=== PATIENT | male | born 1950 | race Caucasian/White ===

== ENCOUNTER 2017-07-05 21:22 | Emergency (ER) | payer MEDICARE ==
[2017-07-05] MEDS ORDERED: Acetaminophen TAB* 325 MG PO ONE (21:30)
[2017-07-06 00:30] VITALS: BP 136/81
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
--- NOTE | 2017-07-06 07:40 | RAD ---
INDICATION: Intracranial injury. Anticoagulated. COMPARISON: None TECHNIQUE: Noncontrast axial source images were acquired from the skull base to the vertex. FINDINGS: Ventricles/sulci: There is cortical atrophy with compensatory dilatation of the CSF spaces. Brain parenchyma: There is no acute focal parenchymal finding, evidence of intracranial mass, or intracranial mass effect. Intracranial hemorrhage:None. Extra-axial spaces: There are no abnormal extra axial fluid collections or evidence of extra-axial mass. Calvarium: There is no calvarial fracture or other calvarial abnormality. Scalp: There is no evidence of scalp or extracalvarial soft tissue abnormality. Paranasal sinuses/mastoid: The paranasal sinuses and mastoid air cells are clear. Other: There is a subcutaneous lesion in the right occipital region which is low in density and measures 3.3 cm in maximum transverse dimension. This likely a benign entity, perhaps a sebaceous cyst. This requires clinical evaluation and management,.. IMPRESSION: Cortical atrophy. No acute intracranial findings. Low suspicion, subcutaneous cystic lesion as described.
--- NOTE | 2017-07-06 07:47 | RAD ---
INDICATION: Fall. Possible neck injury COMPARISON: CT brain same date TECHNIQUE: Noncontrast axial source images was performed from the skull base to the thoracic inlet. Coronal and and sagittal reformatted images were generated. FINDINGS: Vertebrae: There is no fracture or acute focal bony lesion. There is moderate multilevel degenerative change with marginal osteophyte formation, uncinate process spurring, posterior spondylitic ridge formation, and facet arthropathy. Alignment: The craniocervical junction appears normal. The cervical vertebrae are normally aligned. Central Canal: The degenerative changes above result in moderate central canal stenosis at C6-C7 secondary to posterior osteophyte/disc complex formation. Posterior process spurring leads to moderate to severe multilevel foraminal narrowing throughout. MR imaging is a more sensitive method to evaluate the canal and foramina. Intervertebral disc spaces: The disc spaces are maintained. Brain: The visualized brain appears unremarkable. Soft tissues: The visualized soft tissue elements of the neck are remarkable for a low suspicion septated cyst in the right occipital region as described in the CT of the brain. The prevertebral soft tissues appear normal. The lung apices are clear. IMPRESSION: ADVANCED MULTILEVEL OSTEOARTHRITIC CHANGE. NO ACUTE FINDINGS
--- NOTE | 2017-07-06 07:51 | RAD ---
INDICATION: Right elbow injury COMPARISON: None TECHNIQUE: AP and lateral views were obtained. FINDINGS: There is no acute fracture. There is mild degenerative change with spurring of the proximal ulna and minor spurring about the radial head. The elbow articulates normally. There is no fat-pad displacement. IMPRESSION: MINOR OSTEOARTHRITIS. NO ACUTE FINDINGS.
== END 2017-07-05 23:30 ==
LOC: ED 21:22
DX: S09.90XA Unspecified injury of head, initial encounter (principal); S50.312A Abrasion of left elbow, initial encounter; Y04.0XXA Assault by unarmed brawl or fight, initial encounter; Y92.9 Unspecified place or not applicable; G31.9 Degenerative disease of nervous system, unspecified; M48.02 Spinal stenosis, cervical region; M47.812 Spondylosis without myelopathy or radiculopathy, cervical region; M19.022 Primary osteoarthritis, left elbow
CPT/HCPCS: 70450; 72125; 99283; A9270-GY

== ENCOUNTER 2017-10-13 15:45 | Inpatient (IN) | payer MEDICARE ==
--- NOTE | 2017-10-13 16:01 | ED ---
HPI Febrile Illness - HPI Summary HPI Summary: 67 y/o male presents to the ED c/o fever. Pt is febrile in the ED - initial temp 102.2. Sx not aggravated or alleviated by anything. Pt is a poor historian. Associated sx: diaphoresis, chills. Pt does not walk. Denies pain anywhere. Baseline mental status is not fully A&O, per [facility] to EMS to nurse. Pt lives at [facility]. PMHx schizoaffective disorder. - History of Current Complaint Chief Complaint: EDFever Hx Obtained From: Patient Pain Intensity: 0 Aggravating Factors: Nothing Alleviating Factors: Nothing Associated Signs and Symptoms: Chills, Diaphoresis - Allergy/Home Medications Allergies/Adverse Reactions: Allergies Allergy/AdvReac Type Severity Reaction Status Date / Time No Known Allergies Allergy Verified 07/05/17 21:32 Home Medications: Home Medications Acetaminophen TAB* [Tylenol TAB*] 650 mg PO Q6H PRN 10/13/17 [History Confirmed 10/13/17] Al Hydrox/Mg Hydrox/Simet LIQ* [Maalox Plus*] 30 ml PO Q4H PRN 10/13/17 [ History Confirmed 10/13/17] Atorvastatin* [Lipitor*] 10 mg PO 1700 10/13/17 [History Confirmed 10/13/17] Divalproex Sprinkle CAP* [Depakote Sprinkle CAP*] 125 mg PO BID 10/13/17 [ History Confirmed 10/13/17] Furosemide TAB* [Lasix TAB*] 20 mg PO DAILY 10/13/17 [History Confirmed 10/13/17 ] Gabapentin CAP(*) [Neurontin 300 CAP(*)] 300 mg PO TID 10/13/17 [History Confirmed 10/13/17] Haloperidol TAB* [Haldol TAB*] 5 mg PO BID 10/13/17 [History Confirmed 10/13/17] Magnesium CITRATE* 30 ml PO DAILY PRN 10/13/17 [History Confirmed 10/13/17] Magnesium Oxide TAB* [MagOx 400 TAB*] 400 mg PO BID 10/13/17 [History Confirmed 10/13/17] [place]-3 Fatty Acids/Fish Oil [[place] 3] 1 cap PO BID 10/13/17 [History Confirmed 10/13/17] Omeprazole CAP* [Prilosec CAP* 20 MG] 20 mg PO BEDTIME 10/13/17 [History Confirmed 10/13/17] Potassium Chlor TAB* [Klor Con ER TAB*] 20 meq PO SEE INSTRUCTIONS 10/13/17 [ History Confirmed 10/13/17] Rivaroxaban TAB(*) [Xarelto 20 mg] 20 mg PO DAILY 10/13/17 [History Confirmed ] Senna TAB* [Senokot TAB*] 2 tab PO BEDTIME PRN 10/13/17 [History Confirmed 10/13] diphenhydrAMINE HCl [Diphenhydramine HCl] 50 mg PO BEDTIME PRN 10/13/17 [ History Confirmed 10/13/17] glipiZIDE TAB.XL* [Glucotrol XL*] 2.5 mg PO DAILY 10/13/17 [History Confirmed ] PMH/Surg Hx/FS Hx/Imm Hx Previously Healthy: No Endocrine/Hematology History: Denies: Hx Diabetes Neurological History: Reports: Other Neuro Impairments/Disorders - 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 Infectious Disease History: Unable to Obtain/Confirm Infectious Disease History: Denies: Traveled Outside the [place] in Last 30 Days - Family History Known Family History: Positive: Hypertension - Social History Alcohol Use: None Hx Substance Use: No Substance Use Type: Reports: None Hx Tobacco Use: Yes Smoking Status (MU): Former Smoker Review of Systems Positive: Fever, Chills, Skin Diaphoresis Eyes: Negative ENT: Negative Cardiovascular: Negative Respiratory: Negative Gastrointestinal: Negative Genitourinary: Other - urine red in urine cup Musculoskeletal: Negative Skin: Negative Neurological: Negative Psychological: Normal All Other Systems Reviewed And Are Negative: No Physical Exam - Summary Physical Exam Summary: Appearance: Alert, conversive, nontoxic appearing Skin: Warm, dry, no mottling, no rashes, no contusions HEENT: EOMI, PERRL, moist mucous membranes. Discharge from R nose. Neck: No masses on the neck, supple Respiratory: Clear to auscultation, breath sounds slightly diminished, no rales , no rhonchi, no wheezes Cardiovascular: RRR, pulses are symmetrical in both lower and upper extremities Abdomen: Soft, non-tender Bowel Sounds: Present Musculoskeletal: No CVA tenderness, no obvious deformity, moving all extremities in a grossly normal manner Neurological: A&Ox3, CN II-XII Intact, moving all extremities symmetrically Psychiatric: Normal affect and mood Triage Information Reviewed: Yes Vital Signs On Initial Exam: Initial Vitals Temp Pulse Resp BP Pulse Ox 102.2 F 112 22 124/82 90 10/13/17 15:47 10/13/17 15:47 10/13/17 15:47 10/13/17 15:47 10/13/17 15:47 Vital Signs Reviewed: Yes Diagnostics - Vital Signs Vital Signs Temp Pulse Resp BP Pulse Ox 10/13/17 15:47 102.2 F 112 22 124/82 90 - Laboratory Result Diagrams: 10/13/17 16:15 10/13/17 16:15 Lab Statement: Any lab studies that have been ordered have been reviewed, and results considered in the medical decision making process. - Radiology CXR Radiology Interpretation Completed By: Radiologist - Examination is expiratory with vascular . - EKG 1 EKG Interpretation: 16:07 - ST @ 106 BPM. Normal QRS, QTc, R axis. Normal ST T waves. Course/Dx - Course Assessment/Plan: 67 y/o male presents to the ED c/o fever. Initial ED temp - 102.2. EKG - 16:07 - ST @ 106 BPM. Normal QRS, QTc, R axis. Normal ST T waves. Pt baseline mental status not A&Ox4. Pt is a poor historian. Bloodwork shows UTI , elevated lactic acid (2.2). CXR shows Examination is expiratory with vascular . Spoke with Dr. Acosta, who admitted the pt to [facility]. - Diagnoses Provider Diagnoses: UTI (urinary tract infection), Weakness - Provider Notifications Discussed Care Of Patient With: Ivan Acosta Time Discussed With Above Provider: 18:30 Instructed by Provider To: Admit As Inpatient Discharge - Sign-Out/Discharge Documenting (check all that apply): Patient Departure - Discharge Plan Condition: Stable Disposition: ADMITTED TO [facility] Referrals: No Primary Care Phys,NOPCP [Primary Care Provider] - - Billing Disposition and Condition Condition: STABLE Disposition: Admitted to [facility] - Attestation Statements Document Initiated by Scribe: Yes Documenting Scribe: Vincent Eaton Provider For Whom Scribe is Documenting (Include Credential): Ophelia Sharpe MD Scribe Attestation: Vincent Galvan, scribed for Ophelia Sharpe MD on 10/13/17 at 1848. Scribe Documentation Reviewed: Yes Provider Attestation: The documentation as recorded by the adonisibeVincent accurately reflects the service I personally performed and the decisions made by me, Ophelia Sharpe MD
[2017-10-13 16:39] LABS: ABS Basophils 0.1 10^3/ul (0-0.2); ABS Eosinophils 0 10^3/ul (0-0.6); ABS Lymphocytes 2.2 10^3/ul (1.0-4.8); ABS Monocytes 1.5 10^3/ul (0-0.8); ABS Neutrophils 9.7 10^3/ul (1.5-7.7); ABS Nucleated RBC 0 10^3/ul; Eosinophil % 0.1 % (0-6); Hematocrit 45 % (42-52); Hemoglobin 15.3 g/dl (14.0-18.0); Lymphocyte % 16.1 % (25-47); Mean Corpuscular HGB Conc 34 g/dl (31-36); Mean Corpuscular Hemoglobin 30 pg (27-31); Mean Corpuscular Volume 89 fL (80-94); Mean Platelet Volume 7.8 um3 (7.4-10.4); Nucleated Red Blood Cells % 0.1; Platelet Count 140 10^3/ul (150-450); Red Cell Distribution Width 14 % (10.5-15); White Blood Count 13.4 10^3/ul (3.5-10.8)
--- NOTE | 2017-10-13 16:41 | RAD ---
INDICATION: Fever COMPARISON: None TECHNIQUE: An AP portable view obtained at 1621 hours is submitted. FINDINGS: Bones/Soft Tissues: There are no acute bony findings. Cardiomediastinal: The cardiomediastinal silhouette is normal. Lungs: There are no focal infiltrates. Pleura: There are no pleural effusions. Other: None IMPRESSION: EXAMINATION IS EXPIRATORY WITH VASCULAR CROWDING.
[2017-10-13 16:50] LABS: INR 1.06 (0.77-1.02)
[2017-10-13 16:56] LABS: EGFR Non-African American 83.4 (>60)
[2017-10-13] MEDS ORDERED: NS 0.9% 500 ML* 500 ML IV ONE ×2 (17:12→20:57)
[2017-10-13 17:23] LABS: Urine Appearance Cloudy; Urine Blood 3+ (Negative); Urine Color Yellow; Urine Ketones 1+ (Negative); Urine Protein 1+(30 mg/dL) (Negative); Urine Red Blood Cell 3+(>10/hpf) (Absent); Urine Specific Gravity 1.035 (1.010-1.030); Urine Urobilinogen Negative (Negative); Urine White Blood Cell 3+(>20/hpf) (Absent)
[2017-10-13] MEDS ORDERED: cefTRIAXone(*) 1 GM in NS 0.9% 50 ML* 50 ML IVPB ONE (17:31)
[2017-10-13] MEDS ORDERED: Acetaminophen TAB* 325 MG PO PRN (20:16)
[2017-10-13] MEDS ORDERED: Al Hydrox/Mg Hydrox/Simet LIQ* 30 ML UDC PO PRN ×2 (20:16→20:43)
[2017-10-13] MEDS ORDERED: diPHENhydraMINE PO* 50 MG PO PRN (20:43)
[2017-10-13] MEDS ORDERED: Senna TAB PO PRN (20:43)
[2017-10-13] MEDS ORDERED: Dextrose 50% Syringe 50 ML* 25 GM/50 ML SYRINGE IV PUSH PRN (20:46)
[2017-10-13] MEDS ORDERED: FATTY ACIDS PO SCH (21:00)
[2017-10-13] MEDS ORDERED: FISH OIL PO SCH (21:00)
[2017-10-13] MEDS ORDERED: OMEGA PO SCH (21:00)
--- NOTE | 2017-10-13 22:01 | RAD ---
EXAM: CT Abdomen and Pelvis Without Intravenous Contrast CLINICAL HISTORY: 67 years old, male; Pain; Abdominal pain; Generalized; Additional info: Hematuria TECHNIQUE: Axial computed tomography images of the abdomen and pelvis without intravenous contrast. All CT scans at this facility use at least one of these dose optimization techniques: automated exposure control; mA and/or kV adjustment per patient size (includes targeted exams where dose is matched to clinical indication); or iterative reconstruction. Coronal and sagittal reformatted images were created and reviewed. COMPARISON: No relevant prior studies available. FINDINGS: Lung bases: Linear opacities located in the lung bases consistent with areas of atelectasis and/or scarring. ABDOMEN: Liver: The liver is of normal size and appearance. No focal lesion is demonstrated. Gallbladder and bile ducts: 5 mm hyperdensity within the lumen of the gallbladder most likely representing a calcified stone. The gallbladder is collapsed. No ductal dilatation. Pancreas: The pancreas is normal in appearance. No ductal dilatation. Spleen: Unremarkable. No splenomegaly. Adrenals: The adrenal glands are normal. The adrenal gland is visualized and is normal in appearance. Kidneys and ureters: The kidneys are of normal size and appearance. No hydronephrosis or nephrolithiasis. No hydroureter. No obvious renal mass. However the study is performed without intravenous contrast. Stomach and bowel: No bowel obstruction. No mucosal thickening. PELVIS: Appendix: No findings to suggest acute appendicitis. Bladder: The bladder is filled with urine. The density of fluid is approximately 30 Hounsfield units. No bladder wall thickening is seen. No calcified bladder stone. Reproductive: Unremarkable as visualized. ABDOMEN and PELVIS: Intraperitoneal space: No free intra-abdominal fluid or air. Bones/joints: Spondylotic changes of the lumbar spine. Subtle fracture or pathologic subluxation. Soft tissues: Unremarkable. Vasculature: Atheromatous changes involving the abdominal aorta and iliac arteries. No aneurysmal dilatation. Lymph nodes: Unremarkable. No enlarged lymph nodes. IMPRESSION: No acute findings. The kidneys shows no evidence of hydronephrosis or nephrolithiasis. The unenhanced study shows no obvious renal mass. However if the patient's hematuria persists, I would suggest obtaining a CT scan of the abdomen and pelvis with intravenous contrast. The patient may require a CT urogram to assess the pyelocalyceal system and ureters for the possibility of a transitional cell cancer. The bladder and may need direct visualization to assess the mucosa of the possibility of a neoplasm.
[2017-10-13] MEDS: NS 0.9% 1000 ML* 1,000 ML IV SCH (23:56)
[2017-10-13] MEDS: Magnesium Oxide TAB* 400 MG PO SCH (23:57)
[2017-10-13] MEDS: Gabapentin CAP(*) 300 MG PO SCH (23:57)
[2017-10-13] MEDS: Omeprazole CAP* 20 MG PO SCH (23:58)
--- NOTE | 2017-10-14 00:02 | HP ---
CC: Del Coronel * HISTORY AND PHYSICAL: DATE OF ADMISSION: 10/13/17 PROVIDER: Ijeoma Hodge NP PRIMARY CARE PROVIDER: Del Coronel. ATTENDING PHYSICIAN WHILE IN THE HOSPITAL: Dr. Violetta Peres * (dictated by Ijeoma Hodge NP). CHIEF COMPLAINT: 1. Weakness. 2. UTI. 3. Fever. HISTORY OF PRESENT ILLNESS: Mr. Zarate is a 67-year-old male with a past medical history significant for schizoaffective disorder, alcohol abuse, chronic DVT and embolism, COPD, hypertension, GERD, hyperlipidemia, diabetes, and constipation who presents to the emergency room with generalized weakness, fever, and shortness of breath with O2 saturation at 88%. On evaluation of the patient, the patient is a poor historian. He does report he has had pain with urination x1 month. He does report some shortness of breath today, but it has improved. He does report hay fever and chills and weakness. He also complains of bilateral foot pain that is chronic. He denies any chest pain or edema. Denies any cough or hemoptysis. Denies any nausea, vomiting, diarrhea, or abdominal pain. He does again report the dysuria and urinary frequency. Given his symptoms of weakness and urinary frequency and urgency, we were asked to see and evaluate him by the emergency room for admission. PAST MEDICAL HISTORY: Significant for: 1. Schizoaffective disorder. 2. Chronic alcohol abuse. 3. Chronic embolism with DVT in the right lower extremity. 4. COPD. 5. Constipation. 6. Hypertension. 7. GERD. 8. Hyperlipidemia. 9. Diabetes type 2. 10. Spinal stenosis. MEDICATIONS: Home medications: 1. Depakote Sprinkles 500 mg p.o. b.i.d. 2. Benadryl 50 mg p.o. at bedtime p.r.n. 3. Xarelto 20 mg p.o. daily. 4. [place]-3 fatty acids 1 cap p.o. b.i.d. 5. Mag citrate 30 mL p.o. p.r.n. 6. Gabapentin 300 mg p.o. t.i.d. 7. Glipizide 2.5 mg p.o. daily. 8. Magnesium oxide 400 mg p.o. b.i.d. 9. Haldol 5 mg p.o. b.i.d. 10. Furosemide 20 mg p.o. daily. 11. Atorvastatin 10 mg p.o. daily. 12. Tylenol 650 mg q.6 hours as needed for pain. 13. Senokot 2 tabs p.o. at bedtime p.r.n. constipation. 14. Potassium 20 mEq Tuesday, Tuesday, and Tuesday. 15. Omeprazole 20 mg p.o. at bedtime. 16. Maalox 30 mL q.4 hours as needed. ALLERGIES TO MEDICATIONS: No known drug allergies. FAMILY HISTORY: He reports his dad was an alcoholic and both parents are . No useful history about his parents. SOCIAL HISTORY: The patient is a former smoker, former alcohol drinker. He currently resides at [facility]. REVIEW OF SYSTEMS: This is a documented fever. There has been no significant weight change. No double vision, no ear discharge, no rhinorrhea, no sore throat. He denies any chest pain. Denies any orthopnea or nocturnal dyspnea. There was no abdominal pain. No nausea or vomiting. He does report dysuria and urinary frequency. He denies any seizures or loss of consciousness. No pruritus or skin ulcerations. He does complain of bilateral foot pain that is chronic. He also reported some shortness of breath earlier today that has resolved. He does report weakness. A review of 14 systems was completed and all others are negative. PHYSICAL EXAMINATION GENERAL: At this time, Mr. Zarate is a 67-year-old male. He appears alert and oriented, resting on the stretcher in the emergency room. He does not appear to be in any acute distress. VITAL SIGNS: As follows: Blood pressure 128/82, heart rate is 91, respirations were 25, O2 saturation 95% on 2 L. HEENT: Head is atraumatic and normocephalic. Eyes: EOMs intact. Sclerae are anicteric and not pale. Oral mucosa appeared to be moist. NECK: Supple. LUNGS: Clear to auscultation bilaterally. No wheezes, rales, or rhonchi. They are diminished in the bases bilaterally. CARDIAC: S1, S2. He has regular rate and rhythm. There are no murmurs, rubs, or gallops. ABDOMEN: Soft and nontender. There is no CVA tenderness. Bowel sounds are present x4. EXTREMITIES: Pedal pulses are +2 bilaterally. He is able to move all 4 extremities with 4/5 strength. NEUROLOGIC: He is awake, alert, and oriented x3. Speech is clear. There is no gross focal deficits. SKIN: Intact. DIAGNOSTIC STUDIES AND LABORATORY DATA: WBCs are 13.4, RBCs 5.10, hemoglobin 15.3, hematocrit was 45, platelet count was 140. INR was 1.06, APTT was 29.0. Sodium 136, potassium 4.3, chloride was 100, carbon dioxide was 30, BUN was 21, creatinine 0.91, glucose was 257, calcium 8.7. Total bilirubin was 0.30. Lactic acid was 2.2, repeat was 2.1. ASTs were 18, ALTs were 25. Troponin was 0.01. Chest x-ray, radiologist's impression: Exam is expiratory with vascular crowding. EKG showed sinus tachycardia at a rate of 106. CT of the abdomen and pelvis is pending. ASSESSMENT AND PLAN: Mr. Zarate is a 67-year-old male who presented to the emergency room with complaints of weakness, shortness of breath, and fever and dysuria from [facility]. We were asked to see and evaluate him for urinary symptoms and weakness. He will be admitted inpatient for: 1. Sepsis. He is meeting sepsis criteria by elevation of respirations at a rate of 25. Temperature on admission was 102.2, heart rate was 98, and white count of 13.4. His lactic acid is also elevated at 2.2. He received a 500 cc bolus of normal saline in the emergency room. I will repeat a 500 cc bolus of saline and continue normal saline at 100 cc per hour. Repeat a lactic acid in the morning. I suspect that the sepsis is related to his urinary tract infection. His culture is currently pending. 2. Fever. I suspect this is related to urinary tract infection. We will continue him on ceftriaxone 1 g q.24 hours. Urine culture is currently pending. Antibiotics will be changed if needed based on urinary culture. 3. Weakness. I suspect this is related to his fever and urinary tract infection. We will continue with IV hydration and IV antibiotics. 4. Hematuria. He does have a significant amount of blood in his urine. At this time, I am going to hold his Xarelto. I will get a CT of the abdomen and pelvis, which is currently pending to rule out stone. 5. Diabetes. I will place him on lispro sliding scale and Accu-Cheks a.c. and h.s. I will hold his glipizide at this time. 6. Hypertension. He is not currently on any hypertensive medications. He is normotensive on admission. We will continue to monitor his blood pressure. His blood pressure is 128/82. We will continue him on omeprazole 20 mg p.o. at bedtime. 7. Chronic embolism and deep venous thrombosis in the right leg. At this time , we will hold his Xarelto due to his hematuria. 8. Chronic obstructive pulmonary disease. We will continue with oxygen support and albuterol nebulizers as needed for shortness of breath or wheezing. 9. Schizoaffective disorder. We will continue him on his Haldol 5 mg p.o. b.i.d., Depakote 500 p.o. b.i.d. 10. Hyperlipidemia. We will continue him on his Lipitor 10 mg p.o. daily. 11. FEN. He will be placed on a consistent carb, heart-healthy diet. 12. DVT prophylaxis. He will have SCDs. We are going to hold Xarelto at this time due to the gross hematuria. 13. Ruben status. He is a full code. 14. Disposition. He will be placed inpatient for urinary tract infection/ severe sepsis. TIME SPENT: Time spent on this admission was approximately 60 minutes, greater than half the time was spent [id number] with the patient obtaining my history and physical, the other half of the time was spent going over my plan of care and implementing my plan of care. I have discussed this with my attending, Dr. Violetta Peres, she is in agreement with my plan. IJEOMA HODGE, CONTRACT ATTORNEY [id number]/[facility] #: [id number] JESSICA
[2017-10-14] MEDS: Insulin LISPRO* 1 UNITS UNIT SUBCUT SCH ×5 (00:15→21:06)
[2017-10-14] MEDS ORDERED: OMEGA PO SCH (02:27)
[2017-10-14] MEDS ORDERED: FATTY ACIDS PO SCH (02:27)
[2017-10-14] MEDS ORDERED: FISH OIL PO SCH (02:27)
[2017-10-14 06:25] LABS: Hematocrit 44 % (42-52); Hemoglobin 14.8 g/dl (14.0-18.0); Mean Corpuscular HGB Conc 34 g/dl (31-36); Mean Corpuscular Hemoglobin 30 pg (27-31); Mean Corpuscular Volume 89 fL (80-94); Mean Platelet Volume 7.5 um3 (7.4-10.4); Platelet Count 125 10^3/ul (150-450); Red Blood Count 4.93 10^6/ul (4.00-5.40); Red Cell Distribution Width 14 % (10.5-15); White Blood Count 13.4 10^3/ul (3.5-10.8)
[2017-10-14 06:42] LABS: ABS Basophils 0.1 10^3/ul (0-0.2); ABS Eosinophils 0 10^3/ul (0-0.6); ABS Lymphocytes 2.4 10^3/ul (1.0-4.8); ABS Monocytes 1.6 10^3/ul (0-0.8); ABS Neutrophils 9.2 10^3/ul (1.5-7.7); ABS Nucleated RBC 0 10^3/ul; Eosinophil % 0.1 % (0-6); Lymphocyte % 18.1 % (25-47); Nucleated Red Blood Cells % 0.1
[2017-10-14 06:43] LABS: EGFR Non-African American 92.7 (>60)
[2017-10-14] MEDS: Gabapentin CAP(*) 300 MG PO SCH ×3 (08:36→21:06)
[2017-10-14] MEDS: Furosemide TAB* 20 MG PO SCH (08:36)
[2017-10-14] MEDS: Magnesium Oxide TAB* 400 MG PO SCH ×2 (08:37→21:07)
[2017-10-14] MEDS ORDERED: Potassium Chlor TAB* 20 MEQ TAB.ER PO SCH (09:00)
[2017-10-14] MEDS ORDERED: glipiZIDE TAB.XL* 2.5 MG PO SCH (09:00)
--- NOTE | 2017-10-14 10:03 | PN ---
Subjective Date of Service: 10/14/17 Interval History: Pt states he is feeling poorly. He denies any pain. He does tell me he feels SOB but his nurse stated he denied it to her. He is not as talkative as he typically is at [facility]. He does ask for vicks vapor rub stating he needs it. Objective Active Medications: Acetaminophen (Tylenol Tab*) 650 mg PO Q4H PRN PRN Reason: FEVER/PAIN Al Hydrox/Mg Hydrox/Simethicone (Maalox Plus*) 30 ml PO Q4H PRN PRN Reason: CONSTIPATION Atorvastatin Calcium (Lipitor*) 10 mg PO 1700 [facility] Dextrose (D50w Syringe 50 Ml*) 12.5 gm IV PUSH .FOR FS < 60 - SS PRN PRN Reason: FS < 60 Diphenhydramine HCl (Benadryl Po*) 50 mg PO BEDTIME PRN PRN Reason: AGITATION Last Admin: 10/13/17 23:56 Dose: 50 mg Fish Oil (Fish Oil (Nf)) 1,000 mg PO BID [facility] Furosemide (Lasix Tab*) 20 mg PO DAILY [facility] Last Admin: 10/14/17 08:36 Dose: 20 mg Gabapentin (Neurontin Cap(*)) 300 mg PO TID [facility] Last Admin: 10/14/17 08:36 Dose: 300 mg Ceftriaxone Sodium 1 gm/ (Sodium Chloride) 50 mls @ 200 mls/hr IVPB Q24H [facility] Sodium Chloride (Ns 0.9% 1000 Ml*) 1,000 mls @ 100 mls/hr IV PER RATE [facility] Last Admin: 10/13/17 23:56 Dose: 100 mls/hr Insulin Human Lispro (Humalog*) 0 units SUBCUT ACHS [facility]; Protocol Last Admin: 10/14/17 08:35 Dose: 6 unit Magnesium Oxide (Magox 400 Tab*) 400 mg PO BID [facility] Last Admin: 10/14/17 08:37 Dose: 400 mg Omeprazole (Prilosec Cap*) 20 mg PO BEDTIME [facility] Last Admin: 10/13/17 23:58 Dose: 20 mg Potassium Chloride (Klor Con Er Tab*) 20 meq PO MoWeFr@0900 [facility] Last Admin: 10/14/17 08:36 Dose: 20 meq Senna (Senokot Tab*) 2 tab PO BEDTIME PRN PRN Reason: CONSTIPATION Last Admin: 10/13/17 23:56 Dose: 2 tab Vital Signs - 8 hr 10/14/17 10/14/17 10/14/17 02:37 03:36 07:37 Temperature 99.4 F 100.2 F Pulse Rate 93 94 Respiratory 20 22 30 Rate Blood Pressure 136/68 116/63 (mmHg) O2 Sat by Pulse 86 90 Oximetry 10/14/17 10/14/17 10/14/17 07:44 07:45 08:36 Temperature Pulse Rate Respiratory 28 24 Rate Blood Pressure (mmHg) O2 Sat by Pulse 90 Oximetry Oxygen Devices in Use Now: None Appearance: Middle aged discheveled male who appears older than his stated age, sitting up in bed, NAD Eyes: No Scleral Icterus Ears/Nose/Mouth/Throat: Mucous Membranes Moist Respiratory: Symmetrical Chest Expansion and Respiratory Effort, Clear to Auscultation, - - mildly tachypnic Cardiovascular: NL Sounds; No Murmurs; No JVD, RRR, No Edema Abdominal: - - rotund abdomen, soft, NT, BS+ Extremities: No Clubbing, Cyanosis Skin: No Rash or Ulcers Neurological: - - not as talkative as usual but mental status appears to be at baseline (I know the patient from [facility]) Result Diagrams: 10/14/17 06:06 10/14/17 06:06 Microbiology and Other Data: Microbiology 10/14/17 00:51 Nasal Screen MRSA (PCR) - Final Nasal Mrsa Not Detected Assess/Plan/Problems-Billing Mr. Zarate is a 67 yo M who has a h/o schizoaffective disorder who was hospitalized at the [facility] for a prolonged period of time prior to being admitted to [facility] this past May, h/o DVT, COPD, HTN and type II DM who presented to the ER with c/o weakness and fever and was found to be septic secondary to a probable UTI. - Patient Problems (1) Sepsis Current Visit: Yes Status: Acute Comment: Likely secondary to UTI, no signs of severe sepsis on admission. He did not receive the 30ml/kg IVF bolus in the ER due to already vascular congestion. Monitor VS and labs. Treat UTI. (2) UTI (urinary tract infection) Current Visit: Yes Status: Acute Comment: Likely UTI based on abnormal UA. Will await urine culture. Continue ceftriaxone. (3) COPD (chronic obstructive pulmonary disease) Current Visit: Yes Status: Acute Code(s): J44.9 - CHRONIC OBSTRUCTIVE PULMONARY DISEASE, UNSPECIFIED SNOMED Code(s): 88832422 Comment: Stable though today pt noted to be slightly tachypnic. O2 sat marginal though pt refusing to wear O2. (4) Type II diabetes mellitus Current Visit: Yes Status: Acute Comment: Sugars are moderately elevated off glipizide. For now will continue just the lispro sliding scale. Goal blood sugars are 100-180. Last A1c in 05/2017 6.7% which is felt to be acceptable for the NH. (5) HTN (hypertension) Current Visit: Yes Status: Acute Code(s): I10 - ESSENTIAL (PRIMARY) HYPERTENSION SNOMED Code(s): 71404993 Comment: BP is under good control. Continue lasix and monitor BP. (6) Schizoaffective disorder Current Visit: Yes Status: Acute Code(s): F25.9 - SCHIZOAFFECTIVE DISORDER, UNSPECIFIED SNOMED Code(s): 39674869 Comment: Resume depakote and haldol. (7) DVT (deep venous thrombosis) Current Visit: Yes Status: Acute Code(s): I82.409 - ACUTE EMBOLISM AND THOMBOS UNSP DEEP VN UNSP LOWER EXTREMITY SNOMED Code(s): 931513300 Comment: Xarelto was held yesterday secondary to hematuria. Will look back at old records to determine when the DVT was identified. Perhaps the xarelto can be discontinued completely. (8) Hematuria Current Visit: Yes Status: Acute Code(s): R31.9 - HEMATURIA, UNSPECIFIED SNOMED Code(s): 05837400 Comment: ? secondary to UTI vs just being on xarelto vs other. If hematuria does not clear up off xarelto and with treament of the UTI he will need a urology evaluation. (9) Full code status Current Visit: Yes Status: Acute Code(s): Z78.9 - OTHER SPECIFIED HEALTH STATUS SNOMED Code(s): 223134198
[2017-10-14] MEDS: NS 0.9% 1000 ML* 1,000 ML IV SCH (16:28)
[2017-10-14] MEDS: CMCS:OMEGA-3 FATTY ACIDS (NF) 1,000 MG CAP PO SCH ×2 (16:30→21:06)
[2017-10-14] MEDS: Atorvastatin* 10 MG TAB PO SCH (18:10)
[2017-10-14] MEDS: cefTRIAXone(*) 1 GM in NS 0.9% 50 ML* 50 ML IVPB SCH (18:10)
[2017-10-14] MEDS ORDERED: cefTRIAXone(*) 1 GM in NS 0.9% 50 ML* 50 ML IVPB SCH (19:00)
[2017-10-14] MEDS: Omeprazole CAP* 20 MG PO SCH (21:07)
[2017-10-14] MEDS: Divalproex Sprinkle CAP* 125 MG PO SCH (21:07)
[2017-10-14] MEDS: Haloperidol TAB* 5 MG PO SCH (21:07)
--- NOTE | 2017-10-15 10:22 | PN ---
Subjective Date of Service: 10/15/17 Interval History: Bassam states he is feeling about the same. He does states yes to feeling SOB. He denies any coughing. Objective Active Medications: Acetaminophen (Tylenol Tab*) 650 mg PO Q4H PRN PRN Reason: FEVER/PAIN Al Hydrox/Mg Hydrox/Simethicone (Maalox Plus*) 30 ml PO Q4H PRN PRN Reason: CONSTIPATION Atorvastatin Calcium (Lipitor*) 10 mg PO 1700 [facility] Last Admin: 10/14/17 18:10 Dose: 10 mg Dextrose (D50w Syringe 50 Ml*) 12.5 gm IV PUSH .FOR FS < 60 - SS PRN PRN Reason: FS < 60 Diphenhydramine HCl (Benadryl Po*) 50 mg PO BEDTIME PRN PRN Reason: AGITATION Last Admin: 10/13/17 23:56 Dose: 50 mg Divalproex Sodium (Depakote Sprinkle Cap*) 500 mg PO BID [facility] Last Admin: 10/14/17 21:07 Dose: 500 mg Fish Oil (Fish Oil (Nf)) 1,000 mg PO BID [facility] Last Admin: 10/14/17 21:06 Dose: 1,000 mg Furosemide (Lasix Tab*) 20 mg PO DAILY [facility] Last Admin: 10/14/17 08:36 Dose: 20 mg Gabapentin (Neurontin Cap(*)) 300 mg PO TID [facility] Last Admin: 10/14/17 21:06 Dose: 300 mg Haloperidol (Haldol Tab*) 5 mg PO BID [facility] Last Admin: 10/14/17 21:07 Dose: 5 mg Ceftriaxone Sodium 1 gm/ (Sodium Chloride) 50 mls @ 200 mls/hr IVPB Q24H [facility] Last Admin: 10/14/17 18:10 Dose: 200 mls/hr Sodium Chloride (Ns 0.9% 1000 Ml*) 1,000 mls @ 100 mls/hr IV PER RATE [facility] Last Admin: 10/14/17 16:28 Dose: 100 mls/hr Insulin Human Lispro (Humalog*) 0 units SUBCUT ACHS [facility]; Protocol Last Admin: 10/14/17 21:06 Dose: 3 unit Magnesium Oxide (Magox 400 Tab*) 400 mg PO BID [facility] Last Admin: 10/14/17 21:07 Dose: 400 mg Omeprazole (Prilosec Cap*) 20 mg PO BEDTIME [facility] Last Admin: 10/14/17 21:07 Dose: 20 mg Potassium Chloride (Klor Con Er Tab*) 20 meq PO MoWeFr@0900 [facility] Last Admin: 10/14/17 08:36 Dose: 20 meq Senna (Senokot Tab*) 2 tab PO BEDTIME PRN PRN Reason: CONSTIPATION Last Admin: 10/13/17 23:56 Dose: 2 tab Vital Signs - 8 hr 10/15/17 10/15/17 03:25 07:27 Temperature 99.9 F 99.7 F Pulse Rate 89 87 Respiratory 18 18 Rate Blood Pressure 116/64 130/85 (mmHg) O2 Sat by Pulse 96 93 Oximetry Oxygen Devices in Use Now: Nasal Cannula Appearance: Middle aged discheveled male sitting up in bed, eating breakfast, dripping food onto his pike, NAD Eyes: No Scleral Icterus Ears/Nose/Mouth/Throat: Mucous Membranes Moist Respiratory: Symmetrical Chest Expansion and Respiratory Effort, Clear to Auscultation - diminished breath sounds in all lung figueroa Cardiovascular: NL Sounds; No Murmurs; No JVD, RRR, - - trace B/L LE edema Abdominal: NL Sounds; No Tenderness; No Distention Extremities: No Clubbing, Cyanosis Skin: No Nodules or Sclerosis Neurological: - - alert, baseline mental status Result Diagrams: 10/14/17 06:06 10/14/17 06:06 Microbiology and Other Data: Microbiology 10/14/17 00:51 Nasal Screen MRSA (PCR) - Final Nasal Mrsa Not Detected Assess/Plan/Problems-Billing Mr. Zarate is a 67 yo M who has a h/o schizoaffective disorder who was hospitalized at the [facility] for a prolonged period of time prior to being admitted to [facility] this past May, h/o DVT, COPD, HTN and type II DM who presented to the ER with c/o weakness and fever and was found to be septic secondary to a probable UTI. - Patient Problems (1) Sepsis Current Visit: Yes Status: Acute Comment: Secondary to UTI. Sepsis has resolved. (2) UTI (urinary tract infection) Current Visit: Yes Status: Acute Comment: Urine culture grew proteus mirabilis. Will continue ceftriaxone x1 more day then likely out on oral Abx to continue treatment for a total of 14days. Pt still with low grade fever. Will get repeat labs tomorrow. (3) COPD (chronic obstructive pulmonary disease) Current Visit: Yes Status: Acute Code(s): J44.9 - CHRONIC OBSTRUCTIVE PULMONARY DISEASE, UNSPECIFIED SNOMED Code(s): 51443485 Comment: Stable. Pt wearing O2 currently. Mild tachypnea but looks comfortable. (4) Type II diabetes mellitus Current Visit: Yes Status: Acute Comment: Sugars are moderately elevated off glipizide. For now will continue just the lispro sliding scale. Goal blood sugars are 100-180. Last A1c in 05/2017 6.7% which is felt to be acceptable for the NH. Resume glipizide tomorrow AM. (5) HTN (hypertension) Current Visit: Yes Status: Acute Code(s): I10 - ESSENTIAL (PRIMARY) HYPERTENSION SNOMED Code(s): 45090637 Comment: BP is under good control. Continue lasix and monitor BP. (6) Schizoaffective disorder Current Visit: Yes Status: Acute Code(s): F25.9 - SCHIZOAFFECTIVE DISORDER, UNSPECIFIED SNOMED Code(s): 48345377 Comment: Continue depakote and haldol. (7) DVT (deep venous thrombosis) Current Visit: Yes Status: Acute Code(s): I82.409 - ACUTE EMBOLISM AND THOMBOS UNSP DEEP VN UNSP LOWER EXTREMITY SNOMED Code(s): 799521642 Comment: Unclear when the DVT was diagnosed. Will get B/L LE doppler to eval for clot. If no clot, stop xarelto. (8) Hematuria Current Visit: Yes Status: Acute Code(s): R31.9 - HEMATURIA, UNSPECIFIED SNOMED Code(s): 54139809 Comment: ? secondary to UTI vs just being on xarelto vs other. If hematuria does not clear up off xarelto and with treament of the UTI he will need a urology evaluation. (9) Full code status Current Visit: Yes Status: Acute Code(s): Z78.9 - OTHER SPECIFIED HEALTH STATUS SNOMED Code(s): 894037258
[2017-10-15] MEDS: Divalproex Sprinkle CAP* 125 MG PO SCH ×2 (10:28→21:18)
[2017-10-15] MEDS: Furosemide TAB* 20 MG PO SCH (10:28)
[2017-10-15] MEDS: Gabapentin CAP(*) 300 MG PO SCH ×3 (10:29→21:18)
[2017-10-15] MEDS: CMCS:OMEGA-3 FATTY ACIDS (NF) 1,000 MG CAP PO SCH ×2 (10:29→21:17)
[2017-10-15] MEDS: Insulin LISPRO* 1 UNITS UNIT SUBCUT SCH ×4 (10:29→21:18)
[2017-10-15] MEDS: Magnesium Oxide TAB* 400 MG PO SCH ×2 (10:29→21:18)
[2017-10-15] MEDS: Haloperidol TAB* 5 MG PO SCH ×2 (10:29→21:18)
[2017-10-15] MEDS: cefTRIAXone(*) 1 GM in NS 0.9% 50 ML* 50 ML IVPB SCH (18:09)
[2017-10-15] MEDS: Atorvastatin* 10 MG TAB PO SCH (18:20)
[2017-10-15] MEDS: Omeprazole CAP* 20 MG PO SCH (21:18)
[2017-10-16 06:21] LABS: ABS Basophils 0 10^3/ul (0-0.2); ABS Eosinophils 0.1 10^3/ul (0-0.6); ABS Lymphocytes 2.1 10^3/ul (1.0-4.8); ABS Nucleated RBC 0 10^3/ul; Eosinophil % 1.4 % (0-6); Hematocrit 41 % (42-52); Lymphocyte % 25.4 % (25-47); Mean Corpuscular HGB Conc 34 g/dl (31-36); Mean Corpuscular Hemoglobin 30 pg (27-31); Mean Corpuscular Volume 89 fL (80-94); Mean Platelet Volume 7.5 um3 (7.4-10.4); Nucleated Red Blood Cells % 0.1; Platelet Count 140 10^3/ul (150-450); Red Blood Count 4.62 10^6/ul (4.00-5.40); Red Cell Distribution Width 14 % (10.5-15); White Blood Count 8.3 10^3/ul (3.5-10.8)
[2017-10-16 06:27] LABS: EGFR Non-African American 107.5 (>60)
--- NOTE | 2017-10-16 07:53 | RAD ---
INDICATION: Hypoxia COMPARISON: Most recent comparison chest x-rays dated October 13, 2017 TECHNIQUE: Single AP portable view of the chest was obtained. FINDINGS: Image quality is compromised due to the relative inferiority of a portable chest x-ray. The heart and mediastinum exhibit normal size and contour. Pulmonary vasculature appears engorged and indistinct. The lungs are otherwise grossly clear. There is no evidence of a large pleural effusion. Visualized bones are normal for the patient's age. IMPRESSION: In the correct clinical setting the appearance could be compatible with pulmonary vascular congestion.
[2017-10-16] MEDS ORDERED: glipiZIDE TAB.XL* 2.5 MG PO SCH (09:00)
[2017-10-16] MEDS: Gabapentin CAP(*) 300 MG PO SCH ×2 (09:37→13:14)
[2017-10-16] MEDS: Magnesium Oxide TAB* 400 MG PO SCH (09:37)
[2017-10-16] MEDS: Divalproex Sprinkle CAP* 125 MG PO SCH (09:37)
[2017-10-16] MEDS: CMCS:OMEGA-3 FATTY ACIDS (NF) 1,000 MG CAP PO SCH (09:38)
[2017-10-16] MEDS: Furosemide TAB* 20 MG PO SCH (09:38)
[2017-10-16] MEDS: Haloperidol TAB* 5 MG PO SCH (09:38)
[2017-10-16] MEDS: Insulin LISPRO* 1 UNITS UNIT SUBCUT SCH ×2 (09:38→13:14)
--- NOTE | 2017-10-16 11:48 | PN ---
Subjective Date of Service: 10/16/17 Interval History: Patient seen and examined at bedside. Denies fever, chills, shortness of breath , chest discomfort, N/V/D. He states that he continues to be incontinent of a lot of urine. He also states that he has not moved his bowels since admission. He reports being cold, but states he is cold all of the time. Family History: Unchanged from Admission Social History: Unchanged from Admission Past Medical History: Unchanged from Admission Objective Active Medications: Acetaminophen (Tylenol Tab*) 650 mg PO Q4H PRN Reason: FEVER/PAIN Al Hydrox/Mg Hydrox/Simethicone (Maalox Plus*) 30 ml PO Q4H PRN Reason: CONSTIPATION Atorvastatin Calcium (Lipitor*) 10 mg PO 1700 PATRICK Dextrose (D50w Syringe 50 Ml*) 12.5 gm IV PUSH .FOR FS < 60 - SS PRN Reason: FS < 60 Diphenhydramine HCl (Benadryl Po*) 50 mg PO BEDTIME PRN Reason: AGITATION Divalproex Sodium (Depakote Sprinkle Cap*) 500 mg PO BID PATRICK Fish Oil (Fish Oil (Nf)) 1,000 mg PO BID PATRICK Furosemide (Lasix Tab*) 20 mg PO DAILY PATRICK Gabapentin (Neurontin Cap(*)) 300 mg PO TID PATRICK Glipizide (Glucotrol Xl*) 2.5 mg PO DAILY PATRICK Haloperidol (Haldol Tab*) 5 mg PO BID PATRICK Ceftriaxone Sodium 1 gm/ (Sodium Chloride) 50 mls @ 200 mls/hr IVPB Q24H PATRICK Insulin Human Lispro (Humalog*) 0 units SUBCUT ACHS PATRICK; Protocol Magnesium Oxide (Magox 400 Tab*) 400 mg PO BID PATRICK Omeprazole (Prilosec Cap*) 20 mg PO BEDTIME PATRICK Potassium Chloride (Klor Con Er Tab*) 20 meq PO MoWeFr@0900 PATRICK Senna (Senokot Tab*) 2 tab PO BEDTIME PRN Reason: CONSTIPATION Vital Signs - 8 hr 10/16/17 10/16/17 07:49 09:37 Temperature 99.0 F Pulse Rate 80 Respiratory 21 18 Rate Blood Pressure 110/59 (mmHg) O2 Sat by Pulse 97 Oximetry Oxygen Devices in Use Now: None Appearance: NAD, sitting up in bed Ears/Nose/Mouth/Throat: Mucous Membranes Moist Neck: NL Appearance and Movements; NL JVP Respiratory: Symmetrical Chest Expansion and Respiratory Effort, Clear to Auscultation Cardiovascular: NL Sounds; No Murmurs; No JVD, RRR Abdominal: NL Sounds; No Tenderness; No Distention Skin: No Rash or Ulcers Neurological: Alert and Oriented x 3, NL Muscle Strength and Tone Lines/Tubes/Other Access: Clean, Dry and Intact Peripheral IV - site benign Nutrition: Taking PO's Result Diagrams: 10/16/17 05:57 10/16/17 05:57 Microbiology and Other Data: Microbiology 10/14/17 00:51 Nasal Screen MRSA (PCR) - Final Nasal Mrsa Not Detected Assess/Plan/Problems-Billing Mr. Zarate is a 67 yo M who has a h/o schizoaffective disorder who was hospitalized at the [facility] for a prolonged period of time prior to being admitted to [facility] this past May, h/o DVT, COPD, HTN and type II DM who presented to the ER with c/o weakness and fever and was found to be septic secondary to a UTI. - Patient Problems (1) UTI (urinary tract infection) Comment: - Afebrile and leukocytosis resolved - Urine culture grew >100K proteus mirabilis - Blood cultures, no growth day 2 - Received 3 doses of ceftriaxone, continue treatment for a total of 14 days ( change to keflex) (2) Sepsis Comment: - Resolved - Secondary to UTI (3) Hematuria Code(s): R31.9 - HEMATURIA, UNSPECIFIED SNOMED Code(s): 41753730 Comment: - ? secondary to UTI vs xarelto vs other - If hematuria does not clear up off xarelto and with treament of the UTI he will need a outpatient Urology evaluation (4) COPD (chronic obstructive pulmonary disease) Code(s): J44.9 - CHRONIC OBSTRUCTIVE PULMONARY DISEASE, UNSPECIFIED SNOMED Code(s): 82190116 Comment: - No signs of acute exacerbation at this time - Mild tachypnea but looks comfortable - Continues to have intermittent hypoxia, continue supplemental O2 (5) Type II diabetes mellitus Comment: - Glucose 200-250's - Sugars are moderately elevated off glipizide - Goal blood sugars are 100-180 - Last A1c in 05/2017 6.7% which is felt to be acceptable for the NH - Continue glipizide (6) DVT (deep venous thrombosis) Code(s): I82.409 - ACUTE EMBOLISM AND THOMBOS UNSP DEEP VN UNSP LOWER EXTREMITY SNOMED Code(s): 262231877 Comment: - Unclear when the DVT was diagnosed - B/L LE doppler pending - If no clot, stop xarelto (7) HTN (hypertension) Code(s): I10 - ESSENTIAL (PRIMARY) HYPERTENSION SNOMED Code(s): 56564912 Comment: - Mostly normotensive, SBP 110-130's - Continue lasix and monitor BP (8) Schizoaffective disorder Code(s): F25.9 - SCHIZOAFFECTIVE DISORDER, UNSPECIFIED SNOMED Code(s): 56595337 Comment: - Continue depakote and haldol (9) DVT prophylaxis Code(s): CFU6951 - SNOMED Code(s): 392007245 Comment: - SCDs in the setting of hematuria (10) Full code status Code(s): Z78.9 - OTHER SPECIFIED HEALTH STATUS SNOMED Code(s): 947901001 Status and Disposition: Inpatient. Stable for discharge back to [facility] today.
[2017-10-16] MEDS ORDERED: Magnesium Hydroxide LIQ* 30 ML UDC PO PRN (12:13)
[2017-10-16] MEDS ORDERED: Polyethylene Glycol 3350* 17 GM PACKET PO PRN (12:13)
[2017-10-16] MEDS ORDERED: Furosemide IV* 10 MG/ML 2 ML VIAL (20 MG) IV ONE (12:17)
[2017-10-16 13:08] VITALS: BP 135/81
--- NOTE | 2017-10-16 15:21 | DS ---
CC: Del Coronel * DISCHARGE SUMMARY: DATE OF ADMISSION: 10/13/17 DATE OF DISCHARGE: 10/16/17 ATTENDING PHYSICIAN: Nusrat Harper DO * (dictated by Earl Fields NP) PRIMARY CARE PROVIDER: Del Coronel. PRIMARY DIAGNOSES: 1. Sepsis, resolved. 2. Proteus mirabilis urinary tract infection. 3. Hematuria. SECONDARY DIAGNOSES: 1. Schizoaffective disorder. 2. Chronic alcohol abuse. 3. History of chronic deep vein thrombosis of the right lower extremity. 4. Chronic obstructive pulmonary disease. 5. Hypertension. 6. Gastroesophageal reflux disease. 7. Diabetes mellitus. 8. Spinal stenosis. 9. Hyperlipidemia. STUDIES WHILE IN THE HOSPITAL: 1. Chest x-ray on 10/13/17. Radiologist's impression: Examination is expiratory with vascular crowding. 2. Abdomen, pelvis CT on 10/13/17. Radiologist's impression: No acute findings. The kidneys showed no evidence of hydronephrosis or nephrolithiasis. Unenhanced study shows no obvious renal mass. However, if the patient's hematuria persists, I would suggest obtaining a CT scan of the abdomen and pelvis with intravenous contrast. The patient may require a CT urogram to assess the pelvicalyceal system and ureters for the possibility of a transitional cell cancer and may need direct visualization to assess the mucosa and the possibility of a neoplasm. 3. Chest x-ray on 10/15/17. Radiologist's impression: In the correct clinical setting, the appearance could be compatible with pulmonary vascular congestion. DISCHARGE MEDICATIONS: New medications: 1. Keflex 500 mg oral twice daily for 11 days, to complete a 14 day course of antibiotics. 2. Milk of magnesia 30 mL oral every 6 hours as needed for constipation. 3. MiraLAX 17 g oral daily as needed for constipation. Continued medications: 1. Acetaminophen 650 mg oral every 6 hours as needed for pain. 2. Maalox 30 mL oral every 4 hours as needed for constipation. 3. Senna 2 tablets oral daily at bedtime as needed for constipation. 4. Omeprazole 20 mg oral daily at bedtime. 5. Potassium chloride 20 mEq oral Tuesday, Tuesday, Tuesday. 6. Magnesium oxide 400 mg oral twice daily. 7. Glipizide 2.5 mg oral daily. 8. Haldol 5 mg oral twice daily. 9. Furosemide 20 mg oral daily. 10. Atorvastatin 10 mg oral daily at 1700. 11. Gabapentin 300 mg oral 3 times daily. 12. Benadryl 50 mg oral daily at bedtime as needed for agitation. 13. Sturgis-3 1000 mg oral twice daily. 14. Magnesium citrate 30 mL oral daily as needed for constipation. 15. Depakote sprinkles 500 mg oral twice daily. Medications on hold: Xarelto. HISTORY OF PRESENT ILLNESS/HOSPITAL COURSE: Mr. Zarate is a 67-year-old male with past medical history significant for schizoaffective disorder, alcohol abuse, chronic DVT, COPD, hypertension, GERD, hyperlipidemia, diabetes mellitus and constipation who presented to the emergency room from [facility] where he resides with complaints of generalized weakness, fever, shortness of breath, noted to be hypoxic with oxygen saturation of 88%. The patient was reporting pain with urination for 1 month, chronic bilateral foot pain, urinary frequency and urgency. While in the emergency room, he had a chest x-ray showing vascular crowding, labs showing leukocytosis with a white blood cell count of 13.4. Hospitalists were asked to evaluate the patient for admission. During his hospitalization, he received IV ceftriaxone, he received a total of 3 doses. His urine culture grew Proteus mirabilis at greater than 100,000. He had blood cultures with no growth on day 2. He initially presented with a fever of 102.2, then was having some low- grade fevers. He has been afebrile for approximately 48 hours now. The patient was also noted to be hypoxic requiring supplemental oxygen. This improved during his stay. He was transitioned to room air. The patient was complaining of constipation. This is a chronic complaint for him. The patient was also found to have hematuria. This was suspected to be secondary to his UTI versus Xarelto use versus other cause. The Xarelto was held. The patient had a repeat chest x-ray showing vascular congestion. He will receive IV Lasix prior to his discharge. Mr. Zarate is doing well and is ready for discharge back to [facility] today. He had an abdomen, pelvis CT showing no acute findings. Mr. Zarate is stable for discharge back to [facility] today. Vital signs are as follows, temperature 99.0, heart rate 80, respiratory rate 21, O2 sat 97 % on room air, blood pressure 110/57. DISCHARGE PLAN: Mr. Zarate will be discharged to [facility]. Activity as tolerated. He should be on a consistent carbohydrate diet. In regards to his Proteus mirabilis urinary tract infection, he should continue Keflex 500 mg oral twice daily for 11 more days, to complete a 14-day course. The patient continues to have hematuria. He should be seen in consultation by Urology. In regards to his history of DVT, it is unclear if this was a single occurrence or if he has had recurrent DVTs. For now in the setting of hematuria, we are going to hold his Xarelto. He should be set up for outpatient intravenous Dopplers to evaluate for thrombus and then a decision can be made to continue or discontinue his Xarelto. In regards to the patient's constipation, he is complaining of constipation, not moving his bowels since admission. He is continued on his usual Senokot and mag citrate as needed, but could also have milk of magnesia or MiraLAX daily as needed for his constipation. He has been resumed on his other usual medications. The patient is hypoxic. He can have 2 L of oxygen via nasal cannula applied. He should return to the emergency room for any shortness of breath, chest pain. He should be seen in followup by a provider per [facility]'s protocol. This is a summarized report of a complex medical history and hospital stay. For further details, please see the entire medical record. TIME SPENT: Time for this discharge was approximately 50 minutes, greater than half of that was spent with the patient discussing discharge plans and instructions. CONDITION ON DISCHARGE: Improved. This discharge summary also acts as the [facility] admitting history and physical. EARL OROPEZA, BENNY [id number]/[facility] #: [id number] JESSICA
== END 2017-10-16 16:00 | DRG 872 ==
LOC: ED 15:45 → MED 22:11
PROVIDERS: ADMIT Internal Medicine; ATTEND Hospitalist
DX: A41.9 Sepsis, unspecified organism (principal); N39.0 Urinary tract infection, site not specified; I82.501 Chronic embolism and thrombosis of unspecified deep veins of right lower extremity; F25.9 Schizoaffective disorder, unspecified; J44.9 Chronic obstructive pulmonary disease, unspecified; K21.9 Gastro-esophageal reflux disease without esophagitis; E78.5 Hyperlipidemia, unspecified; E11.9 Type 2 diabetes mellitus without complications; G89.29 Other chronic pain; M79.672 Pain in left foot; M79.671 Pain in right foot; F10.10 Alcohol abuse, uncomplicated; Y90.9 Presence of alcohol in blood, level not specified; M48.00 Spinal stenosis, site unspecified; K59.00 Constipation, unspecified; R31.9 Hematuria, unspecified; B96.4 Proteus (mirabilis) (morganii) as the cause of diseases classified elsewhere; R32 Unspecified urinary incontinence; I10 Essential (primary) hypertension; R09.02 Hypoxemia; Z79.84 Long term (current) use of oral hypoglycemic drugs; Z81.1 Family history of alcohol abuse and dependence; Z82.49 Family history of ischemic heart disease and other diseases of the circulatory system; Z87.891 Personal history of nicotine dependence
CPT/HCPCS: 36415; 71045; 74176; 80048; 80053; 81003; 81015; 83605; 84484; 85025; 85610; 85730; 87040; 87077; 87086; 87184; 87186; 87641; 93005; 99284; A9270-GY; J0696; J1940

== ENCOUNTER 2018-05-27 13:30 | Observation (INO) | payer MEDICARE ==
[2018-05-27] MEDS ORDERED: Acetaminophen TAB* 325 MG PO ONE (13:38)
--- NOTE | 2018-05-27 14:57 | ED ---
Head Injury - HPI Summary HPI Summary: Patient is a 67-year-old male with a history of schizoaffective disorder and COPD presenting to the ED after a fall. He states he hit his head, but denies any LOC. He states he recalls the incident and this was a mechanical fall. He is also nursing neck pain from this incident. He denies any chest pain, shortness of breath, abdominal pain, nausea, vomiting, diarrhea, constipation, visual changes or disturbances area he denies any photophobia. He is a and O 3 on arrival and denies any concerns. He states he would like to go home. - History Of Current Complaint Chief Complaint: EDBackInjuryPain Stated Complaint: FALL PER EMS Time Seen by Provider: 05/27/18 13:33 Hx Obtained From: Patient Onset/Duration: Started Hours Ago Onset of Pain: Hours Severity Currently: Moderate Severity Initially: Moderate Pain Intensity: 8 Pain Scale Used: 0-10 Numeric Associated Signs And Symptoms: Negative - Risk Factors SDH Risk Factor: Male - Allergies/Home Medications Allergies/Adverse Reactions: Allergies Allergy/AdvReac Type Severity Reaction Status Date / Time No Known Allergies Allergy Verified 07/05/17 21:32 Home Medications: Home Medications Melatonin/Pyridoxine HCl (B6) [Melatonin 3 mg Tablet] 1 each PO BEDTIME [History Confirmed 05/27/18] PMH/Surg Hx/FS Hx/Imm Hx Previously Healthy: Yes Endocrine/Hematology History: Reports: Hx Diabetes Cardiovascular History: Reports: Hx Deep Vein Thrombosis - RLE, Hx Hypercholesterolemia, Hx Hypertension Respiratory History: Reports: Hx Chronic Obstructive Pulmonary Disease (COPD) GI History: Reports: Hx Gastroesophageal Reflux Disease Musculoskeletal History: Reports: Other Musculoskeletal History - Spinal stenosis Sensory History: Reports: Hx Contacts or Glasses, Other Sensory Impairments - poor vision Denies: Hx Deafness, Hx Hearing Aid Opthamlomology History: Reports: Hx Contacts or Glasses, Other Sensory Impairments - poor vision Neurological History: Reports: Other Neuro Impairments/Disorders - 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, spinal stenosis Psychiatric History: Reports: Other Psychiatric Issues/Disorders - Schizoaffective - Immunization History Hx Pertussis Vaccination: No Immunizations Up to Date: Yes Infectious Disease History: No Infectious Disease History: Denies: Hx of Known/Suspected MRSA, Traveled Outside the [place] in Last 30 Days - Family History Known Family History: Positive: Hypertension - Social History Occupation: Unemployed Lives: At [facility] Alcohol Use: Daily Hx Substance Use: No Substance Use Type: Reports: None Hx Tobacco Use: Yes Smoking Status (MU): Current Every Day Smoker Type: Cigarettes Review of Systems Constitutional: Negative Negative: Fever, Chills, Fatigue, Skin Diaphoresis Negative: Palpitations, Chest Pain Positive: Shortness Of Breath. Negative: Cough Negative: Arthralgia, Myalgia Skin: Negative Neurological: Other - head injury Negative: Headache, Weakness, Paresthesia, Numbness All Other Systems Reviewed And Are Negative: Yes Physical Exam Triage Information Reviewed: Yes Vital Signs On Initial Exam: Initial Vitals Temp Pulse Resp BP Pulse Ox 97.7 F 86 20 130/79 91 05/27/18 13:38 05/27/18 13:38 05/27/18 13:38 05/27/18 13:38 05/27/18 13:38 Vital Signs Reviewed: Yes Appearance: Positive: Well-Appearing, Well-Nourished Skin: Positive: Warm, Skin Color Reflects Adequate Perfusion Head/Face: Positive: Normal Head/Face Inspection Eyes: Positive: EOMI, Conjunctiva Clear Neck: Positive: No Lymphadenopathy Respiratory/Lung Sounds: Positive: Clear to Auscultation, Breath Sounds Present Cardiovascular: Positive: RRR, Pulses are Symmetrical in both Upper and Lower Extremities Musculoskeletal: Positive: Strength/ROM Intact Neurological: Positive: Sensory/Motor Intact, Alert, Oriented to Person Place, Time, Speech Normal Psychiatric: Positive: Normal, Affect/Mood Appropriate Diagnostics - Vital Signs Vital Signs Temp Pulse Resp BP Pulse Ox 05/27/18 14:36 90 136/86 94 05/27/18 14:11 81 94 05/27/18 13:38 97.7 F 86 20 130/79 91 - Laboratory Result Diagrams: 05/27/18 16:25 05/27/18 16:25 Lab Statement: Any lab studies that have been ordered have been reviewed, and results considered in the medical decision making process. Head Injury Course/Dx Course Of Treatment: During his course of evaluation, CT brain and cervical spine obtained both of which were negative for any acute processes. Small growing cystic lesion in the occipital area. Patient is made aware. He is noted to be hypoxic at 86% on arrival and is placed on 3 L O2. This increases to 92%. O2 was then discontinued and he again dropped to 87% on room air. He was placed on 3 L again and again increased to 92%. He states he does not use O2 at home. At this time labs obtained and chest x-ray is obtained. He continues to deny any shortness of breath. He does have a history of COPD. As he is hypoxic, consult with hospitalist obtained. Discussed case with hospitalist, Dr. Acosta, who states he will admit for hypoxia. ABG ordered, but patient refused. Patient will be admitted versus observed for hypoxia and proof of O2 requirement at [facility]. X-ray obtained and is negative for any acute findings. - Diagnoses Provider Diagnoses: Shortness of breath Discharge - Sign-Out/Discharge Documenting (check all that apply): Patient Departure All imaging exams completed and their final reports reviewed: No Patient Received Moderate/Deep Sedation with Procedure: No - Discharge Plan Condition: Stable Disposition: HOME - Billing Disposition and Condition Condition: STABLE Disposition: Home
[2018-05-27 16:38] LABS: ABS Basophils 0.1 10^3/ul (0-0.2); ABS Eosinophils 0.1 10^3/ul (0-0.6); ABS Lymphocytes 2.6 10^3/ul (1.0-4.8); ABS Monocytes 0.8 10^3/ul (0-0.8); ABS Neutrophils 4.2 10^3/ul (1.5-7.7); ABS Nucleated RBC 0 10^3/ul; Hematocrit 51 % (36-46); Hemoglobin 16.7 g/dL (14.0-18.0); Lymphocyte % 33.8 %; Mean Corpuscular HGB Conc 33 g/dL (31-36); Mean Corpuscular Hemoglobin 29 pg (27-31); Mean Corpuscular Volume 90 fL (80-94); Nucleated Red Blood Cells % 0.2; Platelet Count 164 10^3/uL (150-450); Red Cell Distribution Width 15 % (10.5-15); White Blood Count 7.7 10^3/uL (3.5-10.8)
[2018-05-27 16:54] LABS: Albumin 3.6 g/dL (3.2-5.2); Albumin/Globulin Ratio 1.2 (1-3); BUN/Creatinine Ratio 20.3 (8-20); Calcium 8.8 mg/dL (8.6-10.3); EGFR Non-African American 105.8 (>60); Potassium 4.5 mmol/L (3.5-5.0); Total Bilirubin 0.3 mg/dL (0.2-1.0); Total Protein 6.6 g/dL (6.4-8.9)
[2018-05-27 16:55] LABS: Troponin I 0.01 ng/mL (<0.04)
[2018-05-27] MEDS ORDERED: Acetaminophen TAB* 325 MG PO PRN (17:31)
[2018-05-27] MEDS ORDERED: Albuterol 2.5 MG/3 ML NEB.SOL* (0.083%) INH PRN (17:31)
[2018-05-27] MEDS ORDERED: Dextrose 50% Syringe 50 ML* 25 GM/50 ML SYRINGE IV PUSH PRN (17:37)
[2018-05-27] MEDS ORDERED: Enoxaparin(*) 40 MG/0.4 ML SYR SUBCUT SCH (18:00)
--- NOTE | 2018-05-27 22:39 | HP ---
HISTORY AND PHYSICAL: DATE OF ADMISSION: 05/27/18 PROVIDER: Maria Isabel Hodge NP. PRIMARY CARE PROVIDER: [facility]. ATTENDING PHYSICIAN WHILE IN THE HOSPITAL: Dr. Ivan Acosta (dictated by Maria Isabel Hodge NP). CHIEF COMPLAINTS: 1. Mechanical fall. 2. Hypoxia. HISTORY OF PRESENT ILLNESS: Mr. Zarate is a 67-year-old male with a past medical history significant for schizoaffective disorder, chronic embolism with DVT in the right lower leg, COPD, constipation, hypertension, GERD, hyperlipidemia, diabetes type 2, and spinal stenosis who presented to the emergency room from [facility] after a mechanical fall. The patient reports that he was sitting on the edge of the bed and the floor was slippery. He lost his footing and fell to the floor. He did hit his head. He denies any dizziness, loss of consciousness, neck pain, or back pain. 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 While in the emergency room, the patient had routine lab work drawn. He was monitored on telemetry on the monitor. He was found to be hypoxic with O2 saturations at 88% on room air. He was placed on oxygen 2 L and his O2 saturations improved to 93%. Given his hypoxia and mechanical fall, we were asked to see and evaluate him for admission. PAST MEDICAL HISTORY: Significant for: 1. Schizoaffective disorder. 2. History of chronic alcohol abuse. 3. History of chronic embolism with DVT in the right lower extremity. 4. COPD. 5. Constipation. 6. Hypertension. 7. GERD. 8. Hyperlipidemia. 9. Diabetes type 2. 10. Spinal stenosis. HOME MEDICATIONS: 1. Glipizide 2.5 mg p.o. daily. 2. Senna 2 tablets p.o. at bedtime p.r.n. 3. Potassium 20 mEq Tuesday, Tuesday, and Tuesday. 4. MiraLAX 17 g p.r.n. 5. Omeprazole 20 mg p.o. at bedtime. 6. Melatonin 1 tab at bedtime. 7. Magnesium oxide 400 mg p.o. b.i.d. 8. Milk of Magnesia 30 mL p.o. q.6 hours p.r.n. 9. Mag citrate 30 mL p.r.n. for constipation. 10. Haldol 5 mg p.o. b.i.d. 11. Gabapentin 300 mg p.o. t.i.d. 12. Furosemide 20 mg p.o. daily. 13. Depakote 500 mg p.o. b.i.d. 14. Atorvastatin 10 mg p.o. at 1700. 15. Maalox 30 mL q.4 hours p.r.n. 16. Acetaminophen 650 mg p.o. q.6 hours p.r.n. ALLERGIES: No known drug allergies. FAMILY HISTORY: He reports that his dad was an alcoholic and both parents are . SOCIAL HISTORY: The patient is a former smoker and a former alcohol drinker. Currently resides at [facility]. REVIEW OF SYSTEMS: There has been no documented fever. No unintended weight loss. He denies any double vision, ear discharge, dizziness, rhinorrhea, sore throat. Denies any fever or chills. Denies any chest pain. He denies any abdominal pain. No nausea or vomiting. Denies any dysuria or urinary frequency. He denies any seizures or loss of consciousness. He denies any neck pain. Denies any pruritus or skin ulcerations. He does complain of chronic right foot pain. Denies any arthralgias, myalgias, rashes, lesions or open sores, psychosis, or anxiety. A review of 14 systems was completed. All others are negative. PHYSICAL EXAMINATION GENERAL: Mr. Zarate is a 67-year-old male. He is alert and oriented, resting on the stretcher in the emergency room. He does not appear to be in any acute distress. VITAL SIGNS: Blood pressure 109/74, heart rate 81, respirations are 21, O2 saturation 95%, temperature was 97.7. HEENT: Head is atraumatic, normocephalic. Eyes: EOMs are intact. Sclerae anicteric and not pale. Oral mucosa appeared to be moist. NECK: Supple. LUNGS: Clear to auscultation bilaterally. No wheezes, rales, or rhonchi. He does have diminished breath sounds in the bases bilaterally. CARDIAC: S1, S2, regular rate and rhythm. No murmurs, rubs, or gallops. ABDOMEN: Soft and nontender. Bowel sounds are present x4. EXTREMITIES: Pedal pulses are +2 bilaterally. He is able to move all 4 extremities. There is no clubbing or cyanosis. NEUROLOGIC: He is awake, alert, and oriented x3. Speech is clear. There are no gross focal deficits. DIAGNOSTIC STUDIES/LAB DATA: WBCs are 7.7, RBCs 5.70, hemoglobin 16.7, hematocrit 61, platelet count is 164. Sodium 137, potassium 4.5, chloride 198, carbon dioxide was 35, BUN was 15, creatinine 0.74, glucose was 289, calcium 8.8. ASTs were 20, ALTs were 25, alkaline phosphatase was 64. Troponin was 0.01. He had a CT of the brain. Radiologist's impression: No evidence of acute intracranial abnormality. A clean lesion on the scalp on the right occipital region, slightly increased in size. He had a CT of the C-spine. Radiologist's impression: Straightening of the cervical spine. No evidence for fracture. [id number] diffuse cervical spondylosis. He had an electrocardiogram, which showed sinus rhythm at a rate of 82. No ST or T- wave changes. He had a chest x-ray. Radiologist's impression: No evidence of acute findings. ASSESSMENT AND PLAN: Mr. Zarate is a 67-year-old male who presented to the emergency room after a mechanical fall at [facility] and was found to have some hypoxia on room air, desatting to 88%. The patient will be admitted for: 1. Acute hypoxic respiratory failure. The patient denies any fever, chills, cough, or congestion. He denies any shortness of breath. The patient's respirations are easy and even. He does not have any wheezing or rales. I will place the patient on oxygen and he can have albuterol nebulizers as needed for shortness of breath and wheezing. I suspect that this could be related to a mild exacerbation of his chronic obstructive pulmonary disease. With in the differential is PE as the patient has a history of PE in the past. His Wells score is 1.5. The patient is not tachycardiac and denies shortness of breath. ABG was ordered and the Patient has refused testing. 2. Mechanical fall. I will have the patient seen and evaluated by physical therapy as the patient reports that he has frequent mechanical falls at [facility]. The patient is not currently on any anticoagulation. 3. Schizoaffective disorder. We will continue on Depakote and Haldol as previously prescribed. 4. History of DVT and PE. Not currently on anticoagulation. Appears anticoagulation was stopped in September. 5. FEN. The patient can have a heart-healthy, consistent carb diet. 6. Code status. He is a full code. 7. DVT prophylaxis. I will place him on Lovenox subcu. TIME SPENT: Time spent on this admission was approximately 60 minutes, greater than half that time was spent [id number] with the patient, obtaining my history and physical, the other half of the time was spent implementing my plan of care. I have discussed with my attending, Dr. Ivan Acosta; he is in agreement with my plan. MARIA ISABEL HODGE, FOOD TECHNOLOGY TEACHER [id number]/[facility] #: [id number] JESSICA
[2018-05-28] MEDS ORDERED: Polyethylene Glycol 3350* 17 GM PACKET PO PRN (00:20)
[2018-05-28] MEDS ORDERED: Senna TAB PO PRN (00:20)
[2018-05-28] MEDS ORDERED: Haloperidol TAB* 5 MG PO SCH (09:00)
[2018-05-28] MEDS ORDERED: Divalproex Sprinkle CAP* 125 MG PO SCH (09:00)
[2018-05-28] MEDS ORDERED: Furosemide TAB* 20 MG PO SCH (09:00)
[2018-05-28] MEDS ORDERED: Magnesium Oxide TAB* 400 MG PO SCH (09:00)
[2018-05-28] MEDS: Gabapentin CAP(*) 300 MG PO SCH ×2 (09:41→12:51)
[2018-05-28] MEDS: Insulin LISPRO* 1 UNITS UNIT SUBCUT SCH ×2 (09:42→12:51)
[2018-05-28 11:20] VITALS: BP 135/75
--- NOTE | 2018-05-28 13:08 | DS ---
CC: Dr. Nusrat Harper, [facility] and [facility] * DISCHARGE SUMMARY: DATE OF ADMISSION: 05/27/18 DATE OF DISCHARGE: 05/28/18 PRIMARY CARE PROVIDER: Dr. Nusrat Harper at [facility]. ATTENDING PHYSICIAN: Dr. Yasmine Berman * (dictated by Cristal Butterfield NP). PRIMARY DIAGNOSES: 1. Hypoxia, likely secondary to atelectasis and progressing chronic obstructive pulmonary disease. 2. Mechanical fall without injury. SECONDARY DIAGNOSES: 1. Schizoaffective disorder. 2. Chronic obstructive pulmonary disease. 3. History of deep venous thrombosis. 4. Hypertension. 5. Gastroesophageal reflux disease. 6. Hyperlipidemia. 7. Diabetes mellitus type 2. 8. Spinal stenosis. STUDIES WHILE IN THE HOSPITAL: 1. Brain CT on 05/27/18 reads as no evidence for acute intracranial abnormality. Cystic lesion in the scalp in the right occipital region slightly increased in size. 2. Cervical spine CT on 05/27/18 reads as straightening of the cervical spine, no evidence for fracture. [id number] diffuse cervical spondylosis. 3. EKG on 05/27/18 shows normal sinus rhythm with a rate of 82, QTc 421. No ischemic changes. 4. Chest x-ray on 05/27/18 reads as no evidence for acute finding. 5. Chest x-ray on 05/28/18 reads as low lung volumes, small left basilar infiltrate suggestive of atelectasis. HISTORY OF PRESENT ILLNESS AND HOSPITAL COURSE: Mr. Zarate is a 67-year-old male, residing at [facility], with a past medical history of schizoaffective disorder, DVT, COPD, hypertension, GERD, hyperlipidemia, type 2 diabetes and spinal stenosis, who presented to the emergency room on 05/27/18 after a mechanical fall. Please see the history and physical by Ijeoma Hodge NP, for a complete summary of the events leading up to this hospitalization. In short, the nursing staff at [facility] called me to report that the patient had a fall yesterday on 05/27/18. Reportedly, he was getting out of bed and fell hitting his head. The fall was unwitnessed and so I advised nursing staff that he should come into the emergency room for further evaluation of any head injury. In the emergency room, the patient had imaging as noted above. There was no evidence for injury from his fall and the fall was noted to be mechanical. The patient reported he was sitting on the edge of the bed and the floor was quite slippery, hence why he fell. However, in the emergency room, he was noted to be hypoxic with oxygen saturations in the high 80s on room air. He was placed on 2 L of oxygen with improvements in his saturation. Because of the hypoxia, he was admitted by the hospitalist service for observation. The patient had an uneventful night. There was no evidence of any COPD exacerbation as the patient had no changes in cough, sputum production, or dyspnea. He was maintained on 2 L of oxygen overnight. PE was in the differential, though this was felt to be very unlikely as he was not displaying typical symptoms and had a Wells score of 1.5. This morning, I saw the patient. He was not particularly willing to speak with me or participate in exam and was not willing to answer my questions. He did report shortness of breath to me, though was not able to further describe this shortness of breath. There was no noted cough. On exam, his lung sounds were clear to auscultation throughout. No rhonchi, wheezes, or rales. Heart rate is regular without any murmurs, rubs, or gallops. The nurse did attempt to take the patient off oxygen today and he did desaturate to 85% on room air. He is now on 1 L of oxygen with a saturation of 92%, so at this point, he will be left on 1 L. I did speak with nursing staff at [facility] this morning to get an idea of the patient's baseline and nursing staff reported that the patient typically lays in bed for most of the day, refusing to get out of bed except for getting up to go to the bathroom and at times, he is incontinent as he chooses to not get out of bed to use the bathroom. He typically can ambulate independently with a walker when he is up getting to the bathroom. He did express to our high risk case manager here at the hospital that he did not like [facility] and did not want to return there. As of this point, the patient has no acute medical needs as he is able to return to [facility] with supplemental oxygen. Mr. Zarate is stable for discharge today. Vital signs are as follows: Temp 98.6, heart rate 91, respiratory rate 16, oxygen saturation 92% on 1 L nasal cannula, blood pressure 135/75. DISCHARGE MEDICATIONS: New medications: 1. Dulera 200/5 two puffs b.i.d. 2. Tiotropium 1 cap inhalation daily. 3. Albuterol MDI 1 to 2 puffs q.4 hours p.r.n. shortness of breath, wheezing. Continued medications: 1. Atorvastatin 10 mg p.o. daily. 2. Depakote 500 mg p.o. b.i.d. 3. Furosemide 20 mg p.o. daily. 4. Gabapentin 300 mg p.o. t.i.d. 5. Haldol 5 mg p.o. b.i.d. 6. Magnesium oxide 400 mg p.o. b.i.d. 7. Omeprazole 20 mg p.o. at bedtime. 8. MiraLAX 17 g p.o. daily. 9. Potassium chloride 20 mEq p.o. every Tuesday, Tuesday, Tuesday. 10. Senna 2 tabs p.o. at bedtime p.r.n. constipation. 11. Acetaminophen 650 mg p.o. q.6 hours p.r.n. pain. 12. Maalox 30 mL p.o. q.4 hours p.r.n. indigestion. 13. Glipizide 2.5 mg p.o. daily. 14. Magnesium citrate 30 mL p.o. daily p.r.n. constipation. 15. Milk of magnesia 30 mL p.o. q.6 hours p.r.n. constipation. 16. Melatonin 3 mg p.o. at bedtime. DISCHARGE PLAN: Mr. Zarate will be discharged back to [facility]. Activity will be as tolerated, though I have advised that nursing staff should encourage activity and ambulation to prevent further atelectasis. Additionally, they should encourage deep breathing and use of incentive spirometer. The patient should use 1 L nasal cannula and oxygen may be titrated to maintain an oxygen saturation greater than 88%. I would also recommend that the patient participate in physical therapy. Diet should be heart-healthy. Medications are noted above. I have added Dulera and Spiriva due to the patient's history of COPD as it appears he is not on any medications for his COPD at this point. He can continue his other usual medications as noted above and I have not made any further changes. The patient will need to follow up with his primary care provider in the next 4 to 7 days. He should return to the emergency room or nearest hospital for any worsening of symptoms, shortness of breath, lightheadedness, dizziness, chest discomfort, high fever, chills, night sweats, loss of consciousness, or any other worrisome signs or symptoms. DISCHARGE CONDITION: Stable. DISCHARGE DISPOSITION: alf facility, [facility]. TIME SPENT: Approximately 40 minutes was spent on this discharge. This is a summarized report of a complex medical history and hospital stay. For further details, please see the entire medical record. Please note that this discharge summary will be used as the admitting history and physical for [facility]. CRISTAL BUTTERFIELD NP [id number]/CPS #: [id number] JESSICA
[2018-05-28] MEDS ORDERED: Atorvastatin* 10 MG TAB PO SCH (17:00)
[2018-05-28] MEDS ORDERED: Pantoprazole TAB * 40 MG TAB PO SCH (21:00)
[2018-05-29] MEDS ORDERED: Potassium Chlor TAB* 20 MEQ TAB.ER PO SCH (09:00)
== END 2018-05-28 14:45 ==
LOC: ED 13:30 → MED 17:31
PROVIDERS: ADMIT Student in an Organized Health Care Education/Training Program; ATTEND Internal Medicine
DX: Z91.81 History of falling (principal); R09.02 Hypoxemia; F25.9 Schizoaffective disorder, unspecified; J44.9 Chronic obstructive pulmonary disease, unspecified; R06.02 Shortness of breath; E11.9 Type 2 diabetes mellitus without complications; Z86.718 Personal history of other venous thrombosis and embolism; F10.21 Alcohol dependence, in remission; K59.00 Constipation, unspecified; I10 Essential (primary) hypertension; K21.9 Gastro-esophageal reflux disease without esophagitis; E78.5 Hyperlipidemia, unspecified; M48.00 Spinal stenosis, site unspecified; Z87.891 Personal history of nicotine dependence
CPT/HCPCS: 36415; 70450; 71046; 72125; 80053; 84484; 85025; 87641; 93005; 99284; A9270-GY; G0378; J1650

== ENCOUNTER 2018-06-01 21:49 | Inpatient (IN) | payer MEDICARE ==
[2018-06-01] MEDS ORDERED: Acetaminophen TAB* 325 MG PO ONE (22:16)
[2018-06-01] MEDS ORDERED: Albuterol/Ipratropium NEB.SOL* Albuterol 2.5 MG/Ipratropium 0.5 MG 3 ML INH ONE (22:16)
[2018-06-01] MEDS ORDERED: Piperacillin/Tazobac ADVAN(*) 3.375 GM in NS 0.9% 100 ML* 100 ML IVPB ONE (22:17)
[2018-06-01] MEDS ORDERED: methylPREDNISolone 125 MG* 2 ML VIAL IV ONE (22:17)
[2018-06-01 22:38] LABS: ABS Basophils 0 10^3/ul (0-0.2); ABS Eosinophils 0.1 10^3/ul (0-0.6); ABS Lymphocytes 2.1 10^3/ul (1.0-4.8); ABS Monocytes 0.7 10^3/ul (0-0.8); ABS Neutrophils 2.7 10^3/ul (1.5-7.7); ABS Nucleated RBC 0 10^3/ul; Eosinophil % 2.1 %; Hematocrit 48 % (36-46); Hemoglobin 15.9 g/dL (14.0-18.0); Lymphocyte % 37.3 %; Mean Corpuscular HGB Conc 33 g/dL (31-36); Mean Corpuscular Hemoglobin 29 pg (27-31); Mean Corpuscular Volume 88 fL (80-94); Mean Platelet Volume 7.6 fL (7.4-10.4); Nucleated Red Blood Cells % 0.1; Platelet Count 161 10^3/uL (150-450); Red Blood Count 5.41 10^6 /uL (4.18-5.48); Red Cell Distribution Width 14 % (10.5-15); White Blood Count 5.5 10^3/uL (3.5-10.8)
[2018-06-01] MEDS ORDERED: Albuterol 2.5 MG/3 ML NEB.SOL* (0.083%) INH ONE (22:38)
[2018-06-01 22:46] LABS: Activated Partial Thrombo Time 27.4 seconds (26.0-36.3); INR 0.91 (0.77-1.02)
[2018-06-01 22:56] LABS: Albumin 3.5 g/dL (3.2-5.2); Albumin/Globulin Ratio 1.1 (1-3); BUN/Creatinine Ratio 19.4 (8-20); C Reactive Protein 4.86 mg/L (<8.01); EGFR African American 132.2 (>60); EGFR Non-African American 109.2 (>60); Globulin 3.3 g/dL (2-4); Potassium 4.3 mmol/L (3.5-5.0); Total Bilirubin 0.2 mg/dL (0.2-1.0); Total Protein 6.8 g/dL (6.4-8.9)
[2018-06-01 22:57] LABS: Troponin I 0.01 ng/mL (<0.04)
[2018-06-01] MEDS ORDERED: Albuterol 2.5 MG/3 ML NEB.SOL* (0.083%) INH SCH (23:00)
[2018-06-01] MEDS ORDERED: Iodixanol* (CONTRAST) 320 MG/ML 100 ML SDV IV ONE (23:26)
--- NOTE | 2018-06-01 23:29 | ED ---
Shortness of Breath - HPI Summary HPI Summary: This patient is a 67 year old M brought in by ambulance to [facility] with a chief complaint of SOB since 21:00 per staff at the patients assisted. The patient rates the pain 0/10 in severity. Symptoms aggravated by nothing. Symptoms alleviated by nothing. Patient reports fever. Patient denies SOB. Patient resides at [facility]. Per medical records, pt has hx COPD and uses oxygen at home. Patient refuses to answer questions. Level five caveat due to uncooperativity of patient. - History of Current Complaint Chief Complaint: EDShortnessOfBreath Time Seen by Provider: 06/01/18 22:08 Hx Obtained From: Patient Associated Signs & Symptoms: Fever - Allergy/Home Medications Allergies/Adverse Reactions: Allergies Allergy/AdvReac Type Severity Reaction Status Date / Time No Known Allergies Allergy Verified 07/05/17 21:32 PMH/Surg Hx/FS Hx/Imm Hx Endocrine/Hematology History: Reports: Hx Diabetes Cardiovascular History: Reports: Hx Deep Vein Thrombosis - RLE, Hx Hypercholesterolemia, Hx Hypertension Respiratory History: Reports: Hx Chronic Obstructive Pulmonary Disease (COPD) GI History: Reports: Hx Gastroesophageal Reflux Disease History: Denies: Hx Renal Disease Musculoskeletal History: Reports: Other Musculoskeletal History - Spinal stenosis Sensory History: Reports: Hx Contacts or Glasses, Other Sensory Impairments - poor vision Denies: Hx Deafness, Hx Hearing Aid Opthamlomology History: Reports: Hx Contacts or Glasses, Other Sensory Impairments - poor vision Neurological History: Reports: Other Neuro Impairments/Disorders - 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, spinal stenosis Psychiatric History: Reports: Other Psychiatric Issues/Disorders - Schizoaffective Infectious Disease History: No Infectious Disease History: Denies: Hx of Known/Suspected MRSA, Traveled Outside the [place] in Last 30 Days - Family History Known Family History: Positive: Hypertension - Social History Alcohol Use: Daily Hx Substance Use: No Substance Use Type: Reports: None Hx Tobacco Use: Yes Smoking Status (MU): Current Every Day Smoker Type: Cigarettes Review of Systems Positive: Fever All Other Systems Reviewed And Are Negative: No - Comments Additional Review of Systems Comments: Level five caveat due to uncooperativity of patient. Physical Exam - Summary Physical Exam Summary: VITAL SIGNS: Reviewed. GENERAL: Patient is a well-developed and nourished MALE who is lying comfortable in the stretcher. Patient is not in any acute respiratory distress. HEAD AND FACE: No signs of trauma. No ecchymosis, hematomas or skull depressions. No sinus tenderness. EYES: PERRLA, EOMI x 2, No injected conjunctiva, no nystagmus. EARS: Hearing grossly intact. Ear canals and tympanic membranes are within normal limits. MOUTH: Oropharynx within normal limits. NECK: Supple, trachea is midline, no adenopathy, no JVD, no carotid bruit, no c- spine tenderness, neck with full ROM. CHEST: Symmetric, no tenderness at palpation LUNGS: decreased breath sounds bilaterally. No wheezing or crackles. CVS: Regular rate and rhythm, S1 and S2 present, no murmurs or gallops appreciated. ABDOMEN: Soft, non-tender. No signs of distention. No rebound no guarding, and no masses palpated. Bowel sounds are normal. EXTREMITIES: FROM in all major joints, no edema, no cyanosis or clubbing. NEURO: Alert and oriented x 3. No acute neurological deficits. Speech is normal and follows commands. SKIN: Dry and warm Level five caveat due to uncooperativity of patient. Triage Information Reviewed: Yes Vital Signs On Initial Exam: Initial Vitals Temp Pulse Resp BP Pulse Ox 99.1 F 88 24 149/87 92 06/01/18 21:54 06/01/18 21:54 06/01/18 21:54 06/01/18 21:54 06/01/18 21:54 Vital Signs Reviewed: Yes Diagnostics - Vital Signs Vital Signs Temp Pulse Resp BP Pulse Ox 06/01/18 21:54 99.1 F 89 24 149/87 90 - Laboratory Lab Results: Lab Results 06/01/18 06/01/18 06/01/18 Range/Units 22:30 22:30 22:30 WBC 5.5 (3.5-10.8) 10^3/uL RBC 5.41 (4.18-5.48) 10^6 /uL Hgb 15.9 (14.0-18.0) g/dL Hct 48 H (36-46) % MCV 88 (80-94) fL MCH 29 (27-31) pg MCHC 33 (31-36) g/dL RDW 14 (10.5-15) % Plt Count 161 (150-450) 10^3/uL MPV 7.6 (7.4-10.4) fL Neut % (Auto) 48.0 % Lymph % (Auto) 37.3 % [place] % (Auto) 11.9 % Eos % (Auto) 2.1 % Baso % (Auto) 0.7 % Absolute Neuts (auto) 2.7 (1.5-7.7) 10^3/ul Absolute Lymphs (auto) 2.1 (1.0-4.8) 10^3/ul Absolute Monos (auto) 0.7 (0-0.8) 10^3/ul Absolute Eos (auto) 0.1 (0-0.6) 10^3/ul Absolute Basos (auto) 0 (0-0.2) 10^3/ul Absolute Nucleated RBC 0 10^3/ul Nucleated RBC % 0.1 INR (Anticoag Therapy) 0.91 (0.77-1.02) APTT 27.4 (26.0-36.3) seconds Sodium 137 (135-145) mmol/L Potassium 4.3 (3.5-5.0) mmol/L Chloride 98 L (101-111) mmol/L Carbon Dioxide 35 H (22-32) mmol/L Anion Gap 4 (2-11) mmol/L BUN 14 (6-24) mg/dL Creatinine 0.72 (0.67-1.17) mg/dL Est GFR ( Amer) 132.2 (>60) Est GFR (Non-Af Amer) 109.2 (>60) BUN/Creatinine Ratio 19.4 (8-20) Glucose 285 H (70-100) mg/dL Lactic Acid (0.5-2.0) mmol/L Calcium 9.0 (8.6-10.3) mg/dL Total Bilirubin 0.20 (0.2-1.0) mg/dL AST 16 (13-39) U/L ALT 22 (7-52) U/L Alkaline Phosphatase 62 (34-104) U/L Troponin I 0.01 (<0.04) ng/mL C-Reactive Protein 4.86 (<8.01) mg/L Total Protein 6.8 (6.4-8.9) g/dL Albumin 3.5 (3.2-5.2) g/dL Globulin 3.3 (2-4) g/dL Albumin/Globulin Ratio 1.1 (1-3) 06/01/18 Range/Units 22:30 WBC (3.5-10.8) 10^3/uL RBC (4.18-5.48) 10^6 /uL Hgb (14.0-18.0) g/dL Hct (36-46) % MCV (80-94) fL MCH (27-31) pg MCHC (31-36) g/dL RDW (10.5-15) % Plt Count (150-450) 10^3/uL MPV (7.4-10.4) fL Neut % (Auto) % Lymph % (Auto) % [place] % (Auto) % Eos % (Auto) % Baso % (Auto) % Absolute Neuts (auto) (1.5-7.7) 10^3/ul Absolute Lymphs (auto) (1.0-4.8) 10^3/ul Absolute Monos (auto) (0-0.8) 10^3/ul Absolute Eos (auto) (0-0.6) 10^3/ul Absolute Basos (auto) (0-0.2) 10^3/ul Absolute Nucleated RBC 10^3/ul Nucleated RBC % INR (Anticoag Therapy) (0.77-1.02) APTT (26.0-36.3) seconds Sodium (135-145) mmol/L Potassium (3.5-5.0) mmol/L Chloride (101-111) mmol/L Carbon Dioxide (22-32) mmol/L Anion Gap (2-11) mmol/L BUN (6-24) mg/dL Creatinine (0.67-1.17) mg/dL Est GFR ( Amer) (>60) Est GFR (Non-Af Amer) (>60) BUN/Creatinine Ratio (8-20) Glucose (70-100) mg/dL Lactic Acid 1.4 (0.5-2.0) mmol/L Calcium (8.6-10.3) mg/dL Total Bilirubin (0.2-1.0) mg/dL AST (13-39) U/L ALT (7-52) U/L Alkaline Phosphatase (34-104) U/L Troponin I (<0.04) ng/mL C-Reactive Protein (<8.01) mg/L Total Protein (6.4-8.9) g/dL Albumin (3.2-5.2) g/dL Globulin (2-4) g/dL Albumin/Globulin Ratio (1-3) Result Diagrams: 06/01/18 22:30 06/01/18 22:30 Lab Statement: Any lab studies that have been ordered have been reviewed, and results considered in the medical decision making process. - Radiology CXR Radiology Interpretation Completed By: ED Physician - Dr. Gaspar, pending official report Summary of Radiographic Findings: right lower lobe pneumonia. - CT CTA Chest CT Interpretation Completed By: Radiologist Summary of CT Findings: IMPRESSION: 1. General hypoinflation of the lungs with slight interstitial prominence and. mild bilateral dependent atelectasis in the lower lobes. 2. Small focal consolidation in the right middle lobe adjacent to the major. fissure. 3. Degenerative change of the cervical spine with posterior osteophytes and. spinal stenosis at C6-C7. 4. There is mild distention of the stomach which in view of a contracted. gallbladder likely reflects recent ingestion. There is suggestion of. cholelithiasis. 5. No pulmonary embolism is identified. Dr. Gaspar has reviewed this report. - EKG 22:31 Cardiac Rate: NL - at 89 bpm EKG Rhythm: Sinus Rhythm ST Segment: Normal Ectopy: None Summary of EKG Findings: sinus rhythm at 89 bpm with nml axis, nml intervals, and no ischemic changes. - Additional Comments Diagnostic Additional Comments: US Venous Doppler Study Interpreted by radiologist Impression: DVT is involving the right common femoral vein and profunda femoral vein. Dr. Gaspar has reviewed this report. Course/Dx - Course Course Of Treatment: This patient is a 67 year old M with hx of COPD brought in by ambulance to [facility] with a chief complaint of SOB and fever since 21:00 per staff at the patients assisted. Patient resides at [facility]. Patient refuses to answer questions. Level five caveat due to uncooperativity of patient. An EKG reveals sinus rhythm at 89 bpm with nml axis, nml intervals, and no ischemic changes. CXR reveals, per ED physician, right lower lobe pneumonia. CTA Chest reveals, per radiologist, 1. General hypoinflation of the lungs with slight interstitial prominence and mild bilateral dependent atelectasis in the lower lobes. 2. Small focal consolidation in the right middle lobe adjacent to the major fissure. 3. Degenerative change of the cervical spine with posterior osteophytes and spinal stenosis at C6-C7. 4. There is mild distention of the stomach which in view of a contracted gallbladder likely reflects recent ingestion. There is suggestion of cholelithiasis. 5. No pulmonary embolism is identified. US lower extremity veins reveals, per radiologist, DVT is involving the right common femoral vein and profunda femoral vein. ED physician has reviewed these radiology reports. Labs and UA obtained. Patient refused Nebulizer tx. Discussed care of patient with Dr. Mcfadden, hospitalist, who agreed to admit the patient to [facility]. Patient will be admitted to [facility]. Dx DVT and pneumonia. Patient is agreeable with this plan. - Diagnoses Provider Diagnoses: Pneumonia, DVT (deep venous thrombosis) - Physician Notifications Discussed Care of Patient With: Baudilio Mcfadden Time Discussed With Above Provider: 00:59 Instructed by Provider To: Admit As Inpatient Discharge - Sign-Out/Discharge Documenting (check all that apply): Patient Departure - admit to [facility] Patient Received Moderate/Deep Sedation with Procedure: No - Discharge Plan Condition: Stable Disposition: ADMITTED TO [facility] Referrals: No Primary Care Phys,NOPCP [Primary Care Provider] - - Attestation Statements Document Initiated by Scribe: Yes Documenting Scribe: Sparkle Leblanc Provider For Whom Scribe is Documenting (Include Credential): Washington Gaspar MD Scribe Attestation: Sparkle Galvan, scribed for Washington Gaspar MD on 06/02/18 at 0111. Status of Scribe Document: Ready
[2018-06-01] MEDS ORDERED: Insulin REGULAR(*) 1 UNITS UNIT IV PUSH ONE (23:54)
[2018-06-02] MEDS ORDERED: Enoxaparin(*) 100 MG/ML SYR SUBCUT ONE (00:37)
[2018-06-02] MEDS ORDERED: Levofloxacin 750 MG IVPREMIX(* 750 MG/150 ML BAG IVPB ONE (01:09)
[2018-06-02 01:21] LABS: Influenza A Molecular NEGATIVE (Negative); Influenza B Molecular NEGATIVE (Negative)
[2018-06-02] MEDS ORDERED: Dextrose 50% Syringe 50 ML* 25 GM/50 ML SYRINGE IV PUSH PRN (02:27)
[2018-06-02] MEDS ORDERED: Polyethylene Glycol 3350* 17 GM PACKET PO PRN (02:28)
[2018-06-02] MEDS ORDERED: Al Hydrox/Mg Hydrox/Simet LIQ* 30 ML UDC PO PRN (02:28)
[2018-06-02] MEDS ORDERED: Albuterol HFA INHALER* 8 gm MDI INH PRN (02:28)
[2018-06-02] MEDS ORDERED: Senna TAB PO PRN (02:28)
[2018-06-02] MEDS ORDERED: Magnesium Hydroxide LIQ* 30 ML UDC PO PRN (02:28)
[2018-06-02] MEDS ORDERED: Acetaminophen TAB* 325 MG PO PRN (02:28)
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
[2018-06-02] MEDS: cefTRIAXone(*) 1 GM in NS 0.9% 50 ML* 50 ML IVPB SCH (07:47)
[2018-06-02] MEDS: Mometasone/Formoter 200/5 MDI INH SCH ×2 (08:21→19:59)
[2018-06-02] MEDS: Tiotropium CAP.INH* CAP.INH/18 MCG (USE ORDER SET !) INH SCH (08:21)
[2018-06-02 08:37] LABS: ABS Basophils 0 10^3/ul (0-0.2); ABS Eosinophils 0 10^3/ul (0-0.6); ABS Lymphocytes 1.5 10^3/ul (1.0-4.8); ABS Monocytes 0.1 10^3/ul (0-0.8); ABS Neutrophils 3.4 10^3/ul (1.5-7.7); ABS Nucleated RBC 0 10^3/ul; Eosinophil % 0 %; Hematocrit 51 % (36-46); Hemoglobin 16.8 g/dL (14.0-18.0); Lymphocyte % 30.4 %; Mean Corpuscular HGB Conc 33 g/dL (31-36); Mean Corpuscular Hemoglobin 29 pg (27-31); Mean Corpuscular Volume 89 fL (80-94); Mean Platelet Volume 8.2 fL (7.4-10.4); Nucleated Red Blood Cells % 0.2; Platelet Count 155 10^3/uL (150-450); Red Blood Count 5.73 10^6 /uL (4.18-5.48); Red Cell Distribution Width 14 % (10.5-15)
[2018-06-02] MEDS: Insulin LISPRO* 1 UNITS UNIT SUBCUT SCH ×4 (08:43→20:48)
[2018-06-02] MEDS: Rivaroxaban TAB(*) 15 MG PO SCH ×2 (08:44→20:47)
[2018-06-02] MEDS: Haloperidol TAB* 5 MG PO SCH ×2 (08:44→20:47)
[2018-06-02] MEDS: Magnesium Oxide TAB* 400 MG PO SCH ×2 (08:44→20:48)
[2018-06-02] MEDS: Gabapentin CAP(*) 300 MG PO SCH ×3 (08:44→20:47)
[2018-06-02] MEDS: Divalproex Sprinkle CAP* 125 MG PO SCH ×2 (08:44→20:48)
[2018-06-02] MEDS: Furosemide TAB* 20 MG PO SCH (08:44)
[2018-06-02] MEDS: Potassium Chlor TAB* 20 MEQ TAB.ER PO SCH (08:44)
[2018-06-02 08:49] LABS: BUN/Creatinine Ratio 19.8 (8-20); Blood Urea Nitrogen 16 mg/dL (6-24); CO2 Carbon Dioxide 30 mmol/L (22-32); Calcium 9.3 mg/dL (8.6-10.3); Chloride 98 mmol/L (101-111); EGFR African American 115.4 (>60); EGFR Non-African American 95.3 (>60); Glucose 352 mg/dL (70-100); Sodium 137 mmol/L (135-145)
[2018-06-02] MEDS ORDERED: Spiriva Inhaler DEVICE* 1 EACH DEVICE INH ONE (09:00)
[2018-06-02 09:14] LABS: Anion Gap 9 mmol/L (2-11)
--- NOTE | 2018-06-02 10:06 | PN ---
Subjective Date of Service: 06/02/18 Interval History: Mr. Zarate is feeling "fine" this morning. He is unable to provide any further information and repeatedly tells me to leave the room. He is unwilling to speak with me or participate in an exam. Was on the phone with a [employer] on my arrival to the room. Nursing reports he has been agitated this morning, threatening to leave and go "home" which, according to him, is not [facility]. He has been stating he is going to transfer himself to a wheelchair and have a taxi come pick him up. HR has also been increasing this morning. Around 0700 was 100bpm and now into the 120s. Family History: Unchanged from Admission Social History: Unchanged from Admission Past Medical History: Unchanged from Admission Objective Active Medications: Acetaminophen (Tylenol Tab*) 650 mg PO Q6H PRN PAIN Al Hydrox/Mg Hydrox/Simethicone (Maalox Plus*) 30 ml PO Q4H PRN CONSTIPATION Albuterol (Ventolin 2.5 Mg/3 Ml Neb.Mya*) 2.5 mg INH .Q20M PATRICK Albuterol (Ventolin Hfa Inhaler*) 2 puff INH Q4H PRN SOB/WHEEZING Atorvastatin Calcium (Lipitor*) 10 mg PO 1700 PATRICK Dextrose (D50w Syringe 50 Ml*) 12.5 gm IV PUSH .FOR FS < 60 - SS PRN FS < 60 Divalproex Sodium (Depakote Sprinkle Cap*) 500 mg PO BID PATRICK Furosemide (Lasix Tab*) 20 mg PO DAILY PATRICK Gabapentin (Neurontin Cap(*)) 300 mg PO TID PATRICK Haloperidol (Haldol Tab*) 5 mg PO BID PATRICK Ceftriaxone Sodium 1 gm/ (Sodium Chloride) 50 mls @ 200 mls/hr IVPB Q24H PATRICK Insulin Human Lispro (Humalog*) 0 units SUBCUT ACHS PATRICK; Protocol Magnesium Hydroxide (Milk Of Magnesia Liq*) 30 ml PO Q6H PRN CONSTIPATION Magnesium Oxide (Magox 400 Tab*) 400 mg PO BID PATRICK Mometasone Furoate/Formoterol Fumar (Dulera 200/5 Mdi*) 2 puff INH BID PATRICK Pantoprazole Sodium (Protonix Tab*) 40 mg PO BEDTIME PATRICK Polyethylene Glycol/Electrolytes (Miralax*) 17 gm PO DAILY PRN CONSTIPATION Potassium Chloride (Klor Con Er Tab*) 20 meq PO MoWeFr@0900 [facility] Rivaroxaban (Xarelto(*)) 15 mg PO BID PATRICK Senna (Senokot Tab*) 2 tab PO BEDTIME PRN CONSTIPATION Tiotropium [place] (Spiriva Cap.Inh*) 1 cap INH DAILY [facility] Vital Signs - 8 hr 06/02/18 06/02/18 06/02/18 02:23 02:31 02:35 Temperature Pulse Rate 84 Respiratory 28 Rate Blood Pressure 130/72 (mmHg) O2 Sat by Pulse 89 Oximetry 06/02/18 06/02/18 06/02/18 02:41 03:28 04:14 Temperature 97.9 F 98.5 F 98.0 F Pulse Rate 91 75 100 Respiratory 24 22 28 Rate Blood Pressure 130/72 137/86 146/87 (mmHg) O2 Sat by Pulse 94 97 92 Oximetry 06/02/18 06/02/18 06/02/18 07:07 07:15 08:27 Temperature 98.0 F 98.0 F Pulse Rate 101 101 68 Respiratory 16 16 18 Rate Blood Pressure 143/90 143/90 (mmHg) O2 Sat by Pulse 93 93 92 Oximetry Oxygen Devices in Use Now: Nasal Cannula - 1L Appearance: Elderly male sitting in bed in NAD Eyes: No Scleral Icterus Ears/Nose/Mouth/Throat: Mucous Membranes Moist Neck: NL Appearance and Movements; NL JVP, Trachea Midline Extremities: No Edema Neurological: - - Oriented to self and place Lines/Tubes/Other Access: Clean, Dry and Intact Peripheral IV Nutrition: Taking PO's Result Diagrams: 06/02/18 08:00 06/02/18 08:00 Assess/Plan/Problems-Billing Assessment: Mr. Zarate is a 67 yo M with PMH of schizoaffective disorder, COPD, chronic DVT , HTN, GERD, HLD, DM2, and recent oxygen requirements as of hospitalization earlier this month; who presented to the ED with reported leg pain and was admitted for a questionable infiltrate on CTA and right leg DVT. - Patient Problems (1) DVT (deep venous thrombosis) Code(s): I82.409 - ACUTE EMBOLISM AND THOMBOS UNSP DEEP VN UNSP LOWER EXTREMITY Comment: - Refusing physical exam so clinical status unknown - Unclear when the DVT was diagnosed; there is documentation of history of right leg DVT ([place], 2017), but unclear when this was diagnosed and location - US shows DVT in right common femoral and profunda femoral; patient refused left leg US - Continue Xarelto (2) Pneumonia Code(s): J18.9 - PNEUMONIA, UNSPECIFIED ORGANISM Comment: - New oxygen requirements - CTA shows possible right middle lobe infiltrate - Negative legionella and strep antigens - Continue azithromycin, ceftriaxone (3) Schizoaffective disorder Code(s): F25.9 - SCHIZOAFFECTIVE DISORDER, UNSPECIFIED Comment: - Refusing majority of care and threatening to leave AMA - Appreciate [facility] consult for capacity as there is no clear documentation that his capacity has been taken away in the past - Continue [place] Jones (4) COPD (chronic obstructive pulmonary disease) Code(s): J44.9 - CHRONIC OBSTRUCTIVE PULMONARY DISEASE, UNSPECIFIED Comment: - No signs of acute exacerbation at this time - Mild tachypnea but looks comfortable - Continued hypoxia, continue supplemental O2 (5) Type II diabetes mellitus Comment: - Glucose 200-300s - Check A1c; last A1c in 05/2017 6.7% - Continue Lispro SS; resume glipizide (6) HTN (hypertension) Code(s): I10 - ESSENTIAL (PRIMARY) HYPERTENSION Comment: - Hypertensive, SBP 140s - Not on outpatient medications; will continue to monitor (7) Chronic edema Code(s): R60.9 - EDEMA, UNSPECIFIED Comment: - Bilateral lower extremities according to prior records from 2017 - Continue furosemide, KCl (8) Hyperlipidemia Code(s): E78.5 - HYPERLIPIDEMIA, UNSPECIFIED Comment: - Continue atorvastatin (9) DVT prophylaxis Comment: - Xarelto (10) Full code status Code(s): Z78.9 - OTHER SPECIFIED HEALTH STATUS Comment: Status and Disposition: Observation. Anticipate d/c back to [facility] when medically stable. Attending: Leonel Mendoza
[2018-06-02] MEDS ORDERED: Metoprolol Tartrate IV* 1 MG/ML 5 ML VIAL IV ONE (12:13)
[2018-06-02] MEDS ORDERED: Metoprolol Tartrate IV* 1 MG/ML 5 ML VIAL ONE (12:32)
--- NOTE | 2018-06-02 13:38 | CONSULT ---
Consult Consult: Consult for Medical Decision Making Capacity S: Psychiatry is asked to evaluate in this 67 year old white male for depression and anxiety. He has a history of schizoaffective disorder. He is admitted to the Hospitalist service for DVT, pneumonia, diabetes. The patient mentioned that he doesnt want treatment and wants to go home. He said that nothing will happen if he refuses treatment and that he can always come back. He did not know what medications he takes or why he was taking them. However he did say that he does take his medications. He denied suicidal ideation, intent or plan. He denied homicidal ideation intent or plan. He denied voices or visions. He feels frustrated about being at another hospital before coming to [facility]. He refused to answer any other questions and told board writer to get out of the room. O: 67 year old white male appears older than stated age , dressed in patient gown. Somewhat Linear and goal directed thoughts. Preoccupation about leaving the hospital. He denied SI or HI. Insight and judgment poor. He knows current place, month, day and year. He knows the name of the current president. A/P: Capacity: Dx: Schizoaffective disorder #Patient doesnt have capacity to make own medical decisions. He is unable to appreciate the risks of refusing treatment and lacks the understanding of treatment options as well as his current medical conditions. #The consulting provider was contacted and informed of the following recommendation. Thank you for the consult. Patient informed of follow up care resources and that if he becomes suicidal to call 911. He was also notified 24 hour availability of the ER. As capacity is subject to change at any time, feel free to consult Psychiatry again in the event of any changes.
[2018-06-02] MEDS: Atorvastatin* 10 MG TAB PO SCH (17:31)
[2018-06-02] MEDS: Pantoprazole TAB * 40 MG TAB PO SCH (20:47)
[2018-06-03] MEDS: Mometasone/Formoter 200/5 MDI INH SCH ×2 (07:11→19:12)
[2018-06-03] MEDS: Tiotropium CAP.INH* CAP.INH/18 MCG (USE ORDER SET !) INH SCH (07:11)
[2018-06-03] MEDS: Furosemide TAB* 20 MG PO SCH (08:40)
[2018-06-03] MEDS: Rivaroxaban TAB(*) 15 MG PO SCH ×2 (08:40→21:00)
[2018-06-03] MEDS: Haloperidol TAB* 5 MG PO SCH ×2 (08:40→21:01)
[2018-06-03] MEDS: cefTRIAXone(*) 1 GM in NS 0.9% 50 ML* 50 ML IVPB SCH (08:40)
[2018-06-03] MEDS: Divalproex Sprinkle CAP* 125 MG PO SCH ×2 (08:41→21:00)
[2018-06-03] MEDS: glipiZIDE TAB.XL* 2.5 MG PO SCH (08:41)
[2018-06-03] MEDS: Gabapentin CAP(*) 300 MG PO SCH ×3 (08:44→21:02)
[2018-06-03] MEDS: Insulin LISPRO* 1 UNITS UNIT SUBCUT SCH ×4 (08:45→20:59)
[2018-06-03] MEDS: Magnesium Oxide TAB* 400 MG PO SCH ×2 (08:48→21:00)
--- NOTE | 2018-06-03 10:38 | PN ---
Subjective Date of Service: 06/03/18 Interval History: Mr. Zarate is feeling ok this morning. He is not willing to provide any further information or subjective data. He is not willing to participate in a physical exam and repeatedly tells me to leave his room. Nursing reports that he c/o bilateral ear pain this morning. When questioned, he admits to ear pain but is not able to further describe the pain. He does report left is worse than right. Family History: Unchanged from Admission Social History: Unchanged from Admission Past Medical History: Unchanged from Admission Objective Active Medications: Acetaminophen (Tylenol Tab*) 650 mg PO Q6H PRN PAIN Al Hydrox/Mg Hydrox/Simethicone (Maalox Plus*) 30 ml PO Q4H PRN CONSTIPATION Albuterol (Ventolin 2.5 Mg/3 Ml Neb.Mya*) 2.5 mg INH .Q20M PATRICK Albuterol (Ventolin Hfa Inhaler*) 2 puff INH Q4H PRN SOB/WHEEZING Atorvastatin Calcium (Lipitor*) 10 mg PO 1700 PATRICK Dextrose (D50w Syringe 50 Ml*) 12.5 gm IV PUSH .FOR FS < 60 - SS PRN FS < 60 Divalproex Sodium (Depakote Sprinkle Cap*) 500 mg PO BID PATRICK Furosemide (Lasix Tab*) 20 mg PO DAILY PATRICK Gabapentin (Neurontin Cap(*)) 300 mg PO TID PATRICK Glipizide (Glucotrol Xl*) 2.5 mg PO DAILY WITH MEAL PATRICK Haloperidol (Haldol Tab*) 5 mg PO BID PATRICK Ceftriaxone Sodium 1 gm/ (Sodium Chloride) 50 mls @ 200 mls/hr IVPB Q24H [facility] Insulin Human Lispro (Humalog*) 0 units SUBCUT ACHS PATRICK; Protocol Magnesium Hydroxide (Milk Of Magnesia Liq*) 30 ml PO Q6H PRN CONSTIPATION Magnesium Oxide (Magox 400 Tab*) 400 mg PO BID PATRICK Mometasone Furoate/Formoterol Fumar (Dulera 200/5 Mdi*) 2 puff INH BID PATRICK Pantoprazole Sodium (Protonix Tab*) 40 mg PO BEDTIME PATRICK Polyethylene Glycol/Electrolytes (Miralax*) 17 gm PO DAILY PRN CONSTIPATION Potassium Chloride (Klor Con Er Tab*) 20 meq PO MoWeFr@0900 PATRICK Rivaroxaban (Xarelto(*)) 15 mg PO BID PATRICK Senna (Senokot Tab*) 2 tab PO BEDTIME PRN CONSTIPATION Tiotropium [place] (Spiriva Cap.Inh*) 1 cap INH DAILY PATRICK Vital Signs - 8 hr 06/03/18 06/03/18 06/03/18 08:12 08:44 09:54 Temperature 97.9 F Pulse Rate 82 Respiratory 20 16 16 Rate Blood Pressure 144/80 (mmHg) O2 Sat by Pulse 94 Oximetry Oxygen Devices in Use Now: Nasal Cannula - 2L Appearance: Middle-aged disheveled male sitting in bed in NAD Eyes: No Scleral Icterus Ears/Nose/Mouth/Throat: Mucous Membranes Moist Neck: NL Appearance and Movements; NL JVP, Trachea Midline Respiratory: Symmetrical Chest Expansion and Respiratory Effort Extremities: No Edema Neurological: - - Oriented to self and place Lines/Tubes/Other Access: Clean, Dry and Intact Peripheral IV Nutrition: Taking PO's Result Diagrams: 06/02/18 08:00 06/02/18 08:00 Assess/Plan/Problems-Billing Assessment: Mr. Zarate is a 67 yo M with PMH of schizoaffective disorder, COPD, chronic DVT , HTN, GERD, HLD, DM2, and recent oxygen requirements as of hospitalization earlier this month; who presented to the ED with reported leg pain and was admitted for a questionable infiltrate on CTA and right leg DVT. - Patient Problems (1) DVT (deep venous thrombosis) Code(s): I82.409 - ACUTE EMBOLISM AND THOMBOS UNSP DEEP VN UNSP LOWER EXTREMITY Comment: - Refusing physical exam - According to records from [facility], RLE DVT first diagnosed in 2009 and subsequent US showed chronic changes associated with DVT; no history of LLE DVT - US on admission shows DVT in right common femoral and profunda femoral; patient refused left leg US - Xarelto had been stopped back in June 2017 at [facility] but was on Xarelto here at [facility] in October 2017; appears as though this may have been stopped as there was no clear evidence of DVT, but there was no previous LE US to r/o DVT at that point - Continue Xarelto (2) Pneumonia Code(s): J18.9 - PNEUMONIA, UNSPECIFIED ORGANISM Comment: - New oxygen requirements, now on 2L - CTA shows possible right middle lobe infiltrate - Negative legionella and strep antigens - Continue azithromycin, ceftriaxone (3) Schizoaffective disorder Code(s): F25.9 - SCHIZOAFFECTIVE DISORDER, UNSPECIFIED Comment: - Refusing majority of care and threatening to leave AMA - Appreciate [facility] consult; patient lacks capacity to make his own medical decisions - Will place social work consult as there is no surrogate decision maker on file - Continue Depakote, Haldol (4) COPD (chronic obstructive pulmonary disease) Code(s): J44.9 - CHRONIC OBSTRUCTIVE PULMONARY DISEASE, UNSPECIFIED Comment: - No signs of acute exacerbation at this time - Mild tachypnea but looks comfortable - Continued hypoxia, continue supplemental O2 (5) Type II diabetes mellitus Comment: - Glucose 200-300s - Check A1c; last A1c in 05/2017 6.7% - Continue Lispro SS, glipizide (6) HTN (hypertension) Code(s): I10 - ESSENTIAL (PRIMARY) HYPERTENSION Comment: - Normotensive, SBP 120-140s - Not on outpatient medications; will continue to monitor (7) Chronic edema Code(s): R60.9 - EDEMA, UNSPECIFIED Comment: - Bilateral lower extremities according to prior records from 2017 - Continue furosemide, KCl (8) Hyperlipidemia Code(s): E78.5 - HYPERLIPIDEMIA, UNSPECIFIED Comment: - Continue atorvastatin (9) DVT prophylaxis Comment: - Xarelto (10) Full code status Code(s): Z78.9 - OTHER SPECIFIED HEALTH STATUS Comment: Status and Disposition: Inpatient. Anticipate d/c back to [facility] when medically stable. Attending: Leonel Mendoza
[2018-06-03] MEDS: Atorvastatin* 10 MG TAB PO SCH (17:33)
[2018-06-03] MEDS: Pantoprazole TAB * 40 MG TAB PO SCH (21:00)
[2018-06-04] MEDS: Mometasone/Formoter 200/5 MDI INH SCH ×2 (07:19→20:35)
[2018-06-04] MEDS: Tiotropium CAP.INH* CAP.INH/18 MCG (USE ORDER SET !) INH SCH (07:20)
[2018-06-04] MEDS: cefTRIAXone(*) 1 GM in NS 0.9% 50 ML* 50 ML IVPB SCH (09:00)
[2018-06-04] MEDS: Insulin LISPRO* 1 UNITS UNIT SUBCUT SCH ×4 (09:00→21:05)
[2018-06-04] MEDS: Divalproex Sprinkle CAP* 125 MG PO SCH ×2 (09:01→21:05)
[2018-06-04] MEDS: Haloperidol TAB* 5 MG PO SCH ×2 (09:01→21:06)
[2018-06-04] MEDS: Magnesium Oxide TAB* 400 MG PO SCH ×2 (09:01→21:06)
[2018-06-04] MEDS: glipiZIDE TAB.XL* 2.5 MG PO SCH (09:01)
[2018-06-04] MEDS: Rivaroxaban TAB(*) 15 MG PO SCH ×2 (09:01→21:06)
[2018-06-04] MEDS: Furosemide TAB* 20 MG PO SCH (09:01)
[2018-06-04] MEDS: Gabapentin CAP(*) 300 MG PO SCH ×3 (09:01→21:06)
--- NOTE | 2018-06-04 13:17 | PN ---
Subjective Date of Service: 06/04/18 Interval History: Mr. Zarate is feeling better this morning, but he is unable to provide any further information. He denies SOB or cough. He will not answer any further questions and told me to leave his room. Nursing reports that he stated he needed to leave tomorrow to attend his cousin' s , though he has not had access to a phone in the last couple days so this seems unlikely. Family History: Unchanged from Admission Social History: Unchanged from Admission Past Medical History: Unchanged from Admission Objective Active Medications: Acetaminophen (Tylenol Tab*) 650 mg PO Q6H PRN PAIN Al Hydrox/Mg Hydrox/Simethicone (Maalox Plus*) 30 ml PO Q4H PRN CONSTIPATION Albuterol (Ventolin 2.5 Mg/3 Ml Neb.Mya*) 2.5 mg INH .Q20M PATRICK Albuterol (Ventolin Hfa Inhaler*) 2 puff INH Q4H PRN SOB/WHEEZING Atorvastatin Calcium (Lipitor*) 10 mg PO 1700 PATRICK Dextrose (D50w Syringe 50 Ml*) 12.5 gm IV PUSH .FOR FS < 60 - SS PRN FS < 60 Divalproex Sodium (Depakote Sprinkle Cap*) 500 mg PO BID PATRICK Furosemide (Lasix Tab*) 20 mg PO DAILY PATRICK Gabapentin (Neurontin Cap(*)) 300 mg PO TID PATRICK Glipizide (Glucotrol Xl*) 2.5 mg PO DAILY WITH MEAL PATRICK Haloperidol (Haldol Tab*) 5 mg PO BID PATRICK Ceftriaxone Sodium 1 gm/ (Sodium Chloride) 50 mls @ 200 mls/hr IVPB Q24H [facility] Insulin Human Lispro (Humalog*) 0 units SUBCUT ACHS PATRICK; Protocol Magnesium Hydroxide (Milk Of Magnesia Liq*) 30 ml PO Q6H PRN CONSTIPATION Magnesium Oxide (Magox 400 Tab*) 400 mg PO BID PATRICK Mometasone Furoate/Formoterol Fumar (Dulera 200/5 Mdi*) 2 puff INH BID PATRICK Pantoprazole Sodium (Protonix Tab*) 40 mg PO BEDTIME PATRICK Polyethylene Glycol/Electrolytes (Miralax*) 17 gm PO DAILY PRN CONSTIPATION Potassium Chloride (Klor Con Er Tab*) 20 meq PO MoWeFr@0900 PATRICK Rivaroxaban (Xarelto(*)) 15 mg PO BID PATRICK Senna (Senokot Tab*) 2 tab PO BEDTIME PRN CONSTIPATION Tiotropium [place] (Spiriva Cap.Inh*) 1 cap INH DAILY PATRICK Vital Signs - 8 hr 06/04/18 06/04/18 06/04/18 07:21 08:13 09:01 Temperature 98.2 F Pulse Rate 75 74 Respiratory 18 20 20 Rate Blood Pressure 138/77 (mmHg) O2 Sat by Pulse 94 93 Oximetry 06/04/18 06/04/18 06/04/18 10:28 11:35 11:41 Temperature 97.5 F Pulse Rate 81 Respiratory 18 16 20 Rate Blood Pressure 106/59 (mmHg) O2 Sat by Pulse 90 Oximetry Oxygen Devices in Use Now: Nasal Cannula - 2L Appearance: Middle-aged disheveled male laying in bed in NAD Eyes: No Scleral Icterus Ears/Nose/Mouth/Throat: Mucous Membranes Moist Neck: NL Appearance and Movements; NL JVP, Trachea Midline Respiratory: Symmetrical Chest Expansion and Respiratory Effort, Clear to Auscultation Cardiovascular: NL Sounds; No Murmurs; No JVD, RRR Extremities: - - Mild to moderate nonpitting RLE, but no obvious erythema Skin: No Rash or Ulcers Neurological: - - Oriented to self and place Lines/Tubes/Other Access: Clean, Dry and Intact Peripheral IV Nutrition: Taking PO's Result Diagrams: 06/02/18 08:00 06/02/18 08:00 Assess/Plan/Problems-Billing Assessment: Mr. Zarate is a 67 yo M with PMH of schizoaffective disorder, COPD, chronic DVT , HTN, GERD, HLD, DM2, and recent oxygen requirements as of hospitalization earlier this month; who presented to the ED with reported leg pain and was admitted for a questionable infiltrate on CTA and right leg DVT. - Patient Problems (1) DVT (deep venous thrombosis) Code(s): I82.409 - ACUTE EMBOLISM AND THOMBOS UNSP DEEP VN UNSP LOWER EXTREMITY Comment: - Nonpitting edema to RLE, but no erythema or pain noted - According to records from [facility], RLE DVT first diagnosed in 2009 and subsequent US showed chronic changes associated with DVT and possible chronic DVT; no history of LLE DVT - US on admission shows DVT in right common femoral and profunda femoral; patient refused left leg US; last known US prior to this was in 2017 and showed chronic changes - Xarelto had been stopped back in June 2017 at [facility] but was on Xarelto here at [facility] in October 2017; appears as though this may have been stopped as there was no clear evidence of DVT, but there was no previous LE US to r/o DVT at that point - Continue Xarelto (2) Pneumonia Code(s): J18.9 - PNEUMONIA, UNSPECIFIED ORGANISM Comment: - New oxygen requirements, now on 2L - CTA shows possible right middle lobe infiltrate - Negative legionella and strep antigens - Continue azithromycin, ceftriaxone (3) Schizoaffective disorder Code(s): F25.9 - SCHIZOAFFECTIVE DISORDER, UNSPECIFIED Comment: - Refusing majority of care and threatening to leave AMA - Appreciate [facility] consult; patient lacks capacity to make his own medical decisions - Will place social work consult as there is no surrogate decision maker on file - Continue Depakote, Haldol (4) COPD (chronic obstructive pulmonary disease) Code(s): J44.9 - CHRONIC OBSTRUCTIVE PULMONARY DISEASE, UNSPECIFIED Comment: - No signs of acute exacerbation at this time - Mild tachypnea but looks comfortable - Continued hypoxia, continue supplemental O2 (5) Type II diabetes mellitus Comment: - Glucose 200-300s - A1c 10%; last A1c in 05/2017 6.7% - Continue Lispro SS, glipizide; start Lantus (6) HTN (hypertension) Code(s): I10 - ESSENTIAL (PRIMARY) HYPERTENSION Comment: - Normotensive, SBP 100-130s - Not on outpatient medications; will continue to monitor (7) Chronic edema Code(s): R60.9 - EDEMA, UNSPECIFIED Comment: - Bilateral lower extremities according to prior records from 2017 - Continue furosemide, KCl (8) Hyperlipidemia Code(s): E78.5 - HYPERLIPIDEMIA, UNSPECIFIED Comment: - Continue atorvastatin (9) DVT prophylaxis Comment: - Xarelto (10) Full code status Code(s): Z78.9 - OTHER SPECIFIED HEALTH STATUS Comment: Status and Disposition: Inpatient. Anticipate d/c back to [facility] when medically stable. Attending: Leonel Mendoza
[2018-06-04] MEDS ORDERED: Sodium Phosphate ADULT ENEMA* 118 ml bottle PR PRN (16:57)
[2018-06-04] MEDS: Atorvastatin* 10 MG TAB PO SCH (17:40)
[2018-06-04] MEDS ORDERED: Insulin GLARGINE(*) 1 UNITS UNIT SUBCUT SCH (18:00)
[2018-06-04] MEDS: Pantoprazole TAB * 40 MG TAB PO SCH (21:07)
[2018-06-05] MEDS: Tiotropium CAP.INH* CAP.INH/18 MCG (USE ORDER SET !) INH SCH (08:03)
[2018-06-05] MEDS: Mometasone/Formoter 200/5 MDI INH SCH (08:04)
[2018-06-05] MEDS: cefTRIAXone(*) 1 GM in NS 0.9% 50 ML* 50 ML IVPB SCH (08:32)
[2018-06-05] MEDS ORDERED: Azithromycin TAB* 250 MG PO SCH (09:00)
[2018-06-05 09:06] VITALS: BP 154/82
[2018-06-05] MEDS: Insulin LISPRO* 1 UNITS UNIT SUBCUT SCH ×2 (09:17→12:46)
[2018-06-05] MEDS: glipiZIDE TAB.XL* 2.5 MG PO SCH (09:20)
[2018-06-05] MEDS: Divalproex Sprinkle CAP* 125 MG PO SCH (09:21)
[2018-06-05] MEDS: Gabapentin CAP(*) 300 MG PO SCH ×2 (09:22→12:46)
[2018-06-05] MEDS: Furosemide TAB* 20 MG PO SCH (09:22)
[2018-06-05] MEDS: Haloperidol TAB* 5 MG PO SCH (09:25)
[2018-06-05] MEDS: Magnesium Oxide TAB* 400 MG PO SCH (09:25)
[2018-06-05] MEDS: Rivaroxaban TAB(*) 15 MG PO SCH (09:26)
[2018-06-05] MEDS: Potassium Chlor TAB* 20 MEQ TAB.ER PO SCH (09:26)
[2018-06-05] MEDS: Amoxicillin PO (*) 500 MG CAP PO SCH ×2 (09:40→12:50)
--- NOTE | 2018-06-05 11:50 | DS ---
CC: [facility]* DATE OF ADMISSION: 06/02/2018. DATE OF DISCHARGE: 06/05/2018. PRIMARY CARE PHYSICIAN: Dr. Nusrat Harper at [facility]. ATTENDING PHYSICIAN: Dr. Leonel Mendoza* (dictated by Cristal Butterfield NP). PRIMARY DIAGNOSES: 1. Pneumonia. 2. DVT, acute versus chronic. 3. Acute on chronic hypoxic respiratory failure. SECONDARY DIAGNOSES: 1. COPD. 2. Psychoaffective disorder. 3. Diabetes mellitus, type 2. 4. Hypertension. 5. Chronic bilateral lower extremity edema. 6. Hyperlipidemia. STUDIES WHILE IN THE HOSPITAL: 1. Chest x-ray on 06/01/2018, reads as: Low lung volumes with right basilar atelectasis versus early consolidation. 2. EKG on 06/01/2018 shows normal sinus rhythm with a rate of 89, QTC 424, no ischemic changes. 3. Chest/thorax CTA on 06/01/2018, reads as: General hypoinflation of the lungs with slight interstitial prominence and mild bilateral dependent atelectasis in the lower lobes. Small focal consolidation in the right middle lobe adjacent to the major fissure. Degenerative change of the cervical spine with posterior osteophytes and spinal stenosis at C6-7. There is mild distention of the stomach which in view of a contracted gallbladder likely reflects recent ingestion. There is suggestion of cholelithiasis. No pulmonary embolism is identified. 4. Bilateral lower extremity Doppler study on 06/01/2018, reads as: Deep vein thrombosis involving the right common femoral vein and profunda femoral vein. Deep vein thrombosis is also involving the popliteal vein. The patient refused examination of the left leg. HISTORY OF PRESENT ILLNESS AND HOSPITAL COURSE: Mr. Zarate is a 67-year-old male with a past medical history of schizoaffective disorder, COPD, chronic right DVT, hypertension, GERD, hyperlipidemia, and diabetes mellitus type 2 who presented to the emergency room with complaints of leg pain. Please see the history and physical by Dr. Mcfadden for a complete summary of the events leading up this hospitalization. In short, the patient was admitted to the facility from 05/27/2018 to 05/28/2018 after a mechanical fall. At that point, he was found to be hypoxic without any acute respiratory findings and was ultimately discharged on one liter of oxygen back to [facility]. The hypoxia was thought to be secondary to immobility and atelectasis. Back at [facility], he reportedly had a chest x- ray which was concerning for right middle lobe consolidation and the patient reported pain in his lower extremities. There was a Doppler study done at [facility] and there was concern for a DVT, so the patient was sent to the emergency room. In the emergency room, he had imaging as noted above which was remarkable for a DVT in the right lower extremity. The patient does have a history of a DVT in the right lower extremity. Based on prior records, it is unclear if this was a chronic DVT or if there were simply chronic changes associated with a prior DVT. There was no evidence of PE. There was concern for pneumonia and so in the emergency room he was given a dose of Zosyn and a dose of Levaquin. The patient endorsed leg pain, though reported that this had been his baseline for a number of years. Because of the concern for acute DVT and pneumonia, the patient was admitted by the Hospitalist Service. The patient had previously been on Xarelto for a history of DVT and it appears as though the Xarelto was stopped in October of 2017 because of hematuria. Ultimately, the Xarelto was never restarted and based on records from [facility], it is not entirely clear why. Records were obtained from [facility] and it appears as though the patient's deep vein thrombosis in the right lower extremity was initially diagnosed in March 2009. Additional imaging later that year noted a chronic DVT in the right femoral popliteal segment. There was never any evidence of DVT on the left side. It appears as though the most recent lower extremity ultrasound from [facility] in [place] is from November 2016. At that point, the radiologists impression was "re -demonstration of chronic changes from prior deep vein thrombosis with no definite evidence of new acute thrombosis in the right lower extremity veins." From what I can seen, the patient has not had any lower extremity ultrasound since that time at [facility], except for that on the day of admission and there are no lower extremity ultrasounds on file at this facility, so it remains unclear if there is actually a chronic DVT or if there are simply changes associated with a chronic DVT. Ultimately, the patient was restarted on his Xarelto again. It looks as though he was taken off the Xarelto due to hematuria and I will note that the patient has had some recent falls, so at this point there is a possibility of acute DVT and so I feel he does need treatment with anticoagulation at this point. The patient continues to endorse lower extremity pain, though states this is at his baseline. He is noted to have some mild nonpitting edema in the right lower extremity. There is no edema noted in the left lower extremity. The patient does refuse a physical exam, so this is difficult to accurately assess. Regarding his pneumonia, the patient required two liters of oxygen to maintain saturations in the 90s. He was noted to have negative legionella and strep antigen and he was treated with antibiotics for community-acquired pneumonia. As of today, the patient is saturating in the low to mid 90s on room air while sitting in a chair. I do think the patient tends to desaturate while sleeping. There may be some component of sleep apnea, though he will require formal testing. I also think his sedentary lifestyle contributes to atelectasis which is also contributing to the hypoxia. The patient was noted to have elevated blood glucose while here in the hospital. I did check an A1c which was 10 percent. His last A1c on file from one year ago was 6.7 percent and so the patient was started on low dose Lantus. The patient is appearing at his baseline today. He is refusing physical exam, so I am not able to auscultate lung sounds, though nursing documentation reports that his lung sounds are clear, though diminished throughout. Nursing documentation also reports a regular rate and rhythm without any murmurs, rubs, or gallops, and intact pedal pulses. Mr. Zarate is stable for discharge today. Vital signs are as follows: Temperature 97.1, heart rate 75, respiratory rate 18, oxygen saturation 90 percent on room air, blood pressure 154/82. DISCHARGE MEDICATIONS: New medications: 1. Amoxicillin 1,000 mg p.o. t.i.d. times 4 days. 2. Azithromycin 250 mg p.o. daily times 4 days. 3. Lantus 10 units subcu daily. 4. Xarelto 15 mg p.o. b.i.d. times 17 days (15 mg b.i.d. for a total of 21 days , started on 06/02/2018, then 20 mg daily). Continued medications: 1. Acetaminophen 650 mg p.o. q.6 hours prn fever or pain. 2. Maalox 30 ml p.o. q.4 hours prn constipation or indigestion. 3. Albuterol MDI one to two puffs q.4 hours prn shortness of breath or wheezing. 4. Atorvastatin 10 mg p.o. daily. 5. Depakote 500 mg p.o. b.i.d. 6. Furosemide 20 mg p.o. daily. 7. Gabapentin 300 mg p.o. t.i.d. 8. Glipizide 2.5 mg p.o. daily. 9. Haldol 5 mg p.o. b.i.d. 10. Milk of Magnesia 30 ml p.o. q.6 hours prn constipation. 11. Magnesium Oxide 400 mg p.o. b.i.d. 12. Dulera 200/5 two puffs b.i.d. 13. Omeprazole 20 mg p.o. at bedtime. 14. MiraLax 17 gm p.o. daily prn constipation. 15. Potassium Chloride 20 mEq p.o. every Tuesday, Tuesday, Tuesday. 16. Senna two tabs p.o. at bedtime prn constipation. 17. Tiotropium one cap inhalation daily. 18. Magnesium Citrate 30 ml p.o. daily prn constipation. 19. Melatonin 3 mg p.o. at bedtime. DISCHARGE PLAN: Mr. Zarate will be discharged back to [facility]. I would recommend an incentive spirometer. The patient should use two liters of oxygen at night and should have oxygen during the day to maintain a saturation greater than 90 percent. Nursing staff should monitor bilateral lower extremities for signs and symptoms of acute DVT, including edema, erythema, and increasing pain. Medications are noted above. The patient will need to complete four days of Amoxicillin and Azithromycin to complete a total of seven days of antibiotic therapy for his community-acquired pneumonia. Additionally, he has been started on Xarelto for a presumed acute DVT and so he should take 15 mg b.i.d. for 21 days. He started this medication here on 06/02/2018. He will then need to be transitioned to 20 mg daily. He can continue his other usual medications as noted above. He will need to follow-up with his primary care provider in four to seven days. I would recommend a sleep study as I do think there may be some component of obstructive sleep apnea, although I think it is unlikely that the patient would be compliant with a CPAP if that were the case. I would also recommend a follow-up chest x-ray in four weeks to ensure resolution of this pneumonia. ACTIVITY: As tolerated, though activity and ambulation should be encouraged. I would recommend participation in physical therapy and occupational therapy. DIET: Diabetic, consistent carb. The patient should return to the emergency room or nearest hospital for any worsening of symptoms, shortness of breath, lightheadedness, dizziness, chest discomfort, high fevers, chills, night sweats, loss of consciousness or any other worrisome signs or symptoms. CONDITION ON DISCHARGE: Stable. DISCHARGE DISPOSITION: long term facility, [facility]. This is a summarized report of a complex medical history and hospital stay. For further details, please see the entire medical record. TIME SPENT: Approximately 50 minutes were spent on this discharge. Please note that this discharge summary will be used as the admitting history and physical for [facility]. CRISTAL BUTTERFIELD NP [id number]/[facility]PS #: [id number]/CPS #: [id number] JESSICA
--- NOTE | 2018-06-05 12:06 | DS ---
CONTINUATION OF DISCHARGE SUMMARY DATE OF ADMISSION: 06/02/2018. DATE OF DISCHARGE: 06/05/2018. DISCHARGE MEDICATIONS: New medications: 1. Amoxicillin 1,000 mg p.o. t.i.d. times 4 days. 2. Azithromycin 250 mg p.o. daily times 4 days. 3. Lantus 10 units subcu daily. 4. Xarelto 15 mg p.o. b.i.d. times 17 days (15 mg b.i.d. for a total of 21 days, started on 06/03/19 19, then 20 mg daily). Continued medications: 1. Acetaminophen 650 mg p.o. q.6 hours prn fever or pain. 2. Maalox 30 ml p.o. q.4 hours prn constipation or indigestion. 3. Albuterol MDI one to two puffs q.4 hours prn shortness of breath or wheezing. 4. Atorvastatin 10 mg p.o. daily. 5. Depakote 500 mg p.o. b.i.d. 6. Furosemide 20 mg p.o. daily. 7. Gabapentin 300 mg p.o. t.i.d. 8. Glipizide 2.5 mg p.o. daily. 9. Haldol 5 mg p.o. b.i.d. 10. Milk of Magnesia 30 ml p.o. q.6 hours prn constipation. 11. Magnesium Oxide 400 mg p.o. b.i.d. 12. Dulera 200/5 two puffs b.i.d. 13. Omeprazole 20 mg p.o. at bedtime. 14. MiraLax 17 gm p.o. daily prn constipation. 15. Potassium Chloride 20 mEq p.o. every Tuesday, Tuesday, Tuesday. 16. Senna two tabs p.o. at bedtime prn constipation. 17. Tiotropium one cap inhalation daily. 18. Magnesium Citrate 30 ml p.o. daily prn constipation. 19. Melatonin 3 mg p.o. at bedtime. DISCHARGE PLAN: Mr. Zarate will be discharged back to [facility]. I would recommend an incentive spirometer. The patient should use two liters of oxygen at night and should have oxygen during the day to maintain a saturation greater than 90 percent. Nursing staff should monitor bilateral lower e xtremities for signs and symptoms of acute DVT, including edema, erythema, and increasing pain. Medi cations are noted above. The patient will need to complete four days of Amoxicillin and Azithromycin to complete a total of seven days of antibiotic therapy for his community-acquired pneumonia. Addit ionally, he has been started on Xarelto for a presumed acute DVT and so he should take 15 mg b.i.d. f or 21 days. He started this medication here on 06/02/2018. He will then need to be transitioned to 20 mg daily. He can continue his other usual medications as noted above. He will need to follow-up with his primary care provider in four to seven days. I would recommend a sleep study as I do think there may be some component of obstructive sleep apnea, although I think it is unlikely that the tara ent would be compliant with a CPAP if that were the case. I would also recommend a follow-up chest x -ray in four weeks to ensure resolution of this pneumonia. ACTIVITY: As tolerated, though activity and ambulation should be encouraged. I would recommend part icipation in physical therapy and occupational therapy. DIET: Diabetic, consistent carb. The patient should return to the emergency room or nearest hospital for any worsening of symptoms, sh ortness of breath, lightheadedness, dizziness, chest discomfort, high fevers, chills, night sweats, l oss of consciousness or any other worrisome signs or symptoms. CONDITION ON DISCHARGE: Stable. DISCHARGE DISPOSITION: senior living facility, [facility]. This is a summarized report of a complex medical history and hospital stay. For further details, porter salter see the entire medical record. TIME SPENT: Approximately 50 minutes were spent on this discharge. Please note that this discharge summary will be used as the admitting history and physical for [facility]. TRACIE TINSLEY NP [id number]/[facility] #: [id number]
== END 2018-06-05 13:50 | DRG 299 ==
LOC: ED 21:49 → MED 06-02 01:57 → OBSVTOIN 06-02 14:00
PROVIDERS: ADMIT Internal Medicine; ATTEND Internal Medicine
DX: I82.431 Acute embolism and thrombosis of right popliteal vein (principal); J18.1 Lobar pneumonia, unspecified organism; J96.21 Acute and chronic respiratory failure with hypoxia; J44.0 Chronic obstructive pulmonary disease with (acute) lower respiratory infection; I82.511 Chronic embolism and thrombosis of right femoral vein; I82.411 Acute embolism and thrombosis of right femoral vein; E11.9 Type 2 diabetes mellitus without complications; E78.00 Pure hypercholesterolemia, unspecified; I10 Essential (primary) hypertension; F25.9 Schizoaffective disorder, unspecified; F17.210 Nicotine dependence, cigarettes, uncomplicated; M48.02 Spinal stenosis, cervical region; M25.78 Osteophyte, vertebrae; R60.0 Localized edema; K80.20 Calculus of gallbladder without cholecystitis without obstruction; E78.5 Hyperlipidemia, unspecified; Z81.1 Family history of alcohol abuse and dependence; Z82.49 Family history of ischemic heart disease and other diseases of the circulatory system; Z72.89 Other problems related to lifestyle; Z79.01 Long term (current) use of anticoagulants; Z79.4 Long term (current) use of insulin
CPT/HCPCS: 36415; 71045; 71275; 80048; 80053; 83036; 83605; 83880; 84484; 85025; 85610; 85730; 86140; 87040; 87899; 93005; 93970; 94640; 99284; A9270-GY; J0696; J1650; J2543; J2930; J3490; Q9967

== ENCOUNTER 2019-01-01 10:39 | Inpatient (IN) | payer MEDICARE, MEDICAID ==
--- NOTE | 2019-01-01 11:03 | ED ---
HPI Chest Pain - HPI Summary HPI Summary: Pt is a 68 y/o M w hx DM, HTN, DVT, COPD, presenting to the ED brought in by EMS for chest pain. Per EMS, pt is a resident of [facility] where he was evaluated by Dr. Harper for chest pain onset a few days ago, and she advised that he come here for further evaluation. Pt is not normally on O2 but was placed on 4L by EMS d/t low SaO2. Pt reports L-sided stabbing chest pain, at rest. Denies cough or SOB but noted to be hypoxic. Patient also reporting pain in his R eye and discharge from eye for one day, no visual disturbance. No recent stress test. Denies hx PE. Conflicting reports of O2 use (per EMS may use at [facility], per patient not on O2). - History of Current Complaint Chief Complaint: EDChestPainROMI Hx Obtained From: Patient Onset/Duration: Started Days Ago, Still Present Timing: Constant, Lasting Days Initial Severity: Mild Current Severity: Mild Pain Intensity: 3 Pain Scale Used: 0-10 Numeric Chest Pain Location: Left Anterior Chest Pain Radiates: No Character: Sharp/Stabbing Aggravating Factor(s): Nothing Alleviating Factor(s): Nothing Associated Signs and Symptoms: Positive: Chest Pain, Other: - R eye pain. Negative: Shortness of Breath, Cough - Additional Pertinent History Primary Care Physician: [id number] - Allergy/Home Medications Allergies/Adverse Reactions: Allergies Allergy/AdvReac Type Severity Reaction Status Date / Time No Known Allergies Allergy Verified 01/01/19 12:22 Home Medications: Home Medications Lidocaine [Aspercreme] 1 patch TOPICAL DAILY 01/01/19 [History Confirmed ] Magnesium CITRATE* [Citrate of Magnesia*] 30 ml PO MOWEFR PRN 01/01/19 [History Confirmed 01/01/19] Mometasone/Formoter 200/5 MDI* [Dulera 200/5 MDI*] 1 puff INH BID 01/01/19 [ History Confirmed 01/01/19] [place]-3 Fatty Acids (Nf) [Fish Oil (NF)] 1,000 mg PO BID 01/01/19 [History Confirmed 01/01/19] diPHENhydraMINE PO* [Benadryl PO 50 MG CAP*] 50 mg PO BEDTIME PRN 01/01/19 [ History Confirmed 01/01/19] PMH/Surg Hx/FS Hx/Imm Hx Previously Healthy: Yes Endocrine/Hematology History: Reports: Hx Diabetes Cardiovascular History: Reports: Hx Deep Vein Thrombosis - RLE, Hx Hypercholesterolemia, Hx Hypertension Respiratory History: Reports: Hx Chronic Obstructive Pulmonary Disease (COPD) GI History: Reports: Hx Gastroesophageal Reflux Disease History: Denies: Hx Renal Disease Musculoskeletal History: Reports: Other Musculoskeletal History - Spinal stenosis Sensory History: Reports: Hx Contacts or Glasses, Other Sensory Impairments - poor vision Denies: Hx Deafness, Hx Hearing Aid Opthamlomology History: Reports: Hx Contacts or Glasses, Other Sensory Impairments - poor vision Neurological History: Reports: Other Neuro Impairments/Disorders - 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, spinal stenosis Psychiatric History: Reports: Other Psychiatric Issues/Disorders - Schizoaffective Infectious Disease History: No Infectious Disease History: Denies: Hx of Known/Suspected MRSA, Traveled Outside the in Last 30 Days - Family History Known Family History: Positive: Hypertension - Social History Alcohol Use: None Alcohol Amount: Lives at [facility] Substance Use: No Substance Use Type: Reports: None Hx Tobacco Use: Yes Smoking Status (MU): Former Smoker Type: Cigarettes Review of Systems Positive: Other - R eye pain Positive: Chest Pain Negative: Shortness Of Breath, Cough All Other Systems Reviewed And Are Negative: Yes Physical Exam - Summary Physical Exam Summary: Constitutional: Well-developed, Well-nourished, Alert. (-) Distressed Skin: Warm, Dry HENT: Normocephalic; Atraumatic Eyes: Conjunctival injection w/ purulent discharge of R eye, PERRL Neck: Musculoskeletal ROM normal neck. (-) JVD, (-) Stridor, (-) Nuchal rigidity Cardio: Rhythm regular, rate normal, Heart sounds normal; Intact distal pulses; Radial pulses are 2+ and symmetric. (-) Murmur Pulmonary/Chest wall: Effort normal. (-) Respiratory distress, (-) Wheezes, (-) Rales Abd: Soft, (-) tenderness, (-) Distension, (-) Guarding, (-) Rebound Musculoskeletal: (-) Edema Lymph: (-) Cervical adenopathy Neuro: Alert, Oriented x3 Psych: Mood and affect Normal Triage Information Reviewed: Yes Vital Signs On Initial Exam: Initial Vitals Temp Pulse Resp BP Pulse Ox 97.6 F 89 20 132/90 92 01/01/19 10:46 01/01/19 10:46 01/01/19 10:46 01/01/19 10:46 01/01/19 10:46 Vital Signs Reviewed: Yes Procedures - Sedation Patient Received Moderate/Deep Sedation with Procedure: No Diagnostics - Vital Signs Vital Signs Temp Pulse Resp BP Pulse Ox 01/01/19 10:51 87 92 01/01/19 10:50 90 132/90 92 01/01/19 10:46 97.6 F 89 20 132/90 92 - Laboratory Result Diagrams: 01/01/19 10:57 01/01/19 10:57 Lab Statement: Any lab studies that have been ordered have been reviewed, and results considered in the medical decision making process. - Radiology CXR Radiology Interpretation Completed By: Radiologist Summary of Radiographic Findings: Linear bibasilar airspace opacification in the setting of hypoinflated lungs may be reflective of atelectasis. ED physician has reviewed this report. - EKG 1056 Cardiac Rate: NL - 87bpm EKG Rhythm: Sinus Rhythm ST Segment: Normal Ectopy: None Summary of EKG Findings: An EKG at 1056 reveals normal sinus rhythm 87bpm, nml axis, nml intervals. No STEMI. No acute changes. ED physician has reviewed and interpreted this EKG. Chest Pain Course/Dx - Course Course Of Treatment: 68 y/o male w hx DVT, COPD, HTN p/w CP and SOB. -Hypoxic to 80s on RA, placed on 4 L. Will check d dimer given reported hx DVT in past and immobility. Chest Pain DDX: The patient is well appearing, with stable vitals. Given the patient's clinical presentation, highest on differential is angina vs atypical CP. Although less likely, differential also includes the following: --Pneumothorax: Equal breath sounds, story inconsistent since gradual onset of symptoms. CXR shows no evidence of pneumothorax. Unlikely. -- Cardiac tamponade: The history and physical are not concerning for tamponade. No Pulsus Paradoxus, no tachypnea. Unlikely. --Mediastinitis or esophageal rupture: The history is not consistent, as the patient has had no recent history of significant wretching, instrumentation, or mediastinal surgeries. Unlikely. --Aortic dissection: The patient does not describe the classical tearing chest pain radiating into the back, and the CXR does not show mediastinal widening or other signs of aortic dissection. Unlikely. --PE: Vitals wnl (not hypoxic, tachycardic or tachypneic). Wells low risk, d dimer neg. --ACS: The initial EKG shows no ischemic changes. The initial troponin is not elevated. Heart score: 4, moderate. Given erythromycin cream for R conjunctivitis. - Diagnoses Provider Diagnoses: Chest pain Discharge ED - Sign-Out/Discharge Documenting (check all that apply): Patient Departure - Discharge Plan Condition: Stable Disposition: [facility] Referrals: Nusrat Harper DO [Primary Care Provider] - - Billing Disposition and Condition Condition: STABLE Disposition: Admitted to [facility] - Attestation Statements Document Initiated by Julyibe: Yes Documenting Scribe: Katie Pena Provider For Whom Julyibe is Documenting (Include Credential): Trish Herrera MD. Scribe Attestation: Katie Galvan, scribed for Trish Herrera MD. on 01/01/19 at 1223. Scribe Documentation Reviewed: Yes Provider Attestation: The documentation as recorded by the scribe, Katie Pena accurately reflects the service I personally performed and the decisions made by Trish agosto MD. Status of Scribe Document: Viewed Consult Consult: 1210 - I spoke with Dr. Mcfadden who accepts the pt [place] [facility]
[2019-01-01 11:08] LABS: ABS Eosinophils 0.1 10^3/ul (0-0.6); ABS Monocytes 0.6 10^3/ul (0-0.8); ABS Neutrophils 3.2 10^3/ul (1.5-7.7); Eosinophil % 1.3 %; Hematocrit 47 % (42-52); Lymphocyte % 33.4 %; Mean Corpuscular HGB Conc 32 g/dL (31-36); Mean Corpuscular Hemoglobin 26 pg (27-31); Mean Corpuscular Volume 81 fL (80-94); Mean Platelet Volume 7.6 fL (7.4-10.4); Nucleated Red Blood Cells % 0.1; Platelet Count 181 10^3/uL (150-450); Red Cell Distribution Width 17 % (10-15); White Blood Count 5.9 10^3/uL (3.5-10.8)
[2019-01-01] MEDS: Erythromycin OPTH OINT* APPLIC OINT SCH ×2 (11:18→13:06)
[2019-01-01 11:27] LABS: Troponin I 0.01 ng/mL (<0.04)
[2019-01-01 11:30] LABS: INR 1.05 (0.82-1.09)
[2019-01-01 11:52] LABS: Albumin 3.5 g/dL (3.2-5.2); Albumin/Globulin Ratio 1.1 (1-3); BUN/Creatinine Ratio 21.3 (8-20); Calcium 8.9 mg/dL (8.6-10.3); EGFR African American 159.5 (>60); EGFR Non-African American 131.8 (>60); Globulin 3.2 g/dL (2-4); Potassium 4.6 mmol/L (3.5-5.0); Total Bilirubin 0.2 mg/dL (0.2-1.0); Total Protein 6.7 g/dL (6.4-8.9)
[2019-01-01] MEDS ORDERED: diPHENhydraMINE PO* 50 MG PO PRN (12:46)
[2019-01-01] MEDS ORDERED: Magnesium CITRATE* 300 ML BTL PO PRN (12:46)
[2019-01-01] MEDS ORDERED: Senna TAB 8.6 mg* TAB PO PRN (12:46)
[2019-01-01] MEDS ORDERED: Ondansetron INJ* 2 MG/ML VIAL IV PRN (12:49)
[2019-01-01] MEDS ORDERED: Nitroglycerin TAB 0.4 MG* 0.4 MG TAB SL PRN (12:49)
[2019-01-01] MEDS ORDERED: Acetaminophen TAB* 325 MG PO PRN (12:49)
[2019-01-01] MEDS ORDERED: Potassium Chlor TAB* 20 MEQ TAB.ER PO SCH (13:00)
[2019-01-01] MEDS ORDERED: Albuterol/Ipratropium NEB.SOL* Albuterol 2.5 MG/Ipratropium 0.5 MG 3 ML INH PRN (13:02)
[2019-01-01 13:23] LABS: C Reactive Protein 5.87 mg/L (<8.01)
[2019-01-01] MEDS ORDERED: Erythromycin TOPICAL GEL* 30 GM TUBE TOPICAL SCH (14:00)
[2019-01-01] MEDS ORDERED: Dextrose 50% VIAL 50 ml IV PUSH PRN (14:17)
[2019-01-01] MEDS ORDERED: Perflutren Lipid Microsphere* 3 ML VIAL ONE (14:18)
--- NOTE | 2019-01-01 14:52 | HP ---
CC: Dr. Nusrat Harper * ADMISSION HISTORY AND PHYSICAL: DATE OF ADMISSION: 12/31/18 PRIMARY CARE PROVIDER: Dr. Nusrat Harper at [facility]. MY ATTENDING WHILE IN THE HOSPITAL: Dr. Baudilio Mcfadden.* (DICTATED BY YARIEL LUNA) CHIEF COMPLAINT: Chest pain x3 days. HISTORY OF PRESENT ILLNESS: Mr. Zarate is a 68-year-old male with past medical history significant for schizoaffective disorder, COPD, diabetes mellitus type 2, right lower extremity DVT, who presents to the emergency department from [facility] where he is a fdc resident with complaints of chest pain. The patient's chest pain was first noted by staff this morning and at that time, he was found to be hypoxic and was placed on oxygen; however, on further questioning, the patient states that this has been going on and off for approximately 3 days. He does not think it started suddenly, but he is very vague on the details and very reluctant to answer any questions. The patient is mostly preoccupied with food and getting out of the hospital. The patient denies any associated symptoms such as diaphoresis, shortness of breath , nausea, vomiting. The patient has not had any recent cough. The patient has not noticed any wheezing. The patient almost never gets out of bed. He believes that he is unable to do so to be due to he states bone spurs in his lower extremities that occurred when he jumped out of a tree. The patient denies current chest pain. The patient's pain is not reproducible to palpation or movement of his left arm. The patient denies any other recent illness except for right-sided eye pain with discharge. The patient states "there is an eye winker in there and requested to be removed." The patient cannot quantify how long his eye issues have been going on for. The patient has no pain with urination. No abdominal pain or diarrhea. The patient has no recent issues. The patient denies any recent increase in the pain in his legs, so he does have painful diabetic neuropathy which is chronic and has been stable for a long period of time. In the emergency department, the patient was found to have a nonischemic EKG. A chest x-ray was read as possible atelectasis, though interpretation shows possible cephalization and pulmonary edema. The patient's initial troponin was negative and we were asked to evaluate the patient for admission to the hospital. The patient also needed 4 L of oxygen to maintain saturation above 90% and we were asked to evaluate the patient for admission to the hospital due to acute respiratory failure and intermittent chest pain. PAST MEDICAL HISTORY: COPD, schizoaffective disorder, diabetes mellitus type 2 , hypertension, GERD, hyperlipidemia, spinal stenosis, chronic right lower extremity DVT. PAST SURGICAL HISTORY: The patient denies. MEDICATIONS: Per [facility] records: 1. Advair 100/50 one puff inhalation q.12 hours. 2. Aripiprazole 0.5 mg daily for bipolar disorder. 3. Basaglar 15 units subcutaneous nightly. 4. Depakote 500 mg p.o. b.i.d. for bipolar disorder. 5. Gabapentin 1 capsule t.i.d. for pain. 6. Glipizide 2.5 mg p.o. daily for diabetes. 7. Haloperidol 5 mg p.o. b.i.d. for bipolar disorder. 8. Incruse Ellipta 1 inhalation one time a day. 9. Insulin regular 5 to 6 units subcutaneously with meals. 10. Ketoconazole shampoo 1 application topical daily. 11. Lasix 20 mg p.o. daily. 12. Lipitor 10 mg p.o. daily. 13. Maalox 30 mL p.o. q.4 hours as needed. 14. Magnesium citrate 30 mL p.o. daily as needed for constipation. 15. Magnesium oxide 400 mg p.o. daily. 16. Melatonin 3 mg p.o. nightly. 17. Milk of magnesia 30 mL every 4 hours as needed for constipation. 18. Potassium chloride 20 mEq p.o. daily. 19. Xarelto 1 tab p.o. daily. ALLERGIES: None. FAMILY HISTORY: The patient's father is an alcoholic and both his parents are . The patient denies any siblings and does not know his mother's history. SOCIAL HISTORY: The patient quit smoking 20 years ago. The patient used to abuse alcohol, does not anymore. The patient denies illicit drug use. The patient is retired, stable, living fdc in [facility]. 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 The patient has never and has no children. The patient states that he does have a surrogate decision maker, but declines to say who it is, but that it is "all filled out." REVIEW OF SYSTEMS: A 10-point review of systems was reviewed and is negative except as above in the HPI and history and physical exam. PHYSICAL EXAMINATION GENERAL: The patient is a dishevelled looking 68-year-old male who appears older than stated age, sitting in the bed, in no acute distress. VITAL SIGNS: Temperature 97.6, pulse rate 97, respiratory rate 23, oxygen saturation 90% on 4 L, and blood pressure 152/82. HEENT: Head: Normocephalic, atraumatic. Sclerae anicteric. No conjunctival injection. Nasal mucosa moist. Oral mucosa moist. No oropharyngeal erythema, discharge, or exudate. NECK: Supple, nontender. No lymphadenopathy. No carotid bruits auscultated. No JVD. RESPIRATORY: Diminished throughout. Crackles heard in bilateral lower lobes. CARDIAC: Tachycardic. No clicks, murmurs, gallops, or rubs. Pulses are 2+ in the dorsalis pedis, posterior tibialis, and radial areas. Trace bilateral lower extremity edema noted. ABDOMEN: Soft, nontender, nondistended. Bowel sounds present, normoactive in all 4 quadrants. No hepatosplenomegaly. No abdominal bruits auscultated. No hepatojugular reflux. GENITOURINARY: No suprapubic or CVA tenderness. NEURO: Cranial nerves II through XII intact. No focal deficits. Peripheral neuropathy. Alert and oriented x3. PSYCHIATRIC: Somewhat confrontational, easily distracted. Flat affect. SKIN: Clean, dry and intact. No iván-area rash noted in nursing notes or outpatient notes. DIAGNOSTIC STUDIES/LAB DATA: White blood cell count 5.9, hemoglobin 15.0, platelet count 181. INR 1.05, D-dimer less than 200. Sodium 137, potassium 4.6 , chloride 99, carbon dioxide 33, anion gap 5, BUN 13, creatinine 0.61, glucose 233, calcium 8.9. Bilirubin 0.20, AST 13, ALT 15, alkaline phosphatase 67. Troponin I 0.01. Protein 6.7, albumin 3.5, globulin 3.2. Studies: Chest x-ray read as linear bibasilar airspace opacification in the setting of hyperinflated lungs and reflected atelectasis. EKG shows normal sinus rhythm, non-ST segment elevation or depression, T-wave flattening in aVL, early repolarization V2 and V3, left ventricular hypertrophy criteria based on aVL, possible right atrial enlargement. Compared to previous exam, there are no significant changes. ASSESSMENT AND PLAN: Impression: Mr. Zarate is a 68-year-old male with past medical history significant for schizoaffective disorder, chronic obstructive pulmonary disease, diabetes mellitus type 2, hypertension, hyperlipidemia, who presents to the emergency department with vague complaints of chest pain and acute hypoxic respiratory failure. The patient appears to most likely have a congestive heart failure exacerbation and admitted to the hospital for management of such. 1. Acute hypoxic respiratory failure, likely heart failure exacerbation. The patient has no documentation of heart failure; however, he does take Lasix daily for unclear indication. The patient does have a known history of lower extremity edema. The patient does not have an echocardiogram in our records, this will be taken. The patient will have Lasix 20 mg IV twice daily initially. The patient will have strict I's and O's and daily weights. The patient's kidney function monitored closely with diuresis. The differential for the patient's respiratory failure of course includes as well as chronic obstructive pulmonary disease exacerbation, though he has no wheezing. The patient's pneumonia is also on the differential; however, the patient has no infiltrates except for above mentioned atelectasis and has no fevers, no cough. Pneumonia less likely and antibiotics could not be used at this time, not steroids, but at least may be considered later in patient's clinical course if he fails to improve with diuresis. The patient is on Xarelto and negative D- dimer despite his chronic lower extremity DVT, pulmonary embolism is markedly unlikely and CT of the chest could not be performed at this time. A stress test may be considered for the patient's chest pain in the future after his acute respiratory failure has been resolved, though based on the patient's description of his symptoms which is admittedly vague, this sounds to possibly be more related to a lung pathology than to a cardiac pathology. The patient's HEART score is 4 based on his age and risk factors. 2. Hypertension. The patient is currently normotensive. The patient will be diuresed. The patient is on no other medications for his blood pressure. 3. Hyperlipidemia. Continue the patient's Lipitor. 4. Chronic obstructive pulmonary disease. Continue the patient's auto steps for Advair and Incruse. 5. Diabetes mellitus type 2. Continue the patient's Basaglar. The patient will be started on sliding scale insulin and his regular insulin will be continued. 6. Schizoaffective disorder. Continue the patient's Depakote, aripiprazole and haloperidol. 7. Right-sided conjunctivitis. The patient had reports from the [facility] of conjunctivitis far back as September. The patient is not very compliant with his medications at the [facility]. The patient will be started on erythromycin ointment and this will continue 3 times daily. If the patient's conjunctivitis does not appear to improve with erythromycin ointment, then other possible diagnosis for his right-sided ocular erythema and discharge should be considered such as inflammatory causes, allergy causes or irritative causes. 8. History of DVT: Continue the patient's Xarelto at this time. The patient should follow up with his primary care provider for discussion of discontinuation of his Xarelto, though given his history of DVT and his bedbound status, this may not be a best idea. 9. Peripheral neuropathy. Continue the patient's gabapentin. 10. Disposition: The patient will be admitted to observation in the hospital. 11. FEN: The patient will have a consistent carbohydrate, heart healthy diet without caffeine. Fluids are not indicated at this time. TIME SPENT: Approximately 75 minutes was spent on this admission of this patient, 30 of which was spent [id number] with the patient obtaining history and physical and discussing treatment plan and obtaining information from collateral sources. This plan has been discussed with my attending, Dr. Baudilio Mcfadden, and he is in agreement. YARIEL LUNA [id number]/[facility] #: [id number] JESSICA
[2019-01-01] MEDS ORDERED: Insulin GLARGINE(*) 1 UNITS UNIT SUBCUT SCH ×2 (15:00→21:00)
[2019-01-01] MEDS: Furosemide IV* 10 MG/ML VIAL (40 MG) IV SLOW PU SCH (15:56)
[2019-01-01] MEDS: Erythromycin OPTH OINT* APPLIC OINT RIGHT EYE SCH ×2 (15:57→21:02)
--- NOTE | 2019-01-01 16:29 | ECHO ---
*[facility]* [place] [address] Fax #: [phone] Transthoracic Echocardiogram Patient: Bassam Zarate : 1950 Study Date: 01/01/2019 Age: 68 Gender: M HR: 80 bpm Height: 67 in /170.2 cm BSA: 2.1 m^2 Weight: 217.5 lb /98.9 kg BMI: 34.1 kg/m^2 *Porter Sample Case: * Marnie Lambert RDCS RN *Referring Physician: * Abhi Degroot *Reading Physician: * Randy Lebron MD Indications: Chest Pain, unspecified. SOB. History: Chronic obstructive pulmonary disease. DVT. Spinal stenosis. Risk factors: Former tobacco use. Hypertension. Diabetes mellitus. Obese. Dyslipidemia. Conclusions Summary: - Left ventricle: Systolic function is normal. The estimated ejection fraction is 55-60%. Wall motion is normal; there are no regional wall motion abnormalities. - Mitral valve: There is trace regurgitation. - Aortic valve: There is no evidence of stenosis. - Tricuspid valve: There is no significant regurgitation. - Pulmonary arteries: Systolic pressure can not be accurately estimated. - Study data: No prior study is available for comparison. Study data: Transthoracic echocardiogram. Procedure: Transthoracic echocardiography was performed. Image quality was fair. The study was technically limited due to body habitus and COPD. Intravenous Definity 3 ml was administered by Cyn Lambert RN, RDCS to enhance imaging. Complete 2D, spectral Doppler, and color flow Doppler. Location: Emergency department. Patient status: Inpatient. Patient room number: ED 17. No prior study is available for comparison. Rhythm: Normal sinus rhythm. Findings Left ventricle: The cavity size is normal. Wall thickness is mildly to moderately increased. Systolic function is normal. The estimated ejection fraction is 55-60%. Wall motion is normal; there are no regional wall motion abnormalities. There is no consistent Doppler evidence of clinically significant diastolic dysfunction. Right ventricle: The cavity size is normal. Systolic function is low normal. Left atrium: The atrium is normal in size. Right atrium: The atrium is normal in size. Mitral valve: The leaflets are mildly thickened. There is no evidence of stenosis. There is trace regurgitation. Aortic valve: The leaflets are mildly thickened. There is no evidence of stenosis. There is no significant regurgitation. Tricuspid valve: The leaflets are normal thickness. There is no evidence of stenosis. There is no significant regurgitation. Pulmonic valve: The leaflets are normal thickness. There is no evidence of stenosis. There is no significant regurgitation. Aorta: Aortic root: The aortic root is not dilated. Ascending aorta: The ascending aorta is mildly dilated at 3.6 cm. Aortic arch: The aortic arch is not visualized. Pericardium: There is no pericardial effusion. Pulmonary arteries: The main pulmonary artery is normal-sized. Systolic pressure can not be accurately estimated. Systemic veins: Inferior vena cava: Not well visualized. Measurements Left ventricle Value Ref Right atrium Value Ref TRENTON, LAX 4.3 cm 4.2 - 5.8 ML dim, ES, A4C 3.4 cm 2.6 - 4.4 ESD, LAX 2.9 cm 2.5 - 4.0 SI dim, ES, A4C 4.1 cm 3.4 - 5.3 FS, LAX 33 % 25 - 43 PW, ED (H) 1.3 cm 0.6 - 1.0 Aortic valve Value Ref IVS/PW, ED 0.98 Aly diam, ED 2.0 cm --------- E', lat aly, TDI (L) 4.8 cm/sec >=10.0 Peak v, S 1.66 m/sec --- ------ E/e', lat aly, 14 VTI, S 28.9 cm ------ --- TDI Mean grad, S 6.0 mm Hg --------- E', med aly, TDI (L) 4.8 cm/sec >=7.0 Peak grad, S 11.0 mm Hg --- ------ E/e', med aly, 14 LVOT/AV, VTI ratio 0.67 ------ --- TDI E', avg, TDI 4.8 cm/sec Mitral valve Value Ref E/e', avg, TDI 14 <=14 Peak E 0.69 m/sec --- ------ Peak A 0.85 m/sec --------- LVOT Value Ref Decel time 201 ms --------- Peak neymar, S 1.07 m/sec Peak E/A ratio 0.8 --------- VTI, S 19.5 cm Mean grad, S 2 mm Hg Pulmonic valve Value Ref Peak v, S 0.9 m/sec --------- Ventricular septum Value Ref Peak grad, S 3.0 mm Hg --------- IVS, ED (H) 1.3 cm 0.6 - 1.0 Aortic root Value Ref Right ventricle Value Ref Root diam 3.0 cm <4.2 TRENTON, LAX 3.7 cm TRENTON minor ax, 2.3 cm 1.9 - 3.5 Ascending aorta Value Ref A4C mid AAo AP diam, S 3.6 cm --------- Left atrium Value Ref AP dim, ES (H) 4.70 cm 3.00 - 4.00 ML dim, A4C 3.2 cm SI dim, A4C 5.1 cm Vol/bsa, ES, 1-p 17 ml/m^2 12 - 37 A4C Vol/bsa, ES, A/L 21 ml/m^2 16 - 34 Legend: (L) and (H) francisco values outside specified reference range. Prepared and electronically signed by Randy Lebron MD 01/01/2019 16:28
[2019-01-01] MEDS ORDERED: Furosemide IV* 10 MG/ML VIAL (40 MG) IV SLOW PU SCH (17:00)
[2019-01-01] MEDS: Rivaroxaban TAB(*) 20 MG TAB PO SCH (18:01)
[2019-01-01] MEDS: Insulin LISPRO* 1 UNITS UNIT SUBCUT SCH ×2 (18:01→21:03)
[2019-01-01] MEDS: Insulin REGULAR(*) 1 UNITS UNIT SUBCUT SCH (18:02)
[2019-01-01] MEDS: Mometasone/Formoter 200/5 MDI INH SCH (20:15)
[2019-01-01] MEDS: Magnesium Oxide TAB* 400 MG PO SCH (21:00)
[2019-01-01] MEDS: Divalproex Sprinkle CAP* 125 MG PO SCH (21:01)
[2019-01-01] MEDS: Haloperidol TAB* 5 MG PO SCH (21:01)
[2019-01-01] MEDS: Pantoprazole TAB * 40 MG TAB PO SCH (21:01)
[2019-01-01] MEDS: Gabapentin CAP(*) 300 MG PO SCH (21:02)
[2019-01-01] MEDS: Lidocaine Patch REMOVE* 1 NOTE MISC PATCH OFF SCH (21:07)
[2019-01-02 04:21] LABS: ABS Eosinophils 0.1 10^3/ul (0-0.6); ABS Lymphocytes 2.1 10^3/ul (1.0-4.8); ABS Monocytes 0.9 10^3/ul (0-0.8); ABS Neutrophils 3.9 10^3/ul (1.5-7.7); Eosinophil % 1.3 %; Hematocrit 47 % (42-52); Lymphocyte % 30.1 %; Mean Corpuscular HGB Conc 32 g/dL (31-36); Mean Corpuscular Hemoglobin 26 pg (27-31); Mean Corpuscular Volume 81 fL (80-94); Mean Platelet Volume 7.4 fL (7.4-10.4); Nucleated Red Blood Cells % 0.1; Platelet Count 191 10^3/uL (150-450); Red Cell Distribution Width 17 % (10-15)
[2019-01-02 04:39] LABS: BUN/Creatinine Ratio 18.7 (8-20); Calcium 8.8 mg/dL (8.6-10.3); EGFR African American 125.7 (>60); EGFR Non-African American 103.9 (>60); HDL Cholesterol 26.1 mg/dL; Potassium 4.8 mmol/L (3.5-5.0)
[2019-01-02] MEDS: SPIRIVA Respimat* (tiotropium) 2.5 mcg/inh Inhaler INH SCH (08:08)
[2019-01-02] MEDS: Mometasone/Formoter 200/5 MDI INH SCH ×2 (08:09→20:26)
[2019-01-02] MEDS: Insulin LISPRO* 1 UNITS UNIT SUBCUT SCH ×4 (09:25→21:02)
[2019-01-02] MEDS: Furosemide IV* 10 MG/ML VIAL (40 MG) IV SLOW PU SCH (09:26)
[2019-01-02] MEDS: Lidocaine PATCH 5%* 1 PATCH TRANSDERM SCH ×2 (09:26→09:36)
[2019-01-02] MEDS: Insulin REGULAR(*) 1 UNITS UNIT SUBCUT SCH ×3 (09:26→16:51)
[2019-01-02] MEDS: Magnesium Oxide TAB* 400 MG PO SCH ×2 (09:27→20:59)
[2019-01-02] MEDS: Divalproex Sprinkle CAP* 125 MG PO SCH ×2 (09:27→21:01)
[2019-01-02] MEDS: Haloperidol TAB* 5 MG PO SCH ×2 (09:27→21:00)
[2019-01-02] MEDS: Gabapentin CAP(*) 300 MG PO SCH ×2 (09:27→21:00)
[2019-01-02] MEDS: Erythromycin OPTH OINT* APPLIC OINT RIGHT EYE SCH ×3 (09:28→21:01)
[2019-01-02] MEDS: ARIPiprazole TAB* 5 MG PO SCH (09:28)
--- NOTE | 2019-01-02 14:24 | PN ---
Subjective Date of Service: 01/02/19 Interval History: patient seen today, flat affect, poor interaction. follows simple command. remain on 4 liter nasal cannula. he does have fine expiratory wheezing. no fever. Labs noted BNP only 14. CXR poor study. echo 65%. No wall motion abnormalities Past Medical History: Unchanged from Admission Objective Active Medications: Acetaminophen (Tylenol Tab*) 650 mg PO Q6H PRN PRN Reason: MILD PAIN or TEMP > 100.4 Last Admin: 01/02/19 09:25 Dose: 650 mg Albuterol/Ipratropium (Duoneb (Albuterol 2.5 Mg/Ipratropium 0.5 Mg)) 1 neb INH Q6H PRN PRN Reason: SOB/WHEEZING Aripiprazole (Abilify Tab*) 5 mg PO DAILY [facility] Last Admin: 01/02/19 09:28 Dose: 5 mg Dexamethasone (Decadron Tab*) 4 mg PO TID [facility] Dextrose (Dextrose 50% Vial 50 Ml*) 25 ml IV PUSH .FOR FS < 60 - SS PRN PRN Reason: FS < 60 Diphenhydramine HCl (Benadryl Po*) 50 mg PO BEDTIME PRN PRN Reason: PAIN - MODERATE Divalproex Sodium (Depakote Sprinkle Cap*) 500 mg PO BID [facility] Last Admin: 01/02/19 09:27 Dose: 500 mg Erythromycin (Erythromycin Opth Oint*) 1 applic RIGHT EYE TID [facility] Last Admin: 01/02/19 09:28 Dose: 1 applic Furosemide (Lasix Tab*) 20 mg PO DAILY [facility] Gabapentin (Neurontin Cap(*)) 300 mg PO BID [facility] Last Admin: 01/02/19 09:27 Dose: 300 mg Glipizide (Glucotrol Xl*) 2.5 mg PO DAILY [facility] Haloperidol (Haldol Tab*) 5 mg PO BID [facility] Last Admin: 01/02/19 09:27 Dose: 5 mg Insulin Glargine (Lantus(*)) 30 units SUBCUT BEDTIME [facility] Insulin Human Lispro (Humalog*) 0 units SUBCUT ACHS [facility]; Protocol Last Admin: 01/02/19 12:32 Dose: 12 unit Insulin Human Regular (Insulin Regular(*)) 5 units SUBCUT AC [facility] Last Admin: 01/02/19 12:32 Dose: 5 unit Lidocaine (Lidoderm 5% Patch*) 1 patch TRANSDERM DAILY [facility] Last Admin: 01/02/19 09:36 Dose: Not Given Magnesium Citrate (Citrate Of Magnesia*) 30 ml PO MOWEFR PRN PRN Reason: CONSTIPATION Magnesium Oxide (Magox 400 Tab*) 400 mg PO BID [facility] Last Admin: 01/02/19 09:27 Dose: 400 mg Mometasone Furoate/Formoterol Fumar (Dulera 200/5 Mdi*) 1 puff INH BID [facility] Last Admin: 01/02/19 08:09 Dose: 1 puff Nitroglycerin (Nitroglycerin Tab 0.4 Mg*) 0.4 mg SL Q5M PRN PRN Reason: ANGINA Nystatin (Nystatin Top Powder*) 1 applic TOPICAL BID [facility] Ondansetron HCl (Zofran Inj*) 4 mg IV Q6H PRN PRN Reason: NAUSEA Pantoprazole Sodium (Protonix Tab*) 40 mg PO BEDTIME [facility] Last Admin: 01/01/19 21:01 Dose: 40 mg Pharmacy Profile Note (Lidocaine Patch Remove*) 1 note PATCH OFF 2100 [facility] Last Admin: 01/01/19 21:07 Dose: Not Given Potassium Chloride (Klor Con Er Tab*) 20 meq PO MOWEFR [facility] Last Admin: 01/01/19 15:57 Dose: 20 meq Rivaroxaban (Xarelto(*)) 20 mg PO QPM [facility] Last Admin: 01/01/19 18:01 Dose: 20 mg Senna (Senokot 8.6 Mg Tab*) 2 tab PO BEDTIME PRN PRN Reason: CONSTIPATION Tiotropium [place] (Spiriva Respimat 2.5 Mcg) 2 puff INH DAILY [facility] Last Admin: 01/02/19 08:08 Dose: 2 puff Vital Signs - 8 hr 01/02/19 01/02/19 01/02/19 08:51 09:27 12:36 Temperature 97.1 F Pulse Rate 88 Respiratory 19 17 17 Rate Blood Pressure 125/71 (mmHg) O2 Sat by Pulse 92 Oximetry Oxygen Devices in Use Now: Nasal Cannula Appearance: awake, alert. flat affect depressed Eyes: No Scleral Icterus, - - EOMI Ears/Nose/Mouth/Throat: - - dry oral mucosa Neck: Trachea Midline Respiratory: - - fine expiratory wheezing. rales at bases, diminished air flow due to poor inspiratory effort Cardiovascular: NL Sounds; No Murmurs; No JVD, No Edema - +1 edema Abdominal: NL Sounds; No Tenderness; No Distention - obese Extremities: - - + 1 edema Result Diagrams: 01/02/19 04:10 01/02/19 04:10 Microbiology and Other Data: Microbiology 01/01/19 12:29 Nasal Screen MRSA (PCR) - Final Nasal Mrsa Detected Assess/Plan/Problems-Billing Assessment: 68 y/o male admitted for chest pain, atypical and poor pulmonary function require oxygen supplementations seconday to COPD exacerbation with possible OHS - Patient Problems (1) Chronic edema Current Visit: No Status: Acute Code(s): R60.9 - EDEMA, UNSPECIFIED SNOMED Code(s): 436308832 Comment: - Resume home dose of lasix 20 mg daily - Remain on Xaretlo for his history of DVT (2) Hyperlipidemia Current Visit: No Status: Acute Code(s): E78.5 - HYPERLIPIDEMIA, UNSPECIFIED SNOMED Code(s): 66166013 Comment: - resume atorvastatin. will start at 10 mg HS given his history of Diabetes. (3) COPD (chronic obstructive pulmonary disease) Current Visit: No Status: Chronic Code(s): J44.9 - CHRONIC OBSTRUCTIVE PULMONARY DISEASE, UNSPECIFIED SNOMED Code(s): 16209321 Comment: - He does have fine expiratory wheezing. Will start him on decadron 4 mg tid and taper off in a week course. - Continued hypoxia, continue supplemental O2 require 4 liters to keep sat 92% or better - continue albuterol, and Dulera. (4) DVT (deep venous thrombosis) Current Visit: No Status: Chronic Code(s): I82.409 - ACUTE EMBOLISM AND THOMBOS UNSP DEEP VN UNSP LOWER EXTREMITY SNOMED Code(s): 480047053 Comment: - continue Xaretlo 20 mg daily - According to previous documenations: " records from [facility]), RLE DVT first diagnosed in 2009 and subsequent US showed chronic changes associated with DVT and possible chronic DVT; no history of LLE DVT", also in 05/2018 he did have US shows DVT in right common femoral and profunda femoral (5) Schizoaffective disorder Current Visit: No Status: Chronic Code(s): F25.9 - SCHIZOAFFECTIVE DISORDER , UNSPECIFIED SNOMED Code(s): 32648224 Comment: - Continue Depakote, Haldol - I will make no changes as I am afraid steroid may exacerbate his psych symptoms. If it does we may need to give prn ativan (6) Type II diabetes mellitus Current Visit: No Status: Chronic Comment: - Glucose 300-400's - A1c 10.6%; - Continue Lispro SS, I did resume his glipizide; I will increase Lantus to 30 units now that will be on steroid (7) DVT prophylaxis Current Visit: No Status: Acute Code(s): DLQ5686 - SNOMED Code(s): 511667077 Comment: - Donnie
[2019-01-02] MEDS: Dexamethasone TAB* 4 MG PO SCH ×2 (16:24→21:00)
[2019-01-02] MEDS: Rivaroxaban TAB(*) 20 MG TAB PO SCH (16:51)
[2019-01-02] MEDS: Atorvastatin* 10 MG TAB PO SCH (16:51)
[2019-01-02] MEDS ORDERED: Insulin GLARGINE(*) 1 UNITS UNIT SUBCUT SCH (21:00)
[2019-01-02] MEDS: Pantoprazole TAB * 40 MG TAB PO SCH (21:00)
[2019-01-02] MEDS: Nystatin TOP POWDER* 15 GM BTL TOPICAL SCH (21:13)
[2019-01-02] MEDS: Lidocaine Patch REMOVE* 1 NOTE MISC PATCH OFF SCH (21:14)
[2019-01-03 05:20] LABS: ABS Lymphocytes 1.6 10^3/ul (1.0-4.8); ABS Monocytes 0.2 10^3/ul (0-0.8); ABS Neutrophils 5.6 10^3/ul (1.5-7.7); Hematocrit 50 % (42-52); Hemoglobin 16.1 g/dL (14.0-18.0); Lymphocyte % 21.7 %; Mean Corpuscular HGB Conc 32 g/dL (31-36); Mean Corpuscular Hemoglobin 26 pg (27-31); Mean Corpuscular Volume 81 fL (80-94); Mean Platelet Volume 7.7 fL (7.4-10.4); Platelet Count 198 10^3/uL (150-450); Red Blood Count 6.09 10^6 /uL (4.18-5.48); Red Cell Distribution Width 17 % (10-15); White Blood Count 7.5 10^3/uL (3.5-10.8)
[2019-01-03 05:39] LABS: BUN/Creatinine Ratio 24.2 (8-20); Calcium 9.3 mg/dL (8.6-10.3); EGFR African American 145.7 (>60); EGFR Non-African American 120.4 (>60); Magnesium 2.1 mg/dL (1.9-2.7); Phosphorus 3.7 mg/dL (2.5-5.0); Potassium 5.4 mmol/L (3.5-5.0)
[2019-01-03] MEDS: SPIRIVA Respimat* (tiotropium) 2.5 mcg/inh Inhaler INH SCH (07:36)
[2019-01-03] MEDS: Mometasone/Formoter 200/5 MDI INH SCH (07:37)
[2019-01-03] MEDS ORDERED: Furosemide TAB* 20 MG PO SCH (09:00)
[2019-01-03] MEDS: Lidocaine PATCH 5%* 1 PATCH TRANSDERM SCH (09:35)
[2019-01-03] MEDS: Magnesium Oxide TAB* 400 MG PO SCH ×2 (09:36→21:03)
[2019-01-03] MEDS: ARIPiprazole TAB* 5 MG PO SCH (09:36)
[2019-01-03] MEDS: Gabapentin CAP(*) 300 MG PO SCH ×2 (09:36→21:02)
[2019-01-03] MEDS: Haloperidol TAB* 5 MG PO SCH ×2 (09:37→21:03)
[2019-01-03] MEDS: glipiZIDE TAB.XL* 2.5 MG PO SCH (09:37)
[2019-01-03] MEDS: Divalproex Sprinkle CAP* 125 MG PO SCH ×2 (09:38→21:06)
[2019-01-03] MEDS: Dexamethasone TAB* 4 MG PO SCH ×3 (09:38→21:03)
[2019-01-03] MEDS: Erythromycin OPTH OINT* APPLIC OINT RIGHT EYE SCH ×3 (09:38→21:42)
[2019-01-03] MEDS: Insulin LISPRO* 1 UNITS UNIT SUBCUT SCH ×4 (09:38→21:07)
[2019-01-03] MEDS: Insulin REGULAR(*) 1 UNITS UNIT SUBCUT SCH ×3 (09:39→17:53)
[2019-01-03] MEDS: Nystatin TOP POWDER* 15 GM BTL TOPICAL SCH ×2 (09:45→21:07)
--- NOTE | 2019-01-03 14:39 | PN ---
Subjective Date of Service: 01/03/19 Interval History: He is more verbal today. Pulse in high 90's low 100's. No fever. Oxygen requirement decreased to 3 Liters nasal cannula. Past Medical History: Unchanged from Admission Objective Active Medications: Acetaminophen (Tylenol Tab*) 650 mg PO Q6H PRN PRN Reason: MILD PAIN or TEMP > 100.4 Last Admin: 01/02/19 09:25 Dose: 650 mg Albuterol/Ipratropium (Duoneb (Albuterol 2.5 Mg/Ipratropium 0.5 Mg)) 1 neb INH Q6H PRN PRN Reason: SOB/WHEEZING Aripiprazole (Abilify Tab*) 5 mg PO DAILY [facility] Last Admin: 01/03/19 09:36 Dose: 5 mg Atorvastatin Calcium (Lipitor*) 10 mg PO 1700 [facility] Last Admin: 01/02/19 16:51 Dose: 10 mg Dexamethasone (Decadron Tab*) 4 mg PO TID [facility] Last Admin: 01/03/19 13:35 Dose: 4 mg Dextrose (Dextrose 50% Vial 50 Ml*) 25 ml IV PUSH .FOR FS < 60 - SS PRN PRN Reason: FS < 60 Diphenhydramine HCl (Benadryl Po*) 50 mg PO BEDTIME PRN PRN Reason: PAIN - MODERATE Divalproex Sodium (Depakote Sprinkle Cap*) 500 mg PO BID [facility] Last Admin: 01/03/19 09:38 Dose: 500 mg Erythromycin (Erythromycin Opth Oint*) 1 applic RIGHT EYE TID [facility] Last Admin: 01/03/19 13:35 Dose: 1 applic Gabapentin (Neurontin Cap(*)) 300 mg PO BID [facility] Last Admin: 01/03/19 09:36 Dose: 300 mg Glipizide (Glucotrol Xl*) 2.5 mg PO DAILY [facility] Last Admin: 01/03/19 09:37 Dose: 2.5 mg Haloperidol (Haldol Tab*) 5 mg PO BID [facility] Last Admin: 01/03/19 09:37 Dose: 5 mg Insulin Glargine (Lantus(*)) 40 units SUBCUT BEDTIME [facility] Insulin Human Lispro (Humalog*) 0 units SUBCUT ACHS [facility]; Protocol Last Admin: 01/03/19 13:35 Dose: 12 unit Insulin Human Regular (Insulin Regular(*)) 5 units SUBCUT AC [facility] Last Admin: 01/03/19 13:36 Dose: 5 unit Lidocaine (Lidoderm 5% Patch*) 1 patch TRANSDERM DAILY [facility] Last Admin: 01/03/19 09:35 Dose: Not Given Magnesium Citrate (Citrate Of Magnesia*) 30 ml PO MOWEFR PRN PRN Reason: CONSTIPATION Magnesium Oxide (Magox 400 Tab*) 400 mg PO BID [facility] Last Admin: 01/03/19 09:36 Dose: 400 mg Mometasone Furoate/Formoterol Fumar (Dulera 200/5 Mdi*) 1 puff INH BID [facility] Last Admin: 01/03/19 07:37 Dose: 1 puff Nitroglycerin (Nitroglycerin Tab 0.4 Mg*) 0.4 mg SL Q5M PRN PRN Reason: ANGINA Nystatin (Nystatin Top Powder*) 1 applic TOPICAL BID [facility] Last Admin: 01/03/19 09:45 Dose: 1 applic Ondansetron HCl (Zofran Inj*) 4 mg IV Q6H PRN PRN Reason: NAUSEA Pantoprazole Sodium (Protonix Tab*) 40 mg PO BEDTIME [facility] Last Admin: 01/02/19 21:00 Dose: 40 mg Pharmacy Profile Note (Lidocaine Patch Remove*) 1 note PATCH OFF 2100 [facility] Last Admin: 01/02/19 21:14 Dose: Not Given Rivaroxaban (Xarelto(*)) 20 mg PO QPM [facility] Last Admin: 01/02/19 16:51 Dose: 20 mg Senna (Senokot 8.6 Mg Tab*) 2 tab PO BEDTIME PRN PRN Reason: CONSTIPATION Tiotropium [place] (Spiriva Respimat 2.5 Mcg) 2 puff INH DAILY [facility] Last Admin: 01/03/19 07:36 Dose: 2 puff Vital Signs - 8 hr 01/03/19 01/03/19 01/03/19 07:38 08:00 08:06 Temperature 98.7 F Pulse Rate 87 93 Respiratory 18 19 20 Rate Blood Pressure 112/73 (mmHg) O2 Sat by Pulse 96 96 Oximetry 01/03/19 01/03/19 01/03/19 09:36 11:07 13:34 Temperature 97.7 F Pulse Rate 109 Respiratory 16 19 17 Rate Blood Pressure 137/74 (mmHg) O2 Sat by Pulse 93 Oximetry Oxygen Devices in Use Now: Nasal Cannula Appearance: awake, alert no distress Eyes: No Scleral Icterus, - - EOMI Ears/Nose/Mouth/Throat: Mucous Membranes Moist Neck: NL Appearance and Movements; NL JVP, Trachea Midline, - Respiratory: Symmetrical Chest Expansion and Respiratory Effort, - - fine expiratory wheezing Cardiovascular: NL Sounds; No Murmurs; No JVD, - - tachycardic Abdominal: NL Sounds; No Tenderness; No Distention, - - obese Extremities: No Edema Skin: No Rash or Ulcers Result Diagrams: 01/03/19 05:03 01/03/19 05:03 Microbiology and Other Data: Microbiology 01/01/19 12:29 Nasal Screen MRSA (PCR) - Final Nasal Mrsa Detected Assess/Plan/Problems-Billing Assessment: 68 y/o male admitted for chest pain, atypical and poor pulmonary function require oxygen supplementations seconday to COPD exacerbation with possible OHS - Patient Problems (1) COPD (chronic obstructive pulmonary disease) Current Visit: No Status: Chronic Code(s): J44.9 - CHRONIC OBSTRUCTIVE PULMONARY DISEASE, UNSPECIFIED SNOMED Code(s): 20628529 Comment: - He does have fine expiratory wheezing. Will start him on decadron 4 mg tid and taper off in a week course. - Continued hypoxia, continue supplemental O2 requirement decreased to 3 liters to keep sat 92% or better - continue albuterol, and Dulera. (2) Hyperlipidemia Current Visit: No Status: Acute Code(s): E78.5 - HYPERLIPIDEMIA, UNSPECIFIED SNOMED Code(s): 34341697 Comment: - resume atorvastatin 10 mg HS given his history of Diabetes. (3) DVT (deep venous thrombosis) Current Visit: No Status: Chronic Code(s): I82.409 - ACUTE EMBOLISM AND THOMBOS UNSP DEEP VN UNSP LOWER EXTREMITY SNOMED Code(s): 206854497 Comment: - continue Xaretlo 20 mg daily - According to previous documenations: " records from [facility]), RLE DVT first diagnosed in 2009 and subsequent US showed chronic changes associated with DVT and possible chronic DVT; no history of LLE DVT", also in 05/2018 he did have US shows DVT in right common femoral and profunda femoral (4) Schizoaffective disorder Current Visit: No Status: Chronic Code(s): F25.9 - SCHIZOAFFECTIVE DISORDER , UNSPECIFIED SNOMED Code(s): 12274382 Comment: - Continue Depakote, Haldol - I will make no changes as I am afraid steroid may exacerbate his psych symptoms. If it does we may need to give prn ativan (5) Type II diabetes mellitus Current Visit: No Status: Chronic Comment: - Glucose 300-400's - A1c 10.6%; - Continue Lispro SS, I did resume his glipizide; I will increase Lantus to 40 units now that will be on steroid (6) Chronic edema Current Visit: No Status: Acute Code(s): R60.9 - EDEMA, UNSPECIFIED SNOMED Code(s): 752913648 Comment: - Resumed home dose of lasix 20 mg daily yesterday, however BNP normal, given tachycardia i will discontinue it - Remain on Xaretlo for his history of DVT (7) DVT prophylaxis Current Visit: No Status: Acute Code(s): VLX7619 - SNOMED Code(s): 748482014 Comment: - Donnie
[2019-01-03] MEDS: Atorvastatin* 10 MG TAB PO SCH (17:53)
[2019-01-03] MEDS: Rivaroxaban TAB(*) 20 MG TAB PO SCH (17:53)
[2019-01-03] MEDS: Pantoprazole TAB * 40 MG TAB PO SCH (21:03)
[2019-01-03] MEDS: Insulin GLARGINE(*) 1 UNITS UNIT SUBCUT SCH (21:06)
[2019-01-03] MEDS: Lidocaine Patch REMOVE* 1 NOTE MISC PATCH OFF SCH (21:13)
[2019-01-04 05:27] LABS: BUN/Creatinine Ratio 29.4 (8-20); Calcium 9.1 mg/dL (8.6-10.3); EGFR African American 140.7 (>60); EGFR Non-African American 116.3 (>60); Potassium 4.9 mmol/L (3.5-5.0)
[2019-01-04] MEDS: Mometasone/Formoter 200/5 MDI INH SCH ×3 (07:19→21:07)
[2019-01-04] MEDS: SPIRIVA Respimat* (tiotropium) 2.5 mcg/inh Inhaler INH SCH (08:51)
[2019-01-04] MEDS: Insulin REGULAR(*) 1 UNITS UNIT SUBCUT SCH ×3 (09:57→17:06)
[2019-01-04] MEDS: Insulin LISPRO* 1 UNITS UNIT SUBCUT SCH ×4 (09:58→22:26)
[2019-01-04] MEDS: Lidocaine PATCH 5%* 1 PATCH TRANSDERM SCH (09:59)
[2019-01-04] MEDS: Gabapentin CAP(*) 300 MG PO SCH ×2 (10:00→21:46)
[2019-01-04] MEDS: Erythromycin OPTH OINT* APPLIC OINT RIGHT EYE SCH ×3 (10:00→21:46)
[2019-01-04] MEDS: Divalproex Sprinkle CAP* 125 MG PO SCH ×2 (10:03→21:45)
[2019-01-04] MEDS: Haloperidol TAB* 5 MG PO SCH ×2 (10:03→21:47)
[2019-01-04] MEDS: glipiZIDE TAB.XL* 2.5 MG PO SCH (10:03)
[2019-01-04] MEDS: Dexamethasone TAB* 4 MG PO SCH ×3 (10:04→21:45)
[2019-01-04] MEDS: Magnesium Oxide TAB* 400 MG PO SCH ×2 (10:04→21:48)
[2019-01-04] MEDS: ARIPiprazole TAB* 5 MG PO SCH (10:04)
[2019-01-04] MEDS: Nystatin TOP POWDER* 15 GM BTL TOPICAL SCH ×2 (10:04→21:49)
--- NOTE | 2019-01-04 17:01 | PN ---
Subjective Date of Service: 01/04/19 Interval History: no distress. taking po. Down to 2 liter NC. no events overnight Past Medical History: Unchanged from Admission Objective Active Medications: Acetaminophen (Tylenol Tab*) 650 mg PO Q6H PRN PRN Reason: MILD PAIN or TEMP > 100.4 Last Admin: 01/02/19 09:25 Dose: 650 mg Albuterol/Ipratropium (Duoneb (Albuterol 2.5 Mg/Ipratropium 0.5 Mg)) 1 neb INH Q6H PRN PRN Reason: SOB/WHEEZING Aripiprazole (Abilify Tab*) 5 mg PO DAILY [facility] Last Admin: 01/04/19 10:04 Dose: 5 mg Atorvastatin Calcium (Lipitor*) 10 mg PO 1700 [facility] Last Admin: 01/03/19 17:53 Dose: 10 mg Dexamethasone (Decadron Tab*) 4 mg PO TID [facility] Last Admin: 01/04/19 12:57 Dose: 4 mg Dextrose (Dextrose 50% Vial 50 Ml*) 25 ml IV PUSH .FOR FS < 60 - SS PRN PRN Reason: FS < 60 Diphenhydramine HCl (Benadryl Po*) 50 mg PO BEDTIME PRN PRN Reason: PAIN - MODERATE Divalproex Sodium (Depakote Sprinkle Cap*) 500 mg PO BID [facility] Last Admin: 01/04/19 10:03 Dose: 500 mg Erythromycin (Erythromycin Opth Oint*) 1 applic RIGHT EYE TID [facility] Last Admin: 01/04/19 12:57 Dose: 1 applic Gabapentin (Neurontin Cap(*)) 300 mg PO BID [facility] Last Admin: 01/04/19 10:00 Dose: 300 mg Glipizide (Glucotrol Xl*) 2.5 mg PO DAILY [facility] Last Admin: 01/04/19 10:03 Dose: 2.5 mg Haloperidol (Haldol Tab*) 5 mg PO BID [facility] Last Admin: 01/04/19 10:03 Dose: 5 mg Insulin Glargine (Lantus(*)) 40 units SUBCUT BEDTIME [facility] Last Admin: 01/03/19 21:06 Dose: 40 units Insulin Human Lispro (Humalog*) 0 units SUBCUT ACHS [facility]; Protocol Last Admin: 01/04/19 12:30 Dose: 9 unit Insulin Human Regular (Insulin Regular(*)) 5 units SUBCUT AC [facility] Last Admin: 01/04/19 12:29 Dose: 5 unit Lidocaine (Lidoderm 5% Patch*) 1 patch TRANSDERM DAILY [facility] Last Admin: 01/04/19 09:59 Dose: Not Given Magnesium Citrate (Citrate Of Magnesia*) 30 ml PO MOWEFR PRN PRN Reason: CONSTIPATION Magnesium Oxide (Magox 400 Tab*) 400 mg PO BID [facility] Last Admin: 01/04/19 10:04 Dose: 400 mg Mometasone Furoate/Formoterol Fumar (Dulera 200/5 Mdi*) 1 puff INH BID [facility] Last Admin: 01/04/19 08:51 Dose: 1 puff Nitroglycerin (Nitroglycerin Tab 0.4 Mg*) 0.4 mg SL Q5M PRN PRN Reason: ANGINA Nystatin (Nystatin Top Powder*) 1 applic TOPICAL BID [facility] Last Admin: 01/04/19 10:04 Dose: 1 applic Ondansetron HCl (Zofran Inj*) 4 mg IV Q6H PRN PRN Reason: NAUSEA Pantoprazole Sodium (Protonix Tab*) 40 mg PO BEDTIME [facility] Last Admin: 01/03/19 21:03 Dose: 40 mg Pharmacy Profile Note (Lidocaine Patch Remove*) 1 note PATCH OFF 2100 [facility] Last Admin: 01/03/19 21:13 Dose: Not Given Rivaroxaban (Xarelto(*)) 20 mg PO QPM [facility] Last Admin: 01/03/19 17:53 Dose: 20 mg Senna (Senokot 8.6 Mg Tab*) 2 tab PO BEDTIME PRN PRN Reason: CONSTIPATION Tiotropium [place] (Spiriva Respimat 2.5 Mcg) 2 puff INH DAILY [facility] Last Admin: 01/04/19 08:51 Dose: 2 puff Vital Signs - 8 hr 01/04/19 01/04/19 01/04/19 10:00 11:15 11:40 Temperature 98.2 F Pulse Rate 88 Respiratory 24 26 26 Rate Blood Pressure 149/84 (mmHg) O2 Sat by Pulse 92 Oximetry 01/04/19 15:15 Temperature 98.1 F Pulse Rate 89 Respiratory 18 Rate Blood Pressure 130/75 (mmHg) O2 Sat by Pulse 91 Oximetry Oxygen Devices in Use Now: Nasal Cannula Appearance: awake, alert. no distress Eyes: No Scleral Icterus, - - EOMI Neck: NL Appearance and Movements; NL JVP, Trachea Midline Respiratory: Symmetrical Chest Expansion and Respiratory Effort, - - fine expiratory wheezing Cardiovascular: NL Sounds; No Murmurs; No JVD, - - + edema Abdominal: NL Sounds; No Tenderness; No Distention, - - obese Extremities: - - + edema Neurological: Alert and Oriented x 3 Result Diagrams: 01/03/19 05:03 01/04/19 05:00 Microbiology and Other Data: Microbiology 01/01/19 12:29 Nasal Screen MRSA (PCR) - Final Nasal Mrsa Detected Assess/Plan/Problems-Billing Assessment: 68 y/o male admitted for chest pain, atypical and poor pulmonary function require oxygen supplementations seconday to COPD exacerbation with possible OHS - Patient Problems (1) COPD (chronic obstructive pulmonary disease) Current Visit: No Status: Chronic Code(s): J44.9 - CHRONIC OBSTRUCTIVE PULMONARY DISEASE, UNSPECIFIED SNOMED Code(s): 17939426 Comment: - His expiratory wheezing improved. - Will taper him on decadron 2 mg tid and taper off few days - Will taper his supplemental O2 requirement decreased to 2 liters to keep sat 92% or better - continue albuterol, and Dulera. (2) Hyperlipidemia Current Visit: No Status: Acute Code(s): E78.5 - HYPERLIPIDEMIA, UNSPECIFIED SNOMED Code(s): 45001661 Comment: - resume atorvastatin 10 mg HS given his history of Diabetes. (3) DVT (deep venous thrombosis) Current Visit: No Status: Chronic Code(s): I82.409 - ACUTE EMBOLISM AND THOMBOS UNSP DEEP VN UNSP LOWER EXTREMITY SNOMED Code(s): 641300599 Comment: - continue Xaretlo 20 mg daily - According to previous documenations: " records from [facility]), RLE DVT first diagnosed in 2009 and subsequent US showed chronic changes associated with DVT and possible chronic DVT; no history of LLE DVT", also in 05/2018 he did have US shows DVT in right common femoral and profunda femoral (4) Schizoaffective disorder Current Visit: No Status: Chronic Code(s): F25.9 - SCHIZOAFFECTIVE DISORDER , UNSPECIFIED SNOMED Code(s): 32631333 Comment: - Continue Depakote, Haldol - I will make no changes as I am afraid steroid may exacerbate his psych symptoms. If it does we may need to give prn ativan (5) Type II diabetes mellitus Current Visit: No Status: Chronic Comment: - Glucose 300-400's - A1c 10.6%; - Continue Lispro SS, I did resume his glipizide; I will increase Lantus to 40 units now that will be on steroid (6) Chronic edema Current Visit: No Status: Acute Code(s): R60.9 - EDEMA, UNSPECIFIED SNOMED Code(s): 219205568 Comment: - Resumed home dose of lasix 20 mg daily yesterday, however BNP normal, given tachycardia i will discontinue it - Remain on Xaretlo for his history of DVT (7) DVT prophylaxis Current Visit: No Status: Acute Code(s): UOF9363 - SNOMED Code(s): 722064718 Comment: - Donnie
[2019-01-04] MEDS: Rivaroxaban TAB(*) 20 MG TAB PO SCH (17:05)
[2019-01-04] MEDS: Atorvastatin* 10 MG TAB PO SCH (17:05)
[2019-01-04] MEDS: Lidocaine Patch REMOVE* 1 NOTE MISC PATCH OFF SCH (21:48)
[2019-01-04] MEDS: Pantoprazole TAB * 40 MG TAB PO SCH (21:49)
[2019-01-04] MEDS: Insulin GLARGINE(*) 1 UNITS UNIT SUBCUT SCH (22:26)
[2019-01-05] MEDS: SPIRIVA Respimat* (tiotropium) 2.5 mcg/inh Inhaler INH SCH (07:37)
[2019-01-05] MEDS: Mometasone/Formoter 200/5 MDI INH SCH (07:37)
[2019-01-05] MEDS: Insulin LISPRO* 1 UNITS UNIT SUBCUT SCH ×2 (08:02→12:16)
[2019-01-05] MEDS: Haloperidol TAB* 5 MG PO SCH (08:02)
[2019-01-05] MEDS: Gabapentin CAP(*) 300 MG PO SCH (08:02)
[2019-01-05] MEDS: Magnesium Oxide TAB* 400 MG PO SCH (08:02)
[2019-01-05] MEDS: Lidocaine PATCH 5%* 1 PATCH TRANSDERM SCH (08:03)
[2019-01-05] MEDS: ARIPiprazole TAB* 5 MG PO SCH (08:04)
[2019-01-05] MEDS: Divalproex Sprinkle CAP* 125 MG PO SCH (08:04)
[2019-01-05] MEDS: glipiZIDE TAB.XL* 2.5 MG PO SCH (08:04)
[2019-01-05] MEDS: Insulin REGULAR(*) 1 UNITS UNIT SUBCUT SCH ×2 (08:05→12:16)
[2019-01-05] MEDS: Nystatin TOP POWDER* 15 GM BTL TOPICAL SCH (08:05)
[2019-01-05] MEDS: Erythromycin OPTH OINT* APPLIC OINT RIGHT EYE SCH ×2 (08:05→12:16)
[2019-01-05] MEDS: Dexamethasone TAB* 1 MG PO SCH ×3 (08:06→12:16)
[2019-01-05 12:09] VITALS: BP 138/78
--- NOTE | 2019-01-05 12:55 | TRS ---
CC: Dr. Nusrat Harper DISCHARGE/TRANSFER SUMMARY: DATE OF ADMISSION: 12/31/18 DATE OF TRANSFER: 01/05/19 PRIMARY CARE PROVIDER: Dr. Nusrat Harper. FINAL DIAGNOSES: 1. Chronic obstructive pulmonary disease exacerbation. 2. Hypertension. 3. Hyperlipidemia. 4. Schizoaffective disorder. 5. Diabetes mellitus. ADDITIONAL DISCHARGE DIAGNOSES: 1. Gastroesophageal reflux disease. 2. Hyperlipidemia. 3. Chronic right lower extremity deep venous thrombosis. 4. Spinal stenosis. HOSPITAL COURSE: The patient presented to [facility] on 12/31/18 with a chief complaint o f chest pain. Actually, on admission, it was noted that the patient was found to be hypoxic at the [facility], was placed on oxygen and he was referred to the emergency room. He was very vague a nd nonspecific during the history intake at the admission. He was monitored in the emergency room, h ad an EKG and chest x-ray and was noted to be hypoxic with oxygen saturation 90% despite 4 L of nasal cannula; therefore, the patient was admitted for atypical chest pain with acute hypoxic respiratory failure and at that time, it was suggested to be related to heart failure which has been ruled out. He was started on IV Lasix and echocardiogram was obtained, placed on tele with serial cardiac marker s. Over the following 24 to 48 hours, the patient had serial troponins which were negative x3. He h ad an EKG on presentation, which revealed sinus rhythm, rate of 87 with TX 127 ms, his QRS 93 and QTc 419 with some evidence of LVH by voltage criteria. Repeat EKG the following morning on 01/02/19 did not reveal any significant changes. His echocardiogram was reviewed, reveals normal LV function, EF 55% to 60%, no wall motion abnormality, no significant valvular disease, otherwise unremarkable 2D e chocardiogram. I did see and evaluate the patient on initial visit on 01/02/19. At that time, he wa s noted to still have expiratory wheezing with 4 L nasal cannula and his BNP was only 14; therefore, I started him on Decadron 4 mg t.i.d. and discontinued his Lasix. In light of adding a steroid, I in creased his Lantus and glipizide. He was monitored for additional 48 hours and his oxygen saturation improved from 91% and he was up to 98% on nasal cannula and was able to titrate his oxygen down to 2 L. He may still require monitoring of his pulse oximetry as his steroid gets tapered. Therefore, t cristiano, the patient was seen and evaluated. He is more awake and alert and he is not pleased he is eileen ng released back to the [facility] as he would like to go to his home residence. Unfortunately, at this time, we will defer that final discharge planning to his facility at [facility]. He was seen and evaluated and he was deemed stable for discharge back to [facility] in stable condition. PHYSICAL EXAMINATION: His temperature is 98, pulse is 73, respiratory rate 16, satting 94% to 98% be tween 2 L and 3 L nasal cannula, blood pressure 128/86. Generally, he is full bearded, sound asleep, easily aroused, in no distress. Denies any abdominal pain. No nausea or vomiting. Resting comfortab ly in bed. Lungs: He does have fine expiratory wheezing. No JVD. No carotid bruit and no murmur ap preciated on auscultation. Abdomen is distended, firm, nontender. Good bowel sounds. Extremities: Trace ankle edema with limited range of motion and deconditioning. DISCHARGE MEDICATIONS: 1. New medication is albuterol nebulizer every 6 hours as needed. 2. I added atorvastatin 10 mg daily given his diabetes. 3. Benadryl 50 mg at bedtime p.r.n. for sleep. 4. Erythromycin ointment to his right eye 3 times a day. 5. Nystatin powder to groin area for Victoria rash. 6. Dexamethasone 2 mg t.i.d. for 3 days, 2 mg b.i.d. for 3 days, 2 mg daily for 3 days, then stop. Monitor his pulse oximetry and this may need to be extended or tapered more rapidly pending his oxyge n and pulmonary status. 7. Continue Tylenol every 6 hours as needed. 8. Milk of mag. 9. Senna 2 tabs as needed. 10. Omeprazole 20 at bedtime. 11. Potassium 20 mEq Tuesday, Tuesday, Tuesday. 12. Magnesium 400 mg b.i.d. 13. Haloperidol 5 mg twice a day. 14. Lasix 20 mg every day, resume back as his home regimen. 15. Neurontin 300 mg b.i.d. 16. Depakote 500 mg b.i.d. 17. Mag citrate. 18. Fish oil twice a day. 19. Lidocaine patch p.r.n. 20. Xarelto 20 daily. 21. Insulin regular 6 units before each meal. 22. Advair 500/50 one puff twice a day. 23. Incruse Ellipta once a day. 24. Melatonin 3 mg at bedtime. 25. Ketoconazole cream. 26. Abilify 5 mg every day. 27. Glipizide was increased to 5 mg every day. 28. Lantus was increased from 15 to 20 units at bedtime. INPATIENT DIAGNOSTIC STUDIES: The patient had 2D echo: Normal ejection fraction 55% to 60%. No willie vular disease. No wall motion abnormality. Chest x-ray shows bibasilar opacity suggestive of atelectasis. DISCHARGE INSTRUCTIONS: 1. Take all medications as prescribed. 2. Close monitoring of his electrolytes, CBC, and BMP given his steroid and diuretic. 3. Oxygen 2-3 L via nasal cannula, titrate according to his pulse oximetry to maintain 92% or better . 4. Follow the Decadron taper protocol, adjust according to his respiratory response, otherwise to be tapered over 9 days. [id number]/[facility] #: [id number]
== END 2019-01-05 14:15 | DRG 190 ==
LOC: ED 10:39 → MEDTELE 12:49 → OBSVTOIN 01-02 11:00
PROVIDERS: ADMIT Internal Medicine; ATTEND Internal Medicine
DX: J44.1 Chronic obstructive pulmonary disease with (acute) exacerbation (principal); J96.01 Acute respiratory failure with hypoxia; I82.501 Chronic embolism and thrombosis of unspecified deep veins of right lower extremity; I10 Essential (primary) hypertension; E78.5 Hyperlipidemia, unspecified; F25.9 Schizoaffective disorder, unspecified; E78.00 Pure hypercholesterolemia, unspecified; H54.7 Unspecified visual loss; H10.9 Unspecified conjunctivitis; R60.0 Localized edema; E11.42 Type 2 diabetes mellitus with diabetic polyneuropathy; R07.89 Other chest pain; K21.9 Gastro-esophageal reflux disease without esophagitis; M48.00 Spinal stenosis, site unspecified; Z79.4 Long term (current) use of insulin; Z79.51 Long term (current) use of inhaled steroids; Z87.891 Personal history of nicotine dependence; Z72.89 Other problems related to lifestyle; Z91.19 Patient's noncompliance with other medical treatment and regimen; Z74.01 Bed confinement status
CPT/HCPCS: 36415; 71045; 80048; 80053; 80061; 80164; 82947; 83036; 83735; 83880; 84100; 84484; 85025; 85379; 85610; 86140; 87641; 93005; 93306; 94640; 99285; A9270-GY; C8929; G0378; J1940; J3535; J8540

== ENCOUNTER 2019-02-09 20:29 | Inpatient (IN) | payer MEDICARE, MEDICAID ==
[2019-02-09] MEDS ORDERED: Propofol* 100 ML ONE (20:34)
[2019-02-09] MEDS ORDERED: Succinylcholine* 20 MG/ML 10 ML VIAL ONE (20:35)
[2019-02-09] MEDS ORDERED: NS 0.9% 1000 ML** 2,000 ML IV ONE ×2 (20:43→23:44)
--- NOTE | 2019-02-09 20:44 | ED ---
Altered Mental Status - HPI Summary HPI Summary: This pt is a 68 Y/O M presenting from [facility] by EMS to [facility] due to his unresponsiveness. Per EMS the pt was found by staff unresponsive without pulse or respirations. CPR was given while EMS was enroute to [facility]. Upon arrival to [facility] the pt was breathing and had a pulse. EMS states that the pt has not become responsive during their transfer to [facility]. Pt is still unresponsive and has a HR of 132, BS of 500 per [facility], and is currently 84% O2 on 10 L. He is currently a Level 5 caveat due to his unresponsive nature. Pt was given Narcan without effect. He has a Hx of DM. - History Of Current Complaint Chief Complaint: EDAltMentalStatus Stated Complaint: UNRESPONSIVE PER EMS Time Seen by Provider: 02/09/19 20:29 Hx Obtained From: EMS Hx From Patient Unobtainable Due To: Other - Pt is a level 5 caveat due to his unresponsive nature Last Known Well Date: 02/09/191999 Onset/Duration: Unknown, Still Present Timing: Constant Character: Responsiveness - unresponsive - Allergies/Home Medications Allergies/Adverse Reactions: Allergies Allergy/AdvReac Type Severity Reaction Status Date / Time No Known Allergies Allergy Verified 01/01/19 12:22 PMH/Surg Hx/FS Hx/Imm Hx Previously Healthy: No - Level 5 caveat due to his unresponsiveness. Endocrine/Hematology History: Reports: Hx Diabetes Cardiovascular History: Reports: Hx Deep Vein Thrombosis - RLE, Hx Hypercholesterolemia, Hx Hypertension Respiratory History: Reports: Hx Chronic Obstructive Pulmonary Disease (COPD) GI History: Reports: Hx Gastroesophageal Reflux Disease History: Denies: Hx Renal Disease Musculoskeletal History: Reports: Other Musculoskeletal History - Spinal stenosis Sensory History: Reports: Hx Contacts or Glasses, Other Sensory Impairments - poor vision Denies: Hx Deafness, Hx Hearing Aid Opthamlomology History: Reports: Hx Contacts or Glasses, Other Sensory Impairments - poor vision Neurological History: Reports: Other Neuro Impairments/Disorders - 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, spinal stenosis Psychiatric History: Reports: Other Psychiatric Issues/Disorders - Schizoaffective Infectious Disease History: Reports: Hx of Known/Suspected MRSA - Family History Known Family History: Positive: Hypertension - Social History Occupation: Retired Lives: At [facility] Alcohol Use: Patient refused to answer Alcohol Amount: Lives at [facility] Hx Substance Use: No Substance Use Type: Reports: Other Substance Use Comment - Amount & Last Used: Patient refused to answer Hx Tobacco Use: Yes Smoking Status (MU): Former Smoker Type: Cigarettes Review of Systems - ROS Summary Review of Systems Summary: A FULL ROS IS UNOBTAINABLE DUE TO THE PT BEING A LEVEL 5 CAVEAT DUE TO HIS UNRESPONSIVENESS. Neurological: Other - UNRESPONSIVE All Other Systems Reviewed And Are Negative: No Physical Exam - Summary Physical Exam Summary: Appearance: Well-appearing, obese elderly male, lying in bed, unresponsive to deep pain stimuli Skin: Warm, dry, no obvious rash Eyes: sclera anicteric, no conjunctival pallor ENT: mucous membranes moist, pharynx appears normal Neck: Supple, nontender Respiratory: Clear to auscultation, labored respiarations Cardiovascular: Normal S1, S2. No murmurs. Normal distal pulses in tibial and radial bilaterally. Abdomen: Soft, nontender, normal active bowel sounds present Musculoskeletal: Normal, Strength/ROM Intact Neurological: A&Ox3, awake and alert, mentation is normal, speech is fluent and appropriate Psychiatric: affect is normal, does not appear anxious or depressed Triage Information Reviewed: Yes Vital Signs On Initial Exam: Temp Pulse Resp BP SpO2 FiO2 Vital Signs Reviewed: Yes Procedures - Sedation Patient Received Moderate/Deep Sedation with Procedure: Yes - Propofal 100ml Are You The Provider Who Administered The Sedation: [place] of Provider Whom Sedated Patient: Sergio Lopez - Intubation Time of Intubation: 20:33 Intubation Method: orotracheal Tube Size (cm): 8.0 Breath Sounds after Intubation: equal Intubation Complications: no complications Post Intubation Xray: Yes Diagnostics - Laboratory Result Diagrams: 02/10/19 16:16 02/10/19 16:16 Lab Statement: Any lab studies that have been ordered have been reviewed, and results considered in the medical decision making process. - Radiology CXR Radiology Interpretation Completed By: ED Physician Summary of Radiographic Findings: ET tube is in good position, no focal infiltrates, small bilateral effusions. Pending offical review. - EKG 2048 Cardiac Rate: Tachycardia - 107 BPM EKG Rhythm: Sinus Tachycardia ST Segment: Normal Ectopy: None EKG Comparison: No Significant Change Summary of EKG Findings: Sinus tachycardia at 107 BPM, P waves, QRS complex, and T waves are within normal limits, T waves and intervals are normal, no ischemic changes. Interpreted by Dr. Lopez at 02/09/192049. Altered Mental Statu Course/Dx - Course Course Of Treatment: This pt is a 68 Y/O M presenting from [facility] by EMS to [facility] due to his unresponsiveness. Per EMS the pt was found by staff unresponsive without pulse or respirations. CPR was given while EMS was enroute to [facility]. Pt is still unresponsive and has a HR of 132, BS of 500 per [facility], and is currently 84% O2 on 15 L. He is currently a Level 5 caveat due to his unresponsiveness. Pt was given Narcan without effect. He arrived to [facility] at 2025. His PE found that he is obese, unresponsive to deep stimulation , and has ineffective respirations with poor chest excursion despite hypoxemia. Decision was made to intubate due to apparent hypoxic hypercarbic respiratory failure and depressed LOC. He was intubated at 2032 with equal breath sounds bilaterally after the intubation and O2 saturation of 92%. EKG at 2048 shows Sinus tachycardia at 107 BPM, P waves, QRS complex, and T waves are within normal limits, T waves and intervals are normal, no ischemic changes. ET tube is in good position, no focal infiltrates, small bilateral effusions. Pending offical review. He has abnormal laboratory findings in Glucose of 406, BUN/ Creatinine ratio, WBCs, RBCs, Troponin of .04, ABG pCO2, ABG O2 Saturation at 98.2, and ABG Base Excess. He was given 100 mls of Propofol during his ED course. He was admitted by Dr. Mckay, Hospitalist, for further work up. He was Dx with Severe hyperglycemia due to DM, Acute respiratory failure with hypoxia, AMS. - Diagnoses Provider Diagnoses: Severe hyperglycemia due to diabetes mellitus, Acute respiratory failure with hypoxia, AMS (altered mental status) - Provider Notifications Discussed Care Of Patient With: Vin Mckay Time Discussed With Above Provider: 20:54 Instructed by Provider To: Admit As Inpatient Admit/Transition Orders Completed By ED Provider: Yes - Critical Care Time Critical Care Time: 30-74 min - 30 minutes Discharge ED - Sign-Out/Discharge Documenting (check all that apply): Patient Departure - admitted - Discharge Plan Condition: Stable Disposition: ADMITTED TO [facility] - Billing Disposition and Condition Condition: STABLE Disposition: Admitted to [facility] - Attestation Statements Document Initiated by Scribe: Yes Documenting Scribe: Roderick Vasquez Provider For Whom Julyibvipul is Documenting (Include Credential): Sergio Lopez MD Scribe Attestation: I, Roderick Vasquez, scribed for Sergio Lopez MD on 02/10/19 at 1843. Scribe Documentation Reviewed: Yes Provider Attestation: The documentation as recorded by the julyibeRoderick accurately reflects the service I personally performed and the decisions made by me, Sergio Lopez MD Status of Scribe Document: Viewed
[2019-02-09] MEDS ORDERED: Propofol* 100 ML IV ONE ×2 (20:45→23:00)
[2019-02-09 21:20] LABS: ABS Basophils 0.1 10^3/ul (0-0.2); ABS Lymphocytes 0.9 10^3/ul (1.0-4.8); ABS Monocytes 0.8 10^3/ul (0-0.8); ABS Neutrophils 10.3 10^3/ul (1.5-7.7); ABS Nucleated RBC 0.1 10^3/ul; Eosinophil % 0.1 %; Hematocrit 46 % (42-52); Hemoglobin 14.2 g/dL (14.0-18.0); Lymphocyte % 7.3 %; Mean Corpuscular HGB Conc 31 g/dL (31-36); Mean Corpuscular Hemoglobin 26 pg (27-31); Mean Corpuscular Volume 82 fL (80-94); Mean Platelet Volume 7.3 fL (7.4-10.4); Nucleated Red Blood Cells % 0.6; Platelet Count 217 10^3/uL (150-450); Red Blood Count 5.59 10^6 /uL (4.18-5.48); Red Cell Distribution Width 19 % (10-15); White Blood Count 12.1 10^3/uL (3.5-10.8)
--- OUTSIDE RECORDS SUMMARY | 2019-02-09 21:21 | XMS REPORT | Continuity of Care Document ---
:1950 External Reference #:[id number] Author Name Precious Padron M.D. (transmitted by agent of provider Megan Ceballos) Address [address] [address] [place] [address] Problems Active Problems Provider Date Low back pain Merari Bojorquez NP Onset: 06/06/2017 Lumbar radiculopathy Merari Bojorquez NP Onset: 06/06/2017 Social History Type Date Description Comments Sex Unknown Allergies, Adverse Reactions, Alerts Description No Known Drug Allergies Medications Active Medications SIG Qnty Indications Ordering Date Provider Spiriva Handihaler 1 Inh daily Nusrat Leroy, 06/01/2018 18mcg D.O. Capsules Dulera 1 Puff Inh bid Nusrat Leroy, 06/01/2018 200-5mcg/Act D.O. Aerosol Depakote one po bid F25.9 Lou 03/10/[address] Bi MD Haloperidol one po bid F25.9 Lou 03/10/2018 5mg Tablets MD Bi Aspercreme Lidocaine apply daily to 90units Nusrat Leroy, 06/09/2017 4% back in Am, remove D.O. Patches in PM Senna Plus 2 by mouth at hs 60tabs Nusrat Leroy, 06/06/2017 8.6-50mg D.O. Tablets Potassium Chloride ER 1 by mouth every 30tabs Nusrat Leroy, 06/06/2017 Mon, Wed, and D.O. 20Meq Tablets ER tuesday Omeprazole 1 by mouth every 90caps Nusrat Leroy, 06/06/2017 20mg Capsules day D.O. DR Dietrich 3 1 by mouth twice a 180caps Nusrat Leroy, 06/06/2017 1000mg Capsules day D.O. Magnesium Oxide -MG 1 by mouth bid 60caps Nusrat Leroy, 06/06/2017 Supplement D.O. 400mg Capsules Magnesium Citrate 1 application PO 296ml K59.00 Nusrat Leroy, 2017 mat receive on D.O. 1.745GM/30ML Solution Mon, Wed and Fridaty prn. Maalox Advanced 30 milliliters 355ml Nusrat Leroy, 06/06/2017 Maximum Strength every 4 hours as D.O. needed indigestion Suspension Lasix 1 by mouth every R60.1 Nusrat Leroy, 06/06/2017 20mg Tablets day D.O. Glipizide XL take 1 tablet by 90tabs E11.8 Nusrat Leroy, 06/06/2017 2.5mg mouth every D.O. Tablets ER 24HR morning Gabapentin 1 PO bid 90caps G62.9 Nusrat Leroy, 06/06/2017 300mg Capsules D.O. Divalproex Sodium take one tablet by 60tabs F20.9 Nusrat Leroy, 2017 500mg mouth twice a day D.O. Tablets DR Diphenhydramine HCL PO Q hs 1caps F20.9 Nusrat Leroy, 06/06/2017 50mg D.O. Capsules Acetaminophen 2 tablets by mouth 60tabs Nusrat Leroy, 06/06/2017 325mg every 6 hours as D.O. Tablets needed for pain/fever Immunizations Description No Information Available Vital Signs Date Vital Result Comment 07/20/2018 10:16am Heart Rate 88 /min BP Systolic 140 mmHg BP Diastolic 78 mmHg Respiratory Rate 20 /min Pain Level 0 07/11/2018 11:34am Weight 221.00 lb Heart Rate 72 /min BP Systolic 130 mmHg BP Diastolic 76 mmHg Respiratory Rate 18 /min Body Temperature 98.9 F O2 % BldC Oximetry 96 % Results Description No Information Available Procedures Description No Information Available Medical Devices Description No Information Available Encounters Type Date Location Provider Dx Diagnosis Office Visit 11/13/2018 [facility]ly [facility] Merari Bojorquez, L21.8 Other seborrheic 9:00a [employer] dermatitis B37.9 Candidiasis, unspecified Office Visit 10/30/2018 9:30a [facility] Merari Bojorquez, E11.65 Type 2 diabetes [employer] mellitus with hyperglycemia E78.5 Hyperlipidemia, unspecified F25.9 Schizoaffective disorder, unspecified I10 Essential (primary) hypertension I82.511 Chronic embolism and thrombosis of right femoral vein J44.9 Chronic obstructive pulmonary disease, unspecified Office Visit 09/25/2018 9:15a [facility] Nusrat H10.89 Other conjunctivitis Leroy D.O. Office Visit 09/21/2018 11:00a [facility] Tori B37.9 Candidiasis, [place], [place] unspecified Office Visit 09/06/2018 9:15a [facility] Nusrat E11.65 Type 2 diabetes Leroy D.O. mellitus with hyperglycemia E78.5 Hyperlipidemia, unspecified F25.9 Schizoaffective disorder, unspecified I10 Essential (primary) hypertension I82.511 Chronic embolism and thrombosis of right femoral vein J44.9 Chronic obstructive pulmonary disease, unspecified Office Visit 07/31/2018 10:30a [facility] Nusrat Harper, I10 Essential (primary) D.O. 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 vein J44.9 Chronic obstructive pulmonary disease, unspecified F25.9 Schizoaffective disorder, unspecified E78.5 Hyperlipidemia, unspecified I10 Essential (primary) hypertension Office Visit 07/20/2018 8:00a [facility] Tori Ugalde, E11.65 Type 2 diabetes PA mellitus with hyperglycemia I82.511 Chronic embolism and thrombosis of right femoral vein J44.9 Chronic obstructive pulmonary disease, unspecified Office Visit 07/11/2018 9:00a [facility] Gina E11.65 Type 2 diabetes Senner, DO mellitus with hyperglycemia I82.511 Chronic embolism and thrombosis of right femoral vein F25.9 Schizoaffective disorder, unspecified J44.9 Chronic obstructive pulmonary disease, unspecified Assessments Date Code Description Provider 01/01/2019 R07.9 Chest pain, unspecified Nusrat Harper D.O. 01/01/2019 R09.02 Hypoxemia Nusrat Harper D.O. 01/01/2019 E11.65 Type 2 diabetes mellitus with hyperglycemia Nusrat Leroy , D.O. 01/01/2019 E78.5 Hyperlipidemia, unspecified Nusrat Leroy, D.O. 01/01/2019 F25.9 Schizoaffective disorder, unspecified Nusrat Leroy, D.O. 01/01/2019 I10 Essential (primary) hypertension Nusrat Leroy, D.O. 12/11/2018 H10.9 Unspecified conjunctivitis [facility], [employer] 11/13/2018 L21.8 Other seborrheic dermatitis [facility], [employer] 11/13/2018 B37.9 Candidiasis, unspecified [facility], [employer] 10/30/2018 E11.65 Type 2 diabetes mellitus with hyperglycemia [facility], [employer] 10/30/2018 E78.5 Hyperlipidemia, unspecified [facility], [employer] 10/30/2018 F25.9 Schizoaffective disorder, unspecified [facility], [employer] 10/30/2018 I10 Essential (primary) hypertension [facility], [employer] 10/30/2018 I82.511 Chronic embolism and thrombosis of right [facility] , [employer] femoral vein 10/30/2018 J44.9 Chronic obstructive pulmonary disease, [facility], [employer] unspecified 09/25/2018 H10.89 Other conjunctivitis Nusrat Leroy, D.O. 09/21/2018 B37.9 Candidiasis, unspecified Tori Ugalde, PA 09/06/2018 E11.65 Type 2 diabetes mellitus with hyperglycemia Nusrat Leroy , D.O. 09/06/2018 E78.5 Hyperlipidemia, unspecified Nusrat Leroy, D.O. 09/06/2018 F25.9 Schizoaffective disorder, unspecified Nusrat Leroy, D.O. 09/06/2018 I10 Essential (primary) hypertension Nusrat Leroy, D.O. 09/06/2018 I82.511 Chronic embolism and thrombosis of right Nusrat Leroy, D.O. femoral vein 09/06/2018 J44.9 Chronic obstructive pulmonary disease, Nusrat Leroy, D.O. unspecified 07/31/2018 I10 Essential (primary) hypertension Nusrat Leroy, D.O. 07/31/2018 E78.5 Hyperlipidemia, unspecified Nusrat Leroy, D.O. 07/31/2018 F25.9 Schizoaffective disorder, unspecified Nusrat Leroy, D.O. 07/31/2018 J44.9 Chronic obstructive pulmonary disease, Nusrat Leroy, D.O. unspecified 07/31/2018 I82.511 Chronic embolism and thrombosis of right Nusrat Leroy, D.O. femoral vein 07/31/2018 E11.65 Type 2 diabetes mellitus with hyperglycemia Nusrat Leroy , D.O. 07/31/2018 E11.65 Type 2 diabetes mellitus with hyperglycemia Nusrat Leroy , D.O. 07/31/2018 I82.511 Chronic embolism and thrombosis of right Nusrat Leroy, D.O. femoral vein 07/31/2018 J44.9 Chronic obstructive pulmonary disease, Nusrat Leroy, D.O. unspecified 07/31/2018 F25.9 Schizoaffective disorder, unspecified Nusrat Leroy, D.O. 07/31/2018 E78.5 Hyperlipidemia, unspecified Nusrat Leroy, D.O. 07/31/2018 I10 Essential (primary) hypertension Nusrat Harper, D.O. 07/20/2018 E11.65 Type 2 diabetes mellitus with hyperglycemia Tori Ugalde , PA 07/20/2018 I82.511 Chronic embolism and thrombosis of right Tori Ugalde, PA femoral vein 07/20/2018 J44.9 Chronic obstructive pulmonary disease, Tori Ugalde, PA unspecified 07/11/2018 E11.65 Type 2 diabetes mellitus with hyperglycemia Gina Gail , DO 07/11/2018 I82.511 Chronic embolism and thrombosis of right Gina Reynolds, DO femoral vein 07/11/2018 F25.9 Schizoaffective disorder, unspecified Gina Senner, DO 07/11/2018 J44.9 Chronic obstructive pulmonary disease, Gina Senner, DO unspecified Plan of Treatment No Information Available Functional Status Description No Information Available Mental Status Description No Information Available Referrals Description No Information Available
[2019-02-09 21:38] LABS: ALT 28 U/L (7-52); AST 40 U/L (13-39); Albumin 3.2 g/dL (3.2-5.2); Albumin/Globulin Ratio 1.1 (1-3); Alkaline Phosphatase 73 U/L (34-104); BUN/Creatinine Ratio 24.2 (8-20); Blood Urea Nitrogen 24 mg/dL (6-24); CO2 Carbon Dioxide 34 mmol/L (22-32); Calcium 8.3 mg/dL (8.6-10.3); Chloride 99 mmol/L (101-111); EGFR African American 91.2 (>60); EGFR Non-African American 75.4 (>60); Globulin 2.8 g/dL (2-4); Glucose 406 mg/dL (70-100); Sodium 139 mmol/L (135-145)
[2019-02-09 21:48] LABS: Alcohol < 10 mg/dL (<10)
[2019-02-09 21:49] LABS: Anion Gap 6 mmol/L (2-11); Potassium 5.2 mmol/L (3.5-5.0)
[2019-02-09] MEDS ORDERED: cefTRIAXone(*) 1 GM in NS 0.9% 50 ML* 50 ML IVPB ONE (21:54)
[2019-02-09 22:00] LABS: Polychromasia 1+
[2019-02-09 22:03] LABS: TSH (Thyroid Stimulating Horm) 2.96 mcIU/mL (0.34-5.60)
[2019-02-09 22:49] LABS: Troponin I 0.04 ng/mL (<0.03)
[2019-02-09] MEDS: NS 0.9% 1000 ML** 2,000 ML IV ONE ×2 (23:15→23:58)
[2019-02-09] MEDS ORDERED: NS 0.9% 1000 ML** 1,000 ML IV SCH (23:45)
[2019-02-09] MEDS ORDERED: Iodixanol* (CONTRAST) 320 MG/ML 100 ML SDV IV ONE (23:56)
[2019-02-10] MEDS ORDERED: Lorazepam PYXIS KEY PRN (00:35)
[2019-02-10] MEDS ORDERED: LORazepam INJ* 2 MG/ML 1 ML VIAL IV PUSH PRN (00:35)
[2019-02-10] MEDS ORDERED: Vancomycin per Pharmacy* NOTE FOLLOW UP SCH (01:00)
[2019-02-10] MEDS ORDERED: Vancomycin(*) 1,000 MG in NS 0.9% 250 ML* 250 ML IVPB ONE (01:00)
[2019-02-10] MEDS ORDERED: Albuterol/Ipratropium NEB.SOL* Albuterol 2.5 MG/Ipratropium 0.5 MG 3 ML INH PRN (01:01)
[2019-02-10] MEDS ORDERED: Piperacillin/Tazobac ADVAN(*) 3.375 GM in NS 0.9% 100 ML* 100 ML IVPB ONE (01:01)
[2019-02-10] MEDS ORDERED: Dextrose 50% VIAL 50 ml IV PUSH PRN (01:02)
[2019-02-10] MEDS ORDERED: Vancomycin 1500 MG IV - x ONCE IVPB ONE ×2 (01:30)
[2019-02-10] MEDS: methylPREDNISolone SOD 40 MG* 1 ML VIAL IV SCH ×2 (01:51→13:28)
[2019-02-10] MEDS: Insulin LISPRO* 1 UNITS UNIT SUBCUT SCH ×6 (01:58→23:20)
[2019-02-10] MEDS ORDERED: Zosyn per Pharmacy* NOTE FOLLOW UP SCH (02:00)
[2019-02-10 02:19] LABS: Urine Appearance Clear; Urine Bilirubin 1+ (Negative); Urine Blood 3+ (Negative); Urine Color Amber; Urine Glucose 2+(150 mg/dL) (Negative); Urine Ketones Trace (Negative); Urine Nitrite Negative (Negative); Urine Protein 2+(100 mg/dL) (Negative); Urine Urobilinogen Positive (Negative)
[2019-02-10 02:26] LABS: Urine Bacteria Absent (Absent); Urine Red Blood Cell 3+(>10/hpf) (Absent); Urine White Blood Cell Absent (Absent)
--- NOTE | 2019-02-10 03:46 | HP ---
CC: Dr. Nusrat Harper* ADMISSION HISTORY AND PHYSICAL: DATE OF ADMISSION: 02/09/19 CHIEF COMPLAINT: Altered mental status and questionable cardiac arrest. HISTORY OF PRESENT ILLNESS: This is a 68-year-old male who was recently admitted in December for respiratory failure and chest pain, thought to be initially from CHF, but later found to be COPD exacerbation, also history of schizoaffective disorder, COPD, type 2 diabetes, right lower extremity DVT, who has been at [facility] as a long-term resident, was sent today after he was found altered, and per some documentation, the patient did not have a pulse or respiration and CPR was initiated. By the time the EMS arrived, the patient did have a pulse, but was satting 84% on 10 L, heart rate was elevated at 130, blood sugar was elevated at 500 per EMS. Upon arrival to the ER, the patient was still unresponsive, was given Narcan without much effect and did not respond to any deep stimulation or sternal rubs and was found to have labored breathing. So, within 5 minutes of arrival to the ER, a decision was made to intubate the patient. Post intubation, his breath sounds improved, his tachycardia was still present at 107. His oxygen saturation improved to 92% on 100% ventilation, although reason for his respiratory arrest and altered mental status is still unclear. Rest of the history was obtained by reviewing the ER records and previous H and P and discharge summary from last month as the patient was altered and intubated. PAST MEDICAL HISTORY: As mentioned: 1. COPD. 2. Schizoaffective disorder. 3. Diabetes mellitus, type 2. 4. Hypertension. 5. Dyslipidemia. 6. Gastroesophageal reflux disease. 7. Spinal stenosis. 8. Chronic right lower extremity DVT. PAST SURGICAL HISTORY: None documented in the previous H and P. MEDICATIONS: Home medications on listed include: 1. Melatonin 3 mg oral daily. 2. Basaglar 20 units daily at bedtime. 3. Lipitor 10 mg oral daily. 4. Xarelto 20 mg daily every evening. 5. Haldol 5 mg daily every evening. 6. Incruse Ellipta 1 puff by inhalation daily. 7. Glipizide 2.5 mg oral daily. 8. Abilify 5 mg oral daily. 9. Mag ox 400 mg p.o. b.i.d. 10. Gabapentin 300 mg p.o. t.i.d. 11. Depakote 500 mg p.o. b.i.d. 12. Potassium chloride 20 mEq oral, Tuesday, Tuesday, Tuesday. 13. Advair Diskus 1 puff by inhalation p.o. b.i.d. 14. Regular insulin 5 units subcutaneous with meals. ALLERGIES: No known documented allergies. FAMILY HISTORY: There is documentation that the father is alcoholic and both his parents are . He does not know his mother's history. SOCIAL HISTORY: There is documentation that he quit smoking 20 years ago, used to abuse alcohol, but not anymore. No other illicit drug use. He is retired and living in the long-term group home at [facility]. 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 He is never . No children. Previous documentation suggests that he did have a surrogate decision maker, but he declined to state who it was and even [facility] does not have any surrogate decision-maker listed. Code status, MOLST form from 2019 shows the patient is okay with attempt of CPR and trial of intubation and mechanical ventilation, but did not want any feeding tube, but was okay with IV fluids and use of antibiotics. REVIEW OF SYSTEMS: Unable to obtain due to his mental status. PHYSICAL EXAMINATION VITAL SIGNS: In the ER, BP was noted to be 193/67, heart rate 92, respiration rate 14, saturating 95% on ventilator, temperature max was recorded at 98.5. HEAD AND NECK: Atraumatic, normocephalic. Bilateral pupils were reactive. ET tube in place. Neck supple. No jugular venous distention. LUNGS: Lungs anteriorly were clear. HEART: S1, S2. Regular rate and rhythm. ABDOMEN: Obese, soft, nontender, nondistended. EXTREMITIES: No cyanosis, clubbing, or edema. DIAGNOSTIC STUDIES/LAB DATA: CBC shows minimally elevated white count of 12.1 , hemoglobin and hematocrit stable, platelet count was noted to be 217. ABG shows pH of 7.36, pCO2 of 53, oxygen saturation of 98%, FiO2 of 100%, and PEEP of 5. Comprehensive metabolic panel showed elevated random glucose at 406. Potassium minimally elevated at 5.2, lactic acid initially elevated at 4.5. Troponin 0.04. LFTs otherwise unremarkable. Serum alcohol was noted to be less than 10. CT brain showed no acute intracranial abnormality, chronic micro-ischemic changes, a cyst lesion in the scalp in the right occipital region slightly increased in size. Chest x-ray: Portable chest x-ray showed the ET tube in place, was difficult to read due to the patient's obesity and poor filming technique. Official read by Radiology is still pending. EKG showed sinus tachycardia at 110 beats per minute. When compared to his old EKG from last month, essentially the rate is increased in today's EKG, but waveform is exactly the same. IMPRESSION: This is a 68-year-old gentleman with schizoaffective disorder, chronic obstructive pulmonary disease, type 2 diabetes, hypertension, gastroesophageal reflux disease, dyslipidemia, spinal stenosis, chronic right lower extremity deep venous thrombosis, was noted to have questionable cardiac arrest per [facility] with CPR initiated, but return of spontaneous circulation even prior to EMS arrival. He had been noted to be in respiratory arrest and was intubated for airway protection and also for respiratory failure. ASSESSMENT AND PLAN: 1. Respiratory arrest, questionable component of cardiac arrest, status post intubation, unclear etiology, likely from pneumonia. For now, we will get CTA angio to rule out any pulmonary embolism given history of deep venous thrombosis. We will start the patient on vanco and Zosyn to cover broad spectrum given he was recently admitted to the hospital to cover for healthcare- associated pneumonia. Given his history of chronic obstructive pulmonary disease , we will also add steroids for a component of chronic obstructive pulmonary disease exacerbation and start the patient on DuoNeb and vent management per plastic panel installer. 2. History of diabetes with uncontrolled sugars. We will start the patient on q.2 hours fingersticks. The patient does not appear to be having any diabetic ketoacidosis given his bicarbs are normal and anion gap being normal. We will start the patient on Humalog sliding scale as needed. 3. History of schizoaffective disorder. We will restart his psych medications. 4. History of deep venous thrombosis. We will continue his Xarelto. 5. Code status. Full code per previous MOLST; however, no surrogate decision maker at this point. We will try to re-contact [facility] in the morning and see if there is any documentation regarding next of kin. [id number]/[facility] #: [id number] [facility]
[2019-02-10] MEDS ORDERED: Chlorhexidine MOUTHWASH 0.12%* 15 ML UDC TOPICAL SCH (05:00)
[2019-02-10 05:09] LABS: ABS Lymphocytes 1.3 10^3/ul (1.0-4.8); ABS Monocytes 0.9 10^3/ul (0-0.8); ABS Neutrophils 7.2 10^3/ul (1.5-7.7); ABS Nucleated RBC 0.1 10^3/ul; Hematocrit 46 % (42-52); Hemoglobin 14.1 g/dL (14.0-18.0); Lymphocyte % 13.7 %; Mean Corpuscular HGB Conc 31 g/dL (31-36); Mean Corpuscular Hemoglobin 26 pg (27-31); Mean Corpuscular Volume 83 fL (80-94); Mean Platelet Volume 7.5 fL (7.4-10.4); Nucleated Red Blood Cells % 0.8; Platelet Count 204 10^3/uL (150-450); Red Cell Distribution Width 19 % (10-15); White Blood Count 9.5 10^3/uL (3.5-10.8)
[2019-02-10 05:23] LABS: BUN/Creatinine Ratio 24.2 (8-20); Blood Urea Nitrogen 23 mg/dL (6-24); CO2 Carbon Dioxide 31 mmol/L (22-32); Calcium 7.2 mg/dL (8.6-10.3); Chloride 106 mmol/L (101-111); Cholesterol 109 mg/dL; EGFR African American 95.7 (>60); EGFR Non-African American 79.1 (>60); Glucose 301 mg/dL (70-100); HDL Cholesterol 23.5 mg/dL; LDL Cholesterol 61 mg/dL; Sodium 141 mmol/L (135-145); Triglycerides 125 mg/dL
[2019-02-10 05:25] LABS: Anion Gap 4 mmol/L (2-11); Potassium 5.4 mmol/L (3.5-5.0)
[2019-02-10 05:27] LABS: Troponin I 0.06 ng/mL (<0.03)
[2019-02-10] MEDS ORDERED: NS 0.9% 1000 ML** 2,000 ML IV ONE (05:32)
[2019-02-10] MEDS: Pantoprazole IV* 40 MG IV SCH (05:36)
[2019-02-10] MEDS: ZOSYN 3.375 GM Q8H per EXTENDED INFUSION IVPB SCH ×6 (05:37→23:05)
[2019-02-10] MEDS: Magnesium Oxide TAB* 400 MG PO SCH ×2 (08:53→12:29)
[2019-02-10] MEDS: Chlorhexidine MOUTHWASH 0.12%* 15 ML UDC TOPICAL SCH ×4 (08:53→20:31)
[2019-02-10] MEDS: Divalproex Sprinkle CAP* 125 MG PO SCH ×2 (08:53→23:14)
[2019-02-10] MEDS: Vancomycin(*) 1,000 MG in NS 0.9% 250 ML* 250 ML IV SCH ×3 (08:53→20:32)
[2019-02-10] MEDS ORDERED: ARIPiprazole TAB* 5 MG PO SCH (09:00)
[2019-02-10] MEDS ORDERED: Mometasone/Formoter 100/5 MDI INH SCH (09:00)
[2019-02-10] MEDS ORDERED: SPIRIVA Respimat* (tiotropium) 2.5 mcg/inh Inhaler INH SCH (09:00)
[2019-02-10] MEDS ORDERED: Gabapentin CAP(*) 300 MG PO SCH (09:00)
[2019-02-10] MEDS ORDERED: fentaNYL INFUSION 50 MCG/ML* 2,500 MCG/50 ML BAG IV SCH ×2 (10:00→10:34)
[2019-02-10] MEDS ORDERED: Acetaminophen ADULT LIQ* 650 MG/20.3 ML UDC PO PRN (10:42)
[2019-02-10 11:14] LABS: Magnesium 2.1 mg/dL (1.9-2.7)
[2019-02-10 11:36] LABS: Creatine Kinase 34 U/L (10-223)
[2019-02-10 11:52] LABS: Acetaminophen < 15 mcg/mL; Salicylate < 2.50 mg/dL (<30)
[2019-02-10 12:19] LABS: Troponin I 0.05 ng/mL (<0.03)
--- NOTE | 2019-02-10 13:47 | PN ---
Date of Service: 02/10/19 Vital Signs: Temp Pulse Resp BP SpO2 FiO2 100.9 F 86 14 102/65 90 100 02/10/19 13:00 02/10/19 13:00 02/10/19 10:00 02/10/19 13:00 02/10/19 13:00 02/10 08:00 Physical Exam: Gen: chemically sedated HEENT: intubated Lungs:cleat to auscultations Cardiac: s1 s2 Abdomen: obese, soft nontender, non distended Extremities:no edema Neuro: chemically sedated Fluid Balance (Past 24 Hours): I= O= Net Intake & Output 02/08/19 02/09/19 02/10/19 02/11/19 06:59 06:59 06:59 06:59 Intake Total 7650 Output Total 1250 435 Balance 6400 -435 Weight 235 lb 3.732 oz Intake: IV Fluids 6100 D5W NS (0.9%) 5000 IVPB 1550 ABX - VANCOMYCIN 250 ABX - ZOSYN 200 Oral 0 Output: Ross 1250 435 Other: Date of Last Bowel 02/09/19 Movement Estimated Stool Amount Large Labs: Laboratory Results - last 24 hr 02/09/19 02/09/19 02/09/19 20:32 21:08 21:08 WBC 12.1 H RBC 5.59 H Hgb 14.2 Hct 46 MCV 82 MCH 26 L MCHC 31 RDW 19 H Plt Count 217 MPV 7.3 L Neut % (Auto) 85.4 Lymph % (Auto) 7.3 [place] % (Auto) 6.4 Eos % (Auto) 0.1 Baso % (Auto) 0.8 Absolute Neuts (auto) 10.3 H Absolute Lymphs (auto) 0.9 L Absolute Monos (auto) 0.8 Absolute Eos (auto) 0.0 Absolute Basos (auto) 0.1 Absolute Nucleated RBC 0.1 Immature Gran % 18.0 H Neutrophils % 68.0 Band Neutrophils % 18.0 H Lymphocytes % 3.0 Reactive Lymphs % 2.0 Monocytes % 9.0 Nucleated RBC % 0.6 Nucleated RBCs/100 WBC 1.0 H Normal RBC Morphology Not Reportable Polychromasia 1+ Anisocytosis 1+ Patient Temperature ABG pH ABG pH (Temp Correct) ABG pCO2 ABG pCO2 (Temp Corrct ABG pO2 ABG pO2 (Temp Correct ABG HCO3 ABG O2 Saturation ABG Base Excess Respiration Rate O2 Delivery Device Ventilator Type Vent Mode FiO2 Inspiratory Time PEEP Pressure Support Pressure Control EPAP IPAP BiPAP Sodium 139 Potassium 5.2 H Chloride 99 L Carbon Dioxide 34 H Anion Gap 6 BUN 24 Creatinine 0.99 Est GFR ( Amer) 91.2 Est GFR (Non-Af Amer) 75.4 BUN/Creatinine Ratio 24.2 H Glucose 406 H POC Glucose (mg/dL) > 444 H* Lactic Acid Calcium 8.3 L Magnesium Total Bilirubin 0.40 AST 40 H ALT 28 Alkaline Phosphatase 73 Total Creatine Kinase Troponin I 0.04 H* Total Protein 6.0 L Albumin 3.2 Globulin 2.8 Albumin/Globulin Ratio 1.1 Triglycerides Cholesterol LDL Cholesterol HDL Cholesterol TSH 2.96 Urine Color Urine Appearance Urine pH Ur Specific [place] Urine Protein Urine Ketones Urine Blood Urine Nitrate Urine Bilirubin Urine Urobilinogen Ur Leukocyte Esterase Urine WBC (Auto) Urine RBC (Auto) Urine Bacteria Urine Glucose Salicylates Acetaminophen Serum Alcohol < 10 02/09/19 02/09/19 02/10/19 21:08 21:25 01:27 WBC RBC Hgb Hct MCV MCH MCHC RDW Plt Count MPV Neut % (Auto) Lymph % (Auto) [place] % (Auto) Eos % (Auto) Baso % (Auto) Absolute Neuts (auto) Absolute Lymphs (auto) Absolute Monos (auto) Absolute Eos (auto) Absolute Basos (auto) Absolute Nucleated RBC Immature Gran % Neutrophils % Band Neutrophils % Lymphocytes % Reactive Lymphs % Monocytes % Nucleated RBC % Nucleated RBCs/100 WBC Normal RBC Morphology Polychromasia Anisocytosis Patient Temperature Not Reportable ABG pH 7.36 ABG pH (Temp Correct) Not Reportable ABG pCO2 63 H ABG pCO2 (Temp Corrct Not Reportable ABG pO2 88 ABG pO2 (Temp Correct Not Reportable ABG HCO3 31.0 ABG O2 Saturation 98.2 H ABG Base Excess 7.9 H Respiration Rate 14 O2 Delivery Device vent Ventilator Type 550 Vent Mode cmv FiO2 100 Inspiratory Time 0.85 PEEP 5 Pressure Support Not Reportable Pressure Control Not Reportable EPAP Not Reportable IPAP Not Reportable BiPAP Not Reportable Sodium Potassium Chloride Carbon Dioxide Anion Gap BUN Creatinine Est GFR ( Amer) Est GFR (Non-Af Amer) BUN/Creatinine Ratio Glucose POC Glucose (mg/dL) 367 H Lactic Acid 4.5 H* Calcium Magnesium Total Bilirubin AST ALT Alkaline Phosphatase Total Creatine Kinase Troponin I Total Protein Albumin Globulin Albumin/Globulin Ratio Triglycerides Cholesterol LDL Cholesterol HDL Cholesterol TSH Urine Color Urine Appearance Urine pH Ur Specific [place] Urine Protein Urine Ketones Urine Blood Urine Nitrate Urine Bilirubin Urine Urobilinogen Ur Leukocyte Esterase Urine WBC (Auto) Urine RBC (Auto) Urine Bacteria Urine Glucose Salicylates Acetaminophen Serum Alcohol 02/10/19 02/10/19 02/10/19 02:00 02:15 04:50 WBC RBC Hgb Hct MCV MCH MCHC RDW Plt Count MPV Neut % (Auto) Lymph % (Auto) [place] % (Auto) Eos % (Auto) Baso % (Auto) Absolute Neuts (auto) Absolute Lymphs (auto) Absolute Monos (auto) Absolute Eos (auto) Absolute Basos (auto) Absolute Nucleated RBC Immature Gran % Neutrophils % Band Neutrophils % Lymphocytes % Reactive Lymphs % Monocytes % Nucleated RBC % Nucleated RBCs/100 WBC Normal RBC Morphology Polychromasia Anisocytosis Patient Temperature ABG pH ABG pH (Temp Correct) ABG pCO2 ABG pCO2 (Temp Corrct ABG pO2 ABG pO2 (Temp Correct ABG HCO3 ABG O2 Saturation ABG Base Excess Respiration Rate O2 Delivery Device Ventilator Type Vent Mode FiO2 Inspiratory Time PEEP Pressure Support Pressure Control EPAP IPAP BiPAP Sodium 141 Potassium 5.4 H Chloride 106 Carbon Dioxide 31 Anion Gap 4 BUN 23 Creatinine 0.95 Est GFR ( Amer) 95.7 Est GFR (Non-Af Amer) 79.1 BUN/Creatinine Ratio 24.2 H Glucose 301 H POC Glucose (mg/dL) Lactic Acid 3.1 H* Calcium 7.2 L Magnesium 2.1 Total Bilirubin AST ALT Alkaline Phosphatase Total Creatine Kinase Troponin I 0.06 H* Total Protein Albumin Globulin Albumin/Globulin Ratio Triglycerides 125 Cholesterol 109 LDL Cholesterol 61 HDL Cholesterol 23.5 TSH Urine Color Ellen Urine Appearance Clear Urine pH 5.0 Ur Specific [place] Urine Protein 2+(100 mg/dl) A Urine Ketones Trace A Urine Blood 3+ A Urine Nitrate Negative Urine Bilirubin 1+ A Urine Urobilinogen Positive A Ur Leukocyte Esterase Negative Urine WBC (Auto) Absent Urine RBC (Auto) 3+(>10/hpf) A Urine Bacteria Absent Urine Glucose 2+(150 mg/dl) A Salicylates Acetaminophen Serum Alcohol 02/10/19 02/10/19 02/10/19 04:50 04:50 11:07 WBC 9.5 RBC 5.50 H Hgb 14.1 Hct 46 MCV 83 MCH 26 L MCHC 31 RDW 19 H Plt Count 204 MPV 7.5 Neut % (Auto) 76.3 Lymph % (Auto) 13.7 [place] % (Auto) 9.5 Eos % (Auto) 0.0 Baso % (Auto) 0.5 Absolute Neuts (auto) 7.2 Absolute Lymphs (auto) 1.3 Absolute Monos (auto) 0.9 H Absolute Eos (auto) 0.0 Absolute Basos (auto) 0.0 Absolute Nucleated RBC 0.1 Immature Gran % Neutrophils % Band Neutrophils % Lymphocytes % Reactive Lymphs % Monocytes % Nucleated RBC % 0.8 Nucleated RBCs/100 WBC Normal RBC Morphology Polychromasia Anisocytosis Patient Temperature ABG pH ABG pH (Temp Correct) ABG pCO2 ABG pCO2 (Temp Corrct ABG pO2 ABG pO2 (Temp Correct ABG HCO3 ABG O2 Saturation ABG Base Excess Respiration Rate O2 Delivery Device Ventilator Type Vent Mode FiO2 Inspiratory Time PEEP Pressure Support Pressure Control EPAP IPAP BiPAP Sodium Potassium Chloride Carbon Dioxide Anion Gap BUN Creatinine Est GFR ( Amer) Est GFR (Non-Af Amer) BUN/Creatinine Ratio Glucose POC Glucose (mg/dL) 275 H Lactic Acid 3.3 H* Calcium Magnesium Total Bilirubin AST ALT Alkaline Phosphatase Total Creatine Kinase Troponin I Total Protein Albumin Globulin Albumin/Globulin Ratio Triglycerides Cholesterol LDL Cholesterol HDL Cholesterol TSH Urine Color Urine Appearance Urine pH Ur Specific [place] Urine Protein Urine Ketones Urine Blood Urine Nitrate Urine Bilirubin Urine Urobilinogen Ur Leukocyte Esterase Urine WBC (Auto) Urine RBC (Auto) Urine Bacteria Urine Glucose Salicylates Acetaminophen Serum Alcohol 02/10/19 02/10/19 02/10/19 11:08 11:08 13:33 WBC RBC Hgb Hct MCV MCH MCHC RDW Plt Count MPV Neut % (Auto) Lymph % (Auto) [place] % (Auto) Eos % (Auto) Baso % (Auto) Absolute Neuts (auto) Absolute Lymphs (auto) Absolute Monos (auto) Absolute Eos (auto) Absolute Basos (auto) Absolute Nucleated RBC Immature Gran % Neutrophils % Band Neutrophils % Lymphocytes % Reactive Lymphs % Monocytes % Nucleated RBC % Nucleated RBCs/100 WBC Normal RBC Morphology Polychromasia Anisocytosis Patient Temperature ABG pH ABG pH (Temp Correct) ABG pCO2 ABG pCO2 (Temp Corrct ABG pO2 ABG pO2 (Temp Correct ABG HCO3 ABG O2 Saturation ABG Base Excess Respiration Rate O2 Delivery Device Ventilator Type Vent Mode FiO2 Inspiratory Time PEEP Pressure Support Pressure Control EPAP IPAP BiPAP Sodium Potassium Chloride Carbon Dioxide Anion Gap BUN Creatinine Est GFR ( Amer) Est GFR (Non-Af Amer) BUN/Creatinine Ratio Glucose POC Glucose (mg/dL) 259 H Lactic Acid 3.5 H* Calcium Magnesium Total Bilirubin AST ALT Alkaline Phosphatase Total Creatine Kinase 34 Troponin I 0.05 H* Total Protein Albumin Globulin Albumin/Globulin Ratio Triglycerides Cholesterol LDL Cholesterol HDL Cholesterol TSH Urine Color Urine Appearance Urine pH Ur Specific [place] Urine Protein Urine Ketones Urine Blood Urine Nitrate Urine Bilirubin Urine Urobilinogen Ur Leukocyte Esterase Urine WBC (Auto) Urine RBC (Auto) Urine Bacteria Urine Glucose Salicylates < 2.50 Acetaminophen < 15 Serum Alcohol Plan: admitted 02/09 68 M from [facility]) brought by EMS for Unresponsiveness. Patient was initially without pulse or respirations, CPR was done and pulse was regained. Unknown duration of down time at the time of EMS patient was unresponsive but had a pulse of 132 and fs of 500. His sat was 84% on 10 L he was intubated in the ED and saturation improved to 92% He had ct brain no acute intracranial abnormality, chronic microvascular ischemic changes, cystic lesin in the subcutaneous tissue r occipital scalp ct chest: no PE. He was admitted in December with copd exacerbation. Patient is DNR with a trial on intubation. acute on chronic hypoxemic hypercapnic respiratory failure in the setting of copd exacerbation ct pe neg +7L not on pressors maintain sat of 92% labs q8 f/u bcx trop likely from demand cont solumedrol tox screen neg cpk neg; depakote level wnl tsh ok TTE will give lasix if bp permits likely has type b lactic acidosis at this time. Hyperglycemia in the setting of steroid use and sepsis will cont abx ISS no feeding as per DNR RLE DVT w/o pe cont xarelto GI ppx dvt ppx- xarelto ethics: DNR with trial of intubation Critical Care Time: 45 min
[2019-02-10 14:14] LABS: Influenza A Molecular NEGATIVE (Negative); Influenza B Molecular NEGATIVE (Negative)
[2019-02-10] MEDS ORDERED: Furosemide IV* 10 MG/ML 2 ML VIAL (20 MG) IV ONE ×2 (14:24→19:15)
[2019-02-10 16:30] LABS: ABS Basophils 0.1 10^3/ul (0-0.2); ABS Lymphocytes 1.4 10^3/ul (1.0-4.8); ABS Monocytes 0.6 10^3/ul (0-0.8); ABS Neutrophils 6.8 10^3/ul (1.5-7.7); Hematocrit 44 % (42-52); Hemoglobin 13.9 g/dL (14.0-18.0); Lymphocyte % 15.5 %; Mean Corpuscular HGB Conc 32 g/dL (31-36); Mean Corpuscular Hemoglobin 26 pg (27-31); Mean Corpuscular Volume 81 fL (80-94); Mean Platelet Volume 7.8 fL (7.4-10.4); Nucleated Red Blood Cells % 0.2; Platelet Count 194 10^3/uL (150-450); Red Blood Count 5.39 10^6 /uL (4.18-5.48); Red Cell Distribution Width 19 % (10-15); White Blood Count 8.9 10^3/uL (3.5-10.8)
[2019-02-10 16:47] LABS: ALT 28 U/L (7-52); Albumin 3.1 g/dL (3.2-5.2); Alkaline Phosphatase 56 U/L (34-104); BUN/Creatinine Ratio 27.8 (8-20); Blood Urea Nitrogen 20 mg/dL (6-24); CO2 Carbon Dioxide 30 mmol/L (22-32); Calcium 7.1 mg/dL (8.6-10.3); Chloride 107 mmol/L (101-111); EGFR African American 131.8 (>60); EGFR Non-African American 108.9 (>60); Glucose 203 mg/dL (70-100); Sodium 140 mmol/L (135-145); Total Protein 6.1 g/dL (6.4-8.9)
[2019-02-10 17:10] LABS: Anion Gap 3 mmol/L (2-11)
[2019-02-10] MEDS: Rivaroxaban TAB(*) 20 MG TAB PO SCH (18:25)
[2019-02-10] MEDS ORDERED: Vancomycin Trough Check NOTE FOLLOW UP ONE (20:00)
[2019-02-10] MEDS ORDERED: Haloperidol TAB* 5 MG PO SCH (21:00)
[2019-02-10 21:06] LABS: Potassium Redraw 4.3 mmol/L (3.5-5.0)
[2019-02-10] MEDS: Atorvastatin* 10 MG TAB PO SCH (23:05)
[2019-02-10] MEDS: Valproic Acid IV(*) 500 MG in NS 0.9% 100 ML* 100 ML IVPB SCH (23:58)
[2019-02-11] MEDS: Chlorhexidine MOUTHWASH 0.12%* 15 ML UDC TOPICAL SCH ×7 (00:30→23:57)
[2019-02-11 00:44] LABS: ABS Lymphocytes 1.8 10^3/ul (1.0-4.8); ABS Neutrophils 6.3 10^3/ul (1.5-7.7); Hematocrit 40 % (42-52); Hemoglobin 12.7 g/dL (14.0-18.0); Lymphocyte % 19.8 %; Mean Corpuscular HGB Conc 32 g/dL (31-36); Mean Corpuscular Hemoglobin 26 pg (27-31); Mean Corpuscular Volume 82 fL (80-94); Mean Platelet Volume 7.7 fL (7.4-10.4); Nucleated Red Blood Cells % 0.4; Platelet Count 191 10^3/uL (150-450); Red Blood Count 4.92 10^6 /uL (4.18-5.48); Red Cell Distribution Width 19 % (10-15); White Blood Count 9.1 10^3/uL (3.5-10.8)
[2019-02-11 01:01] LABS: Albumin 2.7 g/dL (3.2-5.2); Albumin/Globulin Ratio 1.1 (1-3); Calcium 7.2 mg/dL (8.6-10.3); EGFR African American 129.7 (>60); EGFR Non-African American 107.2 (>60); Globulin 2.4 g/dL (2-4); Potassium 4.1 mmol/L (3.5-5.0); Total Bilirubin 0.3 mg/dL (0.2-1.0); Total Protein 5.1 g/dL (6.4-8.9)
[2019-02-11] MEDS: Insulin LISPRO* 1 UNITS UNIT SUBCUT SCH ×6 (02:15→22:08)
[2019-02-11] MEDS: Vancomycin(*) 1,000 MG in NS 0.9% 250 ML* 250 ML IV SCH ×4 (02:20→19:58)
[2019-02-11] MEDS: methylPREDNISolone SOD 40 MG* 1 ML VIAL IV SCH (03:59)
[2019-02-11] MEDS: ZOSYN 3.375 GM Q8H per EXTENDED INFUSION IVPB SCH ×6 (06:08→21:58)
[2019-02-11] MEDS: fentaNYL INFUSION 50 MCG/ML* 2,500 MCG/50 ML BAG IV SCH (08:24)
[2019-02-11] MEDS: Pantoprazole IV* 40 MG IV SCH (08:25)
[2019-02-11 08:41] LABS: ABS Basophils 0.1 10^3/ul (0-0.2); ABS Monocytes 0.5 10^3/ul (0-0.8); ABS Neutrophils 6.6 10^3/ul (1.5-7.7); Hematocrit 38 % (42-52); Hemoglobin 12.3 g/dL (14.0-18.0); Mean Corpuscular HGB Conc 32 g/dL (31-36); Mean Corpuscular Hemoglobin 26 pg (27-31); Mean Corpuscular Volume 80 fL (80-94); Mean Platelet Volume 7.4 fL (7.4-10.4); Nucleated Red Blood Cells % 0.1; Platelet Count 181 10^3/uL (150-450); Red Blood Count 4.78 10^6 /uL (4.18-5.48); Red Cell Distribution Width 19 % (10-15); White Blood Count 8.2 10^3/uL (3.5-10.8)
[2019-02-11 08:58] LABS: ALT 17 U/L (7-52); Albumin 2.6 g/dL (3.2-5.2); Albumin/Globulin Ratio 1.1 (1-3); Alkaline Phosphatase 47 U/L (34-104); BUN/Creatinine Ratio 31.3 (8-20); Blood Urea Nitrogen 21 mg/dL (6-24); CO2 Carbon Dioxide 31 mmol/L (22-32); Calcium 7.3 mg/dL (8.6-10.3); Chloride 108 mmol/L (101-111); EGFR African American 143.2 (>60); EGFR Non-African American 118.3 (>60); Globulin 2.4 g/dL (2-4); Glucose 198 mg/dL (70-100); Sodium 144 mmol/L (135-145)
[2019-02-11] MEDS ORDERED: Furosemide IV* 10 MG/ML 2 ML VIAL (20 MG) IV ONE (09:10)
--- NOTE | 2019-02-11 09:12 | PN ---
Date of Service: 02/11/19 Vital Signs: Temp Pulse Resp BP SpO2 FiO2 100.8 F 78 14 126/77 94 100 02/11/19 08:00 02/11/19 08:00 02/11/19 08:24 02/11/19 08:00 02/11/19 08:00 02/11 07:54 Physical Exam: Gen:nad HEENT: intubated Lungs: clear to auscultation Cardiac: s1 s2 Abdomen: soft, non tender non distended Extremities: no edema Neuro: alert and aware , follows commands Fluid Balance (Past 24 Hours): I= O= Net Intake & Output 02/09/19 02/10/19 02/11/19 02/12/19 06:59 06:59 06:59 06:59 Intake Total 7650 2569 17 Output Total 1250 2718 135 Balance 6400 -149 -118 Weight 235 lb 3.732 oz 237 lb 14.06 oz Intake: IV Fluids 6100 1092 ABX - VANCOMYCIN 45 ABX - ZOSYN 37 D5W NS (0.9%) 5000 NS (0.9%) 1010 IVPB 1550 1477 ABX - VANCOMYCIN 250 1058 ABX - ZOSYN 200 319 NS (0.9%) 100 IV Narcotic Infusion 17 Fentanyl 17 Oral 0 0 Output: Urine 18 Ross 1250 2700 135 Other: Date of Last Bowel 02/09/19 Movement Estimated Stool Amount Large Labs: Laboratory Results - last 24 hr 02/09/19 02/10/19 02/10/19 21:03 04:50 11:07 WBC RBC Hgb Hct MCV MCH MCHC RDW Plt Count MPV Neut % (Auto) Lymph % (Auto) [place] % (Auto) Eos % (Auto) Baso % (Auto) Absolute Neuts (auto) Absolute Lymphs (auto) Absolute Monos (auto) Absolute Eos (auto) Absolute Basos (auto) Absolute Nucleated RBC Nucleated RBC % Patient Temperature ABG pH ABG pH (Temp Correct) ABG pCO2 ABG pCO2 (Temp Corrct ABG pO2 ABG pO2 (Temp Correct ABG HCO3 ABG O2 Saturation ABG Base Excess Respiration Rate Ventilator Type Vent Mode FiO2 Inspiratory Time PEEP Pressure Support Pressure Control EPAP IPAP BiPAP Sodium 141 Potassium 5.4 H Chloride 106 Carbon Dioxide 31 Anion Gap 4 BUN 23 Creatinine 0.95 Est GFR ( Amer) 95.7 Est GFR (Non-Af Amer) 79.1 BUN/Creatinine Ratio 24.2 H Glucose 301 H POC Glucose (mg/dL) 275 H Lactic Acid Calcium 7.2 L Magnesium 2.1 Total Bilirubin AST ALT Alkaline Phosphatase Total Creatine Kinase Troponin I 0.06 H* Total Protein Albumin Globulin Albumin/Globulin Ratio Triglycerides 125 Cholesterol 109 LDL Cholesterol 61 HDL Cholesterol 23.5 Salicylates Acetaminophen Valproic Acid Influenza A (Rapid) Negative Influenza B (Rapid) Negative 02/10/19 02/10/19 02/10/19 11:08 11:08 13:33 WBC RBC Hgb Hct MCV MCH MCHC RDW Plt Count MPV Neut % (Auto) Lymph % (Auto) [place] % (Auto) Eos % (Auto) Baso % (Auto) Absolute Neuts (auto) Absolute Lymphs (auto) Absolute Monos (auto) Absolute Eos (auto) Absolute Basos (auto) Absolute Nucleated RBC Nucleated RBC % Patient Temperature ABG pH ABG pH (Temp Correct) ABG pCO2 ABG pCO2 (Temp Corrct ABG pO2 ABG pO2 (Temp Correct ABG HCO3 ABG O2 Saturation ABG Base Excess Respiration Rate Ventilator Type Vent Mode FiO2 Inspiratory Time PEEP Pressure Support Pressure Control EPAP IPAP BiPAP Sodium Potassium Chloride Carbon Dioxide Anion Gap BUN Creatinine Est GFR ( Amer) Est GFR (Non-Af Amer) BUN/Creatinine Ratio Glucose POC Glucose (mg/dL) 259 H Lactic Acid 3.5 H* Calcium Magnesium Total Bilirubin AST ALT Alkaline Phosphatase Total Creatine Kinase 34 Troponin I 0.05 H* Total Protein Albumin Globulin Albumin/Globulin Ratio Triglycerides Cholesterol LDL Cholesterol HDL Cholesterol Salicylates < 2.50 Acetaminophen < 15 Valproic Acid 60.0 Influenza A (Rapid) Influenza B (Rapid) 02/10/19 02/10/19 02/10/19 16:16 16:16 16:16 WBC 8.9 RBC 5.39 Hgb 13.9 L Hct 44 MCV 81 MCH 26 L MCHC 32 RDW 19 H Plt Count 194 MPV 7.8 Neut % (Auto) 76.1 Lymph % (Auto) 15.5 [place] % (Auto) 7.2 Eos % (Auto) 0.0 Baso % (Auto) 1.2 Absolute Neuts (auto) 6.8 Absolute Lymphs (auto) 1.4 Absolute Monos (auto) 0.6 Absolute Eos (auto) 0.0 Absolute Basos (auto) 0.1 Absolute Nucleated RBC 0.0 Nucleated RBC % 0.2 Patient Temperature ABG pH ABG pH (Temp Correct) ABG pCO2 ABG pCO2 (Temp Corrct ABG pO2 ABG pO2 (Temp Correct ABG HCO3 ABG O2 Saturation ABG Base Excess Respiration Rate Ventilator Type Vent Mode FiO2 Inspiratory Time PEEP Pressure Support Pressure Control EPAP IPAP BiPAP Sodium 140 Potassium TNP Chloride 107 Carbon Dioxide 30 Anion Gap 3 BUN 20 Creatinine 0.72 Est GFR ( Amer) 131.8 Est GFR (Non-Af Amer) 108.9 BUN/Creatinine Ratio 27.8 H Glucose 203 H POC Glucose (mg/dL) Lactic Acid 1.9 Calcium 7.1 L Magnesium Total Bilirubin 0.50 AST TNP ALT 28 Alkaline Phosphatase 56 Total Creatine Kinase Troponin I Total Protein 6.1 L Albumin 3.1 L Globulin 3.0 Albumin/Globulin Ratio 1.0 Triglycerides Cholesterol LDL Cholesterol HDL Cholesterol Salicylates Acetaminophen Valproic Acid Influenza A (Rapid) Influenza B (Rapid) 02/10/19 02/10/19 02/10/19 16:20 17:52 20:30 WBC RBC Hgb Hct MCV MCH MCHC RDW Plt Count MPV Neut % (Auto) Lymph % (Auto) [place] % (Auto) Eos % (Auto) Baso % (Auto) Absolute Neuts (auto) Absolute Lymphs (auto) Absolute Monos (auto) Absolute Eos (auto) Absolute Basos (auto) Absolute Nucleated RBC Nucleated RBC % Patient Temperature Not Reportable ABG pH 7.34 L ABG pH (Temp Correct) Not Reportable ABG pCO2 59 H ABG pCO2 (Temp Corrct Not Reportable ABG pO2 59 L* ABG pO2 (Temp Correct Not Reportable ABG HCO3 28.1 ABG O2 Saturation 92.1 L ABG Base Excess 4.3 H Respiration Rate 14 Ventilator Type 440 Vent Mode cmv FiO2 100 Inspiratory Time 0.85 PEEP Not Reportable Pressure Support 12 Pressure Control Not Reportable EPAP Not Reportable IPAP Not Reportable BiPAP Not Reportable Sodium Potassium 4.3 Chloride Carbon Dioxide Anion Gap BUN Creatinine Est GFR ( Amer) Est GFR (Non-Af Amer) BUN/Creatinine Ratio Glucose POC Glucose (mg/dL) 233 H Lactic Acid Calcium Magnesium Total Bilirubin AST 13 ALT Alkaline Phosphatase Total Creatine Kinase Troponin I Total Protein Albumin Globulin Albumin/Globulin Ratio Triglycerides Cholesterol LDL Cholesterol HDL Cholesterol Salicylates Acetaminophen Valproic Acid Influenza A (Rapid) Influenza B (Rapid) 02/10/19 02/11/19 02/11/19 23:13 00:20 00:25 WBC 9.1 RBC 4.92 Hgb 12.7 L Hct 40 L MCV 82 MCH 26 L MCHC 32 RDW 19 H Plt Count 191 MPV 7.7 Neut % (Auto) 69.1 Lymph % (Auto) 19.8 [place] % (Auto) 10.7 Eos % (Auto) 0.0 Baso % (Auto) 0.4 Absolute Neuts (auto) 6.3 Absolute Lymphs (auto) 1.8 Absolute Monos (auto) 1.0 H Absolute Eos (auto) 0.0 Absolute Basos (auto) 0.0 Absolute Nucleated RBC 0.0 Nucleated RBC % 0.4 Patient Temperature Not Reportable ABG pH 7.38 ABG pH (Temp Correct) Not Reportable ABG pCO2 58 H ABG pCO2 (Temp Corrct Not Reportable ABG pO2 77 L ABG pO2 (Temp Correct Not Reportable ABG HCO3 30.6 ABG O2 Saturation 97.3 ABG Base Excess 7.3 H Respiration Rate 14 Ventilator Type 440 Vent Mode cmv FiO2 100 Inspiratory Time Not Reportable PEEP 12 Pressure Support Not Reportable Pressure Control Not Reportable EPAP Not Reportable IPAP Not Reportable BiPAP Not Reportable Sodium Potassium Chloride Carbon Dioxide Anion Gap BUN Creatinine Est GFR ( Amer) Est GFR (Non-Af Amer) BUN/Creatinine Ratio Glucose POC Glucose (mg/dL) 209 H Lactic Acid Calcium Magnesium Total Bilirubin AST ALT Alkaline Phosphatase Total Creatine Kinase Troponin I Total Protein Albumin Globulin Albumin/Globulin Ratio Triglycerides Cholesterol LDL Cholesterol HDL Cholesterol Salicylates Acetaminophen Valproic Acid Influenza A (Rapid) Influenza B (Rapid) 02/11/19 02/11/19 02/11/19 00:25 00:25 02:20 WBC RBC Hgb Hct MCV MCH MCHC RDW Plt Count MPV Neut % (Auto) Lymph % (Auto) [place] % (Auto) Eos % (Auto) Baso % (Auto) Absolute Neuts (auto) Absolute Lymphs (auto) Absolute Monos (auto) Absolute Eos (auto) Absolute Basos (auto) Absolute Nucleated RBC Nucleated RBC % Patient Temperature ABG pH ABG pH (Temp Correct) ABG pCO2 ABG pCO2 (Temp Corrct ABG pO2 ABG pO2 (Temp Correct ABG HCO3 ABG O2 Saturation ABG Base Excess Respiration Rate Ventilator Type Vent Mode FiO2 Inspiratory Time PEEP Pressure Support Pressure Control EPAP IPAP BiPAP Sodium 143 Potassium 4.1 Chloride 107 Carbon Dioxide 32 Anion Gap 4 BUN 19 Creatinine 0.73 Est GFR ( Amer) 129.7 Est GFR (Non-Af Amer) 107.2 BUN/Creatinine Ratio 26.0 H Glucose 185 H POC Glucose (mg/dL) 188 H Lactic Acid 1.4 Calcium 7.2 L Magnesium Total Bilirubin 0.30 AST 13 ALT 20 Alkaline Phosphatase 51 Total Creatine Kinase Troponin I Total Protein 5.1 L Albumin 2.7 L Globulin 2.4 Albumin/Globulin Ratio 1.1 Triglycerides Cholesterol LDL Cholesterol HDL Cholesterol Salicylates Acetaminophen Valproic Acid Influenza A (Rapid) Influenza B (Rapid) 02/11/19 02/11/19 02/11/19 06:01 07:50 08:32 WBC 8.2 RBC 4.78 Hgb 12.3 L Hct 38 L MCV 80 MCH 26 L MCHC 32 RDW 19 H Plt Count 181 MPV 7.4 Neut % (Auto) 81.0 Lymph % (Auto) 12.0 [place] % (Auto) 5.7 Eos % (Auto) 0.0 Baso % (Auto) 1.3 Absolute Neuts (auto) 6.6 Absolute Lymphs (auto) 1.0 Absolute Monos (auto) 0.5 Absolute Eos (auto) 0.0 Absolute Basos (auto) 0.1 Absolute Nucleated RBC 0.0 Nucleated RBC % 0.1 Patient Temperature Not Reportable ABG pH 7.46 H ABG pH (Temp Correct) Not Reportable ABG pCO2 48 H ABG pCO2 (Temp Corrct Not Reportable ABG pO2 92 ABG pO2 (Temp Correct Not Reportable ABG HCO3 31.8 H ABG O2 Saturation 98.5 H ABG Base Excess 8.8 H Respiration Rate 14 Ventilator Type 550 Vent Mode cmv FiO2 100 Inspiratory Time .85 PEEP 12 Pressure Support Not Reportable Pressure Control Not Reportable EPAP Not Reportable IPAP Not Reportable BiPAP Not Reportable Sodium Potassium Chloride Carbon Dioxide Anion Gap BUN Creatinine Est GFR ( Amer) Est GFR (Non-Af Amer) BUN/Creatinine Ratio Glucose POC Glucose (mg/dL) 198 H Lactic Acid Calcium Magnesium Total Bilirubin AST ALT Alkaline Phosphatase Total Creatine Kinase Troponin I Total Protein Albumin Globulin Albumin/Globulin Ratio Triglycerides Cholesterol LDL Cholesterol HDL Cholesterol Salicylates Acetaminophen Valproic Acid Influenza A (Rapid) Influenza B (Rapid) 02/11/19 02/11/19 08:32 08:32 WBC RBC Hgb Hct MCV MCH MCHC RDW Plt Count MPV Neut % (Auto) Lymph % (Auto) [place] % (Auto) Eos % (Auto) Baso % (Auto) Absolute Neuts (auto) Absolute Lymphs (auto) Absolute Monos (auto) Absolute Eos (auto) Absolute Basos (auto) Absolute Nucleated RBC Nucleated RBC % Patient Temperature ABG pH ABG pH (Temp Correct) ABG pCO2 ABG pCO2 (Temp Corrct ABG pO2 ABG pO2 (Temp Correct ABG HCO3 ABG O2 Saturation ABG Base Excess Respiration Rate Ventilator Type Vent Mode FiO2 Inspiratory Time PEEP Pressure Support Pressure Control EPAP IPAP BiPAP Sodium 144 Potassium Chloride 108 Carbon Dioxide 31 Anion Gap BUN 21 Creatinine 0.67 Est GFR ( Amer) 143.2 Est GFR (Non-Af Amer) 118.3 BUN/Creatinine Ratio 31.3 H Glucose 198 H POC Glucose (mg/dL) Lactic Acid 1.6 Calcium 7.3 L Magnesium Total Bilirubin 0.40 AST ALT 17 Alkaline Phosphatase 47 Total Creatine Kinase Troponin I Total Protein 5.0 L Albumin 2.6 L Globulin 2.4 Albumin/Globulin Ratio 1.1 Triglycerides Cholesterol LDL Cholesterol HDL Cholesterol Salicylates Acetaminophen Valproic Acid Influenza A (Rapid) Influenza B (Rapid) Plan: 68 M from [facility]) brought by EMS for Unresponsiveness. Patient was initially without pulse or respirations, CPR was done and pulse was regained. Unknown duration of down time at the time of EMS arrival patient was unresponsive but had a pulse of 132 and fs of 500. His sat was 84% on 10 L he was intubated in the ED and saturation improved to 92% He had ct brain no acute intracranial abnormality, chronic microvascular ischemic changes, cystic lesin in the subcutaneous tissue r occipital scalp ct chest: no PE. He was admitted in December with copd exacerbation. Patient is DNR with a trial on intubation. acute on chronic hypoxemic hypercapnic respiratory failure in the setting of copd exacerbation chest xray is clear with low lung volumes, on fio2 80% down from 100% peep of 12 , TV of 550 with o2 sat of 92% will keep intubated at this time ct pe neg on lasix prn to keep net neg not on pressors maintain sat of 92% labs q8 f/u bcx trop likely from demand cont solumedrol tox screen neg cpk neg; depakote level wnl tsh ok TTE grossely normal from 12/2018 likely has type b lactic acidosis at this time. f/u urine legionella Hyperglycemia in the setting of steroid use and sepsis will cont abx ISS no feeding as per DNR RLE DVT w/o pe cont xarelto GI ppx dvt ppx- xarelto ethics: DNR with trial of intubation Critical Care Time: 45 min
[2019-02-11] MEDS: Propofol* 100 ML IV SCH ×2 (11:00→20:10)
[2019-02-11 11:57] LABS: Anion Gap 5 mmol/L (2-11)
[2019-02-11] MEDS: Valproic Acid IV(*) 500 MG in NS 0.9% 100 ML* 100 ML IVPB SCH ×2 (12:09→21:58)
[2019-02-11 14:10] LABS: Potassium Redraw 3.7 mmol/L (3.5-5.0)
[2019-02-11] MEDS: Rivaroxaban TAB(*) 20 MG TAB PO SCH (17:30)
[2019-02-11] MEDS: Atorvastatin* 10 MG TAB PO SCH (19:58)
[2019-02-11] MEDS ORDERED: Succinylcholine* 20 MG/ML 10 ML VIAL ONE (22:56)
[2019-02-12] MEDS: Propofol* 100 ML IV SCH ×4 (01:11→20:32)
[2019-02-12] MEDS: Vancomycin(*) 1,000 MG in NS 0.9% 250 ML* 250 ML IV SCH ×4 (01:45→20:43)
[2019-02-12] MEDS: Insulin LISPRO* 1 UNITS UNIT SUBCUT SCH ×5 (01:49→20:57)
[2019-02-12 04:54] LABS: ABS Basophils 0.1 10^3/ul (0-0.2); ABS Lymphocytes 1.9 10^3/ul (1.0-4.8); ABS Neutrophils 6.8 10^3/ul (1.5-7.7); Eosinophil % 0.3 %; Hematocrit 40 % (42-52); Hemoglobin 12.8 g/dL (14.0-18.0); Lymphocyte % 19.7 %; Mean Corpuscular HGB Conc 32 g/dL (31-36); Mean Corpuscular Hemoglobin 26 pg (27-31); Mean Corpuscular Volume 81 fL (80-94); Mean Platelet Volume 7.4 fL (7.4-10.4); Nucleated Red Blood Cells % 0.1; Platelet Count 184 10^3/uL (150-450); Red Blood Count 4.94 10^6 /uL (4.18-5.48); Red Cell Distribution Width 20 % (10-15); White Blood Count 9.8 10^3/uL (3.5-10.8)
[2019-02-12 05:11] LABS: Albumin 2.6 g/dL (3.2-5.2); BUN/Creatinine Ratio 30.3 (8-20); Calcium 7.6 mg/dL (8.6-10.3); EGFR African American 123.8 (>60); EGFR Non-African American 102.3 (>60); Globulin 2.5 g/dL (2-4); Potassium 3.4 mmol/L (3.5-5.0); Total Bilirubin 0.4 mg/dL (0.2-1.0); Total Protein 5.1 g/dL (6.4-8.9)
[2019-02-12] MEDS: Chlorhexidine MOUTHWASH 0.12%* 15 ML UDC TOPICAL SCH ×5 (05:34→20:42)
[2019-02-12] MEDS: ZOSYN 3.375 GM Q8H per EXTENDED INFUSION IVPB SCH ×6 (05:34→20:43)
[2019-02-12 06:37] LABS: Urine Appearance Cloudy; Urine Bilirubin Negative (Negative); Urine Blood 1+ (Negative); Urine Color Yellow; Urine Glucose Negative (Negative); Urine Ketones Trace (Negative); Urine Nitrite Negative (Negative); Urine Protein Negative (Negative); Urine Specific Gravity 1.027 (1.010-1.030); Urine Urobilinogen Negative (Negative)
[2019-02-12 06:41] LABS: Urine Bacteria Absent (Absent); Urine Red Blood Cell 2+(6-10/hpf) (Absent); Urine Squamous Epithelial Cell Present (Absent); Urine White Blood Cell 2+(11-20/hpf) (Absent)
[2019-02-12] MEDS: Famotidine TAB* 20 MG PO SCH (07:30)
[2019-02-12] MEDS ORDERED: KCL 20 MEQ/100 ML IVPREMIX* 20 MEQ/100 ML BAG IV ONE (08:10)
--- NOTE | 2019-02-12 08:10 | PN ---
Subjective Date of Service: 02/12/19 Interval History: 68 M [facility] resident with PMH of COPD, T2DM, Schizoaffective disorder, RLE DVT presented with altered mental status and possible cardiac arrest(ROSC after CPR). Found to have hypoxia with hypercarbia, tachycardia, hyperglycemia, leucocytosis, lactic acidosis and elevated troponin. Intubated in ED and transferrred to ICU. HD # 4 on 02/12 Overnight: Cuff leak noted and patient desaturated and ETT tube changed with #8 , 24 cm @lip. Ross inserted because of acute retention. VS: stable; although BP on soft side. Labs: Hb 12.8, K-3.4, Ca 7.6 ABG- Metabolic alkalosis Ventilator: Mode: CMV Rate; 14 TV: 550 PEEP: 12 FiO2: 80 Objective Active Medications: Acetaminophen (Tylenol Adult Liq*) 650 mg PO QID PRN PRN Reason: MILD PAIN or TEMP > 100.4 Last Admin: 02/10/19 11:17 Dose: 650 mg Albuterol/Ipratropium (Duoneb (Albuterol 2.5 Mg/Ipratropium 0.5 Mg)) 1 neb INH Q4H PRN PRN Reason: SOB/WHEEZING Atorvastatin Calcium (Lipitor*) 10 mg PO BEDTIME [facility] Last Admin: 02/11/19 19:58 Dose: 10 mg Chlorhexidine Gluconate (Peridex Mouth Wash 0.12%*) 15 ml TOPICAL Q4H [facility] Last Admin: 02/12/19 07:30 Dose: 15 ml Dextrose (Dextrose 50% Vial 50 Ml*) 25 ml IV PUSH .FOR FS < 60 - SS PRN PRN Reason: FS < 60 Famotidine (Pepcid Tab*) 20 mg PO DAILY [facility] Last Admin: 02/12/19 07:30 Dose: 20 mg Piperacillin Sod/Tazobactam (Sod 3.375 gm/ Sodium Chloride) 100 mls @ 25 mls/ hr IVPB Q8H [facility] Last Admin: 02/12/19 05:34 Dose: 25 mls/hr Vancomycin HCl 1,000 mg/ (Sodium Chloride) 250 mls @ 166.667 mls/hr IV Q6H [facility] Last Admin: 02/12/19 07:28 Dose: 166.667 mls/hr Valproic Acid 500 mg/ Sodium (Chloride) 105 mls @ 210 mls/hr IVPB 0900,2100 [facility] Last Admin: 02/11/19 21:58 Dose: 210 mls/hr Fentanyl Citrate (Fentanyl Infusion Bag 50 Mcg/Ml 50 Ml) 2,500 mcg in 50 mls @ 0 mls/hr IV Q72H [facility]; Protocol Last Admin: 02/11/19 08:24 Dose: 2.5 mls/hr Propofol (Diprivan*) 100 mls @ 6.474 mls/hr IV .PER PROTOCOL [facility]; Protocol Last Admin: 02/12/19 01:11 Dose: 12.8 mls/hr Insulin Human Lispro (Humalog*) 0 units SUBCUT Q4HR [facility]; Protocol Last Admin: 02/12/19 06:05 Dose: Not Given Methylprednisolone Sodium Succinate (Solu-Medrol 40 Mg) 40 mg IV DAILY [facility] Last Admin: 02/12/19 07:28 Dose: 40 mg Pharmacy Consult (Vancomycin Per Pharmacy*) 1 note FOLLOW UP .VANC PER PHARMACY [facility]; Protocol Pharmacy Consult (Zosyn Per Pharmacy*) 1 note FOLLOW UP .ZOSYN PER PHARMACY [facility] Pharmacy Profile Note (Vancomycin Trough Check) 1 note FOLLOW UP 0730 ONE Stop: 02/13/19 07:31 Rivaroxaban (Xarelto(*)) 20 mg PO QPM [facility] Last Admin: 02/11/19 17:30 Dose: 20 mg Vital Signs - 8 hr 02/12/19 02/12/19 02/12/19 00:00 00:15 00:30 Temperature 99.1 F Pulse Rate 62 64 62 Respiratory 14 Rate Blood Pressure 110/68 108/66 105/65 (mmHg) O2 Sat by Pulse 97 96 95 Oximetry 02/12/19 02/12/19 02/12/19 00:45 01:00 01:15 Temperature Pulse Rate 63 64 65 Respiratory 14 Rate Blood Pressure 104/67 106/65 109/67 (mmHg) O2 Sat by Pulse 95 94 94 Oximetry 02/12/19 02/12/19 02/12/19 01:30 01:45 02:00 Temperature Pulse Rate 68 63 63 Respiratory 14 Rate Blood Pressure 110/65 109/65 99/66 (mmHg) O2 Sat by Pulse 94 93 92 Oximetry 02/12/19 02/12/19 02/12/19 02:15 02:30 02:45 Temperature Pulse Rate 62 63 66 Respiratory Rate Blood Pressure 107/66 106/68 119/76 (mmHg) O2 Sat by Pulse 93 93 95 Oximetry 02/12/19 02/12/19 02/12/19 03:00 03:11 03:15 Temperature 99.7 F Pulse Rate 60 59 Respiratory 14 Rate Blood Pressure 101/64 103/63 (mmHg) O2 Sat by Pulse 94 94 Oximetry 02/12/19 02/12/19 02/12/19 03:30 03:45 04:00 Temperature Pulse Rate 60 63 61 Respiratory 14 Rate Blood Pressure 110/69 112/69 107/66 (mmHg) O2 Sat by Pulse 92 92 92 Oximetry 02/12/19 02/12/19 02/12/19 04:15 04:30 04:45 Temperature Pulse Rate 60 67 61 Respiratory Rate Blood Pressure 101/64 102/62 101/62 (mmHg) O2 Sat by Pulse 91 92 93 Oximetry 02/12/19 02/12/19 02/12/19 05:00 05:15 05:30 Temperature Pulse Rate 62 61 69 Respiratory 12 Rate Blood Pressure 103/59 105/64 104/66 (mmHg) O2 Sat by Pulse 92 93 93 Oximetry 02/12/19 02/12/19 02/12/19 05:45 06:00 06:15 Temperature 98.8 F Pulse Rate 64 72 69 Respiratory 12 Rate Blood Pressure 107/63 106/69 104/62 (mmHg) O2 Sat by Pulse 93 92 92 Oximetry 02/12/19 02/12/19 02/12/19 06:30 06:45 07:00 Temperature 99.0 F 99.1 F 99.1 F Pulse Rate 67 65 68 Respiratory 14 Rate Blood Pressure 95/62 91/61 96/58 (mmHg) O2 Sat by Pulse 92 92 92 Oximetry 02/12/19 02/12/19 07:15 07:30 Temperature 99.0 F 99.0 F Pulse Rate 68 60 Respiratory Rate Blood Pressure 97/59 94/55 (mmHg) O2 Sat by Pulse 92 92 Oximetry Oxygen Devices in Use Now: Endotracheal Tube, Mechanical Ventilator Exam: Patient is lying on a bed with ET tube. HEENT: Atraumatic, normocephalic, Intubated. Neck: No JVD seen Lungs: Clear with no added sounds Heart: Normal in rate and rhythm. S1/S2 heard with no murmur Abdomen: Soft, nondistended and nontender. Normal BS heard. Extremities: No swelling, cyanosis and clubbing. Neuro: Alert, oriented Result Diagrams: 02/12/19 04:40 02/12/19 04:40 Assess/Plan/Problems-Billing Assessment: 68 M [facility] resident with PMH of COPD, T2DM, Schizoaffective disorder, RLE DVT presented with altered mental status and possible cardiac arrest(ROSC after CPR). Found to have hypoxia with hypercarbia, tachycardia, hyperglycemia, leucocytosis, lactic acidosis and elevated troponin. Intubated in ED and transferrred to ICU. Currently intubated. - Patient Problems (1) Acute respiratory failure with hypoxia and hypercapnia Current Visit: Yes Status: Acute Code(s): J96.01 - ACUTE RESPIRATORY FAILURE WITH HYPOXIA; J96.02 - ACUTE RESPIRATORY FAILURE WITH HYPERCAPNIA SNOMED Code(s): 730068342 Comment: -likely from acute exacerbation of COPD. -overnight- ETT changed because of leak. -On CMV with rate of 14, TV 550 with oxygen saturation of 92%, PEEP-12 and FiO2 80 -CXR shows low lung volumes with ET tube right above naeem -Urine legionella negative. -on lasix prn -CT chest- no PE - will reposition tube and obtain repeat CXR. -Continue vanco and zosyn(day 3) -On solumedrol-stop today (2) Hypokalemia Current Visit: Yes Status: Acute Code(s): E87.6 - HYPOKALEMIA SNOMED Code( s): 01007969 Comment: -repleting -will repeat labs (3) DVT (deep venous thrombosis) Current Visit: No Status: Chronic Code(s): I82.409 - ACUTE EMBOLISM AND THOMBOS UNSP DEEP VN UNSP LOWER EXTREMITY SNOMED Code(s): 603673863 Comment: - continue Xaretlo 20 mg daily - has chroniv DVT (4) Schizoaffective disorder Current Visit: No Status: Chronic Code(s): F25.9 - SCHIZOAFFECTIVE DISORDER , UNSPECIFIED SNOMED Code(s): 50434866 Comment: - Continue Depakote -Depakote level normal (5) Type II diabetes mellitus Current Visit: No Status: Chronic Comment: -BG in 13-140 -continue insulin lispro achs (6) DNR (do not resuscitate) Current Visit: Yes Status: Acute Comment: -trial of intubation -On GI ppx Status and Disposition: ICU Attending: Nito Flores Attestation Documenting Resident: Ginna Wolf Supervising Physician: Nito Flores Attending/Supervising Physician Comment: Patient on APRV saturating at 96%. Patient should be able to be weaned to bipap on 02/13 Attestation: This service has been performed in part by a resident under the direction of a teaching physician.I, Nito Flores, performed the service, or was physically present during the critical, or jarvis portions of the service, furnished by the resident. I participated in the management of the patient.
[2019-02-12] MEDS: Valproic Acid IV(*) 500 MG in NS 0.9% 100 ML* 100 ML IVPB SCH ×2 (08:43→20:43)
[2019-02-12] MEDS ORDERED: Furosemide IV* 10 MG/ML 2 ML VIAL (20 MG) IV SLOW PU ONE (08:59)
[2019-02-12] MEDS ORDERED: methylPREDNISolone SOD 40 MG* 1 ML VIAL IV SCH (09:00)
[2019-02-12] MEDS ORDERED: Senna TAB 8.6 mg* TAB PO PRN (10:44)
[2019-02-12] MEDS ORDERED: Albuterol/Ipratropium NEB.SOL* Albuterol 2.5 MG/Ipratropium 0.5 MG 3 ML INH SCH (11:00)
[2019-02-12] MEDS: fentaNYL INFUSION 50 MCG/ML* 2,500 MCG/50 ML BAG IV SCH (11:19)
[2019-02-12] MEDS: Albuterol/Ipratropium NEB.SOL* Albuterol 2.5 MG/Ipratropium 0.5 MG 3 ML INH SCH ×2 (12:23→19:14)
[2019-02-12] MEDS ORDERED: Perflutren Lipid Microsphere* 3 ML VIAL ONE (14:46)
[2019-02-12] MEDS ORDERED: Potassium Chlor TAB* 20 MEQ TAB.ER PO ONE (15:29)
[2019-02-12] MEDS ORDERED: Potassium Chloride* LIQUID 20 MEQ/15 ML UDC PO ONE ×2 (16:30→19:00)
--- NOTE | 2019-02-12 18:07 | ECHO ---
*[facility]* [place] [address] Fax #: [phone] Transthoracic Echocardiogram Patient: Bassam Zarate : 1950 Study Date: 02/12/2019 Age: 68 Gender: M HR: 74 bpm Height: 70 in /177.8 cm BSA: 2.34 m^2 Weight: 235.5 lb /107 kg BMI: 33.9 kg/m^2 *Referring Physician: Ginna Li *Reading Physician: * Larry Patterson MD Indications: SOB. History: COPD. Risk factors: Current tobacco use. Hypertension. Diabetes mellitus. Dyslipidemia. Conclusions Summary: - Left ventricle: The cavity size is normal. Systolic function is normal. The estimated ejection fraction is 55-60%. Wall motion is normal; there are no regional wall motion abnormalities. - Right ventricle: Not well visualized. - Right atrium: The atrium is normal in size. - Pulmonary arteries: Systolic pressure can not be accurately estimated. - No significant valvular abnormalities noted. Recommendations: Technically difficult study despite definity use, compared to prior study from 12/2018, right ventricle size and function was reportedly normal, now not well visualized. Study data: Transthoracic echocardiogram. Procedure: Transthoracic echocardiography was performed. Image quality was suboptimal. The study was technically limited due to poor acoustic window availability, poor patient compliance, restricted patient mobility, body habitus, Patient on ventilator, COPD, and Smoking history. Intravenous Definity , 4 mlswas administered. Complete 2D, spectral Doppler, and color flow Doppler. Location: ICU Patient status: Inpatient. Patient room number: 3. Findings Left ventricle: The cavity size is normal. Systolic function is normal. The estimated ejection fraction is 55-60%. Wall motion is normal; there are no regional wall motion abnormalities. Right ventricle: Not well visualized. Left atrium: The atrium is normal in size. Right atrium: The atrium is normal in size. Mitral valve: The leaflets are mildly thickened. There is no evidence of stenosis. There is trace regurgitation. Aortic valve: The valve leaflets were not well visualized. There is no significant regurgitation. Tricuspid valve: The leaflets are normal thickness. There is no evidence of stenosis. There is no significant regurgitation. Pulmonic valve: Not well visualized. There is no significant regurgitation. Aorta: The aorta is poorly visualized. Pericardium: There is no significant pericardial effusion. Pulmonary arteries: Systolic pressure can not be accurately estimated. Systemic veins: Inferior vena cava: The vessel is normal in size. Pulmonary veins: Not well visualized. Measurements Left ventricle Value Ref Left atrium continued Value Ref [place], LAX 4.4 cm 4.2 - 5.8 Vol, ES, 2-p 42 ml ------- ESD, LAX 2.8 cm 2.5 - 4.0 Vol/bsa, ES, 2-p 18 ml/m^2 16 - 34 FS, LAX 37 % 25 - 43 PW, ED, LAX (H) 1.4 cm 0.6 - 1.0 Aortic valve Value Ref FS 37 % 25 - 43 Peak v, S 1.33 m/sec ------- Mid-wall FS 12 % --------- VTI, S 21.8 cm ------- PW, ED (H) 1.4 cm 0.6 - 1.0 Mean grad, S 3.8 mm Hg ------- PW/ID, ED 0.32 --------- Peak grad, S 7.1 mm Hg ------- E', lat aly, TDI (L) 6.1 cm/sec >=10.0 LVOT/AV, VTI ratio 0.9 ------- E/e', lat aly, TDI 8 --------- MILDRED, VTI 2.82 cm^2 --- ---- MILDRED, Vmax 2.47 cm^2 ------- LVOT Value Ref Diam, S 2.00 cm --------- Mitral valve Value Ref Area 3.1 cm^2 --------- Peak E 0.46 m/sec ------- Peak neymar, S 1.05 m/sec --------- Peak A 0.66 m/sec ------- VTI, S 19.7 cm --------- Decel time 328 ms ------- Peak grad, S 4 mm Hg --------- Peak E/A ratio 0.7 ------- Mean grad, S 2 mm Hg --------- Pulmonic valve Value Ref Ventricular septum Value Ref Peak v, S 0.69 m/sec ------- IVS, ED (H) 1.4 cm 0.6 - 1.0 Peak grad, S 1.9 mm Hg ------- Right ventricle Value Ref Aortic root Value Ref TR[place]ON, LAX 3.0 cm --------- Root diam 3.2 cm <4.4 [place] major ax, A4C (L) 3.6 cm 5.9 - 8.3 Ascending aorta Value Ref Left atrium Value Ref AAo AP diam, S 3.6 cm ------- LA ID 3.8 cm --------- SI dim ES, LAX 3.8 cm --------- Inferior vena cava Value Ref SI dim, A4C 4.6 cm --------- Diam 2.8 cm ------- Legend: (L) and (H) francisco values outside specified reference range. Prepared and electronically signed by Larry Patterson MD 02/12/2019 18:06
[2019-02-12] MEDS: Rivaroxaban TAB(*) 20 MG TAB PO SCH (18:12)
[2019-02-12] MEDS: Atorvastatin* 10 MG TAB PO SCH (20:43)
[2019-02-13] MEDS: Albuterol/Ipratropium NEB.SOL* Albuterol 2.5 MG/Ipratropium 0.5 MG 3 ML INH SCH ×5 (00:56→19:20)
[2019-02-13] MEDS: Propofol* 100 ML IV SCH ×3 (01:36→14:32)
[2019-02-13] MEDS: Vancomycin(*) 1,000 MG in NS 0.9% 250 ML* 250 ML IV SCH ×2 (02:20→21:58)
[2019-02-13 03:45] LABS: Albumin 2.5 g/dL (3.2-5.2); BUN/Creatinine Ratio 28.8 (8-20); Calcium 7.7 mg/dL (8.6-10.3); EGFR African American 116.7 (>60); EGFR Non-African American 96.4 (>60); Globulin 2.6 g/dL (2-4); Potassium 3.6 mmol/L (3.5-5.0); Total Bilirubin 0.5 mg/dL (0.2-1.0); Total Protein 5.1 g/dL (6.4-8.9)
[2019-02-13 03:47] LABS: ABS Lymphocytes 1.7 10^3/ul (1.0-4.8); ABS Monocytes 0.7 10^3/ul (0-0.8); Eosinophil % 0.1 %; Hematocrit 40 % (42-52); Hemoglobin 12.2 g/dL (14.0-18.0); Lymphocyte % 19.7 %; Mean Corpuscular HGB Conc 31 g/dL (31-36); Mean Corpuscular Hemoglobin 25 pg (27-31); Mean Corpuscular Volume 81 fL (80-94); Mean Platelet Volume 7.6 fL (7.4-10.4); Nucleated Red Blood Cells % 0.1; Platelet Count 168 10^3/uL (150-450); Red Blood Count 4.94 10^6 /uL (4.18-5.48); Red Cell Distribution Width 20 % (10-15); White Blood Count 8.5 10^3/uL (3.5-10.8)
[2019-02-13] MEDS: Chlorhexidine MOUTHWASH 0.12%* 15 ML UDC TOPICAL SCH ×6 (05:09→20:06)
[2019-02-13] MEDS: ZOSYN 3.375 GM Q8H per EXTENDED INFUSION IVPB SCH ×6 (05:09→21:58)
[2019-02-13] MEDS ORDERED: Vancomycin Trough Check NOTE FOLLOW UP ONE (07:30)
[2019-02-13] MEDS: fentaNYL INFUSION 50 MCG/ML* 2,500 MCG/50 ML BAG IV SCH (07:47)
[2019-02-13] MEDS: Insulin LISPRO* 1 UNITS UNIT SUBCUT SCH ×4 (08:31→20:06)
--- NOTE | 2019-02-13 09:12 | PN ---
Subjective Date of Service: 02/13/19 Interval History: 68 M [facility] resident with PMH of COPD, T2DM, Schizoaffective disorder, RLE DVT presented with altered mental status and possible cardiac arrest(ROSC after CPR). Found to have hypoxia with hypercarbia, tachycardia, hyperglycemia, leucocytosis, lactic acidosis and elevated troponin. Intubated in ED and transferrred to ICU. HD # 5 on 02/13 Overnight: No acute overnight events; restraint removed VS; stable; Temp 100.2 Ventilator; ET repositioned Mode: APRV Rate; 14 TV: 550 PEEP: 12 FiO2: 45 saturation: 96% Objective Active Medications: Acetaminophen (Tylenol Adult Liq*) 650 mg PO QID PRN PRN Reason: MILD PAIN or TEMP > 100.4 Last Admin: 02/10/19 11:17 Dose: 650 mg Albuterol/Ipratropium (Duoneb (Albuterol 2.5 Mg/Ipratropium 0.5 Mg)) 1 neb INH Q6H [facility] Last Admin: 02/13/19 07:56 Dose: 1 neb Atorvastatin Calcium (Lipitor*) 10 mg PO BEDTIME [facility] Last Admin: 02/12/19 20:43 Dose: 10 mg Chlorhexidine Gluconate (Peridex Mouth Wash 0.12%*) 15 ml TOPICAL Q4H [facility] Last Admin: 02/13/19 08:31 Dose: 15 ml Dextrose (Dextrose 50% Vial 50 Ml*) 25 ml IV PUSH .FOR FS < 60 - SS PRN PRN Reason: FS < 60 Famotidine (Pepcid Tab*) 20 mg PO DAILY [facility] Last Admin: 02/12/19 07:30 Dose: 20 mg Piperacillin Sod/Tazobactam (Sod 3.375 gm/ Sodium Chloride) 100 mls @ 25 mls/ hr IVPB Q8H [facility] Last Admin: 02/13/19 05:09 Dose: 25 mls/hr Vancomycin HCl 1,000 mg/ (Sodium Chloride) 250 mls @ 166.667 mls/hr IV Q6H [facility] Last Admin: 02/13/19 02:20 Dose: 166.667 mls/hr Valproic Acid 500 mg/ Sodium (Chloride) 105 mls @ 210 mls/hr IVPB 0900,2100 [facility] Last Admin: 02/12/19 20:43 Dose: 210 mls/hr Fentanyl Citrate (Fentanyl Infusion Bag 50 Mcg/Ml 50 Ml) 2,500 mcg in 50 mls @ 0 mls/hr IV Q72H [facility]; Protocol Last Admin: 02/13/19 07:47 Dose: 2 mls/hr Propofol (Diprivan*) 100 mls @ 6.474 mls/hr IV .PER PROTOCOL [facility]; Protocol Last Admin: 02/13/19 06:03 Dose: 6.474 mls/hr Insulin Human Lispro (Humalog*) 0 units SUBCUT ACHS [facility]; Protocol Last Admin: 02/13/19 08:31 Dose: 4 unit Pharmacy Consult (Vancomycin Per Pharmacy*) 1 note FOLLOW UP .VANC PER PHARMACY [facility]; Protocol Pharmacy Consult (Zosyn Per Pharmacy*) 1 note FOLLOW UP .ZOSYN PER PHARMACY [facility] Rivaroxaban (Xarelto(*)) 20 mg PO QPM [facility] Last Admin: 02/12/19 18:12 Dose: 20 mg Senna (Senokot 8.6 Mg Tab*) 1 tab PO DAILY [facility] Vital Signs - 8 hr 02/13/19 02/13/19 02/13/19 01:15 01:30 01:45 Temperature 100.0 F 100.0 F 99.9 F Pulse Rate 63 65 65 Respiratory Rate Blood Pressure 95/55 94/56 97/58 (mmHg) O2 Sat by Pulse 96 96 96 Oximetry 02/13/19 02/13/19 02/13/19 02:00 02:15 02:30 Temperature 99.9 F 99.9 F 99.9 F Pulse Rate 64 61 61 Respiratory 12 Rate Blood Pressure 99/62 100/61 101/61 (mmHg) O2 Sat by Pulse 96 96 96 Oximetry 02/13/19 02/13/19 02/13/19 02:45 03:00 03:15 Temperature 99.9 F 99.9 F 99.9 F Pulse Rate 59 60 60 Respiratory 12 Rate Blood Pressure 110/61 101/61 108/56 (mmHg) O2 Sat by Pulse 96 96 96 Oximetry 02/13/19 02/13/19 02/13/19 03:30 03:45 04:00 Temperature 99.9 F 100.0 F 100.0 F Pulse Rate 59 57 57 Respiratory 12 Rate Blood Pressure 103/60 99/60 104/61 (mmHg) O2 Sat by Pulse 96 96 96 Oximetry 02/13/19 02/13/19 02/13/19 04:15 04:30 04:45 Temperature 100.0 F 100.0 F 100.2 F Pulse Rate 58 60 58 Respiratory Rate Blood Pressure 118/66 103/62 97/58 (mmHg) O2 Sat by Pulse 96 96 96 Oximetry 02/13/19 02/13/19 02/13/19 05:00 05:03 05:15 Temperature 100.2 F 100.2 F 100.2 F Pulse Rate 60 59 62 Respiratory 12 Rate Blood Pressure 102/60 102/60 104/63 (mmHg) O2 Sat by Pulse 95 95 95 Oximetry 02/13/19 02/13/19 02/13/19 05:30 05:45 05:59 Temperature 100.2 F 100.2 F Pulse Rate 59 68 Respiratory 12 Rate Blood Pressure 106/63 115/67 (mmHg) O2 Sat by Pulse 95 96 Oximetry 02/13/19 02/13/19 06:00 07:47 Temperature 100.2 F Pulse Rate 64 Respiratory 12 Rate Blood Pressure 106/64 (mmHg) O2 Sat by Pulse 96 Oximetry Oxygen Devices in Use Now: Endotracheal Tube, Mechanical Ventilator Exam: Patient is lying on a bed HEENT: Intubated Neck: No JVD Lungs: clear with no added sounds Heart: Normal in rate and rhythm. S1/S2 heard with no murmur Abdomen: Soft, nondistended and nontender. Normal BS heard Extremities: 1+ edema on bilateral lower extremities Neuro: Alert; follows command Result Diagrams: 02/13/19 03:10 02/13/19 03:10 Assess/Plan/Problems-Billing Assessment: 68 M [facility] resident with PMH of COPD, T2DM, Schizoaffective disorder, RLE DVT presented with altered mental status and possible cardiac arrest(ROSC after CPR). Found to have hypoxia with hypercarbia, tachycardia, hyperglycemia, leucocytosis, lactic acidosis and elevated troponin. Intubated in ED and transferrred to ICU. Currently intubated. - Patient Problems (1) Acute respiratory failure with hypoxia and hypercapnia Current Visit: Yes Status: Acute Code(s): J96.01 - ACUTE RESPIRATORY FAILURE WITH HYPOXIA; J96.02 - ACUTE RESPIRATORY FAILURE WITH HYPERCAPNIA SNOMED Code(s): 571988366 Comment: -likely from acute exacerbation of COPD. -On APRV with rate of 14, TV 550 with oxygen saturation of 96%, PEEP-12 and FiO2 45 -CXR shows low lung volumes with ET tube right above naeem; repositioned ET tube -Urine legionella negative. -on lasix prn -CT chest- no PE -Continue vanco and zosyn(day 4) -will try to transition him to bipap today (2) Hypokalemia Current Visit: Yes Status: Acute Code(s): E87.6 - HYPOKALEMIA SNOMED Code( s): 55748680 Comment: -resolved (3) DVT (deep venous thrombosis) Current Visit: No Status: Chronic Code(s): I82.409 - ACUTE EMBOLISM AND THOMBOS UNSP DEEP VN UNSP LOWER EXTREMITY SNOMED Code(s): 511943985 Comment: - continue Xaretlo 20 mg daily - has chronic DVT (4) Schizoaffective disorder Current Visit: No Status: Chronic Code(s): F25.9 - SCHIZOAFFECTIVE DISORDER , UNSPECIFIED SNOMED Code(s): 69122947 Comment: - Continue Depakote -Depakote level normal (5) Lactic acidosis Current Visit: Yes Status: Acute Code(s): E87.2 - ACIDOSIS SNOMED Code(s) : 32726683 Comment: -Lactic acid level is 2.7 -Mild temp of 100.2 F -No leucocytosis -On abx -Most likely Type B lactic acidosis; on propofol -will continue to monitor (6) Type II diabetes mellitus Current Visit: No Status: Chronic Comment: -BG in 13-140 -continue insulin lispro achs (7) DNR (do not resuscitate) Current Visit: Yes Status: Acute Comment: -trial of intubation -On GI ppx Status and Disposition: ICU Attending: Nito Flores Attestation Documenting Resident: Ginna Wolf Supervising Physician: Nito Flores Attestation: This service has been performed in part by a resident under the direction of a teaching physician.I, Nito Flores, performed the service, or was physically present during the critical, or jarvis portions of the service, furnished by the resident. I participated in the management of the patient.
[2019-02-13] MEDS: Famotidine TAB* 20 MG PO SCH (09:16)
[2019-02-13] MEDS: Valproic Acid IV(*) 500 MG in NS 0.9% 100 ML* 100 ML IVPB SCH ×2 (09:16→20:06)
[2019-02-13] MEDS: Senna TAB 8.6 mg* TAB PO SCH (09:17)
--- NOTE | 2019-02-13 15:47 | PN ---
Progress Note - Progress Note Date of Service: 02/13/19 Note: Reviewed the molst form with ethics. Patient initially came with an order for CPR, no tube feeds, a trial of intubation and a trial of bipap. He has had at this time cpr prior to his arrival to the hospital, he is currently getting a trial of intubation. In order to avoid a trial and failure of bipap with decompensation once he is weaned off of mechanical ventilation and to avoid CPR again after a failure of said trial; I, Dr. Flores, and Dr. Nusrat Harper, his pcp, have reviewed and updated his molst form to now reflect that his wishes have been honored with cpr and a trial of intubation. He is now with two physician witness been changed to DNR and DNI once his trial of bipap takes place. The patient is being weaned of APVR at this time. He is not ready to be extubated to bipap at this time.
[2019-02-13] MEDS: Rivaroxaban TAB(*) 20 MG TAB PO SCH (16:33)
[2019-02-13] MEDS ORDERED: Vancomycin Random Level* NOTE FOLLOW UP ONE (20:00)
[2019-02-13] MEDS: Atorvastatin* 10 MG TAB PO SCH (20:06)
[2019-02-14] MEDS: Chlorhexidine MOUTHWASH 0.12%* 15 ML UDC TOPICAL SCH ×6 (00:15→19:53)
[2019-02-14] MEDS: Albuterol/Ipratropium NEB.SOL* Albuterol 2.5 MG/Ipratropium 0.5 MG 3 ML INH SCH ×2 (00:40→07:06)
[2019-02-14] MEDS: ZOSYN 3.375 GM Q8H per EXTENDED INFUSION IVPB SCH ×6 (04:48→21:35)
[2019-02-14 05:04] LABS: ABS Basophils 0.1 10^3/ul (0-0.2); ABS Eosinophils 0.1 10^3/ul (0-0.6); ABS Lymphocytes 1.5 10^3/ul (1.0-4.8); ABS Monocytes 0.8 10^3/ul (0-0.8); ABS Neutrophils 4.5 10^3/ul (1.5-7.7); Eosinophil % 1.3 %; Hematocrit 40 % (42-52); Hemoglobin 12.8 g/dL (14.0-18.0); Lymphocyte % 21.6 %; Mean Corpuscular HGB Conc 32 g/dL (31-36); Mean Corpuscular Hemoglobin 26 pg (27-31); Mean Corpuscular Volume 81 fL (80-94); Mean Platelet Volume 7.8 fL (7.4-10.4); Platelet Count 166 10^3/uL (150-450); Red Blood Count 4.93 10^6 /uL (4.18-5.48); Red Cell Distribution Width 20 % (10-15)
[2019-02-14 05:23] LABS: Albumin 2.8 g/dL (3.2-5.2); Calcium 7.9 mg/dL (8.6-10.3); EGFR African American 125.7 (>60); EGFR Non-African American 103.9 (>60); Globulin 2.7 g/dL (2-4); Potassium 3.9 mmol/L (3.5-5.0); Total Bilirubin 0.4 mg/dL (0.2-1.0); Total Protein 5.5 g/dL (6.4-8.9)
--- NOTE | 2019-02-14 07:39 | PN ---
Subjective Date of Service: 02/14/19 Interval History: 68 M [facility] resident with PMH of COPD, T2DM, Schizoaffective disorder, RLE DVT presented with altered mental status and possible cardiac arrest(ROSC after CPR). Found to have hypoxia with hypercarbia, tachycardia, hyperglycemia, leucocytosis, lactic acidosis and elevated troponin. Intubated in ED and transferrred to ICU. HD #6 on 02/14 Overnight: Straight cath and removed 450 ml urine VS: stable Ventilator Mode: CMV TV: 550 PEEP: 12 FiO2: 50 saturation: 96% Patient is making good eye contact and follows command- moving feet and hands. Objective Active Medications: Acetaminophen (Tylenol Adult Liq*) 650 mg PO QID PRN PRN Reason: MILD PAIN or TEMP > 100.4 Last Admin: 02/10/19 11:17 Dose: 650 mg Albuterol/Ipratropium (Duoneb (Albuterol 2.5 Mg/Ipratropium 0.5 Mg)) 1 neb INH Q6H [facility] Last Admin: 02/14/19 07:06 Dose: 1 neb Atorvastatin Calcium (Lipitor*) 10 mg PO BEDTIME [facility] Last Admin: 02/13/19 20:06 Dose: 10 mg Chlorhexidine Gluconate (Peridex Mouth Wash 0.12%*) 15 ml TOPICAL Q4H [facility] Last Admin: 02/14/19 04:12 Dose: 15 ml Dextrose (Dextrose 50% Vial 50 Ml*) 25 ml IV PUSH .FOR FS < 60 - SS PRN PRN Reason: FS < 60 Famotidine (Pepcid Tab*) 20 mg PO DAILY [facility] Last Admin: 02/13/19 09:16 Dose: 20 mg Piperacillin Sod/Tazobactam (Sod 3.375 gm/ Sodium Chloride) 100 mls @ 25 mls/ hr IVPB Q8H [facility] Last Admin: 02/14/19 04:48 Dose: 25 mls/hr Valproic Acid 500 mg/ Sodium (Chloride) 105 mls @ 210 mls/hr IVPB 0900,2100 [facility] Last Admin: 02/13/19 20:06 Dose: 210 mls/hr Fentanyl Citrate (Fentanyl Infusion Bag 50 Mcg/Ml 50 Ml) 2,500 mcg in 50 mls @ 0 mls/hr IV Q72H [facility]; Protocol Last Admin: 02/13/19 07:47 Dose: 2 mls/hr Propofol (Diprivan*) 100 mls @ 6.474 mls/hr IV .PER PROTOCOL [facility]; Protocol Last Admin: 02/13/19 14:32 Dose: 12.8 mls/hr Vancomycin HCl 1,000 mg/ (Sodium Chloride) 250 mls @ 166.667 mls/hr IV Q12H [facility] Last Admin: 02/13/19 21:58 Dose: 166.667 mls/hr Insulin Human Lispro (Humalog*) 0 units SUBCUT ACHS [facility]; Protocol Last Admin: 02/13/19 20:06 Dose: 1 unit Pharmacy Consult (Vancomycin Per Pharmacy*) 1 note FOLLOW UP .VANC PER PHARMACY [facility]; Protocol Pharmacy Consult (Zosyn Per Pharmacy*) 1 note FOLLOW UP .ZOSYN PER PHARMACY [facility] Pharmacy Profile Note (Vancomycin Trough Check) 1 note FOLLOW UP 0900 ONE Stop: 02/15/19 09:01 Rivaroxaban (Xarelto(*)) 20 mg PO QPM [facility] Last Admin: 02/13/19 16:33 Dose: 20 mg Senna (Senokot 8.6 Mg Tab*) 1 tab PO DAILY [facility] Last Admin: 02/13/19 09:17 Dose: 1 tab Vital Signs - 8 hr 02/13/19 02/14/19 02/14/19 23:53 00:00 00:08 Temperature 98.5 F Pulse Rate 68 64 Respiratory 10 Rate Blood Pressure 112/68 (mmHg) O2 Sat by Pulse 95 95 Oximetry 02/14/19 02/14/19 02/14/19 00:19 00:30 00:41 Temperature Pulse Rate 69 67 66 Respiratory 24 Rate Blood Pressure 102/66 103/60 (mmHg) O2 Sat by Pulse 95 95 95 Oximetry 02/14/19 02/14/19 02/14/19 01:00 01:30 02:00 Temperature Pulse Rate 70 75 75 Respiratory 11 12 Rate Blood Pressure 106/60 115/66 117/70 (mmHg) O2 Sat by Pulse 96 94 94 Oximetry 02/14/19 02/14/19 02/14/19 02:30 03:00 03:30 Temperature Pulse Rate 70 68 70 Respiratory 18 Rate Blood Pressure 103/62 106/65 107/66 (mmHg) O2 Sat by Pulse 94 94 95 Oximetry 02/14/19 02/14/19 02/14/19 03:38 04:00 04:30 Temperature 99.0 F Pulse Rate 70 74 Respiratory 19 Rate Blood Pressure 113/66 115/69 (mmHg) O2 Sat by Pulse 95 94 Oximetry 02/14/19 02/14/19 02/14/19 05:00 05:30 06:00 Temperature Pulse Rate 79 70 78 Respiratory 16 20 Rate Blood Pressure 119/73 101/63 129/74 (mmHg) O2 Sat by Pulse 95 94 94 Oximetry 02/14/19 02/14/19 06:30 07:09 Temperature Pulse Rate 72 82 Respiratory 19 Rate Blood Pressure 113/67 (mmHg) O2 Sat by Pulse 95 95 Oximetry Oxygen Devices in Use Now: Mechanical Ventilator Exam: Patient is lying on a bed with ET tube HEENT: Intubated Neck: No JVD Lungs: scattered ronchi heard on bilateral lungs Heart: Normal in rate and rhythm. S1/S2 heard with no murmur Abdomen: Soft, nondistended and nontender. Normal BS heard Extremities: 1+ edema on bilateral lower extremities Neuro: Alert; follows command Result Diagrams: 02/14/19 04:45 02/14/19 04:45 Assess/Plan/Problems-Billing Assessment: 68 M [facility] resident with PMH of COPD, T2DM, Schizoaffective disorder, RLE DVT presented with altered mental status and possible cardiac arrest(ROSC after CPR). Found to have hypoxia with hypercarbia, tachycardia, hyperglycemia, leucocytosis, lactic acidosis and elevated troponin. Intubated in ED and transferrred to ICU. Currently intubated. - Patient Problems (1) Acute respiratory failure with hypoxia and hypercapnia Current Visit: Yes Status: Acute Code(s): J96.01 - ACUTE RESPIRATORY FAILURE WITH HYPOXIA; J96.02 - ACUTE RESPIRATORY FAILURE WITH HYPERCAPNIA SNOMED Code(s): 199144607 Comment: -likely from acute exacerbation of COPD. -On CMV with rate of 14, TV 550 with oxygen saturation of 96%, PEEP-12 and FiO2 50 -Urine legionella negative. -on lasix prn -CT chest- no PE -Continue vanco and zosyn(day 5) -Echo on 02/12 shows normal EF of 55-60% -downtitrating propofol and fentanyl; possible extubation tomorrow (2) Hypokalemia Current Visit: Yes Status: Acute Code(s): E87.6 - HYPOKALEMIA SNOMED Code( s): 30661373 Comment: -resolved (3) DVT (deep venous thrombosis) Current Visit: No Status: Chronic Code(s): I82.409 - ACUTE EMBOLISM AND THOMBOS UNSP DEEP VN UNSP LOWER EXTREMITY SNOMED Code(s): 598917228 Comment: - continue Xaretlo 20 mg daily - has chronic DVT (4) Schizoaffective disorder Current Visit: No Status: Chronic Code(s): F25.9 - SCHIZOAFFECTIVE DISORDER , UNSPECIFIED SNOMED Code(s): 95089166 Comment: - Continue Depakote -Depakote level normal (5) Lactic acidosis Current Visit: Yes Status: Acute Code(s): E87.2 - ACIDOSIS SNOMED Code(s) : 48086615 Comment: -resolved (6) Type II diabetes mellitus Current Visit: No Status: Chronic Comment: -BG in 13-140 -continue insulin lispro achs (7) DNR (do not resuscitate) Current Visit: Yes Status: Acute Comment: -His MOLSt form says he is full code and wants trial of intubation-which will put him in a loop of intubation and extubation after we extubate him. SO ethics committee was consulted and with the help of two physician Dr. Flores and Dr. Pabon(who is his PCP) his MOLST form was updated honouring his wishes. -After he is extubated; he will be DNR/DNI -On GI ppx Status and Disposition: ICU from critical access hospital Attending: Ada Cardozo Attestation Documenting Resident: Ginna Wolf Supervising Physician: Ada Cardozo Attestation: This service has been performed in part by a resident under the direction of a teaching physician.I, Ada Cardozo, performed the service, or was physically present during the critical, or jarvis portions of the service, furnished by the resident. I participated in the management of the patient.
[2019-02-14] MEDS: Senna TAB 8.6 mg* TAB PO SCH (08:26)
[2019-02-14] MEDS: Famotidine TAB* 20 MG PO SCH (08:26)
[2019-02-14] MEDS: Insulin LISPRO* 1 UNITS UNIT SUBCUT SCH ×4 (10:11→20:34)
[2019-02-14] MEDS: Valproic Acid IV(*) 500 MG in NS 0.9% 100 ML* 100 ML IVPB SCH ×2 (10:12→20:34)
[2019-02-14] MEDS: Vancomycin(*) 1,000 MG in NS 0.9% 250 ML* 250 ML IV SCH ×3 (10:27→21:35)
[2019-02-14] MEDS: fentaNYL INFUSION 50 MCG/ML* 2,500 MCG/50 ML BAG IV SCH (10:38)
[2019-02-14] MEDS ORDERED: Calcium Gluconate INJ* 1 GM in NS 0.9% 50 ML* 50 ML IVPB ONE (13:25)
[2019-02-14] MEDS ORDERED: Albuterol/Ipratropium NEB.SOL* Albuterol 2.5 MG/Ipratropium 0.5 MG 3 ML INH PRN (13:58)
[2019-02-14] MEDS: Rivaroxaban TAB(*) 20 MG TAB PO SCH (17:27)
[2019-02-14] MEDS: Atorvastatin* 10 MG TAB PO SCH (19:53)
[2019-02-14] MEDS: Nystatin SUSPENSION* 100000 UNITS/ML 5 ML UDC PO SCH (19:53)
[2019-02-15] MEDS: Chlorhexidine MOUTHWASH 0.12%* 15 ML UDC TOPICAL SCH ×5 (00:43→16:17)
[2019-02-15] MEDS: ZOSYN 3.375 GM Q8H per EXTENDED INFUSION IVPB SCH ×2 (05:05)
[2019-02-15] MEDS: Hydrocortisone 1% CREAM* 30 GM TUBE TOPICAL SCH ×3 (05:05→21:52)
[2019-02-15 05:29] LABS: Hematocrit 39 % (42-52); Hemoglobin 12.5 g/dL (14.0-18.0); Mean Corpuscular HGB Conc 33 g/dL (31-36); Mean Corpuscular Hemoglobin 26 pg (27-31); Mean Corpuscular Volume 81 fL (80-94); Mean Platelet Volume 8.2 fL (7.4-10.4); Platelet Count 153 10^3/uL (150-450); Red Blood Count 4.76 10^6 /uL (4.18-5.48); Red Cell Distribution Width 20 % (10-15); White Blood Count 9.6 10^3/uL (3.5-10.8)
[2019-02-15 05:45] LABS: BUN/Creatinine Ratio 32.1 (8-20); Blood Urea Nitrogen 18 mg/dL (6-24); CO2 Carbon Dioxide 29 mmol/L (22-32); Calcium 8.2 mg/dL (8.6-10.3); Chloride 110 mmol/L (101-111); EGFR African American 176.1 (>60); EGFR Non-African American 145.5 (>60); Glucose 165 mg/dL (70-100); Magnesium 2.1 mg/dL (1.9-2.7); Sodium 144 mmol/L (135-145)
[2019-02-15 06:06] LABS: Anion Gap 5 mmol/L (2-11)
[2019-02-15] MEDS: Senna TAB 8.6 mg* TAB PO SCH (08:30)
[2019-02-15] MEDS: Famotidine TAB* 20 MG PO SCH (08:30)
[2019-02-15] MEDS: Nystatin SUSPENSION* 100000 UNITS/ML 5 ML UDC PO SCH ×4 (08:30→20:09)
[2019-02-15] MEDS: Valproic Acid IV(*) 500 MG in NS 0.9% 100 ML* 100 ML IVPB SCH ×2 (08:31→21:53)
[2019-02-15] MEDS: Insulin LISPRO* 1 UNITS UNIT SUBCUT SCH ×4 (08:58→21:52)
[2019-02-15] MEDS ORDERED: Vancomycin Trough Check NOTE FOLLOW UP ONE (09:00)
--- NOTE | 2019-02-15 10:01 | PN ---
Date of Service: 02/15/19 Critical Care Services: 68 M [facility] resident with PMH of COPD, T2DM, Schizoaffective disorder, RLE DVT presented with altered mental status and possible cardiac arrest(ROSC after CPR). Found to have hypoxia with hypercarbia, tachycardia, hyperglycemia, leucocytosis, lactic acidosis and elevated troponin. Intubated in ED and transferrred to ICU. HD #6 on 02/14 Overnight- Urinary incontinence Vitals: stable Vital Signs: Temp Pulse Resp BP SpO2 FiO2 97.7 F 75 16 144/78 95 50 02/15/19 08:00 02/15/19 09:00 02/15/19 09:00 02/15/19 09:00 02/15/19 09:00 02/15 04:00 Physical Exam: Gen: Patient is lying on a bed with ET tube HEENT: PERRLA; anicteric Lungs: Ronchi heard on bilateral lungs Cardiac: Normal in rate and rhythm, No murmur Abdomen: soft, nondistended and nontender Extremities: Mild swelling Neuro: follows command Fluid Balance (Past 24 Hours): I= O= Net Intake & Output 02/13/19 02/14/19 02/15/19 02/16/19 06:59 06:59 06:59 06:59 Intake Total 2651.5 1335 1610.7 Output Total 2081 1120 0 Balance 570.5 215 1610.7 Weight 106.818 kg 107.425 kg 107.939 kg Intake: IV Fluids 2184.5 553 194 ABX - VANCOMYCIN 660 98 66 ABX - ZOSYN 317 212 67 NS (0.9%) 908 127 Valproic Acid 299.5 116 61 IVPB 461 1048 ABX - VANCOMYCIN 213 516 ABX - ZOSYN 140 257 Valproic Acid 108 275 Medicated IV 372 280 274.7 CC - Propofol/Diprivan 372 280 274.7 IV Narcotic Infusion 15 41 94 Fentanyl 15 41 94 Oral 0 0 0 Tube Feeding Flush Amount 80 Output: Urine 0 0 Ross 2081 295 Straight Cath 825 Other: Estimated Void Medium Large Date of Last Bowel 02/11/19 Movement # Voids 1 1 Labs: Laboratory Results - last 24 hr 02/14/19 02/14/19 02/14/19 12:13 17:34 20:00 WBC RBC Hgb Hct MCV MCH MCHC RDW Plt Count MPV Sodium Potassium Chloride Carbon Dioxide Anion Gap BUN Creatinine Est GFR ( Amer) Est GFR (Non-Af Amer) BUN/Creatinine Ratio Glucose POC Glucose (mg/dL) 174 H 168 H 170 H Calcium Magnesium 02/15/19 02/15/19 02/15/19 05:17 05:17 06:23 WBC 9.6 RBC 4.76 Hgb 12.5 L Hct 39 L MCV 81 MCH 26 L MCHC 33 RDW 20 H Plt Count 153 MPV 8.2 Sodium 144 Potassium TNP 3.7 Chloride 110 Carbon Dioxide 29 Anion Gap 5 BUN 18 Creatinine 0.56 L Est GFR ( Amer) 176.1 Est GFR (Non-Af Amer) 145.5 BUN/Creatinine Ratio 32.1 H Glucose 165 H POC Glucose (mg/dL) Calcium 8.2 L Magnesium 2.1 Studies: No new imaging Nutrition: NPO Impression: 68 M [facility] resident with PMH of COPD, T2DM, Schizoaffective disorder, RLE DVT presented with altered mental status and possible cardiac arrest(ROSC after CPR). Found to have hypoxia with hypercarbia, tachycardia, hyperglycemia, leucocytosis, lactic acidosis and elevated troponin. Intubated in ED and transferrred to ICU. Will try to extubate today Plan: Hospital Diagnosis 1. Acute hypoxemic respiratory failure with hypercapnia 2. Acute COPD exacerbation 3. Chronic DVT Cardiovascular: (1) hx of hypercholesterolemia; 2) Hypertension -- HR 75-80 -- SBP 140-170 -- Telemetry -- Cardiac markers CK 34 Trop 0.04,0.06,0.05 --Echo 02/12: Normal with EF of 55-60% and normal LA Home meds: Lipitor Pulmonary: (1) COPD -- RR 16 -- sats 96% on ventilator -Ventilator Mode:PCV Set RR- 16 Set Pressure-30 Fio2-30 PEEP- 5 End tidal Co2- 32 -will try to extubate him today --CXR 02/12- Bibasilar infialtrates and small bilateral pleural effusion -Continue duoneb PRN -received steorid burst Home: Incruse Ellipta, Advair Gastrointestinal: 1) Hx of GERD -- diet: NPO -- bowel regimen: Senna -- ulcer prophylaxis: famotidine daily Home meds: None Endocrine: (1) Insulin dependent Diabetes -- monitor BGs --Continue insulin lispro Home meds: Insulin Glargine and regular insulin and glipizide Renal: -- UOP: strict ins and outs -- Cr 0.56 -- Lytes Na 144 K 3.7 Ca 8.2 Mag 2.1 -- IVF: None Home meds: None Infectious disease: -- Tmax 97.7 -- WBC 9.6 -- Micro sputum trach- growing MRSA blood- negative urine- negative -- ABX vancomycin( day 6 on 02/15) Home meds: None Neurologic:(1) Schizoaffective disorder -- Pain control- fentanyl --Sedation- propofol Home meds:Depakote, abilify and haloperidol Hematological:(1) Chronic DVT -- Hgb 12.5 -- Plt 153 -- Continue Xarelto 20 mg daily Home meds: Xarelto Metabolic: No acute issues Home meds: None Other: (1) Spinal stenosis -- pain control Home meds: Gabapentin Deep vein thrombosis prophylaxis: on therapeutic Xarelto- has chronic DVT Dietary: Not indicated at this time Condition: critical Prognosis: guarded Code status: DNR/DNI Disposition:continue ICU care. He is from [facility] Time spent in the care of this patient (excluding any procedure time): at least 60 minutes. Patient care included clinical interview (with patient and/or family), bedside exam of the patient, review of labs, x-rays, and other ancillary data, coordination of (respiratory, nursing care, review of patient's records, discussion regarding patients management with involved consultants, primary physician, pharmacists, and other healthcare personnel (dietary, case management , physical/occupational therapy etc.)
[2019-02-15] MEDS: Propofol* 100 ML IV SCH (11:01)
[2019-02-15] MEDS ORDERED: Labetalol IV* 5 MG/ML 20 ML VIAL IV PUSH PRN (11:32)
[2019-02-15 11:43] LABS: EGFR African American 183.6 (>60); EGFR Non-African American 151.8 (>60)
[2019-02-15] MEDS: Vancomycin(*) 1,000 MG in NS 0.9% 250 ML* 250 ML IV SCH ×2 (12:11→21:52)
[2019-02-15] MEDS ORDERED: EPINEPHrine,Rac 2.25% NEB.SOL* 0.5 ML INH PRN (13:45)
[2019-02-15] MEDS ORDERED: methylPREDNISolone 125 MG* 2 ML VIAL IV ONE (13:46)
--- NOTE | 2019-02-15 13:57 | PN ---
Progress Note - Progress Note Date of Service: 02/15/19 - update Note: PT tolerated SBT at 15/5 x 2 hours. Dropped to 10/5 x 1 hour with continued success. Pt awake and following commands. Wiggles fingers and toes. Extubated to ventimask. Intial sats 92-94% Developed stridor shortly thereafter. Racemic epinephrine and solumedrol ordered and being given. Pt on humidified oxygen. Sats currently holding at 88 %. He is a DNI now based on the ethics committee meeting that concluded that after extubation he would not be reintubated based on best understanding of his wishes.
[2019-02-15] MEDS ORDERED: Morphine INJ* 4 MG/ML 1 ML SYRINGE (NEW SYRINGE VERSION) IV PRN (14:10)
[2019-02-15] MEDS ORDERED: Morphine INJ* 2 MG/ML 1 ML SYRINGE (TWO MG - NEW SYRINGE VERSION) ONE (14:12)
[2019-02-15] MEDS ORDERED: Morphine INJ* 2 MG/ML 1 ML SYRINGE (TWO MG - NEW SYRINGE VERSION) IV ONE (15:13)
[2019-02-15] MEDS ORDERED: Acetaminophen TAB* 325 MG PO PRN (16:31)
[2019-02-15] MEDS: Rivaroxaban TAB(*) 20 MG TAB PO SCH (17:52)
[2019-02-15] MEDS: Albuterol/Ipratropium NEB.SOL* Albuterol 2.5 MG/Ipratropium 0.5 MG 3 ML INH SCH (19:44)
[2019-02-15] MEDS: Atorvastatin* 10 MG TAB PO SCH (20:08)
[2019-02-15] MEDS: Morphine INJ* 2 MG/ML 1 ML SYRINGE (TWO MG - NEW SYRINGE VERSION) IV PRN ×2 (20:23→23:18)
[2019-02-16] MEDS: Morphine INJ* 2 MG/ML 1 ML SYRINGE (TWO MG - NEW SYRINGE VERSION) IV PRN ×4 (02:42→22:22)
[2019-02-16 04:13] LABS: Hematocrit 41 % (42-52); Mean Corpuscular HGB Conc 32 g/dL (31-36); Mean Corpuscular Hemoglobin 26 pg (27-31); Mean Corpuscular Volume 81 fL (80-94); Mean Platelet Volume 8.1 fL (7.4-10.4); Platelet Count 183 10^3/uL (150-450); Red Blood Count 5.02 10^6 /uL (4.18-5.48); Red Cell Distribution Width 19 % (10-15); White Blood Count 9.8 10^3/uL (3.5-10.8)
[2019-02-16 04:32] LABS: BUN/Creatinine Ratio 34.4 (8-20); Calcium 8.4 mg/dL (8.6-10.3); EGFR African American 159.5 (>60); EGFR Non-African American 131.8 (>60); Magnesium 2.2 mg/dL (1.9-2.7); Potassium 4.3 mmol/L (3.5-5.0)
--- NOTE | 2019-02-16 07:54 | PN ---
Date of Service: 02/16/19 Critical Care Services: 68 M [facility] resident with PMH of COPD, T2DM, Schizoaffective disorder, RLE DVT presented with altered mental status and possible cardiac arrest(ROSC after CPR). Found to have hypoxia with hypercarbia, tachycardia, hyperglycemia, leucocytosis, lactic acidosis and elevated troponin. Intubated in ED and transferrred to ICU. Extubated on 02/15. Now on vapotherm HD #7 on 02/16 Overnight- On vapotherm 40L/100% VS- stable; saturation 99851% on vapotherm patient is awake today and was asking for water. He could recognise me and was able tell his name and where he was. He denied chest pain and abdominal pain Vital Signs: Temp Pulse Resp BP SpO2 FiO2 102.5 F 81 37 141/73 93 100 02/16/19 07:42 02/16/19 07:00 02/16/19 07:00 02/16/19 07:00 02/16/19 07:00 02/16 07:37 Physical Exam: Gen: Patient is sitting on a bed with no acute distress HEENT: Nocrmocephalic and atraumatic. PERRLA Lungs: Clear with no added sounds Cardiac: Normal in rate and rhythm. S1/S2 heard with no murmur Abdomen: Soft, nondistended and nontender Extremities: No swelling Neuro: Aler and oriented to place and person. Follows command Fluid Balance (Past 24 Hours): I= O= Net Intake & Output 02/14/19 02/15/19 02/16/19 02/17/19 06:59 06:59 06:59 06:59 Intake Total 1335 1610.7 1195 Output Total 1120 0 Balance 215 1610.7 1195 Weight 107.425 kg 107.939 kg 107.416 kg Intake: IV Fluids 553 194 227 ABX - VANCOMYCIN 98 66 ABX - ZOSYN 212 67 NS (0.9%) 127 227 Valproic Acid 116 61 IVPB 461 1048 873 ABX - VANCOMYCIN 213 516 641 ABX - ZOSYN 140 257 Valproic Acid 108 275 232 Medicated IV 280 274.7 95 CC - Propofol/Diprivan 280 274.7 95 IV Narcotic Infusion 41 94 Fentanyl 41 94 Oral 0 0 Output: Urine 0 0 Ross 295 Straight Cath 825 Other: Estimated Void Medium Large Medium # Voids 1 1 2 Labs: Laboratory Results - last 24 hr 02/15/19 02/15/19 02/15/19 07:59 10:39 12:21 WBC RBC Hgb Hct MCV MCH MCHC RDW Plt Count MPV Sodium Potassium Chloride Carbon Dioxide Anion Gap BUN 17 Creatinine 0.54 L Est GFR ( Amer) 183.6 Est GFR (Non-Af Amer) 151.8 BUN/Creatinine Ratio Glucose POC Glucose (mg/dL) 179 H 165 H Calcium Magnesium 02/15/19 02/15/19 02/16/19 16:24 20:28 04:05 WBC RBC Hgb Hct MCV MCH MCHC RDW Plt Count MPV Sodium 148 H Potassium 4.3 Chloride 112 H Carbon Dioxide 31 Anion Gap 5 BUN 21 Creatinine 0.61 L Est GFR ( Amer) 159.5 Est GFR (Non-Af Amer) 131.8 BUN/Creatinine Ratio 34.4 H Glucose 169 H POC Glucose (mg/dL) 160 H 180 H Calcium 8.4 L Magnesium 2.2 02/16/19 04:05 WBC 9.8 RBC 5.02 Hgb 13.0 L Hct 41 L MCV 81 MCH 26 L MCHC 32 RDW 19 H Plt Count 183 MPV 8.1 Sodium Potassium Chloride Carbon Dioxide Anion Gap BUN Creatinine Est GFR ( Amer) Est GFR (Non-Af Amer) BUN/Creatinine Ratio Glucose POC Glucose (mg/dL) Calcium Magnesium Studies: No new imaging since yesterday Nutrition: NPO will do swallow eval Impression: 68 M [facility] resident with PMH of COPD, T2DM, Schizoaffective disorder, RLE DVT presented with altered mental status and possible cardiac arrest(ROSC after CPR). Found to have hypoxia with hypercarbia, tachycardia, hyperglycemia, leucocytosis, lactic acidosis and elevated troponin. Intubated in ED and transferrred to ICU. Extubated on 02/15 and now on vapotherm Plan: Hospital Diagnosis 1. Acute hypoxemic respiratory failure with hypercapnia 2. Acute COPD exacerbation 3. Chronic DVT Cardiovascular: (1) hx of hypercholesterolemia; 2) Hypertension -- HR 76-80 -- SBP 116-140 -- Telemetry -- Cardiac markers CK 34 Trop 0.04,0.06,0.05 --Echo 12/30: Normal with EF of 55-60% and normal LA Home meds: Lipitor Pulmonary: (1) COPD -- RR 16 -- sats 96% on vapotherm --extubated on 02/15 --CXR 02/12- Bibasilar infialtrates and small bilateral pleural effusion -Continue duoneb PRN -received steorid burst --received IV solumedrol after extubation because of mild stridor --Racemic epineprine prn --Morphine prn Home: Incruse Ellipta, Advair Gastrointestinal: 1) Hx of GERD -- diet: NPO; swllow eval today -- bowel regimen: Senna -- ulcer prophylaxis: famotidine daily Home meds: None Endocrine: (1) Insulin dependent Diabetes -- monitor BGs --Continue insulin lispro Home meds: Insulin Glargine and regular insulin and glipizide Renal: -- UOP: strict ins and outs -- Cr 0.61 -- Lytes Na 148 K 4.3 Ca 8.4 Mag 2.2 -- IVF: None Home meds: None Infectious disease: -- Tmax 102.5 -- WBC 9.8 -- Micro sputum trach- MRSA blood- negative urine- negative -- ABX vancomycin( day 7 on 02/16) --Patient temp max today. His zosyn was stopped yesterday as his sputum grew MRSA which is covered by Vanc. We will stop vanc today as today is day 7. We will do hutton culture and do cxr. --CXR 02/16 showing right pleural effusion and bibasilar atelectasis vs consolidation. We will order lasix iv today for pleural effusion. Home meds: None Neurologic:(1) Schizoaffective disorder -- Home meds:Depakote, abilify and haloperidol Hematological:(1) Chronic DVT -- Hgb 13.0 -- Plt 183 -- Continue Xarelto 20 mg daily Home meds: Xarelto Metabolic: No acute issues Home meds: None Other: (1) Spinal stenosis -- pain control Home meds: Gabapentin Deep vein thrombosis prophylaxis: on therapeutic Xarelto- has chronic DVT Dietary: Not indicated at this time Condition: critical Prognosis: guarded Code status: DNR/DNI Disposition:continue ICU care. He is from [facility] Critical [facility] Time spent in the care of this patient (excluding any procedure time): at least 60 minutes. Patient care included clinical interview (with patient and/or family), bedside exam of the patient, review of labs, x-rays, and other ancillary data, coordination of (respiratory, nursing care, review of patient's records, discussion regarding patients management with involved consultants, primary physician, pharmacists, and other healthcare personnel (dietary, case management , physical/occupational therapy etc.)
[2019-02-16] MEDS: Insulin LISPRO* 1 UNITS UNIT SUBCUT SCH ×4 (08:53→21:53)
[2019-02-16] MEDS: Famotidine IV* 10 MG/ML 2 ML (20 mg) IV SLOW PU SCH (08:53)
[2019-02-16] MEDS: Nystatin SUSPENSION* 100000 UNITS/ML 5 ML UDC PO SCH ×4 (08:53→20:31)
[2019-02-16] MEDS: Vancomycin(*) 1,000 MG in NS 0.9% 250 ML* 250 ML IV SCH (08:54)
[2019-02-16] MEDS: Senna TAB 8.6 mg* TAB PO SCH (08:54)
[2019-02-16] MEDS: Valproic Acid IV(*) 500 MG in NS 0.9% 100 ML* 100 ML IVPB SCH ×2 (08:54→20:31)
[2019-02-16] MEDS: Hydrocortisone 1% CREAM* 30 GM TUBE TOPICAL SCH ×2 (09:15→20:31)
[2019-02-16] MEDS ORDERED: Furosemide IV* 10 MG/ML VIAL (40 MG) IV SLOW PU ONE (09:57)
[2019-02-16] MEDS ORDERED: Calcium Gluconate INJ* 1 GM in NS 0.9% 50 ML* 50 ML IVPB ONE (11:01)
--- NOTE | 2019-02-16 11:04 | PN ---
Progress Note - Progress Note Date of Service: 02/16/19 - update Note: Pt with temps to 102 - pancultured. Zosyn ended yesterday and vanco today. will given 24 hr abx holiday and check culture results before restarting abx. diffuse edema and pleural effusions on CXR - Lasix x 1
[2019-02-16 11:39] LABS: Urine Appearance Cloudy; Urine Bilirubin Negative (Negative); Urine Blood 1+ (Negative); Urine Color Yellow; Urine Glucose 1+(50 mg/dL) (Negative); Urine Ketones 1+ (Negative); Urine Nitrite Negative (Negative); Urine Protein Negative (Negative); Urine Specific Gravity 1.012 (1.010-1.030); Urine Urobilinogen Negative (Negative)
[2019-02-16 11:41] LABS: Urine Bacteria Absent (Absent); Urine Red Blood Cell 3+(>10/hpf) (Absent); Urine Squamous Epithelial Cell Present (Absent); Urine White Blood Cell 3+(>20/hpf) (Absent)
[2019-02-16 16:28] LABS: BUN/Creatinine Ratio 29.7 (8-20); Calcium 8.6 mg/dL (8.6-10.3); EGFR African American 150.9 (>60); EGFR Non-African American 124.7 (>60)
[2019-02-16 16:30] LABS: Potassium 3.9 mmol/L (3.5-5.0)
[2019-02-16] MEDS: Rivaroxaban TAB(*) 20 MG TAB PO SCH (18:13)
[2019-02-16] MEDS: Atorvastatin* 10 MG TAB PO SCH (20:31)
[2019-02-17] MEDS: Morphine INJ* 2 MG/ML 1 ML SYRINGE (TWO MG - NEW SYRINGE VERSION) IV PRN (02:10)
[2019-02-17] MEDS ORDERED: acetaZOLAMIDE TAB* 250 MG PO ONE (03:15)
[2019-02-17 05:09] LABS: Hematocrit 41 % (42-52); Mean Corpuscular HGB Conc 32 g/dL (31-36); Mean Corpuscular Hemoglobin 26 pg (27-31); Mean Corpuscular Volume 81 fL (80-94); Mean Platelet Volume 8.2 fL (7.4-10.4); Platelet Count 211 10^3/uL (150-450); Red Blood Count 5.03 10^6 /uL (4.18-5.48); Red Cell Distribution Width 19 % (10-15); White Blood Count 7.9 10^3/uL (3.5-10.8)
[2019-02-17 05:18] LABS: BUN/Creatinine Ratio 28.6 (8-20); Calcium 8.5 mg/dL (8.6-10.3); EGFR African American 136.1 (>60); EGFR Non-African American 112.5 (>60); Potassium 3.6 mmol/L (3.5-5.0)
[2019-02-17] MEDS: Famotidine IV* 10 MG/ML 2 ML (20 mg) IV SLOW PU SCH (08:59)
[2019-02-17] MEDS: Senna TAB 8.6 mg* TAB PO SCH (09:01)
[2019-02-17] MEDS: Insulin LISPRO* 1 UNITS UNIT SUBCUT SCH ×4 (09:01→22:13)
[2019-02-17] MEDS: Nystatin SUSPENSION* 100000 UNITS/ML 5 ML UDC PO SCH ×4 (09:03→22:13)
[2019-02-17] MEDS: Hydrocortisone 1% CREAM* 30 GM TUBE TOPICAL SCH ×2 (09:05→22:14)
[2019-02-17] MEDS: Valproic Acid IV(*) 500 MG in NS 0.9% 100 ML* 100 ML IVPB SCH ×2 (09:53→22:14)
[2019-02-17] MEDS ORDERED: Furosemide IV* 10 MG/ML VIAL (40 MG) IV SLOW PU SCH (12:00)
[2019-02-17] MEDS ORDERED: Furosemide IV* 10 MG/ML VIAL (40 MG) ONE (12:10)
--- NOTE | 2019-02-17 13:44 | PN ---
Date of Service: 02/17/19 - HD 8 Critical Care Services: 68 M [facility] resident with PMH of COPD, T2DM, Schizoaffective disorder, RLE DVT presented with altered mental status and possible cardiac arrest(ROSC after CPR). Found to have hypoxia with hypercarbia, tachycardia, hyperglycemia, leucocytosis, lactic acidosis and elevated troponin. Intubated in ED and transferrred to ICU. Extubated on 02/15. Now on vapotherm HD #8 on 02/17 Overnight- On vapotherm 40L/100% No overnight events Vital Signs: Temp Pulse Resp BP SpO2 FiO2 98.1 F 82 22 117/73 98 100 02/17/19 07:54 02/17/19 13:00 02/17/19 13:00 02/17/19 13:00 02/17/19 13:00 02/17 08:00 Physical Exam: Gen: resting comfortably HEENT: vapotherm in place Lungs: nonlabored Cardiac: RRR Abdomen: obese, slightly distended, nontender Extremities: warm, dry Neuro: withdrawn. confused. Fluid Balance (Past 24 Hours): I= O= Net Intake & Output 02/15/19 02/16/19 02/17/19 02/18/19 06:59 06:59 06:59 06:59 Intake Total 1610.7 1195 1852 Output Total 0 2300 Balance 1610.7 1195 -448 Weight 237 lb 15.444 oz 236 lb 13 oz 235 lb 14.314 oz Intake: IV Fluids 194 227 77 ABX - VANCOMYCIN 66 ABX - ZOSYN 67 NS (0.9%) 227 77 Valproic Acid 61 IVPB 1048 873 565 ABX - VANCOMYCIN 516 641 269 ABX - ZOSYN 257 Ca gluconate 64 Valproic Acid 275 232 232 Medicated IV 274.7 95 CC - Propofol/Diprivan 274.7 95 IV Narcotic Infusion 94 Fentanyl 94 Oral 0 1210 Output: Urine 0 2300 Other: Estimated Void Large Medium Large # Voids 1 2 1 Labs: Laboratory Results - last 24 hr 02/16/19 02/16/19 02/16/19 11:48 15:39 15:40 WBC RBC Hgb Hct MCV MCH MCHC RDW Plt Count MPV Sodium 148 H Potassium 3.9 Chloride 109 Carbon Dioxide 34 H Anion Gap 5 BUN 19 Creatinine 0.64 L Est GFR ( Amer) 150.9 Est GFR (Non-Af Amer) 124.7 BUN/Creatinine Ratio 29.7 H Glucose 170 H POC Glucose (mg/dL) 153 H 170 H Calcium 8.6 Magnesium 02/16/19 02/17/19 02/17/19 20:29 04:40 04:40 WBC 7.9 RBC 5.03 Hgb 13.0 L Hct 41 L MCV 81 MCH 26 L MCHC 32 RDW 19 H Plt Count 211 MPV 8.2 Sodium 145 Potassium 3.6 Chloride 107 Carbon Dioxide 35 H Anion Gap 3 BUN 20 Creatinine 0.70 Est GFR ( Amer) 136.1 Est GFR (Non-Af Amer) 112.5 BUN/Creatinine Ratio 28.6 H Glucose 214 H POC Glucose (mg/dL) 203 H Calcium 8.5 L Magnesium 2.0 02/17/19 08:14 WBC RBC Hgb Hct MCV MCH MCHC RDW Plt Count MPV Sodium Potassium Chloride Carbon Dioxide Anion Gap BUN Creatinine Est GFR ( Amer) Est GFR (Non-Af Amer) BUN/Creatinine Ratio Glucose POC Glucose (mg/dL) 216 H Calcium Magnesium Studies: 02/17 CXR - right pleural effusion with underlying right basilar atelectasis or infiltrate unchanged from prior. 02/16 CXR - cardiomegaly, low lung volumes, small right pleural effusion, bibasilar atelectasis or consolidation 02/12 CXR - small bilateral pleural effusions and bibasilar infiltrates, unchanged 02/11 CXR - cardiomegaly, bibailar atelectasis. 02/10 CXR - low lung volumes, bibasilar infiltrates with slight progression 02/09 CTA chest - No PE. Mild bibasilar subsegmental atelectasis 02/09 CT brain - NAD. chronic microvascular ischemic changes. 02/09 CXR - low lung volumes, small bibasilar infiltrtates and small right pleural effusion. Nutrition: Pureed diet with nectar thickened liquids. Impression: 68 M [facility] resident with PMH of COPD, T2DM, Schizoaffective disorder, RLE DVT presented with altered mental status and possible cardiac arrest(ROSC after CPR). Found to have hypoxia with hypercarbia, tachycardia, hyperglycemia, leucocytosis, lactic acidosis and elevated troponin. Intubated in ED and transferrred to ICU. Extubated on 02/15 and with ongoing vapotherm requirements. Diuresing. Plan: Hospital Diagnosis 1. Acute hypoxemic respiratory failure with hypercapnia 2. Acute COPD exacerbation 3. Chronic DVT Cardiovascular: (1) hx of hypercholesterolemia; (2) Essential hypertension -- HR 74-98 -- SBP 89-160 -- Telemetry -- Echo 02/12: Normal with EF of 55-60% and normal LA -- Atorvastatin -- PRN Labetalol for goal SBP < 160 -- Rivaroxaban Home meds: Lipitor Pulmonary: (1) COPD; (2) Right pleural effusions -- RR 17-39 -- sats 85-98 on vapotherm, 100% and 40 LPM -- extubated on 02/15 -- CXR: right pleural effusion -- Duoneb PRN -- Morphine prn for shortness of breath Home: Incruse Ellipta, Advair Gastrointestinal: (1) Hx of GERD -- diet: Puree with nectar thickened liquids -- bowel regimen: Senna -- ulcer prophylaxis: famotidine daily Home meds: None Endocrine: (1) Insulin dependent Diabetes -- monitor BGs -- Continue insulin lispro Home meds: Insulin Glargine and regular insulin and glipizide Renal: (1) Hypervolemia; (2) Hypocalcemia -- UOP: 96 ml/hr -- Cr 0.70 from 0.64 -- Lytes Na 145 from 148 K 3.6 Ca 8.5, replaced Mag 2.0 -- IVF: None -- Diamox and Lasix x 1 Home meds: None Infectious disease:No acute issues -- Tmax 99.7 -- WBC 7.9 from 9.8 -- Micro 02/17 UA ordered 02/16 Blood NGTD UA equivocal, yeast 02/12 Urine negative 02/11 Legionella negative 02/10 blood negative 02/10 sputum MRSA 02/09 MRSA negative -- ABX Full course of Vanco and Zosyn completed Home meds: None Neurologic:(1) Acute encephalopathy; (2) Schizoaffective disorder -- PRN Tylenol -- PRN Haldol for agitation Home meds: Depakote, Abilify and haloperidol Hematological:(1) Chronic DVT -- Hgb 13.0 from 13.0 -- Plt 211 form 183 -- Continue Xarelto 20 mg daily Home meds: Xarelto Metabolic: No acute issues Home meds: None Other: (1) Spinal stenosis -- pain control Home meds: Gabapentin Deep vein thrombosis prophylaxis: on therapeutic Xarelto- has chronic DVT Dietary: Not indicated at this time Condition: critical Prognosis: guarded Code status: DNR/DNI Disposition:continue ICU care. [facility] Time spent in the care of this patient (excluding any procedure time): at least 60 minutes. Patient care included clinical interview (with patient and/or family), bedside exam of the patient, review of labs, x-rays, and other ancillary data, coordination of (respiratory, nursing care, review of patient's records, discussion regarding patients management with involved consultants, primary physician, pharmacists, and other healthcare personnel (dietary, case management , physical/occupational therapy etc.) Critical Care Time: 60
[2019-02-17] MEDS ORDERED: Haloperidol INJ IV/IM* 5 MG/ML AMP IV SLOW PU PRN (13:54)
[2019-02-17] MEDS ORDERED: Haloperidol INJ IV/IM* 5 MG/ML AMP ONE (13:55)
[2019-02-17 14:32] LABS: Urine Appearance Clear; Urine Bilirubin Negative (Negative); Urine Blood 1+ (Negative); Urine Color Straw; Urine Glucose 1+(50 mg/dL) (Negative); Urine Ketones Negative (Negative); Urine Nitrite Negative (Negative); Urine Protein Negative (Negative); Urine Specific Gravity 1.006 (1.010-1.030); Urine Urobilinogen Negative (Negative)
[2019-02-17 14:35] LABS: Urine Bacteria 1+ (Absent); Urine Red Blood Cell 1+(3-5/hpf) (Absent); Urine White Blood Cell Trace(0-5/hpf) (Absent)
[2019-02-17] MEDS ORDERED: acetaZOLAMIDE VIAL* 500 MG in NS 0.9% 50 ML* 50 ML IVPB ONE (16:00)
[2019-02-17] MEDS: Rivaroxaban TAB(*) 20 MG TAB PO SCH (17:27)
[2019-02-17] MEDS: Atorvastatin* 10 MG TAB PO SCH (22:13)
[2019-02-17] MEDS: Melatonin 3 MG TAB PO SCH (22:13)
[2019-02-17] MEDS: Gabapentin CAP(*) 100 MG PO SCH (22:13)
[2019-02-17] MEDS: Mometasone/Formoter 100/5 MDI INH SCH (22:59)
[2019-02-18 04:15] LABS: Hematocrit 40 % (42-52); Hemoglobin 12.6 g/dL (14.0-18.0); Mean Corpuscular HGB Conc 32 g/dL (31-36); Mean Corpuscular Hemoglobin 26 pg (27-31); Mean Corpuscular Volume 81 fL (80-94); Platelet Count 201 10^3/uL (150-450); Red Blood Count 4.87 10^6 /uL (4.18-5.48); Red Cell Distribution Width 19 % (10-15); White Blood Count 7.1 10^3/uL (3.5-10.8)
[2019-02-18 04:31] LABS: BUN/Creatinine Ratio 28.8 (8-20); Calcium 8.6 mg/dL (8.6-10.3); EGFR African American 145.7 (>60); EGFR Non-African American 120.4 (>60); Magnesium 2.1 mg/dL (1.9-2.7); Potassium 3.7 mmol/L (3.5-5.0)
--- NOTE | 2019-02-18 08:27 | PN ---
Date of Service: 02/18/19 Critical Care Services: 68 M [facility] resident with PMH of COPD, T2DM, Schizoaffective disorder, RLE DVT presented with altered mental status and possible cardiac arrest(ROSC after CPR). Found to have hypoxia with hypercarbia, tachycardia, hyperglycemia, leucocytosis, lactic acidosis and elevated troponin. Intubated in ED and transferrred to ICU. Extubated on 02/15. Now on vapotherm (30/100%) HD #9 on 02/18 Overnight- No overnight events Vital Signs: Temp Pulse Resp BP SpO2 FiO2 98.6 F 73 24 92/57 94 100 02/18/19 07:43 02/18/19 06:01 02/18/19 06:01 02/18/19 06:01 02/18/19 06:01 02/18 07:49 Physical Exam: Gen: Patient is resting on a bed with no acute distress. HEENT: Normocephalic and atraumatic Lungs: clear with no added sounds Cardiac: Normal in rate and rhythm. S1/s2 heard with no murmur Abdomen: soft, nondistended and nontender. Normal BS heard Extremities: Non-pitting edema on bilateral lower extremities; warm and dry Neuro: sleepy Fluid Balance (Past 24 Hours): I= O= Net Intake & Output 02/16/19 02/17/19 02/18/19 02/19/19 06:59 06:59 06:59 06:59 Intake Total 1195 1852 435 Output Total 2300 2470 Balance 1195 -448 -2035 Weight 107.416 kg 107 kg 105.5 kg Intake: IV Fluids 227 77 255 NS (0.9%) 227 77 Valproic Acid 255 IVPB 873 565 ABX - VANCOMYCIN 641 269 Ca gluconate 64 Valproic Acid 232 232 Medicated IV 95 CC - Propofol/Diprivan 95 Oral 1210 180 Output: Urine 2300 Ross 1370 Residual 1100 Ross 16 Fr Temperature 1100 Probe Other: Estimated Void Medium Large # Voids 2 1 Labs: Laboratory Results - last 24 hr 02/17/19 02/17/19 02/17/19 08:14 13:40 13:43 WBC RBC Hgb Hct MCV MCH MCHC RDW Plt Count MPV Patient Temperature ABG pH ABG pH (Temp Correct) ABG pCO2 ABG pCO2 (Temp Corrct ABG pO2 ABG pO2 (Temp Correct ABG HCO3 ABG O2 Saturation ABG Base Excess Respiration Rate O2 Delivery Device Ventilator Type Vent Mode FiO2 Inspiratory Time PEEP Pressure Support Pressure Control EPAP IPAP BiPAP Sodium Potassium Chloride Carbon Dioxide Anion Gap BUN Creatinine Est GFR ( Amer) Est GFR (Non-Af Amer) BUN/Creatinine Ratio Glucose POC Glucose (mg/dL) 216 H 186 H Calcium Magnesium Urine Color Straw Urine Appearance Clear Urine pH 8.0 Ur Specific [place] 1.006 L Urine Protein Negative Urine Ketones Negative Urine Blood 1+ A Urine Nitrate Negative Urine Bilirubin Negative Urine Urobilinogen Negative Ur Leukocyte Esterase Trace A Urine WBC (Auto) Trace(0-5/hpf) Urine RBC (Auto) 1+(3-5/hpf) A Urine Bacteria 1+ A Urine Glucose 1+(50 mg/dl) A 02/17/19 02/17/19 02/18/19 17:23 22:08 04:09 WBC 7.1 RBC 4.87 Hgb 12.6 L Hct 40 L MCV 81 MCH 26 L MCHC 32 RDW 19 H Plt Count 201 MPV 8.0 Patient Temperature ABG pH ABG pH (Temp Correct) ABG pCO2 ABG pCO2 (Temp Corrct ABG pO2 ABG pO2 (Temp Correct ABG HCO3 ABG O2 Saturation ABG Base Excess Respiration Rate O2 Delivery Device Ventilator Type Vent Mode FiO2 Inspiratory Time PEEP Pressure Support Pressure Control EPAP IPAP BiPAP Sodium Potassium Chloride Carbon Dioxide Anion Gap BUN Creatinine Est GFR ( Amer) Est GFR (Non-Af Amer) BUN/Creatinine Ratio Glucose POC Glucose (mg/dL) 171 H 236 H Calcium Magnesium Urine Color Urine Appearance Urine pH Ur Specific [place] Urine Protein Urine Ketones Urine Blood Urine Nitrate Urine Bilirubin Urine Urobilinogen Ur Leukocyte Esterase Urine WBC (Auto) Urine RBC (Auto) Urine Bacteria Urine Glucose 02/18/19 02/18/19 04:09 06:30 WBC RBC Hgb Hct MCV MCH MCHC RDW Plt Count MPV Patient Temperature Not Reportable ABG pH 7.33 L ABG pH (Temp Correct) Not Reportable ABG pCO2 63 H ABG pCO2 (Temp Corrct Not Reportable ABG pO2 80 ABG pO2 (Temp Correct Not Reportable ABG HCO3 29.0 ABG O2 Saturation 97.3 ABG Base Excess 5.3 H Respiration Rate Not Reportable O2 Delivery Device vapotherm Ventilator Type Not Reportable Vent Mode Not Reportable FiO2 100 Inspiratory Time Not Reportable PEEP Not Reportable Pressure Support Not Reportable Pressure Control Not Reportable EPAP Not Reportable IPAP Not Reportable BiPAP Not Reportable Sodium 143 Potassium 3.7 Chloride 109 Carbon Dioxide 29 Anion Gap 5 BUN 19 Creatinine 0.66 L Est GFR ( Amer) 145.7 Est GFR (Non-Af Amer) 120.4 BUN/Creatinine Ratio 28.8 H Glucose 161 H POC Glucose (mg/dL) Calcium 8.6 Magnesium 2.1 Urine Color Urine Appearance Urine pH Ur Specific [place] Urine Protein Urine Ketones Urine Blood Urine Nitrate Urine Bilirubin Urine Urobilinogen Ur Leukocyte Esterase Urine WBC (Auto) Urine RBC (Auto) Urine Bacteria Urine Glucose Studies: 02/17 CXR - right pleural effusion with underlying right basilar atelectasis or infiltrate unchanged from prior. 02/16 CXR - cardiomegaly, low lung volumes, small right pleural effusion, bibasilar atelectasis or consolidation 02/12 CXR - small bilateral pleural effusions and bibasilar infiltrates, unchanged 02/11 CXR - cardiomegaly, bibailar atelectasis. 02/10 CXR - low lung volumes, bibasilar infiltrates with slight progression 02/09 CTA chest - No PE. Mild bibasilar subsegmental atelectasis 02/09 CT brain - NAD. chronic microvascular ischemic changes. 02/09 CXR - low lung volumes, small bibasilar infiltrtates and small right pleural effusion. Nutrition: Pureed diet with nectar thickened liquids. Impression: 68 M [facility] resident with PMH of COPD, T2DM, Schizoaffective disorder, RLE DVT presented with altered mental status and possible cardiac arrest(ROSC after CPR). Found to have hypoxia with hypercarbia, tachycardia, hyperglycemia, leucocytosis, lactic acidosis and elevated troponin. Intubated in ED and transferrred to ICU. Extubated on 02/15 and with ongoing vapotherm requirements. Diuresing. Plan: Hospital Diagnosis 1. Acute hypoxemic respiratory failure with hypercapnia 2. Acute COPD exacerbation 3. Chronic DVT Cardiovascular: (1) hx of hypercholesterolemia; (2) Essential hypertension -- HR 74-98 -- SBP 89-160 -- Telemetry -- Echo 02/12: Normal with EF of 55-60% and normal LA -- Atorvastatin -- PRN Labetalol for goal SBP < 160 -- Rivaroxaban --lasix Home meds: Lipitor Pulmonary: (1) COPD; (2) Right pleural effusions -- RR 17-39 -- sats 85-98 on vapotherm, 100% and 30 LPM -- extubated on 02/15 -- CXR: right pleural effusion -- Duoneb PRN -- Morphine prn for shortness of breath Home: Incruse Ellipta, Advair Gastrointestinal: (1) Hx of GERD -- diet: Puree with nectar thickened liquids -- bowel regimen: Senna -- ulcer prophylaxis: famotidine daily Home meds: None Endocrine: (1) Insulin dependent Diabetes -- monitor BGs -- Continue insulin lispro Home meds: Insulin Glargine and regular insulin and glipizide Renal: (1) Hypervolemia; (2) Hypocalcemia -- UOP: 96 ml/hr -- Cr 0.66 from 0.7 -- Lytes Na 143 from 145 K 3.7 Ca 8.6 Mag 2.1 -- IVF: None -- Diamox --lasix IV Home meds: None Infectious disease:No acute issues -- Tmax 98.6 -- WBC 7.1 from 7.9 -- Micro / UA urine blood, bacteria and glucose present 02/16 Blood NGTD UA equivocal, yeast 02/12 Urine negative 02/11 Legionella negative 02/10 blood negative 02/10 sputum MRSA 02/09 MRSA negative -- ABX Full course of Vanco and Zosyn completed Home meds: None Neurologic:(1) Acute encephalopathy; (2) Schizoaffective disorder -- PRN Tylenol -- PRN Haldol for agitation Home meds: Depakote, Abilify and haloperidol Hematological:(1) Chronic DVT -- Hgb 12.6 from 13.0 -- Plt 201 form 211 -- Continue Xarelto 20 mg daily Home meds: Xarelto Metabolic: No acute issues Home meds: None Other: (1) Spinal stenosis -- pain control Home meds: Gabapentin Deep vein thrombosis prophylaxis: on therapeutic Xarelto- has chronic DVT Dietary: Not indicated at this time Condition: critical Prognosis: guarded Code status: DNR/DNI Disposition:continue ICU care. He is from [facility] Critical [facility] Time spent in the care of this patient (excluding any procedure time): at least 60 minutes. Patient care included clinical interview (with patient and/or family), bedside exam of the patient, review of labs, x-rays, and other ancillary data, coordination of (respiratory, nursing care, review of patient's records, discussion regarding patients management with involved consultants, primary physician, pharmacists, and other healthcare personnel (dietary, case management , physical/occupational therapy etc.) Critical Care Time: 60
[2019-02-18] MEDS: Furosemide IV* 10 MG/ML VIAL (40 MG) IV SLOW PU SCH ×2 (09:33→10:12)
[2019-02-18] MEDS: SPIRIVA Respimat* (tiotropium) 2.5 mcg/inh Inhaler INH SCH (09:37)
[2019-02-18] MEDS: Mometasone/Formoter 100/5 MDI INH SCH (09:37)
[2019-02-18] MEDS: Insulin LISPRO* 1 UNITS UNIT SUBCUT SCH ×4 (10:12→20:19)
[2019-02-18] MEDS: Hydrocortisone 1% CREAM* 30 GM TUBE TOPICAL SCH ×2 (10:13→19:39)
[2019-02-18] MEDS: Valproic Acid IV(*) 500 MG in NS 0.9% 100 ML* 100 ML IVPB SCH ×2 (10:13→19:44)
[2019-02-18] MEDS: Senna TAB 8.6 mg* TAB PO SCH (10:24)
[2019-02-18] MEDS: ARIPiprazole TAB* 5 MG PO SCH (10:24)
[2019-02-18] MEDS: Gabapentin CAP(*) 100 MG PO SCH ×3 (10:24→19:39)
[2019-02-18] MEDS: Famotidine TAB* 20 MG PO SCH (10:24)
[2019-02-18] MEDS: Magnesium Oxide TAB* 400 MG PO SCH (10:24)
[2019-02-18] MEDS: Nystatin SUSPENSION* 100000 UNITS/ML 5 ML UDC PO SCH ×4 (10:24→19:39)
[2019-02-18] MEDS ORDERED: Furosemide IV* 10 MG/ML VIAL (40 MG) IV SLOW PU ONE (16:53)
[2019-02-18] MEDS: Rivaroxaban TAB(*) 20 MG TAB PO SCH (17:50)
[2019-02-18] MEDS: Melatonin 3 MG TAB PO SCH (19:39)
[2019-02-18] MEDS: Atorvastatin* 10 MG TAB PO SCH (21:00)
[2019-02-19 06:01] LABS: Hematocrit 40 % (42-52); Hemoglobin 12.8 g/dL (14.0-18.0); Mean Corpuscular HGB Conc 32 g/dL (31-36); Mean Corpuscular Hemoglobin 26 pg (27-31); Mean Corpuscular Volume 81 fL (80-94); Platelet Count 194 10^3/uL (150-450); Red Blood Count 4.96 10^6 /uL (4.18-5.48); Red Cell Distribution Width 19 % (10-15); White Blood Count 6.5 10^3/uL (3.5-10.8)
[2019-02-19 06:19] LABS: BUN/Creatinine Ratio 29.3 (8-20); Calcium 8.6 mg/dL (8.6-10.3); EGFR African American 169.1 (>60); EGFR Non-African American 139.7 (>60); Magnesium 1.9 mg/dL (1.9-2.7); Potassium 3.9 mmol/L (3.5-5.0)
[2019-02-19] MEDS: Mometasone/Formoter 100/5 MDI INH SCH ×3 (06:31→20:03)
[2019-02-19] MEDS: SPIRIVA Respimat* (tiotropium) 2.5 mcg/inh Inhaler INH SCH (06:59)
[2019-02-19] MEDS ORDERED: Furosemide IV* 10 MG/ML VIAL (40 MG) IV SLOW PU SCH (09:00)
[2019-02-19] MEDS: Valproic Acid IV(*) 500 MG in NS 0.9% 100 ML* 100 ML IVPB SCH (09:30)
[2019-02-19] MEDS: Famotidine TAB* 20 MG PO SCH (09:41)
[2019-02-19] MEDS: Magnesium Oxide TAB* 400 MG PO SCH (09:42)
[2019-02-19] MEDS: ARIPiprazole TAB* 5 MG PO SCH (09:43)
[2019-02-19] MEDS: Senna TAB 8.6 mg* TAB PO SCH (09:44)
[2019-02-19] MEDS: Nystatin SUSPENSION* 100000 UNITS/ML 5 ML UDC PO SCH ×4 (09:46→21:19)
[2019-02-19] MEDS: Gabapentin CAP(*) 100 MG PO SCH ×3 (09:46→21:20)
[2019-02-19] MEDS: Insulin LISPRO* 1 UNITS UNIT SUBCUT SCH ×4 (09:48→21:18)
[2019-02-19] MEDS: Hydrocortisone 1% CREAM* 30 GM TUBE TOPICAL SCH ×2 (09:50→21:28)
[2019-02-19] MEDS ORDERED: Furosemide IV* 10 MG/ML VIAL (40 MG) IV ONE (09:53)
--- NOTE | 2019-02-19 11:37 | PN ---
<Ginna Wolf - Last Filed: 02/19/19 14:20> Date of Service: 02/19/19 Critical Care Services: 68 M [facility] resident with PMH of COPD, T2DM, Schizoaffective disorder, RLE DVT presented with altered mental status and possible cardiac arrest(ROSC after CPR). Found to have hypoxia with hypercarbia, tachycardia, hyperglycemia, leucocytosis, lactic acidosis and elevated troponin. Intubated in ED and transferrred to ICU. Extubated on 02/15. switched to salter 10 L on 02/19 HD #10 on 02/19 Overnight- No overnight events Patient looks far better today. He is asking when he can go home. Communicating well. Saturating well on salter. OBB activity today last BM on 02/11-added milk of magnesia; already on senna Vital Signs: Temp Pulse Resp BP SpO2 FiO2 97.9 F 98 27 142/78 93 60 02/19/19 07:52 02/19/19 10:02 02/19/19 10:02 02/19/19 10:02 02/19/19 10:02 02/19 08:00 Physical Exam: Gen: Resting on a bed with no acute distress HEENT: Intact Lungs: Clear with no added sound Cardiac: RRR Abdomen:Soft nondistended and nontender. Normal bs heard Extremities: swelling on both LE Neuro: alert and oriented Fluid Balance (Past 24 Hours): I= O= Net Intake & Output 02/17/19 02/18/19 02/19/19 02/20/19 06:59 06:59 06:59 06:59 Intake Total 9239 324 2135 Output Total 2300 2470 4927 915 Balance -448 -2035 -3235 -915 Weight 107 kg 105.5 kg 101.3 kg Intake: IV Fluids 77 255 54 NS (0.9%) 77 20 Valproic Acid 255 34 IVPB 565 248 ABX - VANCOMYCIN 269 Ca gluconate 64 NS (0.9%) 43 Valproic Acid 232 205 Oral 9316 115 6695 Output: Urine 2300 Ross 1370 4927 915 Residual 1100 Ross 16 Fr Temperature 1100 Probe Other: Estimated Void Large # Voids 1 Labs: Laboratory Results - last 24 hr 02/16/19 02/18/19 02/18/19 10:55 12:08 17:11 WBC RBC Hgb Hct MCV MCH MCHC RDW Plt Count MPV Sodium Potassium Chloride Carbon Dioxide Anion Gap BUN Creatinine Est GFR ( Amer) Est GFR (Non-Af Amer) BUN/Creatinine Ratio Glucose POC Glucose (mg/dL) 272 H 205 H Calcium Magnesium Urine Color Yellow Urine Appearance Cloudy Urine pH 6.0 Ur Specific [place] 1.012 Urine Protein Negative Urine Ketones 1+ A Urine Blood 1+ A Urine Nitrate Negative Urine Bilirubin Negative Urine Urobilinogen Negative Ur Leukocyte Esterase 3+ A Urine WBC (Auto) 3+(>20/hpf) A Urine RBC (Auto) 3+(>10/hpf) A Ur Squamous Epith Cells Present A Urine Bacteria Absent Urine Yeast Present A Urine Glucose 1+(50 mg/dl) A 02/18/19 02/19/19 02/19/19 19:49 05:40 05:40 WBC 6.5 RBC 4.96 Hgb 12.8 L Hct 40 L MCV 81 MCH 26 L MCHC 32 RDW 19 H Plt Count 194 MPV 8.0 Sodium 143 Potassium 3.9 Chloride 106 Carbon Dioxide 34 H Anion Gap 3 BUN 17 Creatinine 0.58 L Est GFR ( Amer) 169.1 Est GFR (Non-Af Amer) 139.7 BUN/Creatinine Ratio 29.3 H Glucose 191 H POC Glucose (mg/dL) 264 H Calcium 8.6 Magnesium 1.9 Urine Color Urine Appearance Urine pH Ur Specific [place] Urine Protein Urine Ketones Urine Blood Urine Nitrate Urine Bilirubin Urine Urobilinogen Ur Leukocyte Esterase Urine WBC (Auto) Urine RBC (Auto) Ur Squamous Epith Cells Urine Bacteria Urine Yeast Urine Glucose Studies: 02/18 CXR- low lung volumes, increased alveolar opacities bilaterally, small right pleural effusion unchanged. 02/17 CXR - right pleural effusion with underlying right basilar atelectasis or infiltrate unchanged from prior. 02/16 CXR - cardiomegaly, low lung volumes, small right pleural effusion, bibasilar atelectasis or consolidation 02/12 CXR - small bilateral pleural effusions and bibasilar infiltrates, unchanged 02/11 CXR - cardiomegaly, bibailar atelectasis. 02/10 CXR - low lung volumes, bibasilar infiltrates with slight progression 02/09 CTA chest - No PE. Mild bibasilar subsegmental atelectasis 02/09 CT brain - NAD. chronic microvascular ischemic changes. 02/09 CXR - low lung volumes, small bibasilar infiltrtates and small right pleural effusion. Nutrition: [place] thickened, pureed Impression: 68 M [facility] resident with PMH of COPD, T2DM, Schizoaffective disorder, RLE DVT presented with altered mental status and possible cardiac arrest(ROSC after CPR). Found to have hypoxia with hypercarbia, tachycardia, hyperglycemia, leucocytosis, lactic acidosis and elevated troponin. Intubated in ED and transferrred to ICU. Extubated on 02/15. switched to 10 L of salter. Diuresing Plan: Hospital Diagnosis 1. Acute hypoxemic respiratory failure with hypercapnia 2. Acute COPD exacerbation 3. Chronic DVT Cardiovascular: (1) hx of hypercholesterolemia; (2) Essential hypertension -- HR 82-100 -- SBP 107-153 -- Telemetry -- Echo 02/12: Normal with EF of 55-60% and normal LA -- Atorvastatin -- PRN Labetalol for goal SBP < 160 -- Rivaroxaban --Increased lasix to 40 mg IV BID --Net negative of 3.2 Home meds: Lipitor Pulmonary: (1) COPD; (2) Right pleural effusion -- RR 19-40 -- sats 90-96% on 10 L salter; if patient does well then can go to floors -- extubated on 02/15 -- CXR: right pleural effusion; diuresing -- Duoneb PRN -- Morphine prn for shortness of breath --lasix 40 mg BID Home: [facility] Gastrointestinal: (1) Hx of GERD -- diet: Puree with nectar thickened liquids -- bowel regimen: Senna; added Milk of magnesia -- ulcer prophylaxis: famotidine daily Home meds: None Endocrine: (1) Insulin dependent Diabetes -- monitor BGs -- Continue insulin lispro Home meds: Insulin Glargine and regular insulin and glipizide Renal: (1) Hypervolemia; (2) Hypocalcemia -- UOP: 96 ml/hr -- Cr 0.66 from 0.7 -- Lytes Na 143 K 3.9 Ca 8.6 Mag 1.9; on Magnesium oxide -- IVF: None -- Diamox --lasix IV Home meds: None Infectious disease:No acute issues -- Tmax 98.6 -- WBC 7.1 from 7.9 -- Micro 02/17 UA urine blood, bacteria and glucose present 02/16 Blood NGTD UA equivocal, yeast 02/12 Urine negative 02/11 Legionella negative 02/10 blood negative 02/10 sputum MRSA 02/09 MRSA negative -- ABX Full course of Vanco and Zosyn completed Home meds: None Neurologic:(1) Acute encephalopathy; (2) Schizoaffective disorder -- PRN Tylenol -- PRN Haldol for agitation Home meds: Depakote, Abilify and haloperidol Hematological:(1) Chronic DVT -- Hgb 12.8 from 12.6 -- Plt 194 from 201 -- Continue Xarelto 20 mg daily Home meds: Xarelto Metabolic: No acute issues Home meds: None Other: (1) Spinal stenosis -- pain control Home meds: Gabapentin Deep vein thrombosis prophylaxis: on therapeutic Xarelto- has chronic DVT Dietary: Not indicated at this time Condition: critical Prognosis: guarded Code status: DNR/DNI Disposition:continue ICU care. He is from [facility] Critical Care Time spent in the care of this patient (excluding any procedure time): at least 60 minutes. Patient care included clinical interview (with patient and/or family), bedside exam of the patient, review of labs, x-rays, and other ancillary data, coordination of (respiratory, nursing care, review of patient's records, discussion regarding patients management with involved consultants, primary physician, pharmacists, and other healthcare personnel (dietary, case management , physical/occupational therapy etc.) Critical Care Time: 60 Plan: Critical Care Time: <Chauncey Rosas - Last Filed: 02/19/19 14:50> Vital Signs: Temp Pulse Resp BP SpO2 FiO2 36.7 C 99 30 153/88 93 60 02/19/19 11:49 02/19/19 13:00 02/19/19 13:00 02/19/19 13:00 02/19/19 13:02/19 08:00 Physical Exam: Gen: HEENT: Lungs: Cardiac: Abdomen: Extremities: Neuro: Fluid Balance (Past 24 Hours): I= O= Net Intake & Output 02/17/19 02/18/19 02/19/1902/20/20 06:59 06:59 06:59 06:59 Intake Total 1553 104 2803 600 Output Total 2300 2470 4927 1925 Balance -283 -2345 -1929 -1326 Weight 107 kg 105.5 kg 101.3 kg Intake: IV Fluids 77 255 54 NS (0.9%) 77 20 Valproic Acid 255 34 IVPB 565 248 ABX - VANCOMYCIN 269 Ca gluconate 64 NS (0.9%) 43 Valproic Acid 232 205 Oral 7239 508 4566 600 Output: Urine 2300 Ross 1370 4927 1925 Residual 1100 Ross 16 Fr Temperature 1100 Probe Other: Estimated Void Large # Voids 1 0 Labs: Laboratory Results - last 24 hr 02/16/19 02/18/19 02/18/19 10:55 17:11 19:49 WBC RBC Hgb Hct MCV MCH MCHC RDW Plt Count MPV Sodium Potassium Chloride Carbon Dioxide Anion Gap BUN Creatinine Est GFR ( Amer) Est GFR (Non-Af Amer) BUN/Creatinine Ratio Glucose POC Glucose (mg/dL) 205 H 264 H Calcium Magnesium Urine Color Yellow Urine Appearance Cloudy Urine pH 6.0 Ur Specific [place] 1.012 Urine Protein Negative Urine Ketones 1+ A Urine Blood 1+ A Urine Nitrate Negative Urine Bilirubin Negative Urine Urobilinogen Negative Ur Leukocyte Esterase 3+ A Urine WBC (Auto) 3+(>20/hpf) A Urine RBC (Auto) 3+(>10/hpf) A Ur Squamous Epith Cells Present A Urine Bacteria Absent Urine Yeast Present A Urine Glucose 1+(50 mg/dl) A 02/19/19 02/19/19 02/19/19 05:40 05:40 12:12 WBC 6.5 RBC 4.96 Hgb 12.8 L Hct 40 L MCV 81 MCH 26 L MCHC 32 RDW 19 H Plt Count 194 MPV 8.0 Sodium 143 Potassium 3.9 Chloride 106 Carbon Dioxide 34 H Anion Gap 3 BUN 17 Creatinine 0.58 L Est GFR ( Amer) 169.1 Est GFR (Non-Af Amer) 139.7 BUN/Creatinine Ratio 29.3 H Glucose 191 H POC Glucose (mg/dL) 295 H Calcium 8.6 Magnesium 1.9 Urine Color Urine Appearance Urine pH Ur Specific [place] Urine Protein Urine Ketones Urine Blood Urine Nitrate Urine Bilirubin Urine Urobilinogen Ur Leukocyte Esterase Urine WBC (Auto) Urine RBC (Auto) Ur Squamous Epith Cells Urine Bacteria Urine Yeast Urine Glucose Plan: Exam and CXR still consistent with hypervolemia. Continue diuretic therapy and increase to BID with negative balance 5 liters last 48hrs and renal indices remain normal with BP still on the high side. HFNC weaned to [place] early this AM. Let's see him OOB to chair and if he tolerates that we can look at transfer to the floor. Vastly improved overall, anxious to be discharged.
[2019-02-19] MEDS: Magnesium Hydroxide LIQ* 30 ML UDC PO SCH ×2 (12:06→21:19)
[2019-02-19 17:54] LABS: BUN/Creatinine Ratio 28.3 (8-20); Calcium 8.4 mg/dL (8.6-10.3); EGFR African American 162.6 (>60); EGFR Non-African American 134.4 (>60); Globulin 2.9 g/dL (2-4); Total Bilirubin 0.3 mg/dL (0.2-1.0); Total Protein 5.9 g/dL (6.4-8.9)
[2019-02-19] MEDS: Lactulose* 15 ML UDC PO SCH ×2 (18:35→21:19)
[2019-02-19] MEDS: Furosemide IV* 10 MG/ML VIAL (40 MG) IV SLOW PU SCH ×2 (18:36→19:43)
[2019-02-19] MEDS: Rivaroxaban TAB(*) 20 MG TAB PO SCH (18:38)
[2019-02-19] MEDS: Divalproex Sprinkle CAP* 125 MG PO SCH (21:20)
[2019-02-19] MEDS: Melatonin 3 MG TAB PO SCH (21:20)
[2019-02-19] MEDS: Atorvastatin* 10 MG TAB PO SCH (21:20)
[2019-02-20 04:30] LABS: ABS Basophils 0.1 10^3/ul (0-0.2); ABS Eosinophils 0.1 10^3/ul (0-0.6); ABS Lymphocytes 1.3 10^3/ul (1.0-4.8); ABS Monocytes 0.9 10^3/ul (0-0.8); ABS Neutrophils 4.3 10^3/ul (1.5-7.7); Hematocrit 42 % (42-52); Hemoglobin 13.5 g/dL (14.0-18.0); Lymphocyte % 18.7 %; Mean Corpuscular HGB Conc 32 g/dL (31-36); Mean Corpuscular Hemoglobin 26 pg (27-31); Mean Corpuscular Volume 81 fL (80-94); Mean Platelet Volume 7.8 fL (7.4-10.4); Platelet Count 220 10^3/uL (150-450); Red Blood Count 5.19 10^6 /uL (4.18-5.48); Red Cell Distribution Width 19 % (10-15); White Blood Count 6.7 10^3/uL (3.5-10.8)
[2019-02-20 04:46] LABS: BUN/Creatinine Ratio 29.3 (8-20); Calcium 8.7 mg/dL (8.6-10.3); EGFR African American 169.1 (>60); EGFR Non-African American 139.7 (>60)
[2019-02-20] MEDS: SPIRIVA Respimat* (tiotropium) 2.5 mcg/inh Inhaler INH SCH (07:48)
[2019-02-20] MEDS: Mometasone/Formoter 100/5 MDI INH SCH ×3 (07:48→19:17)
[2019-02-20] MEDS: Furosemide IV* 10 MG/ML VIAL (40 MG) IV SLOW PU SCH ×3 (07:59→21:02)
[2019-02-20] MEDS: Magnesium Hydroxide LIQ* 30 ML UDC PO SCH ×2 (07:59→21:01)
[2019-02-20] MEDS: Nystatin SUSPENSION* 100000 UNITS/ML 5 ML UDC PO SCH ×4 (07:59→21:01)
[2019-02-20] MEDS: Insulin LISPRO* 1 UNITS UNIT SUBCUT SCH ×4 (07:59→21:25)
[2019-02-20] MEDS: Divalproex Sprinkle CAP* 125 MG PO SCH ×2 (08:00→21:00)
[2019-02-20] MEDS: Magnesium Oxide TAB* 400 MG PO SCH (08:00)
[2019-02-20] MEDS: Gabapentin CAP(*) 100 MG PO SCH ×3 (08:00→21:00)
[2019-02-20] MEDS: ARIPiprazole TAB* 5 MG PO SCH (08:00)
[2019-02-20] MEDS: Famotidine TAB* 20 MG PO SCH (08:00)
[2019-02-20] MEDS: Lactulose* 15 ML UDC PO SCH ×3 (08:00→21:01)
[2019-02-20] MEDS: Hydrocortisone 1% CREAM* 30 GM TUBE TOPICAL SCH ×2 (09:13→21:02)
--- NOTE | 2019-02-20 11:32 | PN ---
<LinusgraceRebecabolivar - Last Filed: 02/20/19 11:26> Date of Service: 02/20/19 Critical Care Services: 68 M [facility] resident with PMH of COPD, T2DM, Schizoaffective disorder, RLE DVT presented with altered mental status and possible cardiac arrest(ROSC after CPR). Found to have hypoxia with hypercarbia, tachycardia, hyperglycemia, leucocytosis, lactic acidosis and elevated troponin. Intubated in ED and transferrred to ICU. Extubated on 02/15. switched to salter 10 L on 02/19 HD #11 on 02/20 Overnight- patient desated so switched to vapotherm Patient doing fine. sitting on a chair last BM on 02/11-added milk of magnesia and lactulose yesterday on vapotherm- Vital Signs: Temp Pulse Resp BP SpO2 FiO2 98.6 F 88 29 107/61 96 80 02/20/19 07:39 02/20/19 10:00 02/20/19 10:00 02/20/19 10:00 02/20/19 10:00 02/20 08:00 Physical Exam: Gen: sitting on a chair with no acute distress. HEENT: Nasal [place]; vapotherm Lungs:clear with no added sounds Cardiac: RRR Abdomen: soft, nondistended and nontender Extremities: Nonpitting BLE edema ; R>L Neuro: drowsy Fluid Balance (Past 24 Hours): I= O= Net Intake & Output 02/18/19 02/19/19 02/20/19 02/21/19 06:59 06:59 06:59 06:59 Intake Total 435 1692 977 Output Total 2470 4927 4190 630 Balance -2035 -3235 -3213 -630 Weight 105.5 kg 101.3 kg 101.009 kg Intake: IV Fluids 255 54 17 NS (0.9%) 20 17 Valproic Acid 255 34 IVPB 248 120 NS (0.9%) 43 Valproic Acid 205 120 Oral 180 1390 840 Output: Ross 1370 4927 4190 630 Residual 1100 Ross 16 Fr Temperature 1100 Probe Other: # Voids 0 Labs: Laboratory Results - last 24 hr 02/19/19 02/19/19 02/19/19 08:48 12:12 17:28 WBC RBC Hgb Hct MCV MCH MCHC RDW Plt Count MPV Neut % (Auto) Lymph % (Auto) [place] % (Auto) Eos % (Auto) Baso % (Auto) Absolute Neuts (auto) Absolute Lymphs (auto) Absolute Monos (auto) Absolute Eos (auto) Absolute Basos (auto) Absolute Nucleated RBC Nucleated RBC % Sodium 144 Potassium 4.0 Chloride 104 Carbon Dioxide 39 H Anion Gap 1 L BUN 17 Creatinine 0.60 L Est GFR ( Amer) 162.6 Est GFR (Non-Af Amer) 134.4 BUN/Creatinine Ratio 28.3 H Glucose 266 H POC Glucose (mg/dL) 181 H 295 H Calcium 8.4 L Magnesium 2.0 Total Bilirubin 0.30 AST 13 ALT 12 Alkaline Phosphatase 51 Total Protein 5.9 L Albumin 3.0 L Globulin 2.9 Albumin/Globulin Ratio 1.0 02/19/19 02/19/19 02/20/19 17:38 20:47 04:21 WBC 6.7 RBC 5.19 Hgb 13.5 L Hct 42 MCV 81 MCH 26 L MCHC 32 RDW 19 H Plt Count 220 MPV 7.8 Neut % (Auto) 64.9 Lymph % (Auto) 18.7 [place] % (Auto) 13.4 Eos % (Auto) 2.0 Baso % (Auto) 1.0 Absolute Neuts (auto) 4.3 Absolute Lymphs (auto) 1.3 Absolute Monos (auto) 0.9 H Absolute Eos (auto) 0.1 Absolute Basos (auto) 0.1 Absolute Nucleated RBC 0.0 Nucleated RBC % 0.0 Sodium Potassium Chloride Carbon Dioxide Anion Gap BUN Creatinine Est GFR ( Amer) Est GFR (Non-Af Amer) BUN/Creatinine Ratio Glucose POC Glucose (mg/dL) 251 H 324 H Calcium Magnesium Total Bilirubin AST ALT Alkaline Phosphatase Total Protein Albumin Globulin Albumin/Globulin Ratio 02/20/19 02/20/19 04:21 07:20 WBC RBC Hgb Hct MCV MCH MCHC RDW Plt Count MPV Neut % (Auto) Lymph % (Auto) [place] % (Auto) Eos % (Auto) Baso % (Auto) Absolute Neuts (auto) Absolute Lymphs (auto) Absolute Monos (auto) Absolute Eos (auto) Absolute Basos (auto) Absolute Nucleated RBC Nucleated RBC % Sodium 145 Potassium 4.0 Chloride 103 Carbon Dioxide 39 H Anion Gap 3 BUN 17 Creatinine 0.58 L Est GFR ( Amer) 169.1 Est GFR (Non-Af Amer) 139.7 BUN/Creatinine Ratio 29.3 H Glucose 232 H POC Glucose (mg/dL) 221 H Calcium 8.7 Magnesium Total Bilirubin AST ALT Alkaline Phosphatase Total Protein Albumin Globulin Albumin/Globulin Ratio Studies: 02/20 CXR- low lung volume with vascular congestion; unchanged 02/18 CXR- low lung volumes, increased alveolar opacities bilaterally, small right pleural effusion unchanged. 02/17 CXR - right pleural effusion with underlying right basilar atelectasis or infiltrate unchanged from prior. 02/16 CXR - cardiomegaly, low lung volumes, small right pleural effusion, bibasilar atelectasis or consolidation 02/12 CXR - small bilateral pleural effusions and bibasilar infiltrates, unchanged 02/11 CXR - cardiomegaly, bibailar atelectasis. 02/10 CXR - low lung volumes, bibasilar infiltrates with slight progression 02/09 CTA chest - No PE. Mild bibasilar subsegmental atelectasis 02/09 CT brain - NAD. chronic microvascular ischemic changes. 02/09 CXR - low lung volumes, small bibasilar infiltrtates and small right pleural effusion. Nutrition: pureed, nectar thickened Impression: 68 M [facility] resident with PMH of COPD, T2DM, Schizoaffective disorder, RLE DVT presented with altered mental status and possible cardiac arrest(ROSC after CPR). Found to have hypoxia with hypercarbia, tachycardia, hyperglycemia, leucocytosis, lactic acidosis and elevated troponin. Intubated in ED and transferrred to ICU. Extubated on 02/15. On vapotherm because of hypoxia. Diuresing; lasix increased to 40 mg 8HR Plan: Hospital Diagnosis 1. Acute hypoxemic respiratory failure with hypercapnia 2. Acute COPD exacerbation 3. Chronic DVT Cardiovascular: (1) hx of hypercholesterolemia; (2) Essential hypertension -- HR 87-103 -- SBP 102-151 -- Telemetry -- Echo 02/12: Normal with EF of 55-60% and normal LA -- Atorvastatin -- PRN Labetalol for goal SBP < 160 -- Rivaroxaban --Increased lasix to 40 mg IV Q12H --Net negative of 3.2 Home meds: Lipitor Pulmonary: (1) COPD; (2) Right pleural effusion -- RR 23-32 -- sats 90-96% on vapotherm; will watch him and try to wean him to salter -- extubated on 02/15 -- CXR: right pleural effusion; diuresing -- Duoneb PRN -- Morphine prn for shortness of breath --lasix 40 mg Q8H Home: [facility] Gastrointestinal: (1) Hx of GERD -- diet: Puree with nectar thickened liquids -- bowel regimen:On Milk of magnesia and lactulose -- ulcer prophylaxis: famotidine daily Home meds: None Endocrine: (1) Insulin dependent Diabetes -- monitor BGs -- Continue insulin lispro --added insulin lantus 30 U daily; total daily requirement 24-26; but BG not controlled, 250-300 Home meds: Insulin Glargine and regular insulin and glipizide Renal: (1) Hypervolemia; (2) Hypocalcemia -- UOP: ~130 ml/hr -- Cr 0.58 from 0.66 -- Lytes Na 145 K 4.0 Ca 8.7 Mag 2.0 -- IVF: None -- Diamox --lasix IV Home meds: None Infectious disease:No acute issues -- Tmax 98.6 -- WBC 7.1 from 7.9 -- Micro 02/17 UA urine blood, bacteria and glucose present Urine culture None; jayesh on 02/16-probably contaminant 02/16 Blood NGTD UA equivocal, yeast 02/12 Urine negative 02/11 Legionella negative 02/10 blood negative 02/10 sputum MRSA 02/09 MRSA negative -- ABX Full course of Vanco and Zosyn completed Home meds: None Neurologic:(1) Acute encephalopathy; (2) Schizoaffective disorder -- PRN Tylenol -- PRN Haldol for agitation Home meds: Depakote, Abilify and haloperidol Hematological:(1) Chronic DVT -- Hgb 13.5 from 12.8 -- Plt 220 from 194 -- Continue Xarelto 20 mg daily Home meds: Xarelto Metabolic: No acute issues Home meds: None Other: (1) Spinal stenosis -- pain control Home meds: Gabapentin Deep vein thrombosis prophylaxis: on therapeutic Xarelto- has chronic DVT Dietary: Not indicated at this time Condition: critical Prognosis: guarded Code status: DNR/DNI Disposition:continue ICU care. He is from [facility] Critical Care Time spent in the care of this patient (excluding any procedure time): at least 60 minutes. Patient care included clinical interview (with patient and/or family), bedside exam of the patient, review of labs, x-rays, and other ancillary data, coordination of (respiratory, nursing care, review of patient's records, discussion regarding patients management with involved consultants, primary physician, pharmacists, and other healthcare personnel (dietary, case management , physical/occupational therapy etc.) Critical Care Time: 60 <Chauncey Rosas - Last Filed: 02/20/19 12:10> Vital Signs: Temp Pulse Resp BP SpO2 FiO2 36.7 C 88 29 107/61 96 80 02/20/19 11:32 02/20/19 10:00 02/20/19 10:00 02/20/19 10:00 02/20/19 10:00 02/20 08:00 Physical Exam: Gen: HEENT: Lungs: Cardiac: Abdomen: Extremities: Neuro: Fluid Balance (Past 24 Hours): I= O= Net Intake & Output 02/18/19 02/19/19 02/20/19 02/21/19 06:59 06:59 06:59 06:59 Intake Total 435 1692 977 Output Total 2470 4927 4190 630 Balance -2035 -3235 -3213 -630 Weight 105.5 kg 101.3 kg 101.009 kg Intake: IV Fluids 255 54 17 NS (0.9%) 20 17 Valproic Acid 255 34 IVPB 248 120 NS (0.9%) 43 Valproic Acid 205 120 Oral 180 1390 840 Output: Ross 1370 4927 4190 630 Residual 1100 Ross 16 Fr Temperature 1100 Probe Other: # Voids 0 Labs: Laboratory Results - last 24 hr 02/19/19 02/19/19 02/19/19 08:48 12:12 17:28 WBC RBC Hgb Hct MCV MCH MCHC RDW Plt Count MPV Neut % (Auto) Lymph % (Auto) [place] % (Auto) Eos % (Auto) Baso % (Auto) Absolute Neuts (auto) Absolute Lymphs (auto) Absolute Monos (auto) Absolute Eos (auto) Absolute Basos (auto) Absolute Nucleated RBC Nucleated RBC % Sodium 144 Potassium 4.0 Chloride 104 Carbon Dioxide 39 H Anion Gap 1 L BUN 17 Creatinine 0.60 L Est GFR ( Amer) 162.6 Est GFR (Non-Af Amer) 134.4 BUN/Creatinine Ratio 28.3 H Glucose 266 H POC Glucose (mg/dL) 181 H 295 H Calcium 8.4 L Magnesium 2.0 Total Bilirubin 0.30 AST 13 ALT 12 Alkaline Phosphatase 51 Total Protein 5.9 L Albumin 3.0 L Globulin 2.9 Albumin/Globulin Ratio 1.0 02/19/19 02/19/19 02/20/19 17:38 20:47 04:21 WBC 6.7 RBC 5.19 Hgb 13.5 L Hct 42 MCV 81 MCH 26 L MCHC 32 RDW 19 H Plt Count 220 MPV 7.8 Neut % (Auto) 64.9 Lymph % (Auto) 18.7 [place] % (Auto) 13.4 Eos % (Auto) 2.0 Baso % (Auto) 1.0 Absolute Neuts (auto) 4.3 Absolute Lymphs (auto) 1.3 Absolute Monos (auto) 0.9 H Absolute Eos (auto) 0.1 Absolute Basos (auto) 0.1 Absolute Nucleated RBC 0.0 Nucleated RBC % 0.0 Sodium Potassium Chloride Carbon Dioxide Anion Gap BUN Creatinine Est GFR ( Amer) Est GFR (Non-Af Amer) BUN/Creatinine Ratio Glucose POC Glucose (mg/dL) 251 H 324 H Calcium Magnesium Total Bilirubin AST ALT Alkaline Phosphatase Total Protein Albumin Globulin Albumin/Globulin Ratio 02/20/19 02/20/19 04:21 07:20 WBC RBC Hgb Hct MCV MCH MCHC RDW Plt Count MPV Neut % (Auto) Lymph % (Auto) [place] % (Auto) Eos % (Auto) Baso % (Auto) Absolute Neuts (auto) Absolute Lymphs (auto) Absolute Monos (auto) Absolute Eos (auto) Absolute Basos (auto) Absolute Nucleated RBC Nucleated RBC % Sodium 145 Potassium 4.0 Chloride 103 Carbon Dioxide 39 H Anion Gap 3 BUN 17 Creatinine 0.58 L Est GFR ( Amer) 169.1 Est GFR (Non-Af Amer) 139.7 BUN/Creatinine Ratio 29.3 H Glucose 232 H POC Glucose (mg/dL) 221 H Calcium 8.7 Magnesium Total Bilirubin AST ALT Alkaline Phosphatase Total Protein Albumin Globulin Albumin/Globulin Ratio Plan: Negative balance 9 liters last 72 hrs. Renal indices remain normal. BP acceptable as well. Will increase diuretic today to Q8H with CXR and exam still showing excess water. Was back on HFNC overnight. He's back to [place] right now but at 15lpm, certainly still has water to give up. This service has been performed in part by a resident under the direction of a teaching physician. I, Chauncey Rosas, performed the service, or was physically present during the critical, or jarvis portions of the service, furnished by the resident. I participated in the management of the patient.
[2019-02-20] MEDS: Insulin GLARGINE(*) 1 UNITS UNIT SUBCUT SCH (13:02)
[2019-02-20] MEDS: Rivaroxaban TAB(*) 20 MG TAB PO SCH (17:14)
[2019-02-20] MEDS: Atorvastatin* 10 MG TAB PO SCH (21:00)
[2019-02-20] MEDS: Melatonin 3 MG TAB PO SCH (21:01)
[2019-02-21 04:23] LABS: ABS Basophils 0.1 10^3/ul (0-0.2); ABS Eosinophils 0.2 10^3/ul (0-0.6); ABS Lymphocytes 1.5 10^3/ul (1.0-4.8); ABS Neutrophils 5.2 10^3/ul (1.5-7.7); Eosinophil % 2.2 %; Hematocrit 43 % (42-52); Hemoglobin 13.8 g/dL (14.0-18.0); Lymphocyte % 18.6 %; Mean Corpuscular HGB Conc 32 g/dL (31-36); Mean Corpuscular Hemoglobin 26 pg (27-31); Mean Corpuscular Volume 81 fL (80-94); Mean Platelet Volume 7.8 fL (7.4-10.4); Platelet Count 215 10^3/uL (150-450); Red Cell Distribution Width 19 % (10-15); White Blood Count 8.1 10^3/uL (3.5-10.8)
[2019-02-21 04:37] LABS: BUN/Creatinine Ratio 34.5 (8-20); Calcium 8.9 mg/dL (8.6-10.3); EGFR African American 179.8 (>60); EGFR Non-African American 148.6 (>60); Potassium 3.9 mmol/L (3.5-5.0)
[2019-02-21] MEDS: Furosemide IV* 10 MG/ML VIAL (40 MG) IV SLOW PU SCH ×3 (07:14→22:17)
[2019-02-21] MEDS: Hydrocortisone 1% CREAM* 30 GM TUBE TOPICAL SCH ×2 (07:55→20:11)
[2019-02-21] MEDS: SPIRIVA Respimat* (tiotropium) 2.5 mcg/inh Inhaler INH SCH (08:27)
[2019-02-21] MEDS: Mometasone/Formoter 100/5 MDI INH SCH ×2 (08:27→19:24)
[2019-02-21] MEDS: Insulin LISPRO* 1 UNITS UNIT SUBCUT SCH ×4 (08:59→20:29)
[2019-02-21] MEDS: ARIPiprazole TAB* 5 MG PO SCH (09:00)
[2019-02-21] MEDS: Magnesium Oxide TAB* 400 MG PO SCH (09:01)
[2019-02-21] MEDS: Famotidine TAB* 20 MG PO SCH (09:01)
[2019-02-21] MEDS: Gabapentin CAP(*) 100 MG PO SCH ×3 (09:02→20:10)
[2019-02-21] MEDS: Nystatin SUSPENSION* 100000 UNITS/ML 5 ML UDC PO SCH ×4 (09:04→20:10)
[2019-02-21] MEDS: Divalproex Sprinkle CAP* 125 MG PO SCH ×2 (09:06→20:10)
[2019-02-21] MEDS: Lactulose* 15 ML UDC PO SCH ×3 (09:08→20:10)
[2019-02-21] MEDS: Magnesium Hydroxide LIQ* 30 ML UDC PO SCH (09:09)
[2019-02-21] MEDS ORDERED: Magnesium CITRATE* 300 ML BTL PO ONE (10:23)
[2019-02-21] MEDS: Insulin GLARGINE(*) 1 UNITS UNIT SUBCUT SCH (13:16)
[2019-02-21] MEDS ORDERED: acetaZOLAMIDE TAB* 250 MG PO ONE ×2 (14:44→17:30)
--- NOTE | 2019-02-21 14:50 | PN ---
<Ginna Wolf - Last Filed: 02/21/19 14:45> Date of Service: 02/21/19 Critical Care Services: 68 M Formerly [facility] resident with PMH of COPD, T2DM, Schizoaffective disorder, RLE DVT presented with altered mental status and possible cardiac arrest(ROSC after CPR). Found to have hypoxia with hypercarbia, tachycardia, hyperglycemia, leucocytosis, lactic acidosis and elevated troponin. Intubated in ED and transferrred to ICU. Extubated on 02/15. switched to salter 10 L on 02/19 HD #12 on 02/21 Overnight- on salter Patient doing fine. curious about going home. Saying that he doesnot like food and wants to have fried chicken. sitting on a chair last BM on 02/11-added mag citrate today; if no BM then enema saturating well on 8 L of oxygen; goal is 88-92% Vital Signs: Temp Pulse Resp BP SpO2 FiO2 98.6 F 121 27 140/65 92 80 02/21/19 11:42 02/21/19 13:02 02/21/19 13:02 02/21/19 13:02 02/21/19 13:02 02/20 12:00 Physical Exam: Gen: Patient is resting well and communicating HEENT: NOrmocephalic and atraumatic Lungs: clear with no added sounds Cardiac: RRR Abdomen: soft, distended and nontender. Normal BS heard Extremities: nonpitting edema; improving Neuro: alert, oriented and conscious Fluid Balance (Past 24 Hours): I= O= Net Intake & Output 02/19/19 02/20/19 02/21/19 02/22/19 06:59 06:59 06:59 06:59 Intake Total 5212 184 4506 360 Output Total 4927 4190 4035 1155 Balance -3235 -3213 -2955 -795 Weight 101.3 kg 101.009 kg 102.3 kg Intake: IV Fluids 54 17 NS (0.9%) 20 17 Valproic Acid 34 IVPB 248 120 NS (0.9%) 43 Valproic Acid 205 120 Oral 9032 599 3701 360 Output: Ross 4927 4190 4035 1155 Other: # Voids 0 Labs: Laboratory Results - last 24 hr 02/20/19 02/20/19 02/21/19 17:07 21:21 04:10 WBC RBC Hgb Hct MCV MCH MCHC RDW Plt Count MPV Neut % (Auto) Lymph % (Auto) [place] % (Auto) Eos % (Auto) Baso % (Auto) Absolute Neuts (auto) Absolute Lymphs (auto) Absolute Monos (auto) Absolute Eos (auto) Absolute Basos (auto) Absolute Nucleated RBC Nucleated RBC % Sodium Potassium Chloride Carbon Dioxide Anion Gap BUN Creatinine Est GFR ( Amer) Est GFR (Non-Af Amer) BUN/Creatinine Ratio Glucose POC Glucose (mg/dL) 302 H 282 H Hemoglobin A1c 9.8 H Calcium 02/21/19 02/21/19 02/21/19 04:10 04:10 07:40 WBC 8.1 RBC 5.30 Hgb 13.8 L Hct 43 MCV 81 MCH 26 L MCHC 32 RDW 19 H Plt Count 215 MPV 7.8 Neut % (Auto) 65.1 Lymph % (Auto) 18.6 [place] % (Auto) 13.0 Eos % (Auto) 2.2 Baso % (Auto) 1.1 Absolute Neuts (auto) 5.2 Absolute Lymphs (auto) 1.5 Absolute Monos (auto) 1.0 H Absolute Eos (auto) 0.2 Absolute Basos (auto) 0.1 Absolute Nucleated RBC 0.0 Nucleated RBC % 0.0 Sodium 144 Potassium 3.9 Chloride 97 L Carbon Dioxide 42 H* Anion Gap 5 BUN 19 Creatinine 0.55 L Est GFR ( Amer) 179.8 Est GFR (Non-Af Amer) 148.6 BUN/Creatinine Ratio 34.5 H Glucose 197 H POC Glucose (mg/dL) 225 H Hemoglobin A1c Calcium 8.9 Studies: 02/20 CXR- low lung volume with vascular congestion; unchanged 02/18 CXR- low lung volumes, increased alveolar opacities bilaterally, small right pleural effusion unchanged. 02/17 CXR - right pleural effusion with underlying right basilar atelectasis or infiltrate unchanged from prior. 02/16 CXR - cardiomegaly, low lung volumes, small right pleural effusion, bibasilar atelectasis or consolidation 02/12 CXR - small bilateral pleural effusions and bibasilar infiltrates, unchanged 02/11 CXR - cardiomegaly, bibailar atelectasis. 02/10 CXR - low lung volumes, bibasilar infiltrates with slight progression 02/09 CTA chest - No PE. Mild bibasilar subsegmental atelectasis 02/09 CT brain - NAD. chronic microvascular ischemic changes. 02/09 CXR - low lung volumes, small bibasilar infiltrtates and small right pleural effusion. Nutrition: Consistent carbohydrate diet Impression: 68 M Formerly [facility] resident with PMH of COPD, T2DM, Schizoaffective disorder, RLE DVT presented with altered mental status and possible cardiac arrest(ROSC after CPR). Found to have hypoxia with hypercarbia, tachycardia, hyperglycemia, leucocytosis, lactic acidosis and elevated troponin. Intubated in ED and transferrred to ICU. Extubated on 02/15. Diuresing; lasix increased to 40 mg 8HR. On 8 L of oxygen Plan: Hospital Diagnosis 1. Acute hypoxemic respiratory failure with hypercapnia 2. Acute COPD exacerbation 3. Chronic DVT Cardiovascular: (1) hx of hypercholesterolemia; (2) Essential hypertension -- HR 87-103 -- SBP 102-151 -- Telemetry -- Echo 02/12: Normal with EF of 55-60% and normal LA -- Atorvastatin -- PRN Labetalol for goal SBP < 160 -- Rivaroxaban --Increased lasix to 40 mg IV Q8H --Net negative of 2.9 Home meds: Lipitor Pulmonary: (1) COPD; (2) Right pleural effusion -- RR 23-32 -- sats 90-94% on 8L of oxygen -- extubated on 02/15 -- CXR: right pleural effusion; diuresing -- Duoneb PRN -- Morphine prn for shortness of breath --lasix 40 mg Q8H --contraction alkalosis noted; acetazolamide given Home: Incruse Ellipta, Advair Gastrointestinal: (1) Hx of GERD (2) Constipation -- diet: Puree with nectar thickened liquids -- bowel regimen:lactulose and mag citrate; if no BM enema -- ulcer prophylaxis: famotidine daily --probable transfer to floor tomorrow; after having BM Home meds: None Endocrine: (1) Insulin dependent Diabetes -- monitor BGs -- Continue insulin lispro --increased insulin lantus 40 U daily; received 30 U yesterday but no good control Home meds: Insulin Glargine and regular insulin and glipizide Renal: (1) Hypervolemia; (2) Hypocalcemia -- UOP: ~130 ml/hr -- Cr 0.55 from 0.58 -- Lytes Na 144 K 3.9 Ca 8.9 Mag 2.0 -- IVF: None -- Diamox --lasix IV Home meds: None Infectious disease:No acute issues -- Tmax 98.6 -- WBC 8.1 from 76.7 -- Micro 02/17 UA urine blood, bacteria and glucose present Urine culture None; jayesh on 02/16-probably contaminant 02/16 Blood NGTD UA equivocal, yeast 02/12 Urine negative 02/11 Legionella negative 02/10 blood negative 02/10 sputum MRSA 02/09 MRSA negative -- ABX Full course of Vanco and Zosyn completed Home meds: None Neurologic:(1) Acute encephalopathy; (2) Schizoaffective disorder -- PRN Tylenol -- PRN Haldol for agitation Home meds: Depakote, Abilify and haloperidol Hematological:(1) Chronic DVT -- Hgb 13.8 from 13.5 -- Plt 215 from 220 -- Continue Xarelto 20 mg daily Home meds: Xarelto Metabolic: No acute issues Home meds: None Other: (1) Spinal stenosis -- pain control Home meds: Gabapentin Deep vein thrombosis prophylaxis: on therapeutic Xarelto- has chronic DVT Dietary: Not indicated at this time Condition: critical Prognosis: guarded Code status: DNR/DNI Disposition:continue ICU care. He is from [facility] Critical Care Time spent in the care of this patient (excluding any procedure time): at least 60 minutes. Patient care included clinical interview (with patient and/or family), bedside exam of the patient, review of labs, x-rays, and other ancillary data, coordination of (respiratory, nursing care, review of patient's records, discussion regarding patients management with involved consultants, primary physician, pharmacists, and other healthcare personnel (dietary, case management , physical/occupational therapy etc.) Critical Care Time: 60 <Chauncey Rosas - Last Filed: 02/21/19 15:34> Vital Signs: Temp Pulse Resp BP SpO2 FiO2 37.0 C 121 23 131/89 89 80 02/21/19 11:42 02/21/19 15:01 02/21/19 15:01 02/21/19 15:01 02/21/19 15:01 02/20 12:00 Physical Exam: Gen: HEENT: Lungs: Cardiac: Abdomen: Extremities: Neuro: Fluid Balance (Past 24 Hours): I= O= Net Intake & Output 02/19/19 02/20/19 02/21/19 02/22/19 06:59 06:59 06:59 06:59 Intake Total 7036 471 7591 720 Output Total 4927 4190 4035 1780 Balance -3235 -3213 -2955 -1060 Weight 101.3 kg 101.009 kg 102.3 kg Intake: IV Fluids 54 17 NS (0.9%) 20 17 Valproic Acid 34 IVPB 248 120 NS (0.9%) 43 Valproic Acid 205 120 Oral 7403 223 6706 720 Output: Ross 4927 4190 4035 1780 Other: # Voids 0 Labs: Laboratory Results - last 24 hr 02/20/19 02/20/19 02/21/19 17:07 21:21 04:10 WBC RBC Hgb Hct MCV MCH MCHC RDW Plt Count MPV Neut % (Auto) Lymph % (Auto) [place] % (Auto) Eos % (Auto) Baso % (Auto) Absolute Neuts (auto) Absolute Lymphs (auto) Absolute Monos (auto) Absolute Eos (auto) Absolute Basos (auto) Absolute Nucleated RBC Nucleated RBC % Sodium Potassium Chloride Carbon Dioxide Anion Gap BUN Creatinine Est GFR ( Amer) Est GFR (Non-Af Amer) BUN/Creatinine Ratio Glucose POC Glucose (mg/dL) 302 H 282 H Hemoglobin A1c 9.8 H Calcium 02/21/19 02/21/19 02/21/19 04:10 04:10 07:40 WBC 8.1 RBC 5.30 Hgb 13.8 L Hct 43 MCV 81 MCH 26 L MCHC 32 RDW 19 H Plt Count 215 MPV 7.8 Neut % (Auto) 65.1 Lymph % (Auto) 18.6 [place] % (Auto) 13.0 Eos % (Auto) 2.2 Baso % (Auto) 1.1 Absolute Neuts (auto) 5.2 Absolute Lymphs (auto) 1.5 Absolute Monos (auto) 1.0 H Absolute Eos (auto) 0.2 Absolute Basos (auto) 0.1 Absolute Nucleated RBC 0.0 Nucleated RBC % 0.0 Sodium 144 Potassium 3.9 Chloride 97 L Carbon Dioxide 42 H* Anion Gap 5 BUN 19 Creatinine 0.55 L Est GFR ( Amer) 179.8 Est GFR (Non-Af Amer) 148.6 BUN/Creatinine Ratio 34.5 H Glucose 197 H POC Glucose (mg/dL) 225 H Hemoglobin A1c Calcium 8.9 Plan: Continues to improve in strong negative balance. Continue diuretics, add acetazolamide today for his alkalosis. Hopefully can go to floor tomorrow. Renal indices remain preserved and BP solid with still edema to exam. This service has been performed in part by a resident under the direction of a teaching physician. I, Chauncey Rosas, performed the service, or was physically present during the critical, or jarvis portions of the service, furnished by the resident. I participated in the management of the patient.
[2019-02-21] MEDS ORDERED: Sodium Phosphate ADULT ENEMA* 118 ml bottle PR ONE (16:05)
[2019-02-21] MEDS: Rivaroxaban TAB(*) 20 MG TAB PO SCH (17:40)
[2019-02-21] MEDS: Atorvastatin* 10 MG TAB PO SCH (20:10)
[2019-02-21] MEDS: Melatonin 3 MG TAB PO SCH (20:10)
[2019-02-22 04:43] LABS: BUN/Creatinine Ratio 26.6 (8-20); Calcium 8.7 mg/dL (8.6-10.3); EGFR African American 150.9 (>60); EGFR Non-African American 124.7 (>60); Magnesium 2.4 mg/dL (1.9-2.7); Potassium 3.7 mmol/L (3.5-5.0)
[2019-02-22] MEDS: Furosemide IV* 10 MG/ML VIAL (40 MG) IV SLOW PU SCH ×2 (05:48→17:03)
[2019-02-22] MEDS: Insulin LISPRO* 1 UNITS UNIT SUBCUT SCH ×4 (07:33→23:37)
[2019-02-22] MEDS: SPIRIVA Respimat* (tiotropium) 2.5 mcg/inh Inhaler INH SCH (08:09)
[2019-02-22] MEDS: Mometasone/Formoter 100/5 MDI INH SCH ×2 (08:09→21:01)
[2019-02-22] MEDS: Hydrocortisone 1% CREAM* 30 GM TUBE TOPICAL SCH (08:30)
[2019-02-22] MEDS: Insulin GLARGINE(*) 1 UNITS UNIT SUBCUT SCH (09:34)
[2019-02-22] MEDS: Magnesium Oxide TAB* 400 MG PO SCH (09:35)
[2019-02-22] MEDS: Gabapentin CAP(*) 100 MG PO SCH ×3 (09:35→23:06)
[2019-02-22] MEDS: Famotidine TAB* 20 MG PO SCH (09:35)
[2019-02-22] MEDS: Divalproex Sprinkle CAP* 125 MG PO SCH ×2 (09:36→23:32)
[2019-02-22] MEDS: Nystatin SUSPENSION* 100000 UNITS/ML 5 ML UDC PO SCH ×3 (09:36→17:03)
[2019-02-22] MEDS: ARIPiprazole TAB* 5 MG PO SCH (09:36)
--- NOTE | 2019-02-22 09:53 | PN ---
<Ginna Wolf - Last Filed: 02/22/19 09:47> Date of Service: 02/22/19 Critical Care Services: 68 M [facility] resident with PMH of COPD, T2DM, Schizoaffective disorder, RLE DVT presented with altered mental status and possible cardiac arrest(ROSC after CPR). Found to have hypoxia with hypercarbia, tachycardia, hyperglycemia, leucocytosis, lactic acidosis and elevated troponin. Intubated in ED and transferrred to ICU. Extubated on 02/15. switched to salter 10 L on 02/19 HD #13 on 02/22 Overnight- on salter Patient had a large BM this morning. He is eating and drinking well. Denies any symptom resting comfortably in bed saturating well on 10 L; goal is 88-92% Can be transferred to floor Vital Signs: Temp Pulse Resp BP SpO2 FiO2 96.9 F 99 30 168/84 90 80 02/22/19 07:43 02/22/19 06:01 02/22/19 06:01 02/22/19 06:01 02/22/19 06:01 02/20 12:00 Physical Exam: Gen: Patient is resting well on a bed with no acute distress. HEENT: Normocephalic and atraumatic Lungs: clear with no added sounds Cardiac: Mild tachycardia. Abdomen: soft, nondistended and nontender. Normal BS heard Extremities: nonpitting edema on bilateral LE; R>L Neuro: Alert, oriented and conscious Fluid Balance (Past 24 Hours): I= O= Net Intake & Output 02/20/19 02/21/19 02/22/19 02/23/19 06:59 06:59 06:59 06:59 Intake Total 977 1080 1540 Output Total 4544 9081 2271 Balance -3213 -7543 Weight 101.009 kg 102.3 kg 102.2 kg Intake: IV Fluids 17 NS (0.9%) 17 IVPB 120 Valproic Acid 120 Oral 840 1080 1540 Output: Ross 4190 4038 3559 Other: # Voids 0 Labs: Laboratory Results - last 24 hr 02/21/19 02/21/19 02/21/19 04:10 12:06 17:10 Sodium Potassium Chloride Carbon Dioxide Anion Gap BUN Creatinine Est GFR ( Amer) Est GFR (Non-Af Amer) BUN/Creatinine Ratio Glucose POC Glucose (mg/dL) 212 H 324 H Hemoglobin A1c 9.8 H Calcium Magnesium 02/21/19 02/22/19 20:24 04:05 Sodium 140 Potassium 3.7 Chloride 95 L Carbon Dioxide 40 H Anion Gap 5 BUN 17 Creatinine 0.64 L Est GFR ( Amer) 150.9 Est GFR (Non-Af Amer) 124.7 BUN/Creatinine Ratio 26.6 H Glucose 205 H POC Glucose (mg/dL) 361 H Hemoglobin A1c Calcium 8.7 Magnesium 2.4 Studies: 02/20 CXR- low lung volume with vascular congestion; unchanged 02/18 CXR- low lung volumes, increased alveolar opacities bilaterally, small right pleural effusion unchanged. 02/17 CXR - right pleural effusion with underlying right basilar atelectasis or infiltrate unchanged from prior. 02/16 CXR - cardiomegaly, low lung volumes, small right pleural effusion, bibasilar atelectasis or consolidation 02/12 CXR - small bilateral pleural effusions and bibasilar infiltrates, unchanged 02/11 CXR - cardiomegaly, bibailar atelectasis. 02/10 CXR - low lung volumes, bibasilar infiltrates with slight progression 02/09 CTA chest - No PE. Mild bibasilar subsegmental atelectasis 02/09 CT brain - NAD. chronic microvascular ischemic changes. 02/09 CXR - low lung volumes, small bibasilar infiltrtates and small right pleural effusion. Nutrition: Consistent carbohydrate diet. Pureed; nectar thickened Impression: 68 M [facility] resident with PMH of COPD, T2DM, Schizoaffective disorder, RLE DVT presented with altered mental status and possible cardiac arrest(ROSC after CPR). Found to have hypoxia with hypercarbia, tachycardia, hyperglycemia, leucocytosis, lactic acidosis and elevated troponin. Intubated in ED and transferrred to ICU. Extubated on 02/15. Diuresing;lasix decreased to 40 mg 12 hr. On 10 L of oxygen Plan: Hospital Diagnosis 1. Acute hypoxemic respiratory failure with hypercapnia 2. Acute COPD exacerbation 3. Chronic DVT Cardiovascular: (1) hx of hypercholesterolemia; (2) Essential hypertension -- HR 91-106 -- SBP -107-168 -- Telemetry -- Echo 02/12: Normal with EF of 55-60% and normal LA -- Atorvastatin -- PRN Labetalol for goal SBP < 160 -- Rivaroxaban --lasix decreased to 12 hrly --Net negative of 2.0 Home meds: Lipitor Pulmonary: (1) COPD; (2) Right pleural effusion -- RR 14-30 -- sats 86-94% on 10L of oxygen -- extubated on 02/15 -- CXR: right pleural effusion; diuresing -- Duoneb PRN -- Morphine prn for shortness of breath --lasix decreased to 40 12 hrly --contraction alkalosis resolved Home: Incruse Ellipta, Advair Gastrointestinal: (1) Hx of GERD (2) Constipation -- diet: Puree with nectar thickened liquids -- large BM today -- ulcer prophylaxis: famotidine daily Home meds: None Endocrine: (1) Insulin dependent Diabetes -- monitor BGs -- Continue insulin lispro --increased insulin lantus 40 U daily; Home meds: Insulin Glargine and regular insulin and glipizide Renal: (1) Hypervolemia; (2) Hypocalcemia -- UOP: ~148 ml/hr -- Cr 0.64 from 0.55 -- Lytes Na 140 K 3.7 Ca 8.7 Mag 2.4 -- IVF: None --lasix IV Home meds: None Infectious disease:No acute issues -- Tmax 98.6 -- WBC 8.1 18 -- Micro 02/17 UA urine blood, bacteria and glucose present Urine culture None; jayesh on 02/16-probably contaminant 02/16 Blood NGTD UA equivocal, yeast 02/12 Urine negative 02/11 Legionella negative 02/10 blood negative 02/10 sputum MRSA 02/09 MRSA negative -- ABX Full course of Vanco and Zosyn completed Home meds: None Neurologic:(1) Acute encephalopathy; (2) Schizoaffective disorder -- PRN Tylenol -- PRN Haldol for agitation Home meds: Depakote, Abilify and haloperidol Hematological:(1) Chronic DVT -- Hgb 13.8 02/21 -- Plt 215 02/21 -- Continue Xarelto 20 mg daily Home meds: Xarelto Metabolic: No acute issues Home meds: None Other: (1) Spinal stenosis -- pain control Home meds: Gabapentin Deep vein thrombosis prophylaxis: on therapeutic Xarelto- has chronic DVT Dietary: Not indicated at this time Condition: critical Prognosis: guarded Code status: DNR/DNI Disposition:continue ICU care. He is from [facility] Critical Care Time spent in the care of this patient (excluding any procedure time): at least 60 minutes. Patient care included clinical interview (with patient and/or family), bedside exam of the patient, review of labs, x-rays, and other ancillary data, coordination of (respiratory, nursing care, review of patient's records, discussion regarding patients management with involved consultants, primary physician, pharmacists, and other healthcare personnel (dietary, case management , physical/occupational therapy etc.) Critical Care Time: 60 <Chauncey Rosas - Last Filed: 02/22/19 13:34> Vital Signs: Temp Pulse Resp BP SpO2 FiO2 36.6 C 103 20 111/71 90 80 02/22/19 11:35 02/22/19 12:00 02/22/19 12:00 02/22/19 12:00 02/22/19 12:00 02/20 12:00 Physical Exam: Gen: HEENT: Lungs: Cardiac: Abdomen: Extremities: Neuro: Fluid Balance (Past 24 Hours): I= O= Net Intake & Output 02/20/19 02/21/19 02/22/19 02/23/19 06:59 06:59 06:59 06:59 Intake Total 977 1080 1540 480 Output Total 4190 4035 3558 1225 Balance -3213 -2955 -2018 -745 Weight 101.009 kg 102.3 kg 102.2 kg Intake: IV Fluids 17 NS (0.9%) 17 IVPB 120 Valproic Acid 120 Oral 840 1080 1540 480 Output: Ross 4190 4035 3558 1225 Other: # Voids 0 Labs: Laboratory Results - last 24 hr 02/21/19 02/21/19 02/21/19 12:06 17:10 20:24 Sodium Potassium Chloride Carbon Dioxide Anion Gap BUN Creatinine Est GFR ( Amer) Est GFR (Non-Af Amer) BUN/Creatinine Ratio Glucose POC Glucose (mg/dL) 212 H 324 H 361 H Calcium Magnesium 02/22/19 04:05 Sodium 140 Potassium 3.7 Chloride 95 L Carbon Dioxide 40 H Anion Gap 5 BUN 17 Creatinine 0.64 L Est GFR ( Amer) 150.9 Est GFR (Non-Af Amer) 124.7 BUN/Creatinine Ratio 26.6 H Glucose 205 H POC Glucose (mg/dL) Calcium 8.7 Magnesium 2.4 Plan: Serial negative balance approaching 15 liters in last 5 days and his Cr has remained normal with normal range BP. Constipation has finally responded to cathartics and his abdomen is much less distended. Through both of those efforts his respiratory status and decompensated heart failure have vastly improved and he is now stable for transfer to the floor. This service has been performed in part by a resident under the direction of a teaching physician. I, Chauncey Rosas, performed the service, or was physically present during the critical, or jarvis portions of the service, furnished by the resident. I participated in the management of the patient.
[2019-02-22] MEDS: Lactulose* 15 ML UDC PO SCH ×2 (10:50→15:21)
[2019-02-22] MEDS: acetaZOLAMIDE TAB* 250 MG PO SCH ×2 (12:46→23:06)
[2019-02-22] MEDS: Nystatin CREAM* 15 GM TUBE TOPICAL SCH ×2 (15:21→23:39)
[2019-02-22] MEDS: Rivaroxaban TAB(*) 20 MG TAB PO SCH (17:03)
[2019-02-22] MEDS ORDERED: Furosemide IV* 10 MG/ML VIAL (40 MG) IV STA (21:16)
[2019-02-22] MEDS: Melatonin 3 MG TAB PO SCH (23:06)
[2019-02-22] MEDS: Atorvastatin* 10 MG TAB PO SCH (23:06)
[2019-02-22 23:32] LABS: ABS Basophils 0.1 10^3/ul (0-0.2); ABS Eosinophils 0.1 10^3/ul (0-0.6); ABS Lymphocytes 1.9 10^3/ul (1.0-4.8); ABS Monocytes 1.2 10^3/ul (0-0.8); ABS Neutrophils 8.6 10^3/ul (1.5-7.7); Eosinophil % 0.8 %; Hematocrit 50 % (42-52); Lymphocyte % 15.9 %; Mean Corpuscular HGB Conc 32 g/dL (31-36); Mean Corpuscular Hemoglobin 26 pg (27-31); Mean Corpuscular Volume 80 fL (80-94); Mean Platelet Volume 8.1 fL (7.4-10.4); Nucleated Red Blood Cells % 0.1; Platelet Count 254 10^3/uL (150-450); Red Cell Distribution Width 19 % (10-15); White Blood Count 11.9 10^3/uL (3.5-10.8)
[2019-02-22 23:46] LABS: Anion Gap 7 mmol/L (2-11); BUN/Creatinine Ratio 29.7 (8-20); Blood Urea Nitrogen 22 mg/dL (6-24); CO2 Carbon Dioxide 38 mmol/L (22-32); Calcium 9.2 mg/dL (8.6-10.3); Chloride 91 mmol/L (101-111); EGFR African American 127.7 (>60); EGFR Non-African American 105.5 (>60); Glucose 334 mg/dL (70-100); Potassium 3.7 mmol/L (3.5-5.0); Sodium 136 mmol/L (135-145)
[2019-02-22 23:53] LABS: Troponin I 0.03 ng/mL (<0.03)
[2019-02-23] MEDS: Lactulose* 15 ML UDC PO SCH ×4 (00:29→21:23)
[2019-02-23] MEDS: Nystatin SUSPENSION* 100000 UNITS/ML 5 ML UDC PO SCH ×5 (00:30→21:22)
[2019-02-23] MEDS: Hydrocortisone 1% CREAM* 30 GM TUBE TOPICAL SCH ×3 (00:31→21:22)
[2019-02-23 05:19] LABS: ABS Basophils 0.1 10^3/ul (0-0.2); ABS Lymphocytes 1.9 10^3/ul (1.0-4.8); ABS Monocytes 1.4 10^3/ul (0-0.8); ABS Neutrophils 9.2 10^3/ul (1.5-7.7); Eosinophil % 0.3 %; Hematocrit 47 % (42-52); Hemoglobin 15.5 g/dL (14.0-18.0); Lymphocyte % 15.1 %; Mean Corpuscular HGB Conc 33 g/dL (31-36); Mean Corpuscular Hemoglobin 26 pg (27-31); Mean Corpuscular Volume 80 fL (80-94); Mean Platelet Volume 8.5 fL (7.4-10.4); Platelet Count 242 10^3/uL (150-450); Red Blood Count 5.85 10^6 /uL (4.18-5.48); Red Cell Distribution Width 19 % (10-15); White Blood Count 12.7 10^3/uL (3.5-10.8)
[2019-02-23] MEDS: Furosemide IV* 10 MG/ML VIAL (40 MG) IV SLOW PU SCH ×2 (05:21→18:06)
[2019-02-23 05:41] LABS: Calcium 9.4 mg/dL (8.6-10.3); EGFR African American 110.3 (>60); EGFR Non-African American 91.1 (>60); Magnesium 2.3 mg/dL (1.9-2.7); Potassium 4.1 mmol/L (3.5-5.0)
--- NOTE | 2019-02-23 06:53 | PN ---
Resident Interval ProgressNote Date of Service: 02/23/19 Overnight events ICU transfer out today T2RF due to pulmonary edema and possible copd exacerbation, extubated on 02/15, has been achieved negative balance 1.5L daily for 5 days, was on salter 10L before transfering out. Acute respiratory distress overnight, requiring intranasal O2 15L to maintain O2 sat>92 CXR repeated; pulmonary edema but improved compared with CXR 2 days ago EKG: no new ST-t changes trop: stable ABG: PH normal, pCO2 59, PO2 64 2 doses of iv lasix 40mg was given overnight with good urine output He was put back on salter Patient reviewed after 2 hours after salter Patient was resting, HR still 120s, RR 25-30s, spO2 93% ABG repeat improved pO2 Discussed with and patient seen by Dr. Peres, decision made to continue salter for now, if worsening resp distress, for ICU transfer with Bipap
[2019-02-23] MEDS: Mometasone/Formoter 100/5 MDI INH SCH ×2 (08:03→19:37)
[2019-02-23] MEDS: SPIRIVA Respimat* (tiotropium) 2.5 mcg/inh Inhaler INH SCH (08:03)
--- NOTE | 2019-02-23 08:59 | PN ---
Subjective Date of Service: 02/23/19 Interval History: Called to bedside by RN this morning d/t concern about patient's respiratory status. Overnight oxygen has been increased to 15L (was on 8L yesterday) and sat is around 90% currently. RR 40, HR 130s. Respirations are shallow and patient attempts to speak, but unable to d/t increased WOB. He is unable to provide any subjective information. Nurse reports there was additional some concern about cloudy urine noted in Ross bag. Family History: Unchanged from Admission Social History: Unchanged from Admission Past Medical History: Unchanged from Admission Objective Active Medications: Acetaminophen (Tylenol Tab*) 650 mg PO Q6H PRN PAIN - MILD Albuterol/Ipratropium (Duoneb (Albuterol 2.5 Mg/Ipratropium 0.5 Mg)) 1 neb INH Q4H PRN SOB/WHEEZING Aripiprazole (Abilify Tab*) 5 mg PO DAILY [facility] Atorvastatin Calcium (Lipitor*) 10 mg PO BEDTIME [facility] Dextrose (Dextrose 50% Vial 50 Ml*) 25 ml IV PUSH .FOR FS < 60 - SS PRN FS < 60 Divalproex Sodium (Depakote Sprinkle Cap*) 500 mg PO BID [facility] Famotidine (Pepcid Tab*) 20 mg PO DAILY [facility] Furosemide (Lasix Iv*) 40 mg IV SLOW PU Q12H [facility] Gabapentin (Neurontin Cap(*)) 200 mg PO TID [facility] Haloperidol Lactate (Haldol Inj Iv/Im*) 5 mg IV SLOW PU Q6H PRN AGITATION Hydrocortisone (Hytone Cream 1%*) 1 applic TOPICAL BID [facility] Insulin Glargine (Lantus(*)) 40 units SUBCUT Q24H [facility] Insulin Human Lispro (Humalog*) 0 units SUBCUT ACHS [facility]; Protocol Labetalol HCl (Trandate Iv*) 10 mg IV PUSH Q6H PRN BLOOD PRESSURE Lactulose (Lactulose*) 30 ml PO TID [facility] Magnesium Oxide (Magox 400 Tab*) 400 mg PO DAILY [facility] Melatonin (Melatonin) 3 mg PO BEDTIME [facility] Mometasone Furoate/Formoterol Fumar (Dulera 100/5 Mdi*) 2 puff INH BID [facility] Nystatin (Nystatin Suspension*) 200,000 units PO QID [facility] Nystatin (Nystatin Cream*) 1 applic TOPICAL TID [facility] Rivaroxaban (Xarelto(*)) 20 mg PO QPM [facility] Tiotropium Cinebar (Spiriva Respimat 2.5 Mcg) 2 puff INH DAILY [facility] Vital Signs - 8 hr 02/23/19 02/23/19 02/23/19 01:00 01:09 03:12 Temperature 98.2 F 97.4 F Pulse Rate 120 121 Respiratory 38 38 37 Rate Blood Pressure 115/67 132/70 (mmHg) O2 Sat by Pulse 93 94 Oximetry 02/23/19 02/23/19 02/23/19 05:14 07:22 07:41 Temperature 100.4 F 100.4 F Pulse Rate 126 130 132 Respiratory 35 38 40 Rate Blood Pressure 147/81 (mmHg) O2 Sat by Pulse 93 88 90 Oximetry Oxygen Devices in Use Now: OxyMask - 15L Appearance: Elderly male lying in bed in acute respiratory distress with shallow respirations and increased RR Neck: NL Appearance and Movements; NL JVP Respiratory: Clear to Auscultation Cardiovascular: NL Sounds; No Murmurs; No JVD Abdominal: NL Sounds; No Tenderness; No Distention Extremities: - - Mild nonpitting BLE Neurological: - - Wakes to voice Lines/Tubes/Other Access: Clean, Dry and Intact Peripheral IV Result Diagrams: 02/24/19 04:57 02/24/19 04:57 Assess/Plan/Problems-Billing Assessment: Mr. Zarate is a 68 yo M with PMH of of COPD, DM2, schizoaffective disorder, RLE DVT; presented with altered mental status and possible cardiac arrest (ROSC after CPR), was found to have hypoxia with hypercarbia, tachycardia, hyperglycemia, leucocytosis, lactic acidosis and elevated troponin. Intubated in ED. - Patient Problems (1) Acute respiratory failure with hypoxia and hypercapnia Code(s): J96.01 - ACUTE RESPIRATORY FAILURE WITH HYPOXIA; J96.02 - ACUTE RESPIRATORY FAILURE WITH HYPERCAPNIA Comment: - Found unresponsive at [facility] with possible cardiac arrest (ROSC after CPR only) - Intubated upon arrival to ED; extubated on 02/15/19 - CTA unremarkable for PE - CXR showing right pleural effusion with possible infiltrates vs atelectasis - Echo on 02/12 shows normal EF of 55-60%; will recheck limited echo for LVEF today - Recheck CXR this mornning showing pulmonary edema with unchanged bilat pleural effusions (L>R) - Completed 7 day course of vanco and Zosyn - Transfer back down to ICU for BiPAP - Continue furosemide; give additional dose this morning (2) COPD (chronic obstructive pulmonary disease) Code(s): J44.9 - CHRONIC OBSTRUCTIVE PULMONARY DISEASE, UNSPECIFIED Comment: - No evidence of exaverbation - Received steroids earlier during hospitalization, now off steroids - Continue Dulera, Spiriva, nebs (3) Type II diabetes mellitus Comment: - Hyperglycemic in the 300s - Continue Lispro SS; increase Lantus (4) History of DVT (deep vein thrombosis) Code(s): Z86.718 - PERSONAL HISTORY OF OTHER VENOUS THROMBOSIS AND EMBOLISM Comment: - Continue Xarelto (5) HTN (hypertension) Code(s): I10 - ESSENTIAL (PRIMARY) HYPERTENSION Comment: - Normotensive - Continue furosemide (6) Schizoaffective disorder Code(s): F25.9 - SCHIZOAFFECTIVE DISORDER, UNSPECIFIED Comment: - Continue Depakote (7) Hyperlipidemia Code(s): E78.5 - HYPERLIPIDEMIA, UNSPECIFIED Comment: - Continue atorvastatin (8) DVT prophylaxis Comment: - Xarelto (9) DNR (do not resuscitate) Comment: Status and Disposition: Inpatient. Transfer back down to ICU for BiPAP. DNR/DNI MOLST previously completed by PCP and back closer as the patient does not have any HCP. Prognosis is poor at this point as he has not shown consistent improvement in respiratory status. He will be placed back on BiPAP today, but it is unclear how long we should continue respiratory support if there is no obvious improvement. Palliative care consult placed. This case may ultimately need to go to Ethics Committee. Counseling and/or Coordination of Care Minutes: Critical care time: 45 minutes Attending: Channing Mohamud
[2019-02-23] MEDS ORDERED: Furosemide IV* 10 MG/ML VIAL (40 MG) IV ONE (09:14)
[2019-02-23] MEDS: Insulin LISPRO* 1 UNITS UNIT SUBCUT SCH ×4 (09:20→21:22)
[2019-02-23] MEDS: Insulin GLARGINE(*) 1 UNITS UNIT SUBCUT SCH (09:20)
[2019-02-23] MEDS: Magnesium Oxide TAB* 400 MG PO SCH (09:21)
[2019-02-23] MEDS: Gabapentin CAP(*) 100 MG PO SCH ×3 (09:21→21:22)
[2019-02-23] MEDS ORDERED: Insulin GLARGINE(*) 1 UNITS UNIT SUBCUT ONE (09:24)
[2019-02-23] MEDS: ARIPiprazole TAB* 5 MG PO SCH (09:27)
[2019-02-23] MEDS: Divalproex Sprinkle CAP* 125 MG PO SCH ×2 (09:28→21:21)
[2019-02-23] MEDS: Nystatin CREAM* 15 GM TUBE TOPICAL SCH ×3 (10:07→21:23)
[2019-02-23] MEDS: Famotidine TAB* 20 MG PO SCH (10:07)
[2019-02-23] MEDS ORDERED: Perflutren Lipid Microsphere* 3 ML VIAL ONE (11:57)
[2019-02-23] MEDS ORDERED: Insulin LISPRO* 1 UNITS UNIT SUBCUT ONE (12:48)
--- NOTE | 2019-02-23 12:54 | ECHO ---
*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 History: Chronic obstructive pulmonary disease. Risk factors: Current tobacco use. Hypertension. Diabetes mellitus. Dyslipidemia. Conclusions Summary: - Left ventricle: The cavity size is normal. Systolic function is normal. The estimated ejection fraction is 55-60%. Wall motion is normal; there are no regional wall motion abnormalities. - Right ventricle: The cavity size is normal. Systolic function is moderately reduced. Recommendations: Tachycardia during study makes biventricular systolic function determination difficult. Limited study, full study performed 02/12/2019 Study data: Transthoracic echocardiogram, limited study. Procedure: Transthoracic echocardiography was performed. Image quality was suboptimal. Intravenous Definity , 7.5 mlswas administered. Location: ICU Patient status: Inpatient. Patient room number: ICU-03. Rhythm: Tachycardia. Findings Left ventricle: The cavity size is normal. Systolic function is normal. The estimated ejection fraction is 55-60%. Wall motion is normal; there are no regional wall motion abnormalities. Right ventricle: Poorly visualized. The cavity size is normal. Systolic function is moderately reduced. Pericardium: A prominent pericardial fat pad is present. Measurements Right ventricle Value Ref [place] minor ax, A4C mid (H) 3.9 cm 1.9 - 3.5 Legend: (L) and (H) francisco values outside specified reference range. Prepared and electronically signed by Larry Patterson MD 02/23/2019 12:53
[2019-02-23] MEDS ORDERED: NS 0.9% 500 ML* 500 ML IV SCH (13:00)
[2019-02-23] MEDS: NS 0.9% 1000 ML** 1,000 ML IV ONE ×2 (13:30→13:37)
[2019-02-23] MEDS ORDERED: NS 0.9% 1000 ML** 1,000 ML IV SCH (16:30)
[2019-02-23] MEDS: Rivaroxaban TAB(*) 20 MG TAB PO SCH (18:12)
[2019-02-23] MEDS: Atorvastatin* 10 MG TAB PO SCH (21:22)
[2019-02-23] MEDS: Melatonin 3 MG TAB PO SCH (21:22)
[2019-02-24 05:08] LABS: ABS Basophils 0.1 10^3/ul (0-0.2); ABS Lymphocytes 2.3 10^3/ul (1.0-4.8); ABS Monocytes 1.1 10^3/ul (0-0.8); ABS Neutrophils 7.2 10^3/ul (1.5-7.7); Eosinophil % 0.1 %; Hematocrit 44 % (42-52); Hemoglobin 14.3 g/dL (14.0-18.0); Lymphocyte % 21.6 %; Mean Corpuscular HGB Conc 33 g/dL (31-36); Mean Corpuscular Hemoglobin 26 pg (27-31); Mean Corpuscular Volume 79 fL (80-94); Mean Platelet Volume 8.2 fL (7.4-10.4); Nucleated Red Blood Cells % 0.1; Platelet Count 202 10^3/uL (150-450); Red Blood Count 5.49 10^6 /uL (4.18-5.48); Red Cell Distribution Width 19 % (10-15); White Blood Count 10.8 10^3/uL (3.5-10.8)
[2019-02-24 05:22] LABS: BUN/Creatinine Ratio 44.7 (8-20); Calcium 8.8 mg/dL (8.6-10.3); EGFR African American 108.8 (>60); EGFR Non-African American 89.9 (>60); Potassium 3.9 mmol/L (3.5-5.0)
[2019-02-24] MEDS: Furosemide IV* 10 MG/ML VIAL (40 MG) IV SLOW PU SCH (05:24)
[2019-02-24] MEDS: Lactulose* 15 ML UDC PO SCH (07:36)
[2019-02-24] MEDS ORDERED: Morphine INJ* 2 MG/ML 1 ML SYRINGE (TWO MG - NEW SYRINGE VERSION) IV PRN ×2 (07:46→10:23)
[2019-02-24] MEDS ORDERED: methylPREDNISolone SOD 40 MG* 1 ML VIAL IV SCH (08:00)
[2019-02-24] MEDS: Gabapentin CAP(*) 100 MG PO SCH (08:14)
[2019-02-24] MEDS: ARIPiprazole TAB* 5 MG PO SCH (08:14)
[2019-02-24] MEDS: Famotidine TAB* 20 MG PO SCH (08:14)
[2019-02-24] MEDS: Insulin LISPRO* 1 UNITS UNIT SUBCUT SCH (08:14)
[2019-02-24] MEDS: Hydrocortisone 1% CREAM* 30 GM TUBE TOPICAL SCH (08:15)
[2019-02-24] MEDS: Magnesium Oxide TAB* 400 MG PO SCH (08:15)
[2019-02-24] MEDS: Nystatin SUSPENSION* 100000 UNITS/ML 5 ML UDC PO SCH (08:15)
[2019-02-24] MEDS: Divalproex Sprinkle CAP* 125 MG PO SCH (08:15)
[2019-02-24] MEDS ORDERED: Insulin GLARGINE(*) 1 UNITS UNIT SUBCUT SCH (09:00)
[2019-02-24] MEDS: Nystatin CREAM* 15 GM TUBE TOPICAL SCH (09:20)
--- NOTE | 2019-02-24 09:36 | PN ---
Subjective Date of Service: 02/24/19 Interval History: Mr. Zarate is awake on my arrival and trying to speak one word answers to my questions, but his responses are incomprehensible. Nursing reports respiratory status is wavering, currently he is desating into the mid 80s on BiPAP on 100% FIO2. Family History: Unchanged from Admission Social History: Unchanged from Admission Past Medical History: Unchanged from Admission Objective Active Medications: Acetaminophen (Tylenol Tab*) 650 mg PO Q6H PRN PAIN - MILD Albuterol/Ipratropium (Duoneb (Albuterol 2.5 Mg/Ipratropium 0.5 Mg)) 1 neb INH Q4H PRN SOB/WHEEZING Aripiprazole (Abilify Tab*) 5 mg PO DAILY [facility] Atorvastatin Calcium (Lipitor*) 10 mg PO BEDTIME [facility] Dextrose (Dextrose 50% Vial 50 Ml*) 25 ml IV PUSH .FOR FS < 60 - SS PRN FS < 60 Divalproex Sodium (Depakote Sprinkle Cap*) 500 mg PO BID [facility] Famotidine (Pepcid Tab*) 20 mg PO DAILY [facility] Gabapentin (Neurontin Cap(*)) 200 mg PO TID [facility] Haloperidol Lactate (Haldol Inj Iv/Im*) 5 mg IV SLOW PU Q6H PRN AGITATION Hydrocortisone (Hytone Cream 1%*) 1 applic TOPICAL BID [facility] Insulin Glargine (Lantus(*)) 45 units SUBCUT DAILY [facility] Insulin Human Lispro (Humalog*) 0 units SUBCUT ACHS [facility]; Protocol Lactulose (Lactulose*) 30 ml PO TID [facility] Magnesium Oxide (Magox 400 Tab*) 400 mg PO DAILY [facility] Melatonin (Melatonin) 3 mg PO BEDTIME [facility] Methylprednisolone Sodium Succinate (Solu-Medrol 40 Mg) 40 mg IV Q8H [facility] Mometasone Furoate/Formoterol Fumar (Dulera 100/5 Mdi*) 2 puff INH BID [facility] Morphine Sulfate (Morphine Inj (Syringe))*) 2 mg IV Q4H PRN PAIN - SEVERE Nystatin (Nystatin Suspension*) 200,000 units PO QID [facility] Nystatin (Nystatin Cream*) 1 applic TOPICAL TID [facility] Rivaroxaban (Xarelto(*)) 20 mg PO QPM [facility] Tiotropium [place] (Spiriva Respimat 2.5 Mcg) 2 puff INH DAILY [facility] Vital Signs - 8 hr 02/24/19 02/24/19 02/24/19 01:45 02:00 02:15 Temperature Pulse Rate 109 107 110 Respiratory 13 17 17 Rate Blood Pressure 137/82 127/80 127/82 (mmHg) O2 Sat by Pulse 90 95 91 Oximetry 02/24/19 02/24/19 02/24/19 02:30 02:45 03:00 Temperature Pulse Rate 112 111 Respiratory 17 15 14 Rate Blood Pressure 139/89 116/79 (mmHg) O2 Sat by Pulse 91 91 Oximetry 02/24/19 02/24/19 02/24/19 03:01 03:16 03:30 Temperature Pulse Rate 106 112 105 Respiratory 19 14 16 Rate Blood Pressure 134/85 137/82 134/93 (mmHg) O2 Sat by Pulse 95 92 92 Oximetry 02/24/19 02/24/19 02/24/19 03:39 03:45 04:00 Temperature 98.6 F Pulse Rate 105 107 Respiratory 14 19 Rate Blood Pressure 143/85 139/90 (mmHg) O2 Sat by Pulse 92 92 Oximetry 02/24/19 02/24/19 02/24/19 04:15 04:30 04:45 Temperature Pulse Rate 109 107 111 Respiratory 29 34 24 Rate Blood Pressure 148/92 145/86 147/85 (mmHg) O2 Sat by Pulse 91 92 93 Oximetry 02/24/19 02/24/19 02/24/19 05:00 05:15 05:31 Temperature Pulse Rate 113 112 118 Respiratory 20 21 29 Rate Blood Pressure 133/88 126/83 173/105 (mmHg) O2 Sat by Pulse 91 92 92 Oximetry 02/24/19 02/24/19 02/24/19 05:37 05:45 06:00 Temperature Pulse Rate 113 112 107 Respiratory 25 17 16 Rate Blood Pressure 145/94 112/80 121/82 (mmHg) O2 Sat by Pulse 90 91 91 Oximetry 02/24/19 02/24/19 02/24/19 06:15 06:30 06:46 Temperature Pulse Rate 110 109 113 Respiratory 19 19 20 Rate Blood Pressure 154/96 143/96 146/93 (mmHg) O2 Sat by Pulse 89 90 90 Oximetry 02/24/19 02/24/19 02/24/19 07:00 07:16 07:30 Temperature Pulse Rate 113 111 114 Respiratory 37 17 16 Rate Blood Pressure 129/84 114/77 136/92 (mmHg) O2 Sat by Pulse 89 90 90 Oximetry 02/24/19 02/24/19 02/24/19 07:45 07:47 08:00 Temperature 98.8 F Pulse Rate 112 114 Respiratory 30 43 Rate Blood Pressure 127/87 (mmHg) O2 Sat by Pulse 89 90 Oximetry 02/24/19 02/24/19 02/24/19 08:01 08:15 08:30 Temperature Pulse Rate 114 116 125 Respiratory 23 40 44 Rate Blood Pressure 145/90 121/82 133/93 (mmHg) O2 Sat by Pulse 89 91 85 Oximetry 02/24/19 02/24/19 02/24/19 08:31 09:00 09:11 Temperature Pulse Rate 128 128 Respiratory 45 34 33 Rate Blood Pressure 156/78 (mmHg) O2 Sat by Pulse 93 91 Oximetry Oxygen Devices in Use Now: BiPAP Appearance: Elderly male lying in bed, dyspneic Neck: NL Appearance and Movements; NL JVP, Trachea Midline Respiratory: Symmetrical Chest Expansion and Respiratory Effort, Clear to Auscultation Cardiovascular: NL Sounds; No Murmurs; No JVD, RRR Abdominal: - - Soft, tender to palpation Neurological: - - Awake Lines/Tubes/Other Access: Clean, Dry and Intact Peripheral IV Result Diagrams: 02/24/19 04:57 02/24/19 04:57 Assess/Plan/Problems-Billing Assessment: Mr. Zarate is a 68 yo M with PMH of of COPD, DM2, schizoaffective disorder, RLE DVT; presented with altered mental status and possible cardiac arrest (ROSC after CPR), was found to have hypoxia with hypercarbia, tachycardia, hyperglycemia, leucocytosis, lactic acidosis and elevated troponin. Intubated in ED. - Patient Problems (1) Acute respiratory failure with hypoxia and hypercapnia Code(s): J96.01 - ACUTE RESPIRATORY FAILURE WITH HYPOXIA; J96.02 - ACUTE RESPIRATORY FAILURE WITH HYPERCAPNIA Comment: - Found unresponsive at [facility] with possible cardiac arrest (ROSC after CPR only) - Intubated upon arrival to ED; extubated on 02/15/19 - Appears euvolemic on exam and no wheezing; etiology of respiratory failure not clear - CTA unremarkable for PE - CXR showing right pleural effusion with possible infiltrates vs atelectasis - Echo on 02/12 shows normal EF of 55-60%; will recheck limited echo for LVEF today - Recheck CXR this mornning showing pulmonary edema with unchanged bilat pleural effusions (L>R) - Completed 7 day course of vanco and Zosyn - Furosemide d/c'd yesterday d/t hypovolemia and low urine output - Continue BiPAP - Restart Solu-Medrol (2) COPD (chronic obstructive pulmonary disease) Code(s): J44.9 - CHRONIC OBSTRUCTIVE PULMONARY DISEASE, UNSPECIFIED Comment: - No evidence of exaverbation - Received steroids earlier during hospitalization - Continue Dulera, Spiriva, nebs; restart Solu-Medrol (3) Type II diabetes mellitus Comment: - BG slightly improved - Continue Lispro SS, Lantus (4) History of DVT (deep vein thrombosis) Code(s): Z86.718 - PERSONAL HISTORY OF OTHER VENOUS THROMBOSIS AND EMBOLISM Comment: - Continue Xarelto (5) HTN (hypertension) Code(s): I10 - ESSENTIAL (PRIMARY) HYPERTENSION Comment: - Normotensive off medication (6) Schizoaffective disorder Code(s): F25.9 - SCHIZOAFFECTIVE DISORDER, UNSPECIFIED Comment: - Continue Depakote (7) Hyperlipidemia Code(s): E78.5 - HYPERLIPIDEMIA, UNSPECIFIED Comment: - Continue atorvastatin (8) DVT prophylaxis Comment: - Xarelto (9) DNR (do not resuscitate) Comment: Status and Disposition: Inpatient. Requiring ICU for acute BiPAP. DNR/DNI MOLST previously completed by PCP and emergency operator as the patient does not have any HCP. Prognosis is poor at this point as he has not shown consistent improvement in respiratory status. He will be placed back on BiPAP today, but it is unclear how long we should continue respiratory support if there is no obvious improvement. Palliative care consult placed. This case may ultimately need to go to Ethics Committee. Counseling and/or Coordination of Care Minutes: Critical care time: 45 minutes Attending: Ava Samano
[2019-02-24] MEDS ORDERED: LORazepam INJ* 2 MG/ML 1 ML VIAL IV PUSH PRN (10:00)
[2019-02-24] MEDS ORDERED: Lorazepam PYXIS KEY PRN (10:00)
[2019-02-24] MEDS ORDERED: Morphine ORAL CONCENTRATE* 5 MG/0.25 ML ORAL.SYRIN SL PRN ×2 (10:00→10:23)
--- NOTE | 2019-02-24 10:23 | PN ---
Progress Note - Progress Note Date of Service: 02/24/19 Note: Event Note: Discussed case with Red Butterfield NP and Dr. Ramires. Patient has COPD and acute on chronic hypoxic respiratory failure. Has schizoaffective d/o, assessed to lack capacity in 06/[address] Capellan and earlier. He has no HCP. He is DNR/DNI. Overnight he has been hypoxic at 85% sat on BiPAP in ICU. No other interventions to improve oxygenation are available. It would be futile to continue BiPAP indefinitely. Signed revised MOLST form to make patient comfort measures only. Dr. Ramires in agreement.
[2019-02-24 10:26] VITALS: BP 175/97
[2019-02-24] MEDS: SPIRIVA Respimat* (tiotropium) 2.5 mcg/inh Inhaler INH SCH (10:30)
[2019-02-24] MEDS: Mometasone/Formoter 100/5 MDI INH SCH (10:30)
[2019-02-24] MEDS: Morphine INJ* 2 MG/ML 1 ML SYRINGE (TWO MG - NEW SYRINGE VERSION) IV PRN ×2 (10:38→11:38)
--- NOTE | 2019-02-24 20:25 | DS ---
CC: Dr. Noble, [facility] * SUMMARY: DATE OF ADMISSION: 02/09/19 DATE OF EXPIRATION: 02/24/19 TIME OF : 12:35 p.m. ATTENDING PHYSICIAN: Dr. Channing Mohamud.* (DICTATED BY YARIEL ALTAMIRANO) PRIMARY CARE PROVIDER: Dr. Noble at [facility]. CAUSE OF : Respiratory arrest due to acute respiratory failure with hypoxia and hypercapnia. SECONDARY DIAGNOSES: 1. Chronic obstructive pulmonary disease. 2. Diabetes mellitus type 2. 3. History of deep venous thrombosis. 4. Hypertension. 5. Schizoaffective disorder. HISTORY OF ILLNESS AND HOSPITAL COURSE: Mr. Zarate was a 68-year-old with past medical history of diabetes, DVT, schizoaffective disorder, and COPD, who presented to the emergency room on 02/09/19. Reportedly, the patient had been found with altered mental status at the [facility] where he was residing and then there was some documentation indicating that the patient was pulseless. CPR was initiated and the patient had ROSC after CPR upon EMS arrival. EMS brought the patient to the emergency room where he urgently was intubated when he was found to be unresponsive to deep stimulation or pain. He was admitted to the intensive care unit. The patient had a lengthy stay in the intensive care unit. He was found to have bilateral infiltrates and pleural effusions and so was treated for pneumonia. He received a total of 7 days of vancomycin and Zosyn. He was successfully extubated on 02/15/19 and thereafter was requiring BiPAP. There was no evidence of heart failure, though he was given some diuresis as well as corticosteroids and showed gradual improvement in symptoms. Ultimately, the patient was transferred out of the ICU on 02/22/19 when he was only requiring 8 L of oxygen. He began to decompensate overnight on the morning of 02/23/19 and needed to be transferred back down to the intensive care unit for initiation of BiPAP once again. The patient was made a DNR/DNI by 2 physicians, one being the fur comber and other being Dr. Harper, who was previously the patient's primary care provider and knows the patient quite well. The patient did not have a healthcare proxy or any decision maker. He additionally lacked capacity to make his own medical decisions, though reportedly when he was extubated he did make it quite clear that he did not want to be intubated again. When I transferred the patient back down to the intensive care unit on 02/23/19, prognosis was quite poor as the patient had not shown significant consistent improvement in his respiratory failure. At this point, it was not clear what was continuing to cause his respiratory failure. I think initially it was caused by pneumonia, though the patient did not have any evidence of COPD exacerbation, CHF exacerbation, or pulmonary embolism. Overnight, the patient continued to do poorly and this morning the patient was saturating in the mid 80s on BiPAP with 100% FiO2. I did speak with the patient's new primary care provider, Dr. Noble, who has not met the patient, though I did speak with him about the patient's history and hospital course and he was in agreement that comfort measures sounded to be the most appropriate treatment going forward since the patient had failed all other medical interventions and was likely suffering. He indicated that it would be fine with him for 2 physicians here to sign a MOLST indicating that the patient would be comfort measures. I did speak with Dr. Ramires, the fur comber and Dr. Mohamud, my attending, who both reviewed the patient's case and were in agreement that comfort measures sounded to be the most appropriate treatment going forward. They both saw the patient and completed a MOLST form indicating that the patient was a DNR/DNI, comfort measures only. The patient was taken off BiPAP around 10:30 this morning. He was given morphine for dyspnea and air hunger and he ultimately at 12: 35 p.m. There is no family to notify. DISCHARGE CONDITION: . DISCHARGE DISPOSITION: . This is a summary of a complex history and hospital stay. For further details, please see the entire medical record. TIME SPENT: Approximately 65 minutes was spent on the care of this patient. TRACIE TINSLEY NP [id number]/[facility] #: [id number] JESSICA
== END 2019-02-24 12:35 | disposition expired | DRG 207 ==
LOC: ED 20:29 → ICU 23:53 → MED 02-22 14:09 → ICU 02-23 08:08
PROVIDERS: ADMIT Internal Medicine; ATTEND Internal Medicine
PROC: 0BH17EZ Insertion of Endotracheal Airway into Trachea, Via Natural or Artificial Opening (ICD-10-PCS; principal; 2019-02-09)
PROC: 5A1955Z Respiratory Ventilation, Greater than 96 Consecutive Hours (ICD-10-PCS; 2019-02-09)
PROC: 5A09357 Assistance with Respiratory Ventilation, Less than 24 Consecutive Hours, Continuous Positive Airway Pressure (ICD-10-PCS; 2019-02-17)
DX: J96.21 Acute and chronic respiratory failure with hypoxia (principal); J18.9 Pneumonia, unspecified organism; E87.3 Alkalosis; E87.2 Acidosis; I82.509 Chronic embolism and thrombosis of unspecified deep veins of unspecified lower extremity; J90 Pleural effusion, not elsewhere classified; G93.40 Encephalopathy, unspecified; J44.0 Chronic obstructive pulmonary disease with (acute) lower respiratory infection; J96.22 Acute and chronic respiratory failure with hypercapnia; E78.00 Pure hypercholesterolemia, unspecified; I10 Essential (primary) hypertension; J44.9 Chronic obstructive pulmonary disease, unspecified; K21.9 Gastro-esophageal reflux disease without esophagitis; M48.00 Spinal stenosis, site unspecified; F25.9 Schizoaffective disorder, unspecified; E11.65 Type 2 diabetes mellitus with hyperglycemia; E78.5 Hyperlipidemia, unspecified; E83.51 Hypocalcemia; E87.70 Fluid overload, unspecified; K59.00 Constipation, unspecified; Z51.5 Encounter for palliative care; Z66 Do not resuscitate; E87.6 Hypokalemia; B95.62 Methicillin resistant Staphylococcus aureus infection as the cause of diseases classified elsewhere; Z87.891 Personal history of nicotine dependence; Z79.4 Long term (current) use of insulin
CPT/HCPCS: 36415; 36600; 70450; 71045; 71275; 80048; 80053; 80061; 80164; 80202; 80320; 80329; 81003; 81015; 82550; 82565; 82803; 82947; 83036; 83605; 83735; 84443; 84484; 84520; 85025; 85027; 87040; 87070; 87077; 87086; 87106; 87186; 87205; 87641; 87899; 93005; 93306; 93308; 94003; 94640; 94660; 96365; 99285; A9270-GY; C8924; C8929; G0480; J0330; J0610; J0696; J1120; J1630; J1940; J2060; J2270; J2543; J2704; J2920; J2930; J3010; J3370; J3480; J3535; Q9967